=== PATIENT | female | born 1990 | race Caucasian/White ===

== ENCOUNTER 2020-03-21 16:08 | Emergency (ER) | payer MEDICAID, OTHER ==
[2020-03-21] MEDS ORDERED: NA CHLORIDE 0.9% 1,000 ML ONE (16:50)
[2020-03-21] MEDS ORDERED: ONDANSETRON 4 MG/2 ML VIAL ONE (16:50)
[2020-03-21] MEDS ORDERED: DICYCLOMINE HCL 20 MG/2 ML AMP IM ONE (16:50)
[2020-03-21 16:53] LABS: Absolute Lymphocytes (CBC) 1.1 K/uL (0.7-4.9); Basophils % 0.1 % (0-1.3); Hematocrit 37.2 % (36.0-45.0); Lymphocytes % 6.3 % (15.3-44.8); MPV 6.1 fL (7.6-11.3); RBC Red Blood Cell Count 3.69 M/uL (3.86-4.86)
[2020-03-21] MEDS ORDERED: HALOPERIDOL LACT 5 MG/ML INJ ONE (17:04)
[2020-03-21 17:16] LABS: Albumin 4.5 g/dL (3.4-5.0); Bilirubin Direct 0.2 mg/dL (0-0.2); Bilirubin Total 0.8 mg/dL (0.2-1.0); Potassium 3.9 mmol/L (3.5-5.1); Protein, Total 8.4 g/dL (6.4-8.2)
--- NOTE | 2020-03-21 17:27 | RAD REPORT ---
EXAM DESCRIPTION: CTAbdomen Pelvis W Contrast - 03/21/2020 5:19 pm CLINICAL HISTORY: Abdominal pain. ABD PAIN COMPARISON: No comparisons TECHNIQUE: Biphasic CT imaging of the abdomen and pelvis was performed with 100 ml non-ionic IV cont rast. All CT scans are performed using dose optimization technique as appropriate and may include automated exposure control or mA/KV adjustment according to patient size. FINDINGS: The lung bases are clear. The liver, spleen, pancreas, adrenal glands and kidneys are within normal limits. No bowel obstruction, free air, intra-abdominal free fluid or abscess. Several thickened small bowel loops are seen in the abdomen. Small amount of free fluid is noted in the pelvis. The appendix is nor mal. No evidence of significant lymphadenopathy. No suspicious bony findings. IMPRESSION: Numerous mildly thickened small bowel loops in the abdomen suggests a nonspecific enteri tis. Infectious or inflammatory etiologies are possible.
--- NOTE | 2020-03-21 17:51 | EDPHYS ---
Physician Documentation [facility] Name: Ashley Alcala Age: 29 yrs Sex: Female : 1990 Arrival Date: 03/21/2020 Time: 16:10 Bed 4 Private MD: ED Physician Chandrakant Smith HPI: 03/21 17:56 This 29 yrs old Female presents to ER via Ambulatory with complaints of kb Abdominal Pain, Nausea/Vomiting. 17:56 The patient presents to the emergency department with nausea, vomiting, abdominal pain, kb described as burning, crampy. Onset: The symptoms/episode began/occurred this morning. Possible causes: unknown. The symptoms are aggravated by nothing. The symptoms are alleviated by nothing. Associated signs and symptoms: Pertinent positives: abdominal pain, nausea, vomiting. Severity of symptoms: At their worst the symptoms were severe in the emergency department the symptoms are unchanged. The patient has not experienced similar symptoms in the past. The patient has not recently seen a physician. Pt reports she has had nausea, vomiting and abd burning/cramping since she woke up this morning. States she has had this multiple times in the past and normally needs fluids, bentyl, zofran and haldol to make it better. Historical: - Allergies: 16:17 No Known Allergies; ll1 - PMHx: 16:17 Hypothyroidism; ll1 - PSHx: 16:17 Tubal ligation; ll1 - Immunization history:: Flu vaccine is not up to date. - Social history:: Smoking status: Patient reports the use of cigarette tobacco products, smokes one-half pack cigarettes per day. ROS: 17:54 Constitutional: Negative for fever, chills, and weight loss, Cardiovascular: Negative kb for chest pain, palpitations, and edema, Respiratory: Negative for shortness of breath, cough, wheezing, and pleuritic chest pain, Back: Negative for injury and pain, MS/Extremity: Negative for injury and deformity, Skin: Negative for injury, rash, and discoloration, Neuro: Negative for headache, weakness, numbness, tingling, and seizure. 17:54 Abdomen/GI: Positive for abdominal pain, nausea and vomiting. Exam: 17:55 Constitutional: This is a well developed, well nourished patient who is awake, alert, kb and in no acute distress. Head/Face: Normocephalic, atraumatic. Chest/axilla: Normal chest wall appearance and motion. Nontender with no deformity. No lesions are appreciated. Cardiovascular: Regular rate and rhythm with a normal S1 and S2. No gallops, murmurs, or rubs. Normal PMI, no JVD. No pulse deficits. Respiratory: Lungs have equal breath sounds bilaterally, clear to auscultation and percussion. No rales, rhonchi or wheezes noted. No increased work of breathing, no retractions or nasal flaring. Skin: Warm, dry with normal turgor. Normal color with no rashes, no lesions, and no evidence of cellulitis. MS/ Extremity: Pulses equal, no cyanosis. Neurovascular intact. Full, normal range of motion. Neuro: Awake and alert, GCS 15, oriented to person, place, time, and situation. Cranial nerves II-XII grossly intact. Motor strength 5/5 in all extremities. Sensory grossly intact. Cerebellar exam normal. Normal gait. 17:55 Abdomen/GI: Inspection: abdomen appears normal, Bowel sounds: normal, in all quadrants, Palpation: soft, in all quadrants, mild abdominal tenderness, in all quadrants. Vital Signs: 16:17 Pulse 67; Resp 18; Temp 98.0; Pulse Ox 99% ; Weight 54.43 kg; Height 5 ft. 2 in. ll1 (157.48 cm); Pain 10/10; 16:25 BP 122 / 71; ll1 17:42 BP 118 / 68; Pulse 64; Resp 18; Temp 97.8; Pulse Ox 100% on R/A; ph 16:17 Body Mass Index 21.95 (54.43 kg, 157.48 cm) ll1 MDM: 16:23 Patient medically screened. marilin 17:54 Data reviewed: vital signs, nurses notes. Data interpreted: Pulse oximetry: on room air kb is 100 %. Interpretation: normal. Counseling: I had a detailed discussion with the patient and/or guardian regarding: the historical points, exam findings, and any diagnostic results supporting the discharge/admit diagnosis, lab results, radiology results, the need for outpatient follow up, a family practitioner, to return to the emergency department if symptoms worsen or persist or if there are any questions or concerns that arise at home. 17:55 ED course: Symptoms resolved after treatment. marilin 03/21 16:25 Order name: Basic Metabolic Panel; Complete Time: 17:16 kb 03/21 16:25 Order name: CBC with Diff kb 03/21 16:25 Order name: Hepatic Function; Complete Time: 17:16 kb 03/21 16:25 Order name: Lipase; Complete Time: 17:16 kb 03/21 17:00 Order name: CT Abd/Pelvis - IV Contrast Only; Complete Time: 17:28 kb 03/21 16:25 Order name: IV Saline Lock; Complete Time: 16:49 kb 03/21 16:25 Order name: Labs collected and sent; Complete Time: 16:49 kb Administered Medications: 16:55 Drug: NS 0.9% 1000 ml Route: IV; Rate: 1000 ml; Site: left antecubital; ph 18:01 Follow up: Response: No adverse reaction; IV Status: Completed infusion; IV Intake: ph 1000ml 16:56 Drug: Zofran (Ondansetron) 4 mg Route: IVP; Site: left antecubital; ph 17:30 Follow up: Response: No adverse reaction ph 16:56 Drug: Bentyl 20 mg Route: IM; Site: right gluteus; ph 17:30 Follow up: Response: No adverse reaction; Marked relief of symptoms ph 16:56 Drug: HALdol 1 mg Route: IVP; Site: left antecubital; ph 17:30 Follow up: Response: No adverse reaction; Marked relief of symptoms ph Disposition: 03/22 14:38 Co-signature as Attending Physician, Chandrakant Smith MD I agree with the assessment and hugo plan of care. Disposition: 03/21/20 17:51 Discharged to Home. Impression: Nausea and vomiting, Unspecified abdominal pain. - Condition is Stable. - Discharge Instructions: Nausea and Vomiting, Adult, Nuds-ox-Qcgx, Abdominal Pain, Adult, [id number]-Kdri. - Prescriptions for Bentyl 20 mg Oral Tablet - take 1 tablet by ORAL route every 6 hours As needed; 20 tablet. Zofran 4 mg Oral Tablet - take 1 tablet by ORAL route every 6 hours As needed; 20 tablet. - Medication Reconciliation Form, Thank You Letter, Antibiotic Education, Prescription Opioid Use form. - Follow up: Emergency Department; When: As needed; Reason: Worsening of condition. Follow up: Private Physician; When: 2 - 3 days; Reason: Recheck today's complaints, Continuance of care, Re-evaluation by your physician. Signatures: Dispatcher [employer] EDNayana Santana, TRAVEL ADMINISTRATOR-C TRAVEL ADMINISTRATOR-Chandrakant Stewart MD MD cha Hall, Patricia, RN RN Keyona Zayas RN RN Viviana Morrow RN RN ll1 Corrections: (The following items were deleted from the chart) 03/21 17:56 17:51 03/21/2020 17:51 Discharged to Home. Impression: Nausea and vomiting; Unspecified hb abdominal pain. Condition is Stable. Forms are Medication Reconciliation Form, Thank You Letter, Antibiotic Education, Prescription Opioid Use. Follow up: Emergency Department; When: As needed; Reason: Worsening of condition. Follow up: Private Physician; When: 2 - 3 days; Reason: Recheck today's complaints, Continuance of care, Re-evaluation by your physician. kb
--- NOTE | 2020-03-21 17:51 | ER ---
Nurse's Notes [facility] Name: Ashley Alcala Age: 29 yrs Sex: Female : 1990 Arrival Date: 03/21/2020 Time: 16:10 Bed 4 Private MD: Diagnosis: Nausea and vomiting;Unspecified abdominal pain Presentation: 03/21 16:17 Chief complaint: Patient states: Abd pain with N/V/D for 1 day. No fever. Coronavirus ll1 screen: Client denies travel out of the [place] in the last 14 days. At this time, the client does not indicate any symptoms associated with coronavirus-19. Ebola Screen: Patient denies travel to an Ebola-affected area in the 21 days before illness onset. Initial Sepsis Screen: Does the patient meet any 2 criteria? No. Patient's initial sepsis screen is negative. Does the patient have a suspected source of infection? Yes: Acute abdominal pain. Risk Assessment: Do you want to hurt yourself or someone else? Patient reports no desire to harm self or others. Onset of symptoms was March 21, 2020. 16:17 Method Of Arrival: Ambulatory ll1 16:17 Acuity: ESTEVAN 3 ll1 Historical: - Allergies: 16:17 No Known Allergies; ll1 - PMHx: 16:17 Hypothyroidism; ll1 - PSHx: 16:17 Tubal ligation; ll1 - Immunization history:: Flu vaccine is not up to date. - Social history:: Smoking status: Patient reports the use of cigarette tobacco products, smokes one-half pack cigarettes per day. Screenin:43 Abuse screen: Denies threats or abuse. Denies injuries from another. Nutritional ph screening: No deficits noted. Tuberculosis screening: No symptoms or risk factors identified. Fall Risk None identified. Assessment: 17:00 General: Appears in no apparent distress. uncomfortable, slender, Behavior is ph cooperative, appropriate for age, anxious, Denies fever. Pain: Complains of pain in abdomen. Neuro: Level of Consciousness is awake, alert, obeys commands, Oriented to person, place, time, situation. Cardiovascular: Capillary refill < 3 seconds in bilateral fingers Patient's skin is warm and dry. Respiratory: Airway is patent Respiratory effort is even, unlabored, Respiratory pattern is regular, symmetrical. GI: Abdomen is flat, Reports lower abdominal pain, upper abdominal pain, cramping, diarrhea, nausea, vomiting. Derm: Skin is intact, Skin is pink, warm \T\ dry. Musculoskeletal: Circulation, motion, and sensation intact. Range of motion: intact in all extremities. 17:39 Reassessment: Patient appears in no apparent distress at this time. Patient and/or ph family updated on plan of care and expected duration. Pain level reassessed. Patient is alert, oriented x 3, equal unlabored respirations, skin warm/dry/pink. Patient states feeling better. Patient states symptoms have improved. Vital Signs: 16:17 Pulse 67; Resp 18; Temp 98.0; Pulse Ox 99% ; Weight 54.43 kg; Height 5 ft. 2 in. ll1 (157.48 cm); Pain 10/10; 16:25 BP 122 / 71; ll1 17:42 BP 118 / 68; Pulse 64; Resp 18; Temp 97.8; Pulse Ox 100% on R/A; ph 16:17 Body Mass Index 21.95 (54.43 kg, 157.48 cm) ll1 ED Course: 16:10 Patient arrived in ED. ds1 16:11 Nayana Alves FNP-C is [facility]. kb 16:11 Chandrakant Smith MD is Attending Physician. kb 16:16 Arm band placed on. ll1 16:18 Triage completed. ll1 16:25 Jennyfer Lr, RN is Primary Nurse. ph 16:45 Initial lab(s) drawn, by ma, sent to lab. Inserted saline lock: 20 gauge in left dh3 antecubital area, using aseptic technique. Blood collected. 17:19 CT Abd/Pelvis - IV Contrast Only In Process Unspecified. EDMS 17:43 Patient has correct armband on for positive identification. Bed in low position. Call ph light in reach. Side rails up X 1. Pulse ox on. NIBP on. Door closed. Noise minimized. 17:43 No provider procedures requiring assistance completed. ph 17:56 IV discontinued, intact, bleeding controlled, No redness/swelling at site. hb Administered Medications: 16:55 Drug: NS 0.9% 1000 ml Route: IV; Rate: 1000 ml; Site: left antecubital; ph 18:01 Follow up: Response: No adverse reaction; IV Status: Completed infusion; IV Intake: ph 1000ml 16:56 Drug: Zofran (Ondansetron) 4 mg Route: IVP; Site: left antecubital; ph 17:30 Follow up: Response: No adverse reaction ph 16:56 Drug: Bentyl 20 mg Route: IM; Site: right gluteus; ph 17:30 Follow up: Response: No adverse reaction; Marked relief of symptoms ph 16:56 Drug: HALdol 1 mg Route: IVP; Site: left antecubital; ph 17:30 Follow up: Response: No adverse reaction; Marked relief of symptoms ph Intake: 18:01 IV: 1000ml; Total: 1000ml. ph Outcome: 17:51 Discharge ordered by . kb 17:55 Discharged to home ambulatory. hb 17:55 Condition: stable 17:55 Discharge instructions given to patient, Instructed on discharge instructions, follow up and referral plans. medication usage, Demonstrated understanding of instructions, follow-up care, medications, Prescriptions given X 2. 17:56 Patient left the ED. Signatures: Dispatcher [employer] EDNayana Santana, KELVIN-Montse WORTHINGTONP-Linnette Odom ds1 Jennyfer Lr, LEN RN Keyona Hodges, LEN RN Polina Madden 3 Viviana Kahn, RN RN ll1
[2020-03-21 18:20] VITALS: BP 118/68; TEMP 97.8; O2SAT 100
[2020-03-21 19:15] LABS: Platelet Estimate INCR; White Blood Cell Scan OK (OK)
[2020-03-21 19:16] LABS: Blood Morphology Comment NOT SEEN (NOT SEEN)
== END 2020-03-21 17:56 | disposition home or self-care (01) ==
LOC: ER 16:08
DX: R11.2 Nausea with vomiting, unspecified (principal); F17.210 Nicotine dependence, cigarettes, uncomplicated
CPT/HCPCS: 96361; 85025; 80048; 36415; 80076; 83690; 74177; 96375; 96372; 96374; 99284; Q9967; J1630; J0500; J7030; J2405

== ENCOUNTER 2020-10-31 07:08 | Emergency (ER) | payer OTHER ==
[2020-10-31 07:31] LABS: Urine Blood 1+ (Negative); Urine Glucose Negative (Negative); Urine Protein Negative (Negative); Urine Specific Gravity >=1.030 (1.005-1.030)
[2020-10-31] MEDS ORDERED: HYDROCODONE/APAP 5/325 MG TAB ONE (07:49)
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
--- NOTE | 2020-10-31 09:55 | RAD REPORT ---
EXAM DESCRIPTION: RAD - Shoulder Right 2 View - 10/31/2020 7:36 am CLINICAL HISTORY: PAIN COMPARISON: No comparisons FINDINGS: No acute fracture or dislocation seen.
[2020-10-31] MEDS ORDERED: TETANUS & DIPHTHERIA TOX,ADULT 0.5 ML VIAL ONE (10:05)
[2020-10-31 10:16] VITALS: O2SAT 100
[2020-10-31 10:17] VITALS: BP 116/83
== END 2020-10-31 10:07 | disposition home or self-care (01) ==
LOC: ER 07:08
DX: S43.401A Unspecified sprain of right shoulder joint, initial encounter (principal); V87.8XXA Person injured in other specified noncollision transport accidents involving motor vehicle (traffic), initial encounter; Y93.89 Activity, other specified; Y92.410 Unspecified street and highway as the place of occurrence of the external cause
CPT/HCPCS: 70450; 71260; 72125; 74177; 81003; 81025; 90471; 90714; 99284; G0390

== ENCOUNTER 2022-04-09 15:33 | Emergency (ER) | payer OTHER ==
--- OUTSIDE RECORDS SUMMARY | 2022-04-09 15:37 | XMS REPORT | Continuity of Care Document ---
:1990 Author Organization [facility] t Address [address] [facility] [address] [facility] [address] [place] [address] Care Team Providers Name Role Phone Mehran Kuhn Primary Care Physician Doctor Unassigned, [place] Attending Clinician Unavailable SRAVAN MISHRA Attending Clinician Unavailable Estrada Sotelo MD Attending Clinician rSavan Mishra MD Attending Clinician MAGEN ROUSE Attending Clinician Unavailable Magen Rouse MD Attending Clinician SHIRLEY LOVE Attending Clinician Unavailable Shirley Hart Attending Clinician Angi Sanford MD Attending Clinician JAVI ZULETA Attending Clinician Unavailable AIDEE PINEDA Attending Clinician Unavailable JOSSY KWAN Attending Clinician Unavailable Eber_Ivette Attending Clinician Unavailable ESTRADA SOTELO Admitting Clinician Unavailable Estrada Sotelo MD Admitting Clinician MAGEN ROUSE Admitting Clinician Unavailable JOSSY KWAN Admitting Clinician Unavailable David Admitting Clinician Unavailable Payers Payer Name Policy Type Policy Number Effective Date Expiration Date [facility] [id number] 2019 CHOICE MEDICAID 00:00:[address] [facility] [id number] 2019 00:00:00 Problems Condition Condition Condition Status Onset Resolution Last Treating Co mments Source Name Details Category Date Date Treatment Clinician Date Disease Active U nivers care and care and 1-08 ity of examin[place] of 00 Medical lactating lactating Bran ch mother mother , , Disease Active 2016-02 Univers delivered delivered 2-17 ity of 00:00: [address] Anemia, Anemia, Disease Active 2016-02 Univers 2-17 it y of 00:00: [address] - - Disease Active 2016-02 U nivers induced induced 2-17 it[place] of hypertensi hypertens[place] Medical third third Branch trimester trimester Tubal Tubal Disease Active 2016-02 Univers ligation ligation 2-17 ity of status status 00:00: [address] Full-term Full-term Disease Active 2016-02 Uni vers jovita ROM, jovita ROM, 2-16 ity of unsp [place]w 00 Medical rupture rupture Branch and onset and onset labor labor 38 weeks 38 weeks Disease Active 2016-02 Unive rs gestation gestation 2-16 ity of of of 00:00: [place] 00 [facility] Research Research Disease Active 2016-02 Overview: Un [place] study study 2-16 Formattin ity of patient patient 00:00: g of this [place] HCTZ HCTZ 00 note is Medical different Branch from the original. Patient is in the HCTZ study IRB # [id number] y questions please contact:Corina Guadalupe MD [phone] Arnold MD [phone] Owen MD [phone] facts Patient randomize d after delivery if they met inclusion criteria a nd accepted Medicati on comes from [facility] not pharmacy, [facility]S Phone Number Ext. [phone] or cell Patient can start meds as soon as they tolerate PO One tab per day of either placebo or HCTZ Medicati on stays with patient Medicati on will appear on MAR, Nurses need to rene as given (No barcode) Medicati on needs to counted prior to discharge by research rehabilitation team lead All follow ups need to be on POD or PP day # 14 or more Patient needs to be reminded to bring their left over medicatio n and bottle back to their visit [facility]S needs to be notified at time of discharge Please contact Dr. Guadalupe with any Questions Previous Previous Disease Active 2016-02 Unive rs 2-06 ity of delivery delivery 00:00: [place] desires desires 00 Medical TOLAC TOLAC Branch Supervisio Supervisio Disease Active 2016-02 U nivers n of n of 2-06 ity of high-risk high-risk 00:[place] ascencion with with Branch insufficie insufficie nt nt care care Allergies, Adverse Reactions, Alerts Allergy Allergy Status Severity Reaction(s) Onset Inactive Treating Comm ents Source Name Type Date Date Clinician NO KNOWN Drug Active Univers ALLERGIE Class ity of S [facility] Social History Social Habit Start Date Stop Date Quantity Comments Source History of tobacco Cigarette Smoker University of use [facility] Exposure to 2021-11-09 2021-11-19 Not sure [facility] SARS-CoV-2 (event) 00:00:00 11:34:00 [facility] Alcohol intake 2020-09-29 2020-09-29 0 /d University of 00:00:00 00:00:00 [facility] Cigarettes smoked 2016-06-07 2016-06-07 Univers ity of current (pack per 00:00:00 00:00:00 ) - Reported Branch Cigarette 2016-06-07 2016-06-07 University of pack-years 00:00:00 00:00:00 [facility] Tobacco use and 2016-06-07 2016-06-07 Smokeless Universit y of exposure 00:00:00 00:00:00 tobacco non-user [facility] Sex Assigned At [birth year] Universit y of 00:00:00 00:00:00 [facility] Smoking Status Start Date Stop Date Source Smokes tobacco daily 2016-06-07 00:00:00 Univers ity of [facility] Medications Ordered Filled Start Stop Current Ordering Indication Dosage Frequency Signature Comments Components Source Medication Medication Date Date Medication? Clinician (SIG) Name Name HYDROcodone 2021-02 Yes 1{tbl} 1 tablet, Univers -acetaminop 0-14 Oral, ity of hen (NORCO 18:36: Q6HPRN[place] 5) 5-325 mg 44 Starting Medi ascencion tablet 1 on Fri Branch tablet 11/19/21 at 1336, Until Discontinu ed, Routine, Pain (scale 4-6) acetaminoph 2021-02 Yes 650mg 650 mg, [place] en 0-14 Oral, ity of (TYLENOL) 18:36: Q6HPRN, [place] tablet 650 26 Starting Medic al mg on Fri Branch 11/19/21 at 1336, Until Discontinu ed, Routine, Pain (scale 1-3) ondansetron 2021-02- No 4mg 4 mg, Univ ers (ZOFRAN-ODT 0-14 10-14 Oral, ity of ) 13:45: 12:59 ONCE, 1 [place] disintegrat 00 :00 dose, On Medi ascencion ing tablet Mon Branch 4 mg 11/19/21 at 0845, Routine HYDROcodone 2021-02- No 1{tbl} 1 tablet, Univers -acetaminop 0-14 10-14 Oral, ity of hen (NORCO 13:00: 12:59 ONCE, 1 [place] 5) 5-325 mg 00 :00 dose, On [facility] ascencion tablet 1 [facility] tablet 11/19/21 at 0800, ANA M cyclobenzap 2021-02 Yes [id number] 5mg Take 1 Univers rine 5 mg 0-14 tablet by ity o f tablet 00:00: mouth in [place] 00 the Medical morning Branch and 1 tablet at noon and 1 tablet in the evening. cyclobenzap 2021-02 Yes [id number] 5mg Take 1 Univers rine 5 mg 0-14 tablet by ity o f tablet 00:00: mouth in [place] 00 the Medical morning Branch and 1 tablet at noon and 1 tablet in the evening. predniSONE 2021-02 Yes [id number] 40mg Take 2 Univers 20 mg 0-05 [id number] tablets by ity of tablet 00:00: mouth in [place] 00 the Medical morning. Branch predniSONE 2021-02 Yes [id number] 40mg Take 2 Univers 20 mg 0-05 [id number] tablets by ity of tablet 00:00: mouth in [place] 00 the Medical morning. Branch predniSONE 2021-02 Yes [id number] 40mg Take 2 Univers 20 mg 0-05 [id number] tablets by ity of tablet 00:00: mouth in [place] 00 the Medical morning. Branch predniSONE 2021-02 Yes [id number] 40mg Take 2 Univers 20 mg 0-05 [id number] tablets by ity of tablet 00:00: mouth in [place] 00 the Medical morning. Branch HYDROcodone 2021-02- No [id number] 1{tbl} Take 1 U nivers -acetaminop 0-05 10-13 tablet by it y of hen (NORCO) 00:00: 04:59 [place] 7.5-325 mg 00 :00 every 8 Medica l per tablet (eight) [place] hours as needed for Pain for up to 7 days. Indication s: acute pain budesonide- Yes [id number] 2{puff} Inhale 2 Univers formoteroL 8-24 Puffs 2 ity of 80-4.5 00:00: (two) [place] mcg/actuati 00 times Medical on inhaler daily. Branch bromphenira Yes [id number] 5mL Take 5 mL Univers mine-pseudo 8-24 by mouth 4 it y of ephedrine-D 00:00: (four) [place] M (BROMFED 00 times Medical DM) 2-30-10 daily as Bran ch mg/5 mL needed for syrup Congestion /Allergies or Cough. budesonide- Yes [id number] 2{puff} Inhale 2 Univers formoteroL 8-24 Puffs 2 ity of 80-4.5 00:00: (two) [place] mcg/actuati 00 times Medical on inhaler daily. Branch bromphenira Yes [id number] 5mL Take 5 mL Univers mine-pseudo 8-24 by mouth 4 it y of ephedrine-D 00:00: (four) [place] M (BROMFED 00 times Medical DM) 2-30-10 daily as Bran ch mg/5 mL needed for syrup Congestion /Allergies or Cough. budesonide- Yes [id number] 2{puff} Inhale 2 Univers formoteroL 8-24 Puffs 2 ity of 80-4.5 00:00: (two) [place] mcg/actuati 00 times Medical on inhaler daily. Branch bromphenira Yes [id number] 5mL Take 5 mL Univers mine-pseudo 8-24 by mouth 4 it y of ephedrine-D 00:00: (four) [place] M (BROMFED 00 times Medical DM) 2-30-10 daily as Bran ch mg/5 mL needed for syrup Congestion /Allergies or Cough. budesonide- Yes [id number] 2{puff} Inhale 2 Univers formoteroL 8-24 Puffs 2 ity of 80-4.5 00:00: (two) [place] mcg/actuati 00 times Medical on inhaler daily. Branch bromphenira Yes [id number] 5mL Take 5 mL Univers mine-pseudo 8-24 by mouth 4 it y of ephedrine-D 00:00: (four) [place] M (BROMFED 00 times Medical DM) 2-30-10 daily as Bran ch mg/5 mL needed for syrup Congestion /Allergies or Cough. budesonide- Yes [id number] 2{puff} Inhale 2 Univers formoteroL 8-24 Puffs 2 ity of 80-4.5 00:00: (two) [place] mcg/actuati 00 times Medical on inhaler daily. Branch bromphenira Yes [id number] 5mL Take 5 mL Univers mine-pseudo 8-24 by mouth 4 it y of ephedrine-D 00:00: (four) [place] M (BROMFED 00 times Medical DM) 2-30-10 daily as Bran ch mg/5 mL needed for syrup Congestion /Allergies or Cough. budesonide- Yes [id number] 2{puff} Inhale 2 Univers formoteroL 8-24 Puffs 2 ity of 80-4.5 00:00: (two) [place] mcg/actuati 00 times Medical on inhaler daily. Branch bromphenira Yes [id number] 5mL Take 5 mL Univers mine-pseudo 8-24 by mouth 4 it y of ephedrine-D 00:00: (four) [place] M (BROMFED 00 times Medical DM) 2-30-10 daily as Bran ch mg/5 mL needed for syrup Congestion /Allergies or Cough. budesonide- 0 Yes [id number] 2{puff} Inhale 2 Univers formoteroL 8-24 Puffs 2 ity of 80-4.5 00:00: (two) [place] mcg/actuati 00 times Medical on inhaler daily. Branch bromphenira Yes [id number] 5mL Take 5 mL Univers mine-pseudo 8-24 by mouth 4 it y of ephedrine-D 00:00: (four) [place] M (BROMFED 00 times Medical DM) 2-30-10 daily as Bran ch mg/5 mL needed for syrup Congestion /Allergies or Cough. budesonide- Yes [id number] 2{puff} Inhale 2 Univers formoteroL 8-24 Puffs 2 ity of 80-4.5 00:00: (two) [place] mcg/actuati 00 times Medical on inhaler daily. Branch bromphenira Yes [id number] 5mL Take 5 mL Univers mine-pseudo 8-24 by mouth 4 it y of ephedrine-D 00:00: (four) [place] M (BROMFED 00 times Medical DM) 2-30-10 daily as Bran ch mg/5 mL needed for syrup Congestion /Allergies or Cough. LIALDA 1.2 Yes Univers gram EC 7-28 ity of tablet 00:00: Medical Branch LIALDA 1.2 2020-0 Yes Univers gram EC 7-28 ity of tablet 00:00: Medical Branch LIALDA 1.2 2020-0 Yes Univers gram EC 7-28 ity of tablet 00:00: Medical Branch LIALDA 1.2 2020-0 Yes Univers gram EC 7-28 ity of tablet 00:00: Medical Branch LIALDA 1.2 2020-0 Yes Univers gram EC 7-28 ity of tablet 00:00: Medical Branch LIALDA 1.2 2020-0 Yes Univers gram EC 7-28 ity of tablet 00:00: Medical Branch LIALDA 1.2 2020-0 Yes Univers gram EC 7-28 ity of tablet 00:00: Medical Branch LIALDA 1.2 2020-0 Yes Univers gram EC 7-28 ity of tablet 00:00: [facility] Branch Hyoscyamine 0 Yes TAKE 1-2 [place] Sulfate 7-26 TABLETS BY ity of 0.125 mg 00:00: MOUTH [place] TbDL 00 EVERY 4 TO Medical 6 HOURS Branch NEEDED sucralfate 2021-0 Yes Univers 1 gram 7-26 ity of tablet 00:00: [place] 00 Medical Branch Hyoscyamine 2020-0 Yes TAKE 1-2 [place] Sulfate 7-26 TABLETS BY ity of 0.125 mg 00:00: MOUTH [place] TbDL 00 EVERY 4 TO Medical 6 HOURS Branch NEEDED sucralfate 2021-0 Yes Univers 1 gram 7-26 ity of tablet 00:00: [place] 00 Medical Branch Hyoscyamine 2020-0 Yes TAKE 1-2 [place] Sulfate 7-26 TABLETS BY ity of 0.125 mg 00:00: MOUTH [place] TbDL 00 EVERY 4 TO Medical 6 HOURS Branch NEEDED sucralfate 202-0 Yes Univers 1 gram 7-26 ity of tablet 00:00: [place] 00 Medical Branch Hyoscyamine 2020-0 Yes TAKE 1-2 [place] Sulfate 7-26 TABLETS BY ity of 0.125 mg 00:00: MOUTH [place] TbDL 00 EVERY 4 TO Medical 6 HOURS Branch NEEDED sucralfate 2020-0 Yes Univers 1 gram 7-26 ity of tablet 00:00: [place] 00 Medical Branch Hyoscyamine 2020-0 Yes TAKE 1-2 [place] Sulfate 7-26 TABLETS BY ity of 0.125 mg 00:00: MOUTH [place] TbDL 00 EVERY 4 TO Medical 6 HOURS Branch NEEDED sucralfate 2021-0 Yes Univers 1 gram 7-26 ity of tablet 00:00: [place] 00 Medical Branch Hyoscyamine 2020-0 Yes TAKE 1-2 [place] Sulfate 7-26 TABLETS BY ity of 0.125 mg 00:00: MOUTH [place] TbDL 00 EVERY 4 TO Medical 6 HOURS Branch NEEDED sucralfate 2021-0 Yes Univers 1 gram 7-26 ity of tablet 00:00: [place] 00 Medical Branch Hyoscyamine 2020-0 Yes TAKE 1-2 [place] Sulfate 7-26 TABLETS BY ity of 0.125 mg 00:00: MOUTH [place] TbDL 00 EVERY 4 TO Medical 6 HOURS Branch NEEDED sucralfate 2021-0 Yes Univers 1 gram 7-26 ity of tablet 00:00: [place] 00 Medical Branch Hyoscyamine 2020-0 Yes TAKE 1-2 [place] Sulfate 7-26 TABLETS BY ity of 0.125 mg 00:00: MOUTH [place] TbDL 00 EVERY 4 TO Medical 6 HOURS Branch NEEDED sucralfate 2020-0 Yes Univers 1 gram 7-26 ity of tablet 00:00: [place] Medical Branch atomoxetine 2020-0 Yes 40mg Take 40 mg Univers 40 mg 6-10 by mouth ity of capsule 00:00: daily. Medical Branch SERTraline 2020-0 Yes 100mg Take 100 [place] 100 mg 6-10 mg by ity of tablet 00:00: mouth [place] [id number] every Medical morning. Branch traZODone 2020-0 Yes TAKE 1 Univer s 50 mg 6-10 TABLET BY ity of tablet 00:00: MOUTH [place] NIGHTLY Medical Branch atomoxetine 2020-0 Yes 40mg Take 40 mg Univers 40 mg 6-10 by mouth ity of capsule 00:00: daily. Medical Branch SERTraline 2020-0 Yes 100mg Take 100 [place] 100 mg 6-10 mg by ity of tablet 00:00: [place] [address] every Medical morning. Branch traZODone 2020-0 Yes TAKE 1 Univer s 50 mg 6-10 TABLET BY ity of tablet 00:00: [facility] NIGHTLY Medical Branch atomoxetine 2020-0 Yes 40mg Take 40 mg Univers 40 mg 6-10 by mouth ity of capsule 00:00: daily. Medical Branch SERTraline 2020-0 Yes 100mg Take 100 [place] 100 mg 6-10 mg by ity of tablet 00:00: [facility] every Medical morning. Branch traZODone 2020-0 Yes TAKE 1 Univer s 50 mg 6-10 TABLET BY ity of tablet 00:00: MOUTH [place] NIGHTLY Medical Branch atomoxetine 2020-0 Yes 40mg Take 40 mg Univers 40 mg 6-10 by mouth ity of capsule 00:00: daily. Medical Branch SERTraline 2020-0 Yes 100mg Take 100 [place] 100 mg 6-10 mg by ity of tablet 00:00: [place] [address] every Medical morning. Branch traZODone 2020-0 Yes TAKE 1 Univer s 50 mg 6-10 TABLET BY ity of tablet 00:00: MOUTH [place] NIGHTLY Medical Branch atomoxetine 2020-0 Yes 40mg Take 40 mg Univers 40 mg 6-10 by mouth ity of capsule 00:00: daily. Medical Branch SERTraline 2020-0 Yes 100mg Take 100 [place] 100 mg 6-10 mg by ity of tablet 00:00: [facility] every Medical morning. Branch traZODone 2020-0 Yes TAKE 1 Univer s 50 mg 6-10 TABLET BY ity of tablet 00:00: MOUTH [place] NIGHTLY Medical Branch atomoxetine 2020-0 Yes 40mg Take 40 mg Univers 40 mg 6-10 by mouth ity of capsule 00:00: daily. [place] Medical Branch SERTraline 2020-0 Yes 100mg Take 100 Un [place] 100 mg 6-10 mg by ity of tablet 00:00: [facility] every Medical morning. Branch traZODone 2020-0 Yes TAKE 1 Univer s 50 mg 6-10 TABLET BY ity of tablet 00:00: [facility] NIGHTLY Medical Branch atomoxetine 2020-0 Yes 40mg Take 40 mg Univers 40 mg 6-10 by mouth ity of capsule 00:00: daily. [place] Medical Branch SERTraline 2020-0 Yes 100mg Take 100 [place] 100 mg 6-10 mg by ity of tablet 00:00: [facility] every Medical morning. Branch traZODone 2020-0 Yes TAKE 1 Univer s 50 mg 6-10 TABLET BY ity of tablet 00:00: [facility] NIGHTLY Medical Branch atomoxetine 2020-0 Yes 40mg Take 40 mg Univers 40 mg 6-10 by mouth ity of capsule 00:00: daily. [place] Medical Branch SERTraline 2020-0 Yes 100mg Take 100 [place] 100 mg 6-10 mg by ity of tablet 00:00: [place] [address] every Medical morning. Branch traZODone 2020-0 Yes TAKE 1 Univer s 50 mg 6-10 TABLET BY ity of tablet 00:00: [facility] NIGHTLY Medical Branch acetaminoph 2020-0 Yes [id number] 1{tbl} Take 1 [facility] [place] en-codeine 2-16 tablet by ity of (TYLENOL-CO 00:00: mouth [place] DEINE #3) 00 every 4 Medical 300-30 mg (four) Branch tablet hours as needed for Pain (scale 7-10). Indication s: acute pain metoclopram 2021-0 Yes [id number] 10mg Take 1 Univers rena HCl 10 2-16 tablet by ity of mg tablet 00:00: mouth [place] 00 every 6 Medical (six) Branch hours as needed for Nausea and Vomiting (N/V). metoclopram 2021-0 Yes [id number] 10mg Take 1 Univers rena HCl 10 2-16 tablet by ity of mg tablet 00:00: mouth [place] 00 every 6 Medical (six) Branch hours. acetaminoph 2021-0 Yes [id number] 1{tbl} Take 1 [place] en-codeine 2-16 tablet by ity of (TYLENOL-CO 00:00: mouth [place] DEINE #3) 00 every 4 Medical 300-30 mg (four) Branch tablet hours as needed for Pain (scale 7-10). Indication s: acute pain metoclopram 2021-0 Yes [id number] 10mg Take 1 Univers rena HCl 10 2-16 tablet by ity of mg tablet 00:00: mouth [place] 00 every 6 Medical (six) Branch hours as needed for Nausea and Vomiting (N/V). metoclopram 2021-0 Yes [id number] 10mg Take 1 Univers rena HCl 10 2-16 tablet by ity of mg tablet 00:00: mouth [place] 00 every 6 Medical (six) Branch hours. acetaminoph 1-0 Yes [id number] 1{tbl} Take 1 [place] en-codeine 2-16 tablet by ity of (TYLENOL-CO 00:00: mouth [place] DEINE #3) 00 every 4 Medical 300-30 mg (four) Branch tablet hours as needed for Pain (scale 7-10). Indication s: acute pain metoclopram 2021-0 Yes [id number] 10mg Take 1 Univers rena HCl 10 2-16 tablet by ity of mg tablet 00:00: mouth [place] 00 every 6 Medical (six) Branch hours as needed for Nausea and Vomiting (N/V). metoclopram 2021-0 Yes [id number] 10mg Take 1 Univers rena HCl 10 2-16 tablet by ity of mg tablet 00:00: mouth [place] 00 every 6 Medical (six) Branch hours. acetaminoph 2021-0 Yes [id number] 1{tbl} Take 1 [place] en-codeine 2-16 tablet by ity of (TYLENOL-CO 00:00: mouth [place] DEINE #3) 00 every 4 Medical 300-30 mg (four) Branch tablet hours as needed for Pain (scale 7-10). Indication s: acute pain metoclopram 2021-0 Yes [id number] 10mg Take 1 Univers rena HCl 10 2-16 tablet by ity of mg tablet 00:00: mouth [place] 00 every 6 Medical (six) Branch hours as needed for Nausea and Vomiting (N/V). metoclopram 2021-0 Yes [id number] 10mg Take 1 Univers rena HCl 10 2-16 tablet by ity of mg tablet 00:00: mouth [place] 00 every 6 Medical (six) Branch hours. acetaminoph 2021-0 Yes [id number] 1{tbl} Take 1 [place] en-codeine 2-16 tablet by ity of (TYLENOL-CO 00:00: mouth [place] DEINE #3) 00 every 4 Medical 300-30 mg (four) Branch tablet hours as needed for Pain (scale 7-10). Indication s: acute pain metoclopram 2021-0 Yes [id number] 10mg Take 1 Univers rena HCl 10 2-16 tablet by ity of mg tablet 00:00: mouth [place] 00 every 6 Medical (six) Branch hours as needed for Nausea and Vomiting (N/V). metoclopram 2021-0 Yes [id number] 10mg Take 1 Univers rena HCl 10 2-16 tablet by ity of mg tablet 00:00: mouth [place] 00 every 6 Medical (six) Branch hours. acetaminoph 2021-0 Yes [id number] 1{tbl} Take 1 [place] en-codeine 2-16 tablet by ity of (TYLENOL-CO 00:00: mouth [place] DEINE #3) 00 every 4 Medical 300-30 mg (four) Branch tablet hours as needed for Pain (scale 7-10). Indication s: acute pain metoclopram 2021-0 Yes [id number] 10mg Take 1 Univers rena HCl 10 2-16 tablet by ity of mg tablet 00:00: mouth [place] 00 every 6 Medical (six) Branch hours as needed for Nausea and Vomiting (N/V). metoclopram 2021-0 Yes [id number] 10mg Take 1 Univers rena HCl 10 2-16 tablet by ity of mg tablet 00:00: mouth [place] 00 every 6 Medical (six) Branch hours. acetaminoph 2021-0 Yes [id number] 1{tbl} Take 1 [place] en-codeine 2-16 tablet by ity of (TYLENOL-CO 00:00: mouth [place] DEINE #3) 00 every 4 Medical 300-30 mg (four) Branch tablet hours as needed for Pain (scale 7-10). Indication s: acute pain metoclopram 2021-0 Yes [id number] 10mg Take 1 Univers rena HCl 10 2-16 tablet by ity of mg tablet 00:00: mouth [place] 00 every 6 Medical (six) Branch hours as needed for Nausea and Vomiting (N/V). metoclopram 1-0 Yes [id number] 10mg Take 1 Univers rena HCl 10 2-16 tablet by ity of mg tablet 00:00: mouth [place] 00 every 6 Medical (six) Branch hours. acetaminoph 2020-0 Yes [id number] 1{tbl} Take 1 [place] en-codeine 2-16 tablet by ity of (TYLENOL-CO 00:00: mouth [place] DEINE #3) 00 every 4 Medical 300-30 mg (four) Branch tablet hours as needed for Pain (scale 7-10). Indication s: acute pain metoclopram 1-0 Yes [id number] 10mg Take 1 Univers rena HCl 10 2-16 tablet by ity of mg tablet 00:00: mouth [place] 00 every 6 Medical (six) Branch hours as needed for Nausea and Vomiting (N/V). metoclopram 1-0 Yes [id number] 10mg Take 1 Univers rena HCl 10 2-16 tablet by ity of mg tablet 00:00: mouth [place] 00 every 6 Medical (six) Branch hours. acetaminoph 2021-0 Yes [id number] 1{tbl} Take 1 [place] en-codeine 2-16 tablet by ity of (TYLENOL-CO 00:00: mouth [place] DEINE #3) 00 every 4 Medical 300-30 mg (four) Branch tablet hours as needed for Pain (scale 7-10). Indication s: acute pain metoclopram 2021-0 Yes [id number] 10mg Take 1 Univers rena HCl 10 2-16 tablet by ity of mg tablet 00:00: mouth [place] 00 every 6 Medical (six) Branch hours as needed for Nausea and Vomiting (N/V). metoclopram 2020-0 Yes [id number] 10mg Take 1 Univers rena HCl 10 2-16 tablet by ity of mg tablet 00:00: mouth [place] 00 every 6 Medical (six) Branch hours. dicyclomine 2020-0 Yes [id number] 20mg Take 1 Univers 20 mg 1-30 tablet by ity of tablet 00:00: mouth 4 [place] 00 (four) Medical times Branch daily. ondansetron 2020-0 Yes [id number] 4mg Take 1 Univers (ZOFRAN 1-30 tablet by ity of ODT) 4 mg 00:00: mouth [place] disintegrat 00 every 8 Medic al ing tablet (eight) Branch hours as needed for Nausea and Vomiting (N/V). dicyclomine 2020-0 Yes [id number] 20mg Take 1 Univers 20 mg 1-30 tablet by ity of tablet 00:00: mouth 4 [place] 00 (four) Medical times Branch daily. ondansetron 2020-0 Yes [id number] 4mg Take 1 Univers (ZOFRAN 1-30 tablet by ity of ODT) 4 mg 00:00: mouth [place] disintegrat 00 every 8 Medic al ing tablet (eight) Branch hours as needed for Nausea and Vomiting (N/V). dicyclomine 2020-0 Yes [id number] 20mg Take 1 Univers 20 mg 1-30 tablet by ity of tablet 00:00: mouth 4 [place] 00 (four) Medical times Branch daily. ondansetron 2020-0 Yes [id number] 4mg Take 1 Univers (ZOFRAN 1-30 tablet by ity of ODT) 4 mg 00:00: mouth [place] disintegrat 00 every 8 Medic al ing tablet (eight) Branch hours as needed for Nausea and Vomiting (N/V). dicyclomine 2020-0 Yes [id number] 20mg Take 1 Univers 20 mg 1-30 tablet by ity of tablet 00:00: mouth 4 [place] 00 (four) Medical times Branch daily. ondansetron 202-0 Yes [id number] 4mg Take 1 Univers (ZOFRAN 1-30 tablet by ity of ODT) 4 mg 00:00: mouth [place] disintegrat 00 every 8 Medic al ing tablet (eight) Branch hours as needed for Nausea and Vomiting (N/V). dicyclomine 2021-0 Yes [id number] 20mg Take 1 Univers 20 mg 1-30 tablet by ity of tablet 00:00: mouth 4 [place] 00 (four) Medical times Branch daily. ondansetron 1-0 Yes [id number] 4mg Take 1 Univers (ZOFRAN 1-30 tablet by ity of ODT) 4 mg 00:00: mouth [place] disintegrat 00 every 8 Medic al ing tablet (eight) Branch hours as needed for Nausea and Vomiting (N/V). dicyclomine 1-0 Yes [id number] 20mg Take 1 Univers 20 mg 1-30 tablet by ity of tablet 00:00: mouth 4 [place] 00 (four) Medical times Branch daily. ondansetron 2020-0 Yes [id number] 4mg Take 1 Univers (ZOFRAN 1-30 tablet by ity of ODT) 4 mg 00:00: mouth [place] disintegrat 00 every 8 Medic al ing tablet (eight) Branch hours as needed for Nausea and Vomiting (N/V). dicyclomine 2020-0 Yes [id number] 20mg Take 1 Univers 20 mg 1-30 tablet by ity of tablet 00:00: mouth 4 [place] 00 (four) Medical times Branch daily. ondansetron 2020-0 Yes [id number] 4mg Take 1 Univers (ZOFRAN 1-30 tablet by ity of ODT) 4 mg 00:00: mouth [place] disintegrat 00 every 8 Medic al ing tablet (eight) Branch hours as needed for Nausea and Vomiting (N/V). dicyclomine 1-0 Yes [id number] 20mg Take 1 Univers 20 mg 1-30 tablet by ity of tablet 00:00: mouth 4 [place] 00 (four) Medical times Branch daily. ondansetron 1-0 Yes [id number] 4mg Take 1 Univers (ZOFRAN 1-30 tablet by ity of ODT) 4 mg 00:00: mouth [place] disintegrat 00 every 8 Medic al ing tablet (eight) Branch hours as needed for Nausea and Vomiting (N/V). dicyclomine 1-0 Yes [id number] 20mg Take 1 Univers 20 mg 1-30 tablet by ity of tablet 00:00: mouth 4 [place] 00 (four) Medical times Branch daily. ondansetron 1-0 Yes [id number] 4mg Take 1 Univers (ZOFRAN 1-30 tablet by ity of ODT) 4 mg 00:00: mouth [place] disintegrat 00 every 8 Medic al ing tablet (eight) Branch hours as needed for Nausea and Vomiting (N/V). Immunizations Ordered Filled Immunization Date Status Comments [facility] e Immunization Name Name Td 2021-11-19 Completed University of 00:00:00 [facility] Td 2021-11-19 Completed University of 00:00:00 [facility] Td 2021-11-19 Completed University of 00:00: [facility] TDAP 2016-11-15 Completed University of 00:00:00 [facility] Influenza Virus 2016-11-15 Completed Universit y [facility] 00:[facility]:00 [facility] Influenza Virus 2016-11-15 Completed Universit y of Vaccine Quad IM 3+ 00:00:00 [facility] TDAP 2016-11-15 Completed University of 00:00:00 [facility] Influenza Virus 2016-11-15 Completed Universit y of Vaccine Quad IM 3+ 00:00:00 [facility] TDAP 2016-11-15 Completed University of 00:00:00 [facility] Influenza Virus 2016-11-15 Completed Universit y of Vaccine Quad IM 3+ 00:00:00 [facility] TDAP 2016-11-15 Completed University of 00:00:00 [facility] Influenza Virus 2016-11-15 Completed Universit y of Vaccine Quad IM 3+ 00:00:00 [facility] TDAP 2016-11-15 Completed University of 00:00:00 [facility] Influenza Virus 2016-11-15 Completed Universit y of Vaccine Quad IM 3+ 00:00:00 [facility] TDAP 2016-11-15 Completed University of 00:00:00 [facility] Influenza Virus 2016-11-15 Completed Universit y of Vaccine Quad IM 3+ 00:00:00 [facility] TDAP 2016-11-15 Completed University of 00:00:00 [facility] Influenza Virus 2016-11-15 Completed Universit y of Vaccine Quad IM 3+ 00:00:00 [facility] TDAP 2016-11-15 Completed University of 00:00:00 [facility] Influenza Virus 2016-11-15 Completed Universit y of Vaccine Quad IM 3+ 00:00:00 [place] [facility] Y[facility] Vital Signs Vital Name Observation Time Observation Value Comments Source Systolic blood 2021-11-19 23:00:00 115 mm[Hg] Univer sity of pressure [place] [facility] Diastolic blood 2021-11-19 23:00:00 75 mm[Hg] Unive rsity of pressure [place] [facility] Heart rate 2021-11-19 23:00:00 56 /min Universi ty of [place] [facility] Respiratory rate 2021-11-19 23:00:00 16 /min Univ ersity of [place] [facility] Oxygen saturation in 2021-11-19 23:00:00 100 /min University of Arterial blood by [place] [facility] Pulse oximetry Branch Body temperature 2021-11-19 16:35:00 37 Kori Univ ersity of [place] [facility] Body weight 2021-11-19 16:35:00 56.7 kg Universi ty [facility] [place] [facility] BMI 2021-11-19 16:35:00 22.86 kg/m2 Universi ty [facility] [place] [facility] Systolic blood 2021-11-19 14:41:14 130 mm[Hg] Univer sity of pressure [place] [facility] Diastolic blood 2021-11-19 14:41:14 87 mm[Hg] Unive rsity of pressure [place] [facility] Heart rate 2021-11-19 14:41:14 85 /min Universi ty [facility] [place] [facility] Body temperature 2021-11-19 14:41:14 36.67 Kori Univ ersity of [place] [facility] Respiratory rate 2021-11-19 14:41:14 18 /min Univ ersity of [place] [facility] Oxygen saturation in 2021-11-19 14:41:14 99 /min University of Arterial blood by [place] [facility] Pulse oximetry Branch Body height 2021-11-19 12:31:00 157.5 cm Universi ty of [place] [facility] Body weight 2021-11-19 12:31:00 56.7 kg Universi ty of [place] [facility] BMI 2021-11-19 12:31:00 22.86 kg/m2 Universi ty [facility] [place] [facility] Systolic blood 2021-11-10 17:03:00 126 mm[Hg] Univer sity of pressure [place] [facility] Diastolic blood 2021-11-10 17:03:00 86 mm[Hg] Unive rsity of pressure [place] [facility] Heart rate 2021-11-10 17:03:00 85 /min Universi ty [facility] [place] [facility] Body temperature 2021-11-10 17:03:00 37.06 Kori [facility] ersity of [place] [facility] Respiratory rate 2021-11-10 17:03:00 20 /min Univ ersity of [place] [facility] Body height 2021-11-10 17:03:00 157.5 cm Universi ty of [place] [facility] Body weight 2021-11-10 17:03:00 55.792 kg Universi ty of [place] [facility] BMI 2021-11-10 17:03:00 22.50 kg/m2 Universi ty [facility] [place] [facility] Oxygen saturation in 2021-11-10 17:03:00 99 /min University of Arterial blood by [facility] Pulse oximetry Branch Systolic blood 2020-09-29 22:26:00 139 mm[Hg] Univer sity of pressure [place] [facility] Diastolic blood 2020-09-29 22:26:00 89 mm[Hg] Unive [facility] Medical Branch Heart rate 2020-09-29 22:26:00 76 /min Universi ty [facility] [place] [facility] Body temperature 2020-09-29 22:26:00 36.89 Kori [facility] ersity of [place] [facility] Respiratory rate 2020-09-29 22:26:00 16 /min [facility] ersity of [place] [facility] Body height 2020-09-29 22:26:00 154.9 cm Universi ty [facility] [place] [facility] Body weight 2020-09-29 22:26:00 53.025 kg Universi ty [facility] [place] [facility] BMI 2020-09-29 22:26:00 22.09 kg/m2 Universi ty [facility] [place] [facility] Oxygen saturation in 2020-09-29 22:26:00 100 /min University of Arterial blood by [facility] Pulse oximetry Branch Procedures Procedure Date / Time Performing Clinician Source Performed AUTHORIZATION FOR 2021-12-02 05:01:00 Doctor Unassigned, No [facility] Name Medical Branch MR CERVICAL SPINE WO 2021-11-19 20:56:00 Michael Stock [facility] COVID-19 (ID NOW RAPID 2021-11-19 14:10:00 Magen Rouse [facility] TESTING) Medical Branch CT CERVICAL SPINE WO 2021-11-19 12:49:50 Magen Rouse [facility] [place] ity of [place] CONTRAST [facility] CT HEAD WO CONTRAST 2021-11-19 12:49:50 Magen Rouse [facility] CONSENT/REFUSAL FOR 2021-11-19 12:35:14 Doctor Unassigned, No [facility] Name [facility] XR HAND 3+ VW LEFT 2021-11-10 17:32:17 Magen Rouseit y of [facility] XR WRIST 3+ VW LEFT 2021-11-10 17:31:56 Magen Rouse [facility] NOTICE OF PRIVACY 2021-11-10 16:59:19 Doctor Unassigned, No [facility] PRACTICES [facility] CONSENT/REFUSAL FOR 2021-11-10 16:58:04 Doctor Unassigned, [facility] ASSIGNMENT OF BENEFITS 2020-09-29 22:10:07 Doctor Unassigned, No [facility] Encounters Start End Encounter Admission Attending Care Care Encounter Source Date/Time Date/Time Type Type Clinicians Facility Department ID 2020-12-05 Emergency [facility] [id number] Univers 23:41:25 ity of [facility] 2020-12-05 Emergency [facility] [id number] Univers 20:46:01 ity of [facility] 2020-12-05 Emergency [facility] [id number] Univers 20:45:07 ity of [facility] 2020-12-03 Emergency [facility] [id number] Univers 22:03:22 ity [facility] 2021-12-02 2021-12-02 Orders Doctor FLYNN [id number] Univers 00:00:00 00:00:00 Only Unassigned, SAMMIE [id number] [place] [facility] [id number] Alex as [phone] [address] 2021-11-19 2021-11-19 Emergency X SRAVAN MISHRA [facility] ERT [id number] Univers 11:43:00 18:54:00 ity [facility] 2021-11-19 2021-11-19 Emergency Estrada Sotelo TRAUMA [id number] Univers 11:43:00 18:54:00 Sravan Mishra [id number] ity of [id number] [facility] [id number] [facility] 014 Branch 2021-11-19 2021-11-19 [facility] [id number] Univers 07:30:00 10:47:00 MAGEN ity of [facility] 2021-11-19 2021-11-19 Emergency [facility] [id number] Univers 07:30:00 10:47:00 Magen JONES [id number] i ty of [place] [id number] [facility] [id number] [place] [address] [place] 2021-11-10 2021-11-10 [facility] [id number] Univers 12:05:00 13:29:00 MAGEN ity of [facility] 2021-11-10 2021-11-10 Emergency [facility] [id number] Univers 12:05:00 13:29:00 Magen JONES [id number] i [facility] [id number] [facility] [id number] [place] [address] [place] 2021-11-10 2021-11-10 Orders Doctor FLYNN [id number] Univers 00:00:00 00:00:00 Only Unassigned, SAMMIE [id number] [place] [facility] [id number] Alex [id number] [facility] 009 Branch 2020-09-29 2020-09-29 Outpatient R KATE [facility] [id number] Univers 17:40:00 17:40:00 SHIRLEY topete o f [facility] 2020-09-29 2020-09-29 [facility] [id number] Univers 17:11:16 17:31:16 [facility] [id number] i ty of [place] [id number] Alex as Alfredo?Blea [id number] [address] Office [facility] 2020-09-29 2020-09-29 Telephone [facility] [id number] Univers 00:00:00 00:00:00 [facility] [id number] it y of [place] [id number] Alex as Alfredo?Blea [phone] [address] Medical Office [facility] 2020-09-29 2020-09-29 Orders Doctor GEE [id number] Univers 00:00:00 00:00:00 Only Unassigned, SAMMIE [id number] [place] [facility] [id number] Alex as [phone] [address] 2020-09-29 2020-09-29 Letter [facility] [id number] Univers 00:00:00 00:00:00 (Out) [facility] [id number] it y of [place] [id number] Alex as Alfredo?Blea [id number] [address] Office [facility] 2020-01-16 2020-01-16 Outpatient Chanda ZULETA [facility] [id number] Univers 13:00:00 13:00:00 JAVI yoselyn [facility] 2019-08-15 2019-08-15 Outpatient Chanda PINEDA [facility] [id number] Univers 10:45:00 10:45:00 AIDEE kareem [facility] 2019-08-15 2019-08-15 Outpatient Chanda PINEDA [facility] [id number] Univers 10:45:00 10:45:00 AIDEE [facility] 2019-06-17 2019-06-17 Emergency X SINGER [facility] ERT [id number] Univers 10:46:52 13:28:00 JOSSY kareem [facility] 2019-04-30 2019-04-30 Outpatient Raju_P [facility] G [id number] [place] 03:42:00 03:42:00 0[facility] 2019-04-11 2019-04-11 Emergency X SINGER [facility] ERT [id number] Univers 09:40:39 16:24:00 JOSSY topete [facility] Results This patient has no known results.
[2022-04-09 16:16] LABS: Absolute Lymphocytes (CBC) 2.2 K/uL (0.7-4.9); Hematocrit 33.5 % (36.0-45.0); Lymphocytes % 22.7 % (15.3-44.8); MCV 110.1 fL (80-100); MPV 5.8 fL (7.6-11.3); RBC Red Blood Cell Count 3.04 M/uL (3.86-4.86)
[2022-04-09 16:19] LABS: Urine Blood Trace-intact (Negative); Urine Glucose Negative (Negative); Urine Protein 1+ (Negative); Urine Specific Gravity >=1.030 (1.005-1.030); Urine pH 5.5 (5.0-7.0)
[2022-04-09 16:35] LABS: ALT/SGPT 23 U/L (13-56); AST/SGOT 22 U/L (15-37); Albumin 3.6 g/dL (3.4-5.0); Alkaline Phosphatase 32 U/L (45-117); BUN Blood Urea Nitrogen 9 mg/dL (7-18); Bicarbonate 23 mmol/L (21-32); Bilirubin Total 0.2 mg/dL (0.2-1.0); Glomerular Filtration Rate 117 ml/min (=/>90); Glucose Level 111 mg/dL (74-106); Lipase 20 U/L (13-75); Potassium 3.2 mmol/L (3.5-5.1); Protein, Total 6.7 g/dL (6.4-8.2); Sodium Level 139 mmol/L (136-145)
[2022-04-09] MEDS ORDERED: PROMETHAZINE INJ 25 MG/ML AMP ONE (16:40)
[2022-04-09] MEDS ORDERED: NA CHLORIDE 0.9% 250 ML ONE (16:41)
[2022-04-09] MEDS ORDERED: NA CHLORIDE 0.9% 1,000 ML ONE (16:41)
--- NOTE | 2022-04-09 16:42 | RAD REPORT ---
EXAM DESCRIPTION: CT - Abdomen Pelvis W Contrast - 04/09/2022 4:23 pm CLINICAL HISTORY: ABD PAIN Nausea, vomiting, and diarrhea. Dizziness. History of Crohn's disease. COMPARISON: Chest Single View dated 04/07/2022; Chest Single View dated 02/21/2022; Chest Single View d ated 12/12/2021; Chest Single View dated 06/19/2021bdomen Pelvis W Contrast dated 03/21/2020 TECHNIQUE: Thin cut axial CT imaging of the abdomen and pelvis was performed following intravenous a dministration of 95 Isovue 300. Multiplanar reformats were generated and reviewed. All CT scans are performed using dose optimization technique as appropriate and may include automated exposure control or mA/KV adjustment according to patient size. FINDINGS: No suspicious findings in the lung bases. Bibasilar subsegmental atelectasis/scarring. The liver, spleen, and pancreas show no suspicious findings. Subtle linear filling defects along the course of the most distal splenic and superior mesenteric veins probably relate to mixing of contrast rather than a chronic/organizing thrombus. Focal fatty infiltration in the liver along the margin of the falciform ligament. Gallbladder and biliary tree are also without suspicious finding. Symmetric renal function is seen with no hydronephrosis or suspicious renal mass. No dilated bowel loops or bowel wall thickening. No free air or inflammatory stranding. Trace fluid i n the pelvis, likely physiologic. Dominant right adnexal 3 centimeter cyst, probably a dominant folli kvng. No hernia, mass or bulky lymphadenopathy. The urinary bladder is without significant finding. No suspicious bony findings. IMPRESSION: No acute abnormalities in the abdomen and pelvis. Incidental findings as above.
[2022-04-09 17:08] LABS: Transitional Epithelial <5 /HPF (None Seen); Urine Bacteria None Seen /HPF (<20); Urine Mucus Slight /HPF (None Seen); Urine RBC <5 /HPF (None Seen)
[2022-04-09 17:47] LABS: Blood Morphology Comment NOTED (NOT SEEN); Macrocytosis 2+; Platelet Estimate INCR; White Blood Cell Scan OK (OK)
--- NOTE | 2022-04-09 18:01 | ER ---
Nurse's Notes [facility] Name: Ashley Alcala Age: 31 yrs Sex: Female : 1990 Arrival Date: 04/09/2022 Time: 15:34 Bed 2 Private MD: Mehran Kuhn Diagnosis: Crohn's disease, unspecified, without complications;Vomiting, unspecified;Dehydration;Hypokalemia Presentation: 04/09 15:38 Chief complaint: Patient states: dizziness, abd pain, N/V/D that began this morning. HX ss of Crohn's. Pt states that this feels like a flare up. Coronavirus screen: Client denies travel out of the [place] in the last 14 days. Ebola Screen: Patient denies exposure to infectious person. Patient denies travel to an Ebola-affected area in the 21 days before illness onset. Initial Sepsis Screen: Does the patient meet any 2 criteria? No. Patient's initial sepsis screen is negative. Does the patient have a suspected source of infection? No. Patient's initial sepsis screen is negative. Risk Assessment: Do you want to hurt yourself or someone else? Patient reports no desire to harm self or others. Onset of symptoms was April 09, 2022. 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 - Social history:: Smoking status: Patient reports the use of cigarette tobacco products, smokes one-half pack cigarettes per day, Patient uses street drugs, marijuana. Screenin:35 [facility] ED Fall Risk Assessment (Adult) History of falling in the last 3 months, vg1 including since admission No falls in past 3 months (0 pts) Confusion or Disorientation No (0 pts) Intoxicated or Sedated No (0 pts) Impaired Gait No (0 pts) Mobility Assist Device Used No (0 pt) Altered Elimination No (0 pt) Score/Fall Risk Level 0 - 2 = Low Risk Oriented to surroundings, Maintained a safe environment, Educated pt \T\ family on fall prevention, incl call for assistance when getting out of bed, Assessed \T\ reinforced patient's understanding of fall precautions, Provided non-skid footwear. Abuse screen: Denies threats or abuse. Denies injuries from another. Nutritional screening: Has had N/V for 3 or more days. Tuberculosis screening: No symptoms or risk factors identified. Assessment: 16:35 General: Appears in no apparent distress. uncomfortable, Behavior is calm, cooperative. vg1 Pain: Complains of pain in abdomen Pain currently is 7 out of 10 on a pain scale. Pain began hx of Crohns; worse today. Neuro: Level of Consciousness is awake, alert, obeys commands, Oriented to person, place, time, situation. Cardiovascular: Patient's skin is warm and dry. Respiratory: Airway is patent Respiratory effort is even, unlabored. GI: Abdomen is flat, Bowel sounds present X 4 quads. Abdomen is tender to palpation in right lower quadrant and left lower quadrant. : No signs and/or symptoms were reported regarding the genitourinary system. EENT: No signs and/or symptoms were reported regarding the EENT system. Derm: Skin is pink, warm \T\ dry. Musculoskeletal: Circulation, motion, and sensation intact. 17:35 Reassessment: Patient appears in no apparent distress at this time. Patient and/or vg1 family updated on plan of care and expected duration. Pain level reassessed. Patient is alert, oriented x 3, equal unlabored respirations, skin warm/dry/pink. Vital Signs: 15:38 BP 110 / 76; Pulse 68; Resp 16; Temp 99.0(TE); Pulse Ox 100% on R/A; Weight 55.34 kg; ss Height 5 ft. 2 in. (157.48 cm); Pain 0/10; 16:45 BP 106 / 67; Pulse 66; Resp 16; Pulse Ox 97% on R/A; vg1 17:30 BP 99 / 67; Pulse 48; Resp 16; Pulse Ox 99% on R/A; vg1 18:42 BP 121 / 69; Pulse 56; Resp 17; Pulse Ox 98% on R/A; kr3 15:38 Body Mass Index 22.31 (55.34 kg, 157.48 cm) ED Course: 15:34 Patient arrived in ED. am2 15:34 Mehran Kuhn MD is Private Physician. am2 15:35 Kenia Woodson FNP-C [facility] snw 15:35 Chloe Yu MD is Attending Physician. snw 15:40 Triage completed. ss 15:40 Arm band placed on right wrist. ss 15:59 Deysi Calzada, RN is Primary Nurse. vg1 16:12 Acetone, Serum Sent. bc6 16:12 Blood Culture Adult (2) Sent. bc6 16:12 Lactate w/ 2H reflex if indic. Sent. bc6 16:12 CBC with Diff Sent. bc6 16:12 CMP Sent. bc6 16:12 Lipase Sent. bc6 16:12 Urine Microscopic Only Sent. bc6 16:13 Inserted saline lock: 20 gauge in right antecubital area, using aseptic technique. bc6 16:35 Patient has correct armband on for positive identification. Placed in gown. Bed in low vg1 position. Call light in reach. Side rails up X 1. 16:35 No provider procedures requiring assistance completed. vg1 17:58 Mehran Kuhn MD is Referral Physician. snw 18:41 IV discontinued, intact, bleeding controlled, No redness/swelling at site. Pressure kr3 dressing applied. Administered Medications: 16:42 Drug: NS 0.9% 1000 ml Route: IV; Rate: 1 bolus; Site: right antecubital; vg1 18:43 Follow up: Response: No adverse reaction; IV Status: Completed infusion; IV Intake: kr3 1000ml 16:43 Drug: Phenergan (promethazine) 25 mg Route: IVP; Site: right antecubital; vg1 18:43 Follow up: Response: No adverse reaction kr3 16:43 Drug: NS 0.9% 250 ml Route: IV; Rate: bolus; Site: right antecubital; vg1 18:42 Follow up: Response: No adverse reaction; IV Status: Completed infusion; IV Intake: kr3 250ml 18:30 Drug: Potassium Chloride 40 mEq Route: PO; kr3 18:42 Follow up: Response: No adverse reaction kr3 Medication: 16:35 VIS not applicable for this client. vg1 Intake: 18:42 IV: 250ml; Total: 250ml. kr3 18:43 IV: 1000ml; Total: 1250ml. kr3 Outcome: 18:00 Discharge ordered by . w 18:41 Patient left the ED. kr3 18:41 Discharged to home ambulatory. kr3 18:41 Condition: stable 18:41 Discharge instructions given to patient, Instructed on discharge instructions, follow up and referral plans. medication usage, Demonstrated understanding of instructions, follow-up care, medications, Prescriptions given X 2. Signatures: Kenia Woodson, ACCOUNT PLANNER-C ACCOUNT PLANNER-Csnw Petra Petty, RN RN ss Angi Gurrola Victoria RN RN vg1 Delaney Schmidt RN RN kr3 Nedra Vazquez 6
--- NOTE | 2022-04-09 18:01 | EDPHYS ---
Physician Documentation [facility] Name: Ashley Alcala Age: 31 yrs Sex: Female : 1990 Arrival Date: 04/09/2022 Time: 15:34 Bed 2 Private MD: Mehran Kuhn ED Physician Chloe Yu HPI: 04/09 16:58 This 31 yrs old Female presents to ER via Wheelchair with complaints of Abdominal Pain, snw Nausea/Vomiting. 16:58 The patient presents with abdominal pain right lower quadrant, in the left lower snw quadrant. Onset: The symptoms/episode began/occurred acutely. Associated signs and symptoms: Pertinent positives: nausea and vomiting, poor po. Modifying factors: The symptoms are alleviated by nothing. Severity of pain: At its worst the pain was moderate a 7 / 10 pt states this is her norm. The patient has experienced similar episodes in the past, multiple times. The patient has not recently seen a physician. pt used to see Dr. Dove. 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 - Social history:: Smoking status: Patient reports the use of cigarette tobacco products, smokes one-half pack cigarettes per day, Patient uses street drugs, marijuana. ROS: 16:57 Eyes: Negative for injury, pain, redness, and discharge, ENT: Negative for injury, snw pain, and discharge, Neck: Negative for injury, pain, and swelling, Cardiovascular: Negative for chest pain, palpitations, and edema, Respiratory: Negative for shortness of breath, cough, wheezing, and pleuritic chest pain. 16:57 Back: Negative for injury and pain, : Negative for injury, bleeding, discharge, and swelling, MS/Extremity: Negative for injury and deformity, Skin: Negative for injury, rash, and discoloration, Neuro: Negative for headache, weakness, numbness, tingling, and seizure. 16:57 Constitutional: Positive for fatigue, malaise, poor PO intake. 16:57 Abdomen/GI: Positive for abdominal pain, nausea and vomiting. Exam: 16:55 Neck: Trachea midline, no thyromegaly or masses palpated, and no cervical snw lymphadenopathy. Supple, full range of motion without nuchal rigidity, or vertebral point tenderness. No Meningismus. Chest/axilla: Normal chest wall appearance and motion. Nontender with no deformity. No lesions are appreciated. Cardiovascular: Regular rate and rhythm with a normal S1 and S2. No gallops, murmurs, or rubs. Normal PMI, no JVD. No pulse deficits. Respiratory: Lungs have equal breath sounds bilaterally, clear to auscultation and percussion. No rales, rhonchi or wheezes noted. No increased work of breathing, no retractions or nasal flaring. Back: No spinal tenderness. No costovertebral tenderness. Full range of motion. Skin: Warm, dry with normal turgor. Normal color with no rashes, no lesions, and no evidence of cellulitis. MS/ Extremity: Pulses equal, no cyanosis. Neurovascular intact. Full, normal range of motion. Neuro: Awake and alert, GCS 15, oriented to person, place, time, and situation. Cranial nerves II-XII grossly intact. Motor strength 5/5 in all extremities. Sensory grossly intact. Cerebellar exam normal. Normal gait. Psych: Awake, alert, with orientation to person, place and time. Behavior, mood, and affect are within normal limits. 16:55 Constitutional: This is a well developed, well nourished patient who is awake, alert, and in no acute distress. Head/Face: Normocephalic, atraumatic. Eyes: Pupils equal round and reactive to light, extra-ocular motions intact. Lids and lashes normal. Conjunctiva and sclera are non-icteric and not injected. Cornea within normal limits. Periorbital areas with no swelling, redness, or edema. 16:55 ENT: Mouth: Oral mucosa: dry. 16:55 Abdomen/GI: Inspection: abdomen appears normal, Bowel sounds: normal, Palpation: mild abdominal tenderness, in the right lower quadrant and left lower quadrant, emesis/gastric contents smell of organic solvent, actively vomiting from triage to stretcher in bed 2. . Vital Signs: 15:38 BP 110 / 76; Pulse 68; Resp 16; Temp 99.0(TE); Pulse Ox 100% on R/A; Weight 55.34 kg; ss Height 5 ft. 2 in. (157.48 cm); Pain 0/10; 16:45 BP 106 / 67; Pulse 66; Resp 16; Pulse Ox 97% on R/A; vg1 17:30 BP 99 / 67; Pulse 48; Resp 16; Pulse Ox 99% on R/A; vg1 18:42 BP 121 / 69; Pulse 56; Resp 17; Pulse Ox 98% on R/A; kr3 15:38 Body Mass Index 22.31 (55.34 kg, 157.48 cm) ss MDM: 15:47 Patient medically screened. snw 18:08 Differential diagnosis: bowel obstruction, diverticulitis, gastritis, gastroesophageal snw reflux disease, urinary tract infection. Data reviewed: vital signs, nurses notes. Care significantly affected by the following chronic conditions: Crohn's. Counseling: I had a detailed discussion with the patient and/or guardian regarding: the historical points, exam findings, and any diagnostic results supporting the discharge/admit diagnosis, lab results, radiology results, the need for outpatient follow up, to return to the emergency department if symptoms worsen or persist or if there are any questions or concerns that arise at home. Special discussion: Based on the patient's Hx, exam, and Dx evaluation, there is no indication for emergent surgery or inpatient Tx. It is understood by the patient/guardian that if the Sx's persist or worsen they need to return immediately for re-evaluation. Based on the history and exam findings, there is no indication for further emergent testing or inpatient evaluation. I discussed with the patient/guardian the need to see the glass installer technician for further evaluation of the symptoms. I discussed with the patient/guardian the need to see the primary care provider for further evaluation of the symptoms. 04/09 15:49 Order name: CBC with Diff snw 04/09 15:49 Order name: CMP snw 04/09 15:49 Order name: Lipase snw 04/09 15:49 Order name: Urine Microscopic Only snw 04/09 15:49 Order name: CT Abd/Pelvis - IV Contrast Only snw 04/09 15:49 Order name: IV Saline Lock; Complete Time: 16:12 snw 04/09 15:49 Order name: Labs collected and sent; Complete Time: 16:12 snw 04/09 15:49 Order name: Urine Dipstick-Ancillary (obtain specimen); Complete Time: 16:12 snw 04/09 15:49 Order name: Urine Test (obtain specimen); Complete Time: 16:12 snw 04/09 15:50 Order name: Lactate w/ 2H reflex if indic. snw 04/09 15:50 Order name: Blood Culture Adult (2) snw 04/09 15:50 Order name: Acetone, Serum snw 04/09 16:02 Order name: Glucose, Ancillary Testing; Complete Time: 16:08 EDMS 04/09 16:19 Order name: Urine Dipstick-Ancillary; Complete Time: 16:21 EDMS 04/09 16:21 Order name: Urine --Ancillary (enter results) 04/09 16:26 Order name: CBC with Automated Diff; Complete Time: 17:57 EDMS 04/09 16:35 Order name: Comprehensive Metabolic Panel; Complete Time: 16:44 EDMS 04/09 16:35 Order name: Lipase; Complete Time: 16:44 EDMS 04/09 16:42 Order name: CT; Complete Time: 16:44 EDMS 04/09 16:42 Order name: Acetone Level; Complete Time: 16:44 EDMS 04/09 16:42 Order name: Lactate w/ 2H reflex if indic.; Complete Time: 16:44 EDMS 04/09 17:08 Order name: Urine Microscopic Only; Complete Time: 17:08 EDMS 04/09 17:47 Order name: CBC Smear Scan; Complete Time: 17:57 EDMS Administered Medications: 16:42 Drug: NS 0.9% 1000 ml Route: IV; Rate: 1 bolus; Site: right antecubital; vg1 18:43 Follow up: Response: No adverse reaction; IV Status: Completed infusion; IV Intake: kr3 1000ml 16:43 Drug: Phenergan (promethazine) 25 mg Route: IVP; Site: right antecubital; vg1 18:43 Follow up: Response: No adverse reaction kr3 16:43 Drug: NS 0.9% 250 ml Route: IV; Rate: bolus; Site: right antecubital; vg1 18:42 Follow up: Response: No adverse reaction; IV Status: Completed infusion; IV Intake: kr3 250ml 18:30 Drug: Potassium Chloride 40 mEq Route: PO; kr3 18:42 Follow up: Response: No adverse reaction kr3 Disposition Summary: 04/09/22 18:00 Discharge Ordered Location: Home snw Condition: Stable snw Diagnosis - Crohn's disease, unspecified, without complications snw - Vomiting, unspecified snw - Dehydration snw - Hypokalemia snw Followup: snw - With: Mehran Kuhn MD - When: 2 - 3 days - Reason: Recheck today's complaints, Continuance of care, Re-evaluation by your physician Followup: snw - With: Emergency Department - When: As needed - Reason: Worsening of condition Discharge Instructions: - Discharge Summary Sheet snw - Crohn's Disease snw - Dehydration, Adult snw - Potassium Content of Foods snw - Hyponatremia snw - Nausea and Vomiting, Adult snw - Rehydration, Adult snw Forms: - Work release form snw - Medication Reconciliation Form snw - Thank You Letter snw - Antibiotic Education snw - Prescription Opioid Use snw Prescriptions: - promethazine 25 mg Rectal suppository - insert 1 suppository by RECTAL route every 6 hours; 12 suppository; Refills: 0, snw Product Selection Permitted - Prednisone 20 mg Oral Tablet - take 1 tablet by ORAL route every 12 hours for 5 days; 10 tablet; Refills: 0, snw Product Selection Permitted Signatures: Dispatcher [employer] EDVT Kenia Woodson, KELVIN-C UNIT MANAGER [employer]-Kaitlynnw Petra Petty RN RN ss Deysi Calzada RN RN vg1 Delaney Schmidt RN RN kr3 Corrections: (The following items were deleted from the chart) 16:57 16:55 Constitutional: This is a well developed, well nourished patient who is awake, snw alert, and in no acute distress. Head/Face: Normocephalic, atraumatic. Eyes: Pupils equal round and reactive to light, extra-ocular motions intact. Lids and lashes normal. Conjunctiva and sclera are non-icteric and not injected. Cornea within normal limits. Periorbital areas with no swelling, redness, or edema. snw
[2022-04-09] MEDS ORDERED: POTASSIUM CL SA 10 MEQ TAB PO ONE (18:32)
[2022-04-09 19:29] VITALS: TEMP 99
[2022-04-09 19:40] VITALS: BP 99/67; O2SAT 99
== END 2022-04-09 18:41 | disposition home or self-care (01) ==
LOC: ER 15:33
DX: K50.90 Crohn's disease, unspecified, without complications (principal); E86.0 Dehydration; E87.6 Hypokalemia; R11.10 Vomiting, unspecified; F17.210 Nicotine dependence, cigarettes, uncomplicated
CPT/HCPCS: 96365; 87040 ×2; 85025; 36415; 82010; 81025; 82947; 83605; 83690; 80053; 74177; 96375; 99284; 96366; Q9967; J2550; J7050; J7030; 81003; 81015

== ENCOUNTER 2022-07-14 12:20 | Emergency (ER) | payer OTHER ==
--- OUTSIDE RECORDS SUMMARY | 2022-07-14 12:27 | XMS REPORT | Continuity of Care Document ---
:1990 Author Organization [facility] t Address [address] [facility] [address] [place] [address] Care Team Providers Name Role Phone Mehran Kuhn Primary Care Physician Doctor Unassigned, [place] Attending Clinician Unavailable SRAVAN MISHRA Attending Clinician Unavailable Estrada Sotelo MD Attending Clinician Sravan Mishra MD Attending Clinician MAGEN ROUSE Attending [...] Type Policy Number Effective Date Expiration Date Formerly [facility] [id number] 2019 CHOICE MEDICAID 00:00:00 MEDICAID [facility] [id number] 2019 00:00:00 Problems Condition Condition Condition Status Onset Resolution Last Treating Co mments Source Name Details Category Date Date Treatment Clinician Date Disease Active U nivers care and care and 1-08 ity of examin[place] of 00 Medical lactating lactating Bran ch mother mother , , Disease Active 2016-02 Univers delivered delivered 2-17 ity of 00:00: [address] Anemia, Anemia, Disease Active 2016-02 Univers 2-17 it y of 00:00: [address] - - Disease Active 2016-02 U nivers induced induced 2-17 ity of hypertensi hypertensi [place] in Medical third third Branch trimester trimester Tubal Tubal Disease Active 2016-02 Univers ligation ligation 2-17 ity of status status 00:00: [address] Full-term Full-term Disease Active 2016-02 Uni vers jovita ROM, jovita ROM, 2-16 ity of unsp [place] 00 Medical rupture rupture Branch and onset and onset labor labor 38 weeks 38 weeks Disease Active 2016-02 Unive rs gestation gestation 2-16 ity of of of 00:00: [place] 00 [facility] Research Research Disease Active 2016-02 Overview: Un gu[place]ita study study 2-16 Formattin ity of patient patient 00:00: g of this [place] HCTZ HCTZ 00 note is Medical different Branch from the original. Patient is in the HCTZ study IRB # [id number] y questions please contact:Corina Guadalupe MD [phone] Aronld MD [phone] Owen MD [phone] facts Patient randomize d after delivery if they met inclusion criteria a nd accepted Medicati on comes from IDS not pharmacy, [facility]S Phone Number Ext. [phone] or cell Patient can start meds as soon as they tolerate PO One tab per day of either placebo or HCTZ Medicati on stays with patient Medicati on will appear on MAR, Nurses need to rene as given (No barcode) Medicati on needs to counted prior to discharge by research project manager/team coach All follow ups need to be on POD or PP day # 14 or more Patient needs to be reminded to bring their left over medicatio n and bottle back to their visit IDS needs to be notified at time of discharge Please contact Dr. Guadalupe with any Questions Previous Previous Disease Active 2016-02 Unive rs 2-06 ity of delivery delivery 00:00: [place] desires desires 00 Medical TOLAC TOLAC Branch [...] Active Univers ALLERGIE Class ity of S [facility] Social History Social Habit Start Date Stop Date Quantity Comments Source History of tobacco Cigarette Smoker University of use [facility] Exposure to 2021-11-09 2021-11-19 Not sure [facility] SARS-CoV-2 (event) 00:00:00 11:34:00 [facility] Alcohol intake 2020-09-29 2020-09-29 0 /d University of 00:00:00 00:00:00 [facility] Cigarettes smoked 2016-06-07 2016-06-07 Univers ity of current (pack per 00:00:00 00:00:00 ) - Reported Branch Cigarette 2016-06-07 2016-06-07 University of pack-years 00:00:00 00:00:00 [facility] Tobacco use and 2016-06-07 2016-06-07 Smokeless Universit y of exposure 00:00:00 00:00:00 tobacco [facility] At [birth year] Universit y of 00:00:00 00:00:00 [facility] Smoking Status Start Date Stop Date Source Smokes tobacco daily 2016-06-07 00:00:00 Univers ity of [facility] Medications Ordered Filled Start Stop Current Ordering [...] 5) 5-325 mg 00 :00 dose, On [facility] ascencion tablet 1 [facility] tablet 11/19/21 at 0800, ANA M cyclobenzap 2021-02 Yes [id number] 5mg Take 1 Univers rine 5 mg 0-14 tablet by ity o f tablet 00:00: mouth in [place] 00 the Medical morning Branch and 1 tablet at noon and 1 tablet in the evening. cyclobenzap 2021-02 Yes [id number] 5mg Take 1 Univers rine 5 mg 0-14 tablet by ity o f tablet 00:00: mouth in [place] 00 the Medical morning Branch and 1 tablet at noon and 1 tablet in the evening. predniSONE 2021-02 Yes [id number] 40mg Take 2 Univers 20 mg 0-05 [id number] tablets by ity of tablet 00:00: mouth in [place] 00 the Medical morning. Branch predniSONE 2021-02 Yes [id number] 40mg Take 2 Univers 20 mg 0-05 [id number] tablets by ity of tablet 00:00: mouth in [place] 00 the Medical morning. Branch predniSONE 2021-02 Yes [id number] 40mg Take 2 Univers 20 mg 0-05 [id number] tablets by ity of tablet 00:00: mouth in [place] 00 the Medical morning. Branch predniSONE 2021-02 Yes [id number] 40mg Take 2 Univers 20 mg 0-05 [id number] tablets by ity of tablet 00:00: mouth in [place] 00 the Medical morning. Branch HYDROcodone 2021-02- No [id number] 1{tbl} Take 1 U nivers -acetaminop 0-05 10-13 tablet by it y of hen (NORCO) 00:00[place] 04:59 [place] 7.5-325 mg 00 :00 every 8 Medica l per tablet (eight) [place] hours as needed for Pain for up to 7 days. Indication s: acute pain budesonide- Yes [id number] 2{puff} Inhale 2 Univers formoteroL 8-24 Puffs 2 ity of 80-4.5 00:00: (two) [place] mcg/actuati 00 times Medical on inhaler daily. Branch bromphenira Yes [id number] 5mL Take 5 mL Univers mine-pseudo 8-24 by mouth 4 it y of ephedrine-D 00:00: (four[place] M (BROMFED 00 times Medical DM) 2-30-10 daily as Bran ch mg/5 mL needed for syrup Congestion /Allergies or Cough. budesonide- Yes [id number] 2{puff} Inhale 2 Univers formoteroL 8-24 Puffs 2 ity of 80-4.5 00:00: (two) [place] mcg/actuati 00 times Medical on inhaler daily. Branch bromphenira Yes [id number] 5mL Take 5 mL Univers mine-pseudo 8-24 by mouth 4 it y of ephedrine-D 00:00: (four[place] M (BROMFED 00 times Medical DM) 2-30-10 daily as Bran ch mg/5 mL needed for syrup Congestion /Allergies or Cough. budesonide- Yes [id number] 2{puff} Inhale 2 Univers formoteroL 8-24 Puffs 2 ity of 80-4.5 00:00: (two) [place] mcg/actuati 00 times Medical on inhaler daily. Branch bromphenira Yes [id number] 5mL Take 5 mL Univers mine-pseudo 8-24 by mouth 4 it y of ephedrine-D 00:00: (four[place] M (BROMFED 00 times Medical DM) 2-30-10 daily as Bran ch mg/5 mL needed for syrup Congestion /Allergies or Cough. budesonide- Yes [id number] 2{puff} Inhale 2 Univers formoteroL 8-24 Puffs 2 ity of 80-4.5 00:00: (two) [place] mcg/actuati 00 times Medical on inhaler daily. Branch bromphenira Yes [id number] 5mL Take 5 mL Univers mine-pseudo 8-24 by mouth 4 it y of ephedrine-D 00:00: (four[place] M (BROMFED 00 times Medical DM) 2-30-10 daily as Bran ch mg/5 mL needed for syrup Congestion /Allergies or Cough. budesonide- Yes [id number] 2{puff} Inhale 2 Univers formoteroL 8-24 Puffs 2 ity of 80-4.5 00:00: (two) [place] mcg/actuati 00 times Medical on inhaler daily. Branch bromphenira Yes [id number] 5mL Take 5 mL Univers mine-pseudo 8-24 by mouth 4 it y of ephedrine-D 00:00: (four) [place] M (BROMFED 00 times Medical DM) 2-30-10 daily as Bran ch mg/5 mL needed for syrup Congestion /Allergies or Cough. budesonide- Yes [id number] 2{puff} Inhale 2 Univers formoteroL 8-24 Puffs 2 ity of 80-4.5 00:00: (two) [place] mcg/actuati 00 times Medical on inhaler daily. Branch bromphenira Yes [id number] 5mL Take 5 mL Univers mine-pseudo 8-24 by mouth 4 it y of ephedrine-D 00:00: (four) [place] M (BROMFED 00 times Medical DM) 2-30-10 daily as Bran ch mg/5 mL needed for syrup Congestion /Allergies or Cough. budesonide- 0 Yes [id number] 2{puff} Inhale 2 Univers formoteroL 8-24 Puffs 2 ity of 80-4.5 00:00: (two) [place] mcg/actuati 00 times Medical on inhaler daily. Branch bromphenira Yes [id number] 5mL Take 5 mL Univers mine-pseudo 8-24 by mouth 4 it y of ephedrine-D 00:00: (four) [place] M (BROMFED 00 times Medical DM) 2-30-10 daily as Bran ch mg/5 mL needed for syrup Congestion /Allergies or Cough. budesonide- Yes [id number] 2{puff} Inhale 2 Univers formoteroL 8-24 Puffs 2 ity of 80-4.5 00:00: (two) [place] mcg/actuati 00 times Medical on inhaler daily. Branch bromphenira Yes [id number] 5mL Take 5 mL Univers mine-pseudo 8-24 [...] gram EC 7-28 ity of tablet 00:00: [facility] Branch Hyoscyamine 0 Yes TAKE 1-2 Un [...] BY ity of 0.125 mg 00:00: MOUTH [place] TbDL 00 EVERY 4 TO Medical 6 HOURS Branch NEEDED sucralfate 2020-0 Yes Univers 1 gram 7-26 ity of tablet 00:00: [place] Medical Branch atomoxetine 2020-0 Yes 40mg Take 40 mg Univers 40 mg 6-10 by mouth ity of capsule 00:00: daily. Medical Branch SERTraline 2020-0 Yes 100mg Take 100 Un gu[place] 100 mg 6-10 mg by ity of tablet 00:00: mouth [place] [id number] every Medical morning. Branch traZODone 2020-0 Yes TAKE 1 Univer s 50 mg 6-10 TABLET BY ity of tablet 00:00: MOUTH [place] NIGHTLY Medical Branch atomoxetine 2020-0 Yes 40mg Take 40 mg Univers 40 mg 6-10 by mouth ity of capsule 00:00: daily. Medical Branch SERTraline 2020-0 Yes 100mg Take 100 Un [place] 100 mg 6-10 mg by ity of tablet 00:00: [place] [id number] every Medical morning. Branch traZODone 2020-0 Yes TAKE 1 Univer s 50 mg 6-10 TABLET BY ity of tablet 00:00: [facility] NIGHTLY Medical Branch atomoxetine 2020-0 Yes 40mg Take 40 mg Univers 40 mg 6-10 by mouth ity of capsule 00:00: daily. Medical Branch SERTraline 2020-0 Yes 100mg Take 100 Un guerita 100 mg 6-10 mg by ity of tablet 00:00: [facility] every Medical morning. Branch traZODone 2020-0 Yes TAKE 1 Univer s 50 mg 6-10 TABLET BY ity of tablet 00:00: MOUTH [place] NIGHTLY Medical Branch atomoxetine 2020-0 Yes 40mg Take 40 mg Univers 40 mg 6-10 by mouth ity of capsule 00:00: daily. Medical Branch SERTraline 2020-0 Yes 100mg Take 100 Un gu[place] 100 mg 6-10 mg by ity of tablet 00:00: [place] [id number] every Medical morning. Branch traZODone 2020-0 Yes TAKE 1 Univer s 50 mg 6-10 TABLET BY ity of tablet 00:00: MOUTH [place] NIGHTLY Medical Branch atomoxetine 2020-0 Yes 40mg Take 40 mg Univers 40 mg 6-10 by mouth ity of capsule 00:00: daily. Medical Branch SERTraline 2020-0 Yes 100mg Take 100 Un gu[place] 100 mg 6-10 mg by ity of tablet 00:00: [facility] every Medical morning. Branch traZODone 2020-0 Yes TAKE 1 Univer s 50 mg 6-10 TABLET BY ity of tablet 00:00: MOUTH [place] NIGHTLY Medical Branch atomoxetine 2020-0 Yes 40mg Take 40 mg Univers 40 mg 6-10 by mouth ity of capsule 00:00: daily. [place] Medical Branch SERTraline 2020-0 Yes 100mg Take 100 Un guerita 100 mg 6-10 mg by ity of tablet 00:00: [facility] every Medical morning. Branch traZODone 2020-0 Yes TAKE 1 Univer s 50 mg 6-10 TABLET BY ity of tablet 00:00: [facility] NIGHTLY Medical Branch atomoxetine 2020-0 Yes 40mg Take 40 mg Univers 40 mg 6-10 by mouth ity of capsule 00:00: daily. [place] Medical Branch SERTraline 2020-0 Yes 100mg Take 100 Un guerita 100 mg 6-10 mg by ity of tablet 00:00: [facility] every Medical morning. Branch traZODone 2020-0 Yes TAKE 1 Univer s 50 mg 6-10 TABLET BY ity of tablet 00:00: [facility] NIGHTLY Medical Branch atomoxetine 2020-0 Yes 40mg Take 40 mg Univers 40 mg 6-10 by mouth ity of capsule 00:00: daily. [place] Medical Branch SERTraline 2020-0 Yes 100mg Take 100 Un guerita 100 mg 6-10 mg by ity of tablet 00:00: [place] [address] every Medical morning. Branch traZODone 2020-0 Yes TAKE 1 Univer s 50 mg 6-10 TABLET BY ity of tablet 00:00: [facility] NIGHTLY Medical Branch acetaminoph 2020-0 Yes [id number] 1{tbl} Take 1 Un gu[place]ita en-codeine 2-16 tablet by ity of (TYLENOL-CO 00:00: mouth [place] DEINE #3) 00 every 4 Medical 300-30 mg (four) Branch tablet hours as needed for Pain (scale 7-10). Indication s: acute pain metoclopram 2021-0 Yes [id number] 10mg Take 1 Univers rena HCl 10 2-16 tablet by ity of mg tablet 00:00: mouth [place] 00 every 6 Medical (six) Branch hours as needed for Nausea and Vomiting (N/V). metoclopram 2021-0 Yes [id number] 10mg Take 1 Univers rena HCl 10 [...] Indication s: acute pain metoclopram 2021-0 Yes [id number] 10mg Take 1 Univers rena HCl 10 2-16 tablet by ity of mg tablet 00:00: mouth [place] 00 every 6 Medical (six) Branch hours as needed for Nausea and Vomiting (N/V). metoclopram 2021-0 Yes [id number] 10mg Take 1 Univers rena HCl 10 [...] Indication s: acute pain metoclopram 2021-0 Yes [id number] 10mg Take 1 Univers rena HCl 10 2-16 tablet by ity of mg tablet 00:00: mouth [place] 00 every 6 Medical (six) Branch hours as needed for Nausea and Vomiting (N/V). metoclopram 2021-0 Yes [id number] 10mg Take 1 Univers rena HCl 10 [...] Indication s: acute pain metoclopram 2021-0 Yes [id number] 10mg Take 1 Univers rena HCl 10 2-16 tablet by ity of mg tablet 00:00: mouth [place] 00 every 6 Medical (six) Branch hours as needed for Nausea and Vomiting (N/V). metoclopram 2021-0 Yes [id number] 10mg Take 1 Univers rena HCl 10 [...] Indication s: acute pain metoclopram 2021-0 Yes [id number] 10mg Take 1 Univers rena HCl 10 2-16 tablet by ity of mg tablet 00:00: mouth [place] 00 every 6 Medical (six) Branch hours as needed for Nausea and Vomiting (N/V). metoclopram 2021-0 Yes [id number] 10mg Take 1 Univers rena HCl 10 [...] Indication s: acute pain metoclopram 2021-0 Yes [id number] 10mg Take 1 Univers rena HCl 10 2-16 tablet by ity of mg tablet 00:00: mouth [place] 00 every 6 Medical (six) Branch hours as needed for Nausea and Vomiting (N/V). metoclopram 2021-0 Yes [id number] 10mg Take 1 Univers rena HCl 10 [...] Indication s: acute pain metoclopram 2021-0 Yes [id number] 10mg Take 1 Univers rena HCl 10 2-16 tablet by ity of mg tablet 00:00: mouth [place] 00 every 6 Medical (six) Branch hours as needed for Nausea and Vomiting (N/V). metoclopram 1-0 Yes [id number] 10mg Take 1 Univers rena HCl 10 [...] Indication s: acute pain metoclopram 1-0 Yes [id number] 10mg Take 1 Univers rena HCl 10 2-16 tablet by ity of mg tablet 00:00: mouth [place] 00 every 6 Medical (six) Branch hours as needed for Nausea and Vomiting (N/V). metoclopram 1-0 Yes [id number] 10mg Take 1 Univers rena HCl 10 [...] Indication s: acute pain metoclopram 2021-0 Yes [id number] 10mg Take 1 Univers rena HCl 10 2-16 tablet by ity of mg tablet 00:00: mouth [place] 00 every 6 Medical (six) Branch hours as needed for Nausea and Vomiting (N/V). metoclopram 2020-0 Yes [id number] 10mg Take 1 Univers rena HCl 10 2-16 tablet by ity of mg tablet 00:00: mouth [place] 00 every 6 Medical (six) Branch hours. dicyclomine 2020-0 Yes [id number] 20mg Take 1 Univers 20 mg 1-30 tablet by ity of tablet 00:00: mouth 4 [place] 00 (four) Medical times Branch daily. ondansetron 2020-0 Yes [id number] 4mg Take 1 Univers (ZOFRAN 1-30 tablet by ity of ODT) 4 mg 00:00: mouth [place] disintegrat 00 every 8 Medic al ing tablet (eight) Branch hours as needed for Nausea and Vomiting (N/V). dicyclomine 2020-0 Yes [id number] 20mg Take 1 Univers 20 mg 1-30 tablet by ity of tablet 00:00: mouth 4 [place] 00 (four) Medical times Branch daily. ondansetron 2020-0 Yes [id number] 4mg Take 1 Univers (ZOFRAN 1-30 tablet by ity of ODT) 4 mg 00:00: mouth [place] disintegrat 00 every 8 Medic al ing tablet (eight) Branch hours as needed for Nausea and Vomiting (N/V). dicyclomine 2020-0 Yes [id number] 20mg Take 1 Univers 20 mg 1-30 tablet by ity of tablet 00:00: mouth 4 [place] 00 (four) Medical times Branch daily. ondansetron 2020-0 Yes [id number] 4mg Take 1 Univers (ZOFRAN 1-30 tablet by ity of ODT) 4 mg 00:00: mouth [place] disintegrat 00 every 8 Medic al ing tablet (eight) Branch hours as needed for Nausea and Vomiting (N/V). dicyclomine 2020-0 Yes [id number] 20mg Take 1 Univers 20 mg 1-30 tablet by ity of tablet 00:00: mouth 4 [place] 00 (four) Medical times Branch daily. ondansetron 202-0 Yes [id number] 4mg Take 1 Univers (ZOFRAN 1-30 tablet by ity of ODT) 4 mg 00:00: mouth [place] disintegrat 00 every 8 Medic al ing tablet (eight) Branch hours as needed for Nausea and Vomiting (N/V). dicyclomine 2021-0 Yes [id number] 20mg Take 1 Univers 20 mg 1-30 tablet by ity of tablet 00:00: mouth 4 [place] 00 (four) Medical times Branch daily. ondansetron 1-0 Yes [id number] 4mg Take 1 Univers (ZOFRAN 1-30 tablet by ity of ODT) 4 mg 00:00: mouth [place] disintegrat 00 every 8 Medic al ing tablet (eight) Branch hours as needed for Nausea and Vomiting (N/V). dicyclomine 1-0 Yes [id number] 20mg Take 1 Univers 20 mg 1-30 tablet by ity of tablet 00:00: mouth 4 [place] 00 (four) Medical times Branch daily. ondansetron 2020-0 Yes [id number] 4mg Take 1 Univers (ZOFRAN 1-30 tablet by ity of ODT) 4 mg 00:00: mouth [place] disintegrat 00 every 8 Medic al ing tablet (eight) Branch hours as needed for Nausea and Vomiting (N/V). dicyclomine 2020-0 Yes [id number] 20mg Take 1 Univers 20 mg 1-30 tablet by ity of tablet 00:00: mouth 4 [place] 00 (four) Medical times Branch daily. ondansetron 2020-0 Yes [id number] 4mg Take 1 Univers (ZOFRAN 1-30 tablet by ity of ODT) 4 mg 00:00: mouth [place] disintegrat 00 every 8 Medic al ing tablet (eight) Branch hours as needed for Nausea and Vomiting (N/V). dicyclomine 1-0 Yes [id number] 20mg Take 1 Univers 20 mg 1-30 tablet by ity of tablet 00:00: mouth 4 [place] 00 (four) Medical times Branch daily. ondansetron 1-0 Yes [id number] 4mg Take 1 Univers (ZOFRAN 1-30 tablet by ity of ODT) 4 mg 00:00: mouth [place] disintegrat 00 every 8 Medic al ing tablet (eight) Branch hours as needed for Nausea and Vomiting (N/V). dicyclomine 1-0 Yes [id number] 20mg Take 1 Univers 20 mg 1-30 tablet by ity of tablet 00:00: mouth 4 [place] 00 (four) Medical times Branch daily. ondansetron 1-0 Yes [id number] 4mg Take 1 Univers (ZOFRAN 1-30 tablet by ity of ODT) 4 mg 00:00: mouth [place] disintegrat 00 every 8 Medic al ing tablet (eight) Branch hours as needed for Nausea and Vomiting (N/V). Immunizations Ordered Filled Immunization Date Status Comments [facility] e Immunization Name Name Td 2021-11-19 Completed University of 00:00:00 [facility] Td 2021-11-19 Completed University of 00:00:00 [facility] Td 2021-11-19 Completed University of 00:00: [facility] TDAP 2016-11-15 Completed University of 00:00:00 [facility] Influenza Virus 2016-11-15 Completed Universit y [facility] Influenza Virus 2016-11-15 Completed Universit y of Vaccine Quad IM 3+ 00:00:00 [facility] TDAP 2016-11-15 Completed University of 00:00:00 [facility] Influenza Virus 2016-11-15 Completed Universit y of Vaccine Quad IM 3+ 00:00:00 [facility] TDAP 2016-11-15 Completed University of 00:00:00 [facility] Influenza Virus 2016-11-15 Completed Universit y of Vaccine Quad IM 3+ 00:00:00 [facility] TDAP 2016-11-15 Completed University of 00:00:00 [facility] Influenza Virus 2016-11-15 Completed Universit y of Vaccine Quad IM 3+ 00:00:00 [facility] TDAP 2016-11-15 Completed University of 00:00:00 [facility] Influenza Virus 2016-11-15 Completed Universit y of Vaccine Quad IM 3+ 00:00:00 [facility] TDAP 2016-11-15 Completed University of 00:00:00 [facility] Influenza Virus 2016-11-15 Completed Universit y of Vaccine Quad IM 3+ 00:00:00 [facility] TDAP 2016-11-15 Completed University of 00:00:00 [facility] Influenza Virus 2016-11-15 Completed Universit y of Vaccine Quad IM 3+ 00:00:00 [facility] TDAP 2016-11-15 Completed University of 00:00:00 [facility] Influenza Virus 2016-11-15 Completed Universit y of Vaccine Quad IM 3+ 00:00:00 [place] Medical YRS Branch Vital Signs Vital Name Observation Time Observation Value Comments Source Systolic blood 2021-11-19 23:00:00 115 mm[Hg] Univer sity of pressure [place] [facility] Diastolic blood 2021-11-19 23:00:00 75 mm[Hg] Unive rsity of pressure [place] [facility] Heart rate 2021-11-19 23:00:00 56 /min Universi ty of [place] [facility] Respiratory rate 2021-11-19 23:00:00 16 /min Univ ersity of [place] [facility] Oxygen saturation in 2021-11-19 23:00:00 100 /min University of Arterial blood by [place] [employer] plate ascencion Pulse oximetry Branch Body temperature 2021-11-19 16:35:00 37 Kori Univ ersity of [place] [facility] Body weight 2021-11-19 16:35:00 56.7 kg Universi ty of [place] [facility] BMI 2021-11-19 16:35:00 22.86 kg/m2 Universi ty of [place] [facility] Systolic blood 2021-11-19 14:41:14 130 mm[Hg] Univer sity of pressure [place] [facility] Diastolic blood 2021-11-19 14:41:14 87 mm[Hg] Unive rsity of pressure [place] [facility] Heart rate 2021-11-19 14:41:14 85 /min Universi ty of [place] [facility] Body temperature 2021-11-19 14:41:14 36.67 Kori Univ ersity of [place] [facility] Respiratory rate 2021-11-19 14:41:14 18 /min Univ ersity of [place] [facility] Oxygen saturation in 2021-11-19 14:41:14 99 /min University of Arterial blood by [place] Make My plate ascencion Pulse oximetry Branch Body height 2021-11-19 12:31:00 157.5 cm Universi ty of [place] [facility] Body weight 2021-11-19 12:31:00 56.7 kg Universi ty of [place] [facility] BMI 2021-11-19 12:31:00 22.86 kg/m2 Universi ty of [place] [facility] Systolic blood 2021-11-10 17:03:00 126 mm[Hg] Univer sity of pressure [place] [facility] Diastolic blood 2021-11-10 17:03:00 86 mm[Hg] Unive rsity of pressure [place] [facility] Heart rate 2021-11-10 17:03:00 85 /min Universi ty of [place] [facility] Body temperature 2021-11-10 17:03:00 37.06 Kori [facility] ersity of [place] [facility] Respiratory rate 2021-11-10 17:03:00 20 /min Univ ersity of [place] [facility] Body height 2021-11-10 17:03:00 157.5 cm Universi ty of [place] [facility] Body weight 2021-11-10 17:03:00 55.792 kg Universi ty of [place] [facility] BMI 2021-11-10 17:03:00 22.50 kg/m2 Universi ty of [place] [facility] Oxygen saturation in 2021-11-10 17:03:00 99 /min University of Arterial blood by [facility] [place] [facility] Pulse oximetry Branch Systolic blood 2020-09-29 22:26:00 139 mm[Hg] Univer sity of pressure [place] [facility] Diastolic blood 2020-09-29 22:26:00 89 mm[Hg] Unive [facility] Medical Branch Heart rate 2020-09-29 22:26:00 76 /min Universi ty of [place] [facility] Body temperature 2020-09-29 22:26:00 36.89 Kori [facility] ersity of [place] [facility] Respiratory rate 2020-09-29 22:26:00 16 /min [facility] ersity of [place] [facility] Body height 2020-09-29 22:26:00 154.9 cm Universi ty of [place] [facility] Body weight 2020-09-29 22:26:00 53.025 kg Universi ty of [place] [facility] BMI 2020-09-29 22:26:00 22.09 kg/m2 Universi ty of [place] [facility] Oxygen saturation in 2020-09-29 22:26:00 100 /min University of Arterial blood by [facility] [place] [facility] Pulse oximetry Branch Procedures Procedure Date / Time Performing Clinician Source Performed AUTHORIZATION FOR 2021-12-02 05:01:00 [facility]igned, [facility] Name Medical Branch MR CERVICAL SPINE WO 2021-11-19 20:56:00 Michael Stock [facility] (ID NOW RAPID 2021-11-19 14:10:00 Magen Rouse [facility] TESTING) Medical Branch CT CERVICAL SPINE WO 2021-11-19 12:49:50 Magen Rouse [facility] ity of [place] CONTRAST [facility] CT HEAD WO CONTRAST 2021-11-19 12:49:50 Magen Rouse [facility] CONSENT/REFUSAL FOR 2021-11-19 12:35:14 [facility] Unassigned, [facility] Name [facility] XR HAND 3+ VW LEFT 2021-11-10 17:32:17 Magen Rouseit y of [facility] XR WRIST 3+ VW LEFT 2021-11-10 17:31:56 Magen Rouse [facility] NOTICE OF PRIVACY 2021-11-10 16:59:19 Doctor Unassigned, No [facility] PRACTICES [facility] CONSENT/REFUSAL FOR 2021-11-10 16:58:04 Doctor Unassigned, [facility] ASSIGNMENT OF BENEFITS 2020-09-29 22:10:07 Doctor Unassigned, No [facility] Encounters Start End Encounter Admission Attending Care Care Encounter Source Date/Time Date/Time Type Type Clinicians Facility Department ID 2020-12-05 Emergency [facility] [id number] Univers 23:41:25 ity of [facility] 2020-12-05 Emergency [facility] [id number] Univers 20:46:01 ity of [facility] 2020-12-05 Emergency [facility] [id number] Univers 20:45:07 ity of [facility] 2020-12-03 Emergency [facility] [id number] Univers 22:03:22 ity [facility] 2021-12-02 2021-12-02 Orders Doctor FLYNN [id number] Univers 00:00:00 00:00:00 Only Unassigned, SAMMIE [id number] ity of [place] [facility] [id number] Alex as [phone] [address] 2021-11-19 2021-11-19 Emergency X SRAVAN MISHRA [facility] ERT [id number] Univers 11:43:00 18:54:00 ity [facility] 2021-11-19 2021-11-19 Emergency Estrada Sotelo TRAUMA [id number] Univers 11:43:00 18:54:00 Sravan Mishra [id number] ity of [id number] [facility] [phone] [facility] [address] 2021-11-19 2021-11-19 [facility] [id number] Univers 07:30:00 10:47:00 MAGEN ity of [facility] 2021-11-19 2021-11-19 Emergency [facility] [id number] Univers 07:30:00 10:47:00 Magen JONES [id number] i ty of [address] [id number] [facility] [phone] [place] [id number] [place] 2021-11-10 2021-11-10 Emergency [facility] [id number] Univers 12:05:00 13:29:00 MAGEN ity of [facility] 2021-11-10 2021-11-10 Emergency [facility] [id number] Univers 12:05:00 13:29:00 Magen JONES [id number] i ty [facility] [id number] [facility] [id number] [place] [address] [place] 2021-11-10 2021-11-10 Orders Doctor FLYNN 1.2.840.114 [id number] Univers 00:00:00 00:00:00 Only Unassigned, SAMMIE [id number] ity of [place] [facility] [id number] Alex [phone] [facility] [address] 2020-09-29 2020-09-29 Outpatient R KATE [facility] [id number] Univers 17:40:00 17:40:00 SHIRLEY topete o f [facility] 2020-09-29 2020-09-29 [facility]gent [facility] [id number] Univers 17:11:16 17:31:16 [facility] [id number] i ty of [place] [id number] Alex as Alfredo?Blea [phone] [address] Office [facility] 2020-09-29 2020-09-29 Telephone [facility] [id number] Univers 00:00:00 00:00:00 [facility] [id number] it y of [place] [id number] Alex as Alfredo?Blea [phone] [address] Medical Office [facility] 2020-09-29 2020-09-29 Orders Doctor GEE 1.2.840.114 [id number] Univers 00:00:00 00:00:00 Only Unassigned, SAMMIE [id number] ity of [place] [facility] [id number] Alex as [phone] [address] 2020-09-29 2020-09-29 Letter [facility] [id number] Univers 00:00:00 00:00:00 (Out) [facility] [id number] it y of [place] [id number] Alex as Alfredo?Blea [phone] [address] Office [facility] 2020-01-16 2020-01-16 Outpatient Chanda ZULETA [facility] [id number] Univers 13:00:00 13:00:00 JAVI yoselyn [facility] 2019-08-15 2019-08-15 Outpatient Chanda PINEDA [facility] [id number] Univers 10:45:00 10:45:00 AIDEE kareem [facility] 2019-08-15 2019-08-15 Outpatient Chanda PINEDA [facility] [id number] Univers 10:45:00 10:45:00 AIDEE [facility] 2019-06-17 2019-06-17 Emergency X SINGER [facility] ERT [id number] Univers 10:46:52 13:28:00 JOSSY kareem [facility] 2019-04-30 2019-04-30 Outpatient Raju_P [facility] G [id number] [place] 03:42:00 03:42:00 [facility] 2019-04-11 2019-04-11 Emergency X SINGER [facility] ERT [id number] Univers 09:40:39 16:24:00 JOSSY topete [facility] Results This patient has no known results.
--- NOTE | 2022-07-14 12:40 | EDPHYS ---
Physician Documentation [facility] Name: Ashley Alcala Age: 31 yrs Sex: Female : 1990 Arrival Date: 07/14/2022 Time: 12:20 Bed IW4 Private MD: ED Physician Dimitris Valadez HPI: 07/14 12:38 This 31 yrs old Female presents to ER via Ambulatory with complaints of Wound bs3 Infection - /RIGHT ANKLE. 12:41 31-year-old female not on immunosuppressive's history of Crohn's presents with right bs3 ankle pain she notes that she went ice-skating a week ago and developed a blister there and feels like it is infected on review of systems patient endorses a mild Crohn's flare she has Zofran and pantoprazole at home. 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 - Social history:: Smoking status: Patient reports the use of cigarette tobacco products, smokes one-half pack cigarettes per day. ROS: 12:41 Constitutional: Negative for fever, chills bs3 12:41 All other systems are negative. Exam: 12:41 Constitutional: This is a well developed, well nourished patient who is awake, alert, bs3 and in no acute distress. Head/Face: Normocephalic, atraumatic. Eyes: Pupils equal round and reactive to light, extra-ocular motions intact. Lids and lashes normal. Neck: Trachea midline, no thyromegaly, no neck stiffness Chest/axilla: Normal chest wall appearance and motion. Nontender with no deformity. No lesions are appreciated. Cardiovascular: Regular rate and rhythm with a normal S1 and S2. symmetric pulses in upper extremities Respiratory: Lungs have equal breath sounds bilaterally, clear to auscultation, no respiratory distress Abdomen/GI: Soft, non-tender, no rebound or guarding MS/ Extremity: Right ankle on the medial aspect is a superficial wound no discharge expressed from the wound there is a small scab and pinpoint area that may have leaked some fluid Neuro: Awake and alert, GCS 15, oriented to person, place, time, and situation. Cranial nerves II-XII grossly intact. Motor strength 5/5 in all extremities. Sensory grossly intact. Psych: Awake, alert, with orientation to person, place and time. Behavior, mood, and affect are within normal limits. Vital Signs: 12:30 BP 143 / 110; Pulse 76; Resp 17; Temp 98.7; Pulse Ox 99% ; Weight 55.34 kg; Height 5 ll1 ft. 2 in. ; Pain 9/10; 12:30 Body Mass Index 22.31 (55.34 kg, 157.48 cm) ll1 12:30 Pain Scale: Adult ll1 MDM: 12:31 Patient medically screened. bs3 12:41 Data reviewed: vital signs, nurses notes. ED course: will prescribe antibiotics, bs3 advised recommended labs and IV fluids however patient refused. Administered Medications: No medications were administered Disposition Summary: 07/14/22 12:39 Discharge Ordered Location: Home bs3 Problem: new bs3 Symptoms: have improved bs3 Condition: Stable bs3 Diagnosis - Cellulitis of other sites bs3 Followup: bs3 - With: Kunal Dove MD - When: 2 - 3 days - Reason: Re-evaluation by your physician Discharge Instructions: - Discharge Summary Sheet bs3 - Cellulitis, Adult, Vvvn-no-Xflw bs3 Forms: - Medication Reconciliation Form bs3 - Thank You Letter bs3 - Antibiotic Education bs3 - Prescription Opioid Use bs3 Prescriptions: - Clindamycin HCl 300 mg Oral Capsule - take 1 capsule by ORAL route every 6 hours for 7 days; 42 capsule; Refills: 0, bs3 Product Selection Permitted Signatures: Viviana Kahn, RN RN ll1 Dimitris Valadez MD MD bs3
--- NOTE | 2022-07-14 12:40 | ER ---
Nurse's Notes [facility] Name: Ashley Alcala Age: 31 yrs Sex: Female : 1990 Arrival Date: 07/14/2022 Time: 12:20 Bed IW4 Private MD: Diagnosis: Cellulitis of other sites Presentation: 07/14 12:30 Chief complaint: Patient states: R ankle wound that is red, swollen, painful for about ll1 2 weeks. Not feeling well, abdominal pain, diarrhea for 3 days. Coronavirus screen: Vaccine status: Patient reports being unvaccinated. Client denies travel out of the [place] in the last 14 days. At this time, the client does not indicate any symptoms associated with coronavirus-19. Ebola Screen: Patient denies travel to an Ebola-affected area in the 21 days before illness onset. Initial Sepsis Screen: Does the patient meet any 2 criteria? No. Patient's initial sepsis screen is negative. Does the patient have a suspected source of infection? Yes: Skin breakdown/wound. Risk Assessment: Do you want to hurt yourself or someone else? Patient reports no desire to harm self or others. Onset of symptoms was June 30, 2022. 12:30 Method Of Arrival: Ambulatory ll1 12:30 Acuity: ESTEVAN 3 ll1 Triage Assessment: 12:31 General: Appears uncomfortable, Behavior is calm, cooperative, appropriate for age. ll1 Pain: Complains of pain in R ankle Quality of pain is described as aching. GI: Reports lower abdominal pain, upper abdominal pain, cramping, diarrhea, nausea. 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 - Social history:: Smoking status: Patient reports the use of cigarette tobacco products, smokes one-half pack cigarettes per day. Screenin:42 [facility] ED Fall Risk Assessment (Adult) Score/Fall Risk Level 0 - 2 = Low Risk ll1 Oriented to surroundings, Maintained a safe environment, Educated pt \T\ family on fall prevention, incl call for assistance when getting out of bed, Hourly rounding (assess needs \T\ fall precautionary measures) done. Abuse screen: Denies threats or abuse. Nutritional screening: No deficits noted. Tuberculosis screening: No symptoms or risk factors identified. Assessment: 12:41 Reassessment: No changes from previously documented assessment. Patient and/or family ll1 updated on plan of care and expected duration. Pain level reassessed. Patient is alert, oriented x 3, equal unlabored respirations, skin warm/dry/pink. Vital Signs: 12:30 BP 143 / 110; Pulse 76; Resp 17; Temp 98.7; Pulse Ox 99% ; Weight 55.34 kg; Height 5 ll1 ft. 2 in. ; Pain 9/10; 12:30 Body Mass Index 22.31 (55.34 kg, 157.48 cm) ll1 12:30 Pain Scale: Adult ll1 ED Course: 12:24 Patient arrived in ED. kj1 12:31 Dimitris Valadez MD is Attending Physician. bs3 12:31 Triage completed. ll1 12:32 Arm band placed on. ll1 12:38 Kunal Dove MD is Referral Physician. bs3 12:41 No provider procedures requiring assistance completed. Patient did not have IV access ll1 during this emergency room visit. 13:35 Patient has correct armband on for positive identification. Call light in reach. Side ll1 rails up X 1. Cardiac monitoring not applicable on this patient. Administered Medications: No medications were administered Medication: 13:35 VIS not applicable for this client. ll1 Outcome: 12:39 Discharge ordered by . bs3 12:42 Patient left the ED. ll1 12:42 Discharged to home ambulatory. ll1 12:42 Condition: stable 12:42 Discharge instructions given to patient, Instructed on discharge instructions, follow up and referral plans. medication usage, Demonstrated understanding of instructions, follow-up care, medications, Prescriptions given X 1. Signatures: Catrachita Alves kj1 Viviana Kahn RN RN ll1 Dimitris Valadez MD MD bs3
[2022-07-14 13:06] VITALS: BP 143/110; TEMP 98.7; O2SAT 99
== END 2022-07-14 12:42 | disposition home or self-care (01) ==
LOC: ER 12:20
DX: L03.115 Cellulitis of right lower limb (principal); F17.210 Nicotine dependence, cigarettes, uncomplicated
CPT/HCPCS: 99283

== ENCOUNTER 2022-08-19 15:39 | Emergency (ER) | payer OTHER ==
--- OUTSIDE RECORDS SUMMARY | 2022-08-19 15:44 | XMS REPORT | Continuity of Care Document ---
:1990 Author Organization [facility] t Address [address] [place] [address] Care Team Providers Name Role Phone Mehran Kuhn Primary Care Physician Doctor Unassigned, [place] Attending Clinician Unavailable SRAVAN MISHRA Attending Clinician [...] Type Policy Number Effective Date Expiration Date [facility] [id number] 2019 CHOICE MEDICAID 00:00:00 MEDICAID [facility] [id number] 2019 00:00:00 Problems Condition Condition Condition Status Onset Resolution Last Treating Co mments Source Name Details Category Date Date Treatment Clinician Date Disease Active U nivers care and care and 1-08 ity of examin[place]in[place] of 00 Medical lactating lactating Bran ch mother mother , , Disease Active 2016-02 Univers delivered delivered 2-17 ity of 00:00: [address] Anemia, Anemia, Disease Active 2016-02 Univers 2-17 it y of 00:00: [address] - - Disease Active 2016-02 U nivers induced induced 2-17 ity of hypertensi hypertensi [place] in Medical third third Branch trimester trimester Tubal Tubal Disease Active 2016-02 Univers ligation ligation 2-17 ity of status status 00:00: [address] Full-term Full-term Disease Active 2016-02 Uni vers jovita ROM, jovita ROM, 2-16 ity of unsp [place]sp [place]w 00 Medical rupture rupture Branch and onset and onset labor labor 38 weeks 38 weeks Disease Active 2016-02 Unive rs gestation gestation 2-16 ity of of of 00:00: [place] 00 [facility] Research Research Disease Active 2016-02 Overview: Un guerita study study 2-16 Formattin ity of patient patient 00:00: g of this [place] HCTZ HCTZ 00 note is Medical different Branch from the original. Patient is in the HCTZ study IRB # [id number] y questions please contact:Corina Guadalupe MD [phone] 223Vilauren Arnold MD [phone] Owen MD [phone] facts Patient randomize d after delivery if they met inclusion criteria a nd accepted Medicati on comes from [facility] not pharmacy, [facility] Phone Number Ext. 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 Guadalupe with any Questions Previous Previous Disease Active 2016-02 Unive rs 2-06 ity of delivery delivery 00:00: [place] desires desires 00 Medical TOLAC TOLAC Branch [...] Active Univers ALLERGIE Class ity of S [facility] Social History Social Habit Start Date Stop Date Quantity Comments Source History of tobacco Cigarette Smoker University of use [facility] Exposure to 2021-11-09 2021-11-19 Not sure [facility] SARS-CoV-2 (event) 00:00:00 11:34:00 [facility] Alcohol intake 2020-09-29 2020-09-29 0 /d University of 00:00:00 00:00:00 [facility] Cigarettes smoked 2016-06-07 2016-06-07 Univers ity of current (pack per 00:00:00 00:00:00 ) - Reported Branch Cigarette 2016-06-07 2016-06-07 University of pack-years 00:00:00 00:00:00 [facility] Tobacco use and 2016-06-07 2016-06-07 Smokeless Universit y of exposure 00:00:00 00:00:00 tobacco [facility]-user [facility] At [birth year] Universit y of 00:00:00 00:00:00 [facility] Smoking Status Start Date Stop Date Source Smokes tobacco daily 2016-06-07 00:00:00 Univers ity of [facility] Medications Ordered Filled Start Stop Current [...] 5) 5-325 mg 00 :00 dose, On [facility] ascencion tablet 1 [facility] tablet 11/19/21 at 0800, ANA M cyclobenzap 2021-02 Yes [id number] 5mg Take 1 Univers rine 5 mg 0-14 tablet by ity o f tablet 00:00: mouth in [place] 00 the Medical morning Branch and 1 tablet at noon and 1 tablet in the evening. cyclobenzap 2021-02 Yes [id number] 5mg Take 1 Univers rine 5 mg 0-14 tablet by ity o f tablet 00:00: mouth in [place] 00 the Medical morning Branch and 1 tablet at noon and 1 tablet in the evening. predniSONE 2021-02 Yes [id number] 40mg Take 2 Univers 20 mg 0-05 [id number] tablets by ity of tablet 00:00: mouth in [place] 00 the Medical morning. Branch predniSONE 2021-02 Yes [id number] 40mg Take 2 Univers 20 mg 0-05 [id number] tablets by ity of tablet 00:00: mouth in [place] 00 the Medical morning. Branch predniSONE 2021-02 Yes [id number] 40mg Take 2 Univers 20 mg 0-05 [id number] tablets by ity of tablet 00:00: mouth in [place] 00 the Medical morning. Branch predniSONE 2021-02 Yes [id number] 40mg Take 2 Univers 20 mg 0-05 [id number] tablets by ity of tablet 00:00: mouth in [place] 00 the Medical morning. Branch HYDROcodone 2021-02- No [id number] 1{tbl} Take 1 U nivers -acetaminop 0-05 10-13 tablet by it y of hen (NORCO) 00:00: 04:59 [place] 7.5-325 mg 00 :00 every 8 Medica l per tablet (eight) [place] hours as needed for Pain for up to 7 days. Indication s: acute pain budesonide- Yes [id number] 2{puff} Inhale 2 Univers formoteroL 8-24 Puffs 2 ity of 80-4.5 00:00: (two) [place] mcg/actuati 00 times Medical on inhaler daily. Branch bromphenira Yes [id number] 5mL Take 5 mL Univers mine-pseudo 8-24 by mouth 4 it y of ephedrine-D 00:00: (four) [place] M (BROMFED 00 times Medical DM) 2-30-10 daily as Bran ch mg/5 mL needed for syrup Congestion /Allergies or Cough. budesonide- Yes [id number] 2{puff} Inhale 2 Univers formoteroL 8-24 Puffs 2 ity of 80-4.5 00:00: (two) [place] mcg/actuati 00 times Medical on inhaler daily. Branch bromphenira Yes [id number] 5mL Take 5 mL Univers mine-pseudo 8-24 by mouth 4 it y of ephedrine-D 00:00: (four) [place] M (BROMFED 00 times Medical DM) 2-30-10 daily as Bran ch mg/5 mL needed for syrup Congestion /Allergies or Cough. budesonide- Yes [id number] 2{puff} Inhale 2 Univers formoteroL 8-24 Puffs 2 ity of 80-4.5 00:00: (two) [place] mcg/actuati 00 times Medical on inhaler daily. Branch bromphenira Yes [id number] 5mL Take 5 mL Univers mine-pseudo 8-24 by mouth 4 it y of ephedrine-D 00:00: (four) [place] M (BROMFED 00 times Medical DM) 2-30-10 daily as Bran ch mg/5 mL needed for syrup Congestion /Allergies or Cough. budesonide- Yes [id number] 2{puff} Inhale 2 Univers formoteroL 8-24 Puffs 2 ity of 80-4.5 00:00: (two) [place] mcg/actuati 00 times Medical on inhaler daily. Branch bromphenira Yes [id number] 5mL Take 5 mL Univers mine-pseudo 8-24 by mouth 4 it y of ephedrine-D 00:00: (four) [place] M (BROMFED 00 times Medical DM) 2-30-10 daily as Bran ch mg/5 mL needed for syrup Congestion /Allergies or Cough. budesonide- Yes [id number] 2{puff} Inhale 2 Univers formoteroL 8-24 Puffs 2 ity of 80-4.5 00:00: (two) [place] mcg/actuati 00 times Medical on inhaler daily. Branch bromphenira Yes [id number] 5mL Take 5 mL Univers mine-pseudo 8-24 by mouth 4 it y of ephedrine-D 00:00: (four) [place] M (BROMFED 00 times Medical DM) 2-30-10 daily as Bran ch mg/5 mL needed for syrup Congestion /Allergies or Cough. budesonide- Yes [id number] 2{puff} Inhale 2 Univers formoteroL 8-24 Puffs 2 ity of 80-4.5 00:00: (two) [place] mcg/actuati 00 times Medical on inhaler daily. Branch bromphenira Yes [id number] 5mL Take 5 mL Univers mine-pseudo 8-24 by mouth 4 it y of ephedrine-D 00:00: (four) [place] M (BROMFED 00 times Medical DM) 2-30-10 daily as Bran ch mg/5 mL needed for syrup Congestion /Allergies or Cough. budesonide- 0 Yes [id number] 2{puff} Inhale 2 Univers formoteroL 8-24 Puffs 2 ity of 80-4.5 00:00: (two) [place] mcg/actuati 00 times Medical on inhaler daily. Branch bromphenira Yes [id number] 5mL Take 5 mL Univers mine-pseudo 8-24 by mouth 4 it y of ephedrine-D 00:00: (four) [place] M (BROMFED 00 times Medical DM) 2-30-10 daily as Bran ch mg/5 mL needed for syrup Congestion /Allergies or Cough. budesonide- Yes [id number] 2{puff} Inhale 2 Univers formoteroL 8-24 Puffs 2 ity of 80-4.5 00:00: (two) [place] mcg/actuati 00 times Medical on inhaler daily. Branch bromphenira Yes [id number] 5mL Take 5 mL Univers mine-pseudo 8-24 [...] gram EC 7-28 ity of tablet 00:00: [facility] Branch Hyoscyamine 0 Yes TAKE 1-2 Un [...] BY ity of 0.125 mg 00:00: MOUTH [place] TbDL 00 EVERY 4 TO Medical 6 HOURS Branch NEEDED sucralfate 2020-0 Yes Univers 1 gram 7-26 ity of tablet 00:00: [place] Medical Branch atomoxetine 2020-0 Yes 40mg Take 40 mg Univers 40 mg 6-10 by mouth ity of capsule 00:00: daily. Medical Branch SERTraline 2020-0 Yes 100mg Take 100 Un [place] 100 mg 6-10 mg by ity of tablet 00:00: mouth [place] [id number] every Medical morning. Branch traZODone 2020-0 Yes TAKE 1 Univer s 50 mg 6-10 TABLET BY ity of tablet 00:00: MOUTH [place] NIGHTLY Medical Branch atomoxetine 2020-0 Yes 40mg Take 40 mg Univers 40 mg 6-10 by mouth ity of capsule 00:00: daily. Medical Branch SERTraline 2020-0 Yes 100mg Take 100 [place] 100 mg 6-10 mg by ity of tablet 00:00: [place] [address] every Medical morning. Branch traZODone 2020-0 Yes TAKE 1 Univer s 50 mg 6-10 TABLET BY ity of tablet 00:00: [facility] NIGHTLY Medical Branch atomoxetine 2020-0 Yes 40mg Take 40 mg Univers 40 mg 6-10 by mouth ity of capsule 00:00: daily. Medical Branch SERTraline 2020-0 Yes 100mg Take 100 Un guerita 100 mg 6-10 mg by ity of tablet 00:00: [facility] every Medical morning. Branch traZODone 2020-0 Yes TAKE 1 Univer s 50 mg 6-10 TABLET BY ity of tablet 00:00: MOUTH [place] NIGHTLY Medical Branch atomoxetine 2020-0 Yes 40mg Take 40 mg Univers 40 mg 6-10 by mouth ity of capsule 00:00: daily. Medical Branch SERTraline 2020-0 Yes 100mg Take 100 Un [place] 100 mg 6-10 mg by ity of tablet 00:00: [place] [address] every Medical morning. Branch traZODone 2020-0 Yes TAKE 1 Univer s 50 mg 6-10 TABLET BY ity of tablet 00:00: MOUTH [place] NIGHTLY Medical Branch atomoxetine 2020-0 Yes 40mg Take 40 mg Univers 40 mg 6-10 by mouth ity of capsule 00:00: daily. Medical Branch SERTraline 2020-0 Yes 100mg Take 100 Un [place] 100 mg 6-10 mg by ity of tablet 00:00: [facility] every Medical morning. Branch traZODone 2020-0 Yes TAKE 1 Univer s 50 mg 6-10 TABLET BY ity of tablet 00:00: MOUTH [place] NIGHTLY Medical Branch atomoxetine 2020-0 Yes 40mg Take 40 mg Univers 40 mg 6-10 by mouth ity of capsule 00:00: daily. [place] Medical Branch SERTraline 2020-0 Yes 100mg Take 100 Un [place] 100 mg 6-10 mg by ity of tablet 00:00: [facility] every Medical morning. Branch traZODone 2020-0 Yes TAKE 1 Univer s 50 mg 6-10 TABLET BY ity of tablet 00:00: [facility] NIGHTLY Medical Branch atomoxetine 2020-0 Yes 40mg Take 40 mg Univers 40 mg 6-10 by mouth ity of capsule 00:00: daily. [place] Medical Branch SERTraline 2020-0 Yes 100mg Take 100 Un gu[place]ita 100 mg 6-10 mg by ity of tablet 00:00: [facility] every Medical morning. Branch traZODone 2020-0 Yes TAKE 1 Univer s 50 mg 6-10 TABLET BY ity of tablet 00:00: [facility] NIGHTLY Medical Branch atomoxetine 2020-0 Yes 40mg Take 40 mg Univers 40 mg 6-10 by mouth ity of capsule 00:00: daily. [place] Medical Branch SERTraline 2020-0 Yes 100mg Take 100 Un guerita 100 mg 6-10 mg by ity of tablet 00:00: [place] [address] every Medical morning. Branch traZODone 2020-0 Yes TAKE 1 Univer s 50 mg 6-10 TABLET BY ity of tablet 00:00: [facility] NIGHTLY Medical Branch acetaminoph 2020-0 Yes [id number] 1{tbl} Take 1 Un [place]ita en-codeine 2-16 tablet by ity of (TYLENOL-CO 00:00: mouth [place] DEINE #3) 00 every 4 Medical 300-30 mg (four) Branch tablet hours as needed for Pain (scale 7-10). Indication s: acute pain metoclopram 2021-0 Yes [id number] 10mg Take 1 Univers rena HCl 10 2-16 tablet by ity of mg tablet 00:00: mouth [place] 00 every 6 Medical (six) Branch hours as needed for Nausea and Vomiting (N/V). metoclopram 2021-0 Yes [id number] 10mg Take 1 Univers rena HCl 10 [...] Indication s: acute pain metoclopram 2021-0 Yes [id number] 10mg Take 1 Univers rena HCl 10 2-16 tablet by ity of mg tablet 00:00: mouth [place] 00 every 6 Medical (six) Branch hours as needed for Nausea and Vomiting (N/V). metoclopram 2021-0 Yes [id number] 10mg Take 1 Univers rena HCl 10 [...] Indication s: acute pain metoclopram 2021-0 Yes [id number] 10mg Take 1 Univers rena HCl 10 2-16 tablet by ity of mg tablet 00:00: mouth [place] 00 every 6 Medical (six) Branch hours as needed for Nausea and Vomiting (N/V). metoclopram 2021-0 Yes [id number] 10mg Take 1 Univers rena HCl 10 [...] Indication s: acute pain metoclopram 2021-0 Yes [id number] 10mg Take 1 Univers rena HCl 10 2-16 tablet by ity of mg tablet 00:00: mouth [place] 00 every 6 Medical (six) Branch hours as needed for Nausea and Vomiting (N/V). metoclopram 2021-0 Yes [id number] 10mg Take 1 Univers rena HCl 10 [...] Indication s: acute pain metoclopram 2021-0 Yes [id number] 10mg Take 1 Univers rena HCl 10 2-16 tablet by ity of mg tablet 00:00: mouth [place] 00 every 6 Medical (six) Branch hours as needed for Nausea and Vomiting (N/V). metoclopram 2021-0 Yes [id number] 10mg Take 1 Univers rena HCl 10 [...] Indication s: acute pain metoclopram 2021-0 Yes [id number] 10mg Take 1 Univers rena HCl 10 2-16 tablet by ity of mg tablet 00:00: mouth [place] 00 every 6 Medical (six) Branch hours as needed for Nausea and Vomiting (N/V). metoclopram 2021-0 Yes [id number] 10mg Take 1 Univers rena HCl 10 [...] Indication s: acute pain metoclopram 2021-0 Yes [id number] 10mg Take 1 Univers rena HCl 10 2-16 tablet by ity of mg tablet 00:00: mouth [place] 00 every 6 Medical (six) Branch hours as needed for Nausea and Vomiting (N/V). metoclopram 1-0 Yes [id number] 10mg Take 1 Univers rena HCl 10 [...] Indication s: acute pain metoclopram 1-0 Yes [id number] 10mg Take 1 Univers rena HCl 10 2-16 tablet by ity of mg tablet 00:00: mouth [place] 00 every 6 Medical (six) Branch hours as needed for Nausea and Vomiting (N/V). metoclopram 1-0 Yes [id number] 10mg Take 1 Univers rena HCl 10 [...] Indication s: acute pain metoclopram 2021-0 Yes [id number] 10mg Take 1 Univers rena HCl 10 2-16 tablet by ity of mg tablet 00:00: mouth [place] 00 every 6 Medical (six) Branch hours as needed for Nausea and Vomiting (N/V). metoclopram 2020-0 Yes [id number] 10mg Take 1 Univers rena HCl 10 2-16 tablet by ity of mg tablet 00:00: mouth [place] 00 every 6 Medical (six) Branch hours. dicyclomine 2020-0 Yes [id number] 20mg Take 1 Univers 20 mg 1-30 tablet by ity of tablet 00:00: mouth 4 [place] 00 (four) Medical times Branch daily. ondansetron 2020-0 Yes [id number] 4mg Take 1 Univers (ZOFRAN 1-30 tablet by ity of ODT) 4 mg 00:00: mouth [place] disintegrat 00 every 8 Medic al ing tablet (eight) Branch hours as needed for Nausea and Vomiting (N/V). dicyclomine 2020-0 Yes [id number] 20mg Take 1 Univers 20 mg 1-30 tablet by ity of tablet 00:00: mouth 4 [place] 00 (four) Medical times Branch daily. ondansetron 2020-0 Yes [id number] 4mg Take 1 Univers (ZOFRAN 1-30 tablet by ity of ODT) 4 mg 00:00: mouth [place] disintegrat 00 every 8 Medic al ing tablet (eight) Branch hours as needed for Nausea and Vomiting (N/V). dicyclomine 2020-0 Yes [id number] 20mg Take 1 Univers 20 mg 1-30 tablet by ity of tablet 00:00: mouth 4 [place] 00 (four) Medical times Branch daily. ondansetron 2020-0 Yes [id number] 4mg Take 1 Univers (ZOFRAN 1-30 tablet by ity of ODT) 4 mg 00:00: mouth [place] disintegrat 00 every 8 Medic al ing tablet (eight) Branch hours as needed for Nausea and Vomiting (N/V). dicyclomine 2020-0 Yes [id number] 20mg Take 1 Univers 20 mg 1-30 tablet by ity of tablet 00:00: mouth 4 [place] 00 (four) Medical times Branch daily. ondansetron 202-0 Yes [id number] 4mg Take 1 Univers (ZOFRAN 1-30 tablet by ity of ODT) 4 mg 00:00: mouth [place] disintegrat 00 every 8 Medic al ing tablet (eight) Branch hours as needed for Nausea and Vomiting (N/V). dicyclomine 2021-0 Yes [id number] 20mg Take 1 Univers 20 mg 1-30 tablet by ity of tablet 00:00: mouth 4 [place] 00 (four) Medical times Branch daily. ondansetron 1-0 Yes [id number] 4mg Take 1 Univers (ZOFRAN 1-30 tablet by ity of ODT) 4 mg 00:00: mouth [place] disintegrat 00 every 8 Medic al ing tablet (eight) Branch hours as needed for Nausea and Vomiting (N/V). dicyclomine 1-0 Yes [id number] 20mg Take 1 Univers 20 mg 1-30 tablet by ity of tablet 00:00: mouth 4 [place] 00 (four) Medical times Branch daily. ondansetron 2020-0 Yes [id number] 4mg Take 1 Univers (ZOFRAN 1-30 tablet by ity of ODT) 4 mg 00:00: mouth [place] disintegrat 00 every 8 Medic al ing tablet (eight) Branch hours as needed for Nausea and Vomiting (N/V). dicyclomine 2020-0 Yes [id number] 20mg Take 1 Univers 20 mg 1-30 tablet by ity of tablet 00:00: mouth 4 [place] 00 (four) Medical times Branch daily. ondansetron 2020-0 Yes [id number] 4mg Take 1 Univers (ZOFRAN 1-30 tablet by ity of ODT) 4 mg 00:00: mouth [place] disintegrat 00 every 8 Medic al ing tablet (eight) Branch hours as needed for Nausea and Vomiting (N/V). dicyclomine 1-0 Yes [id number] 20mg Take 1 Univers 20 mg 1-30 tablet by ity of tablet 00:00: mouth 4 [place] 00 (four) Medical times Branch daily. ondansetron 1-0 Yes [id number] 4mg Take 1 Univers (ZOFRAN 1-30 tablet by ity of ODT) 4 mg 00:00: mouth [place] disintegrat 00 every 8 Medic al ing tablet (eight) Branch hours as needed for Nausea and Vomiting (N/V). dicyclomine 1-0 Yes [id number] 20mg Take 1 Univers 20 mg 1-30 tablet by ity of tablet 00:00: mouth 4 [place] 00 (four) Medical times Branch daily. ondansetron 1-0 Yes [id number] 4mg Take 1 Univers (ZOFRAN 1-30 tablet by ity of ODT) 4 mg 00:00: mouth [place] disintegrat 00 every 8 Medic al ing tablet (eight) Branch hours as needed for Nausea and Vomiting (N/V). Immunizations Ordered Filled Immunization Date Status Comments [facility] e Immunization Name Name Td 2021-11-19 Completed University of 00:00:00 [facility] Td 2021-11-19 Completed University of 00:00:00 [facility] Td 2021-11-19 Completed University of 00:00: [facility] TDAP 2016-11-15 Completed University of 00:00:00 [facility] Influenza Virus 2016-11-15 Completed Universit y of Vaccine [facility] IM [facility] University of 00:00:00 [facility] Influenza Virus 2016-11-15 Completed Universit y of Vaccine Quad IM 3+ 00:00:00 [facility] TDAP 2016-11-15 Completed University of 00:00:00 [facility] Influenza Virus 2016-11-15 Completed Universit y of Vaccine Quad IM 3+ 00:00:00 [facility] TDAP 2016-11-15 Completed University of 00:00:00 [facility] Influenza Virus 2016-11-15 Completed Universit y of Vaccine Quad IM 3+ 00:00:00 [facility] TDAP 2016-11-15 Completed University of 00:00:00 [facility] Influenza Virus 2016-11-15 Completed Universit y of Vaccine Quad IM 3+ 00:00:00 [facility] TDAP 2016-11-15 Completed University of 00:00:00 [facility] Influenza Virus 2016-11-15 Completed Universit y of Vaccine Quad IM 3+ 00:00:00 [facility] TDAP 2016-11-15 Completed University of 00:00:00 [facility] Influenza Virus 2016-11-15 Completed Universit y of Vaccine Quad IM 3+ 00:00:00 [facility] TDAP 2016-11-15 Completed University of 00:00:00 [facility] Influenza Virus 2016-11-15 Completed Universit y of Vaccine Quad IM 3+ 00:00:00 [facility] TDAP 2016-11-15 Completed University of 00:00:00 [facility] Influenza Virus 2016-11-15 Completed Universit y of Vaccine Quad IM 3+ 00:00:00 [place] Medical YRS Branch Vital Signs Vital Name Observation Time Observation Value Comments Source Systolic blood 2021-11-19 23:00:00 115 mm[Hg] Univer sity of pressure [place] [facility] Diastolic blood 2021-11-19 23:00:00 75 mm[Hg] Unive rsity of pressure [place] [facility] Heart rate 2021-11-19 23:00:00 56 /min Universi ty of [place] [facility] Respiratory rate 2021-11-19 23:00:00 16 /min Univ ersity of [place] [facility] Branch Oxygen saturation in 2021-11-19 23:00:00 100 /min University of Arterial blood by [place] [employer] Pulse oximetry Branch Body temperature 2021-11-19 16:35:00 37 Kori Univ ersity of [place] Medical Branch Body weight 2021-11-19 16:35:00 56.7 kg Universi ty of [place] [facility] BMI 2021-11-19 16:35:00 22.86 kg/m2 Universi ty of [place] [facility] Systolic blood 2021-11-19 14:41:14 130 mm[Hg] Univer sity of pressure [place] [facility] Diastolic blood 2021-11-19 14:41:14 87 mm[Hg] Unive rsity of pressure [place] [facility] Heart rate 2021-11-19 14:41:14 85 /min Universi ty of [place] [facility] Body temperature 2021-11-19 14:41:14 36.67 Kori Univ ersity of [place] [facility] Respiratory rate 2021-11-19 14:41:14 18 /min Univ ersity of [place] [facility] Oxygen saturation in 2021-11-19 14:41:14 99 /min University of Arterial blood by [place] [employer] Pulse oximetry Branch Body height 2021-11-19 12:31:00 157.5 cm Universi ty of [place] [facility] Branch Body weight 2021-11-19 12:31:00 56.7 kg Universi ty of [place] [facility] BMI 2021-11-19 12:31:00 22.86 kg/m2 Universi ty of [place] [facility] Systolic blood 2021-11-10 17:03:00 126 mm[Hg] Univer sity of pressure [place] [facility] Diastolic blood 2021-11-10 17:03:00 86 mm[Hg] Unive rsity of pressure [place] [facility] Heart rate 2021-11-10 17:03:00 85 /min Universi ty of [place] [facility] Body temperature 2021-11-10 17:03:00 37.06 Kori [facility] ersity of [place] [facility] Respiratory rate 2021-11-10 17:03:00 20 /min Univ ersity of [place] [facility] Body height 2021-11-10 17:03:00 157.5 cm Universi ty of [place] [facility] Body weight 2021-11-10 17:03:00 55.792 kg Universi ty of [place] [facility] BMI 2021-11-10 17:03:00 22.50 kg/m2 Universi ty of [place] [facility] Oxygen saturation in 2021-11-10 17:03:00 99 /min University of Arterial blood by [facility] Pulse oximetry Branch Systolic blood 2020-09-29 22:26:00 139 mm[Hg] Univer sity of pressure [place] [facility] Diastolic blood 2020-09-29 22:26:00 89 mm[Hg] [facility] Heart rate 2020-09-29 22:26:00 76 /min Universi ty of [place] [facility] Body temperature 2020-09-29 22:26:00 36.89 Kori [facility] ersity of [place] [facility] Respiratory rate 2020-09-29 22:26:00 16 /min [facility] ersity of [place] [facility] Body height 2020-09-29 22:26:00 154.9 cm Universi ty of [place] [facility] Body weight 2020-09-29 22:26:00 53.025 kg Universi ty of [place] [facility] BMI 2020-09-29 22:26:00 22.09 kg/m2 Universi ty of [place] [facility] Oxygen saturation in 2020-09-29 22:26:00 100 /min University of Arterial blood by [facility] Pulse oximetry Branch Procedures Procedure Date / Time Performing Clinician Source Performed AUTHORIZATION FOR 2021-12-02 05:01:00 [facility]igned, [facility] Name Medical Branch MR CERVICAL SPINE WO 2021-11-19 20:56:00 Michael Stock [facility] COVID-19 (ID NOW RAPID 2021-11-19 14:10:00 Magen Rouse [facility] TESTING) Medical Branch CT CERVICAL SPINE WO 2021-11-19 12:49:50 Magen Rouse [facility] [facility] of [place] CONTRAST [facility] CT HEAD WO CONTRAST 2021-11-19 12:49:50 Magen Rouse [facility] CONSENT/REFUSAL FOR 2021-11-19 12:35:14 Doctor Unassigned, No [facility] Name [facility] XR HAND 3+ VW LEFT 2021-11-10 17:32:17 Magen Rouseit y of [facility] XR WRIST 3+ VW LEFT 2021-11-10 17:31:56 Magen Rouse [facility] NOTICE OF PRIVACY 2021-11-10 16:59:19 Doctor Unassigned, No [facility] PRACTICES [facility] CONSENT/REFUSAL FOR 2021-11-10 16:58:04 Doctor Unassigned, No [facility] ASSIGNMENT OF BENEFITS 2020-09-29 22:10:07 Doctor Unassigned, No [facility] Encounters Start End Encounter Admission Attending Care Care Encounter Source Date/Time Date/Time Type Type Clinicians Facility Department ID 2020-12-05 Emergency [facility] [id number] Univers 23:41:25 ity of [facility] 2020-12-05 Emergency [facility] [id number] Univers 20:46:01 ity of [facility] 2020-12-05 Emergency [facility] [id number] Univers 20:45:07 ity of [facility] 2020-12-03 Emergency [facility] [id number] Univers 22:03:22 ity [facility] 2021-12-02 2021-12-02 Orders Doctor FLYNN [id number] Univers 00:00:00 00:00:00 Only Unassigned, SAMMIE [id number] ity of [place] [facility] [id number] Alex as [phone] [address] 2021-11-19 2021-11-19 Emergency X [facility] ERT [id number] Univers 11:43:00 18:54:00 ity [facility] 2021-11-19 2021-11-19 Emergency Estrada Sotelo TRAUMA [id number] Univers 11:43:00 18:54:00 Sravan Mishra [id number] ity of [id number] [facility] [phone] [facility] [address] 2021-11-19 2021-11-19 Emergency X [facility] ERT [id number] Univers 07:30:00 10:47:00 MAGEN ity of [facility] 2021-11-19 2021-11-19 Emergency [facility] [id number] Univers 07:30:00 10:47:00 Magen JONES [id number] i ty of [place] [id number] [facility] [phone] [place] [id number] [place] 2021-11-10 2021-11-10 Emergency X [facility] ERT [id number] Univers 12:05:00 13:29:00 MAGEN ity of [facility] 2021-11-10 2021-11-10 Emergency [facility] [id number] Univers 12:05:00 13:29:00 Magen JONES [id number] i ty [facility] [id number] [facility] [phone] [place] [id number] [place] 2021-11-10 2021-11-10 Orders Doctor FLYNN [id number] [id number] Univers 00:00:00 00:00:00 Only Unassigned, SAMMIE [id number] ity of [place] [facility] [id number] Alex [phone] [facility] [address] 2020-09-29 2020-09-29 Outpatient R KATE [facility] [id number] Univers 17:40:00 17:40:00 SHIRLEY topete o f [facility] 2020-09-29 2020-09-29 Urgent [facility] 1.2.840.114 [id number] Univers 17:11:16 17:31:16 [facility] [id number] i ty of [place] [id number] Alex as Alfredo?Blea [phone] [address] Office [facility] 2020-09-29 2020-09-29 Telephone [facility] [id number] Univers 00:00:00 00:00:00 [facility] [id number] it y of [place] [id number] Alex as Alfredo?Blea [phone] [address] Medical Office [facility] 2020-09-29 2020-09-29 Orders Doctor GEE 1.2.840.114 [id number] Univers 00:00:00 00:00:00 Only Unassigned, SAMMIE [id number] ity of [place] [facility] [id number] Alex as [phone] [address] 2020-09-29 2020-09-29 Letter [facility] 1.2.840.114 [id number] Univers 00:00:00 00:00:00 (Out) [facility] [id number] it y of [place] [id number] Alex as Alfredo?Blea [phone] [address] Office [facility] 2020-01-16 2020-01-16 Outpatient Chanda ZULETA [facility] [id number] Univers 13:00:00 13:00:00 JAVI yoselyn [facility] 2019-08-15 2019-08-15 Outpatient Chanda PINEDA [facility] [id number] Univers 10:45:00 10:45:00 AIDEE kareem [facility] 2019-08-15 2019-08-15 Outpatient Chanda PINEDA [facility] [id number] Univers 10:45:00 10:45:00 AIDEE [facility] 2019-06-17 2019-06-17 Emergency X [facility] ERT [id number] Univers 10:46:52 13:28:00 JOSSY kareem [facility] 2019-04-30 2019-04-30 Outpatient Raju_P [facility] G [id number] [place] 03:42:00 03:42:00 [facility] 2019-04-11 2019-04-11 Emergency X [facility] ERT [id number] Univers 09:40:39 16:24:00 JOSSY topete [facility] Results This patient has no known results.
--- NOTE | 2022-08-19 16:06 | ER ---
Nurse's Notes [facility] Name: Ashley Alcala Age: 32 yrs Sex: Female : 1990 Arrival Date: 08/19/2022 Time: 15:39 Bed IW4 Private MD: Diagnosis: Person with feared health complaint in whom no diagnosis is made Presentation: 08/19 15:45 Chief complaint: Patient states: possible ingrown pubic hair and is worried about aa5 having an STD. Coronavirus screen: At this time, the client does not indicate any symptoms associated with coronavirus-19. Ebola Screen: Patient denies travel to an Ebola-affected area in the 21 days before illness onset. Risk Assessment: Do you want to hurt yourself or someone else? Patient reports no desire to harm self or others. Onset of symptoms was August 19, 2022. 15:45 Acuity: ESTEVAN 5 aa5 15:45 Method Of Arrival: Ambulatory aa5 Vital Signs: 15:46 aa5 15:46 Pt left ER before VS aa5 ED Course: 15:42 Patient arrived in ED. mr 15:45 Nayana Alves FNP-C is PHCP. kb 15:45 Frank Matos MD is Attending Physician. kb 15:45 Arm band placed on. aa5 15:58 Triage completed. aa5 Administered Medications: No medications were administered Outcome: 15:46 Patient left the ED. aa5 16:05 Discharge ordered by . kb Signatures: Nayana Alves FNP-C FNP-Viridiana Montano ChiLatricia crum RN RN aa5 Corrections: (The following items were deleted from the chart) 16:20 16:20 Patient left the ED. aa5 aa5
--- NOTE | 2022-08-19 16:06 | EDPHYS ---
Physician Documentation [facility] Name: Ashley Alcala Age: 32 yrs Sex: Female : 1990 Arrival Date: 08/19/2022 Time: 15:39 Bed IW4 Private MD: ED Physician Frank Matos HPI: 08/19 16:19 This 32 yrs old Female presents to ER via Ambulatory with complaints of STD Exposure. kb 16:19 The patient's rash thought to be caused by developed after shaving. kb 16:30 The rash is located on the groin. The rash can be described as erythematous. Onset: The kb symptoms/episode began/occurred 1 week(s) ago. Associated signs and symptoms: Pertinent positives: itching. Severity of symptoms: At their worst the symptoms were very mild in the emergency department the symptoms are unchanged. The patient has not experienced similar symptoms in the past. The patient has not recently seen a physician. Pt states she developed a red rash after shaving and one spot that she popped. States that spot hasn't healed yet so she wanted to make sure it wasn't an STD. . ROS: 16:19 Constitutional: Negative for fever, chills, and weight loss. kb 16:19 Skin: Positive for rash, of the groin. 16:19 All other systems are negative. Exam: 16:19 Constitutional: This is a well developed, well nourished patient who is awake, alert, kb and in no acute distress. Head/Face: Normocephalic, atraumatic. ENT: Moist Mucous membranes Cardiovascular: Regular rate and rhythm with a normal S1 and S2. No gallops, murmurs, or rubs. No pulse deficits. Respiratory: Respirations even and unlabored. No increased work of breathing. Talking in full sentences MS/ Extremity: Pulses equal, no cyanosis. Neurovascular intact. Full, normal range of motion. Neuro: Awake and alert, GCS 15, oriented to person, place, time, and situation. Moves all extremities. Normal gait. 16:19 Skin: rash a mild rash is noted, rash can be described as erythematous, on the groin. Vital Signs: 15:46 aa5 15:46 Pt left ER before VS aa5 MDM: 15:53 Patient medically screened. kb 16:29 Differential diagnosis: impetigo, allergic reaction, parasite infection, herpes. Data kb reviewed: vital signs, nurses notes. Counseling: I had a detailed discussion with the patient and/or guardian regarding: the historical points, exam findings, and any diagnostic results supporting the discharge/admit diagnosis, the need for outpatient follow up, an OB/Gyne specialist, to return to the emergency department if symptoms worsen or persist or if there are any questions or concerns that arise at home. Administered Medications: No medications were administered Disposition: 19:29 Co-signature as Attending Physician, Frank Matos MD I reviewed the patient's care rt provided by the Advanced Practice Provider and agree with the diagnosis and treatment plan. Disposition Summary: 08/19/22 16:05 Discharge Ordered Location: Home kb Condition: Stable kb Diagnosis - Person with feared health complaint in whom no diagnosis is made kb Followup: kb - With: Emergency Department - When: As needed - Reason: Worsening of condition Followup: kb - With: Private Physician - When: 2 - 3 days - Reason: Recheck today's complaints, Continuance of care, Re-evaluation by your physician Discharge Instructions: - Discharge Summary Sheet kb - Preventing Sexually Transmitted Infections, Adult kb Forms: - Medication Reconciliation Form kb - Thank You Letter kb - Antibiotic Education kb - Prescription Opioid Use kb - Patient Portal Instructions kb Signatures: Nayana Alves FNP-C FNP-Frank Kim MD MD rt
== END 2022-08-19 16:20 | disposition home or self-care (01) ==
LOC: ER 15:39
DX: Z71.1 Person with feared health complaint in whom no diagnosis is made (principal)
CPT/HCPCS: 99281

== ENCOUNTER 2022-12-11 07:15 | Emergency (ER) | payer OTHER ==
--- OUTSIDE RECORDS SUMMARY | 2022-12-11 07:19 | XMS REPORT | Continuity of Care Document ---
:1990 Author Organization [facility] t Address [address] [place] [address] Care Team Providers Name Role Phone Mehran Kuhn Primary Care Physician Doctor Unassigned, [place] Attending Clinician Unavailable SRAVAN MISHRA Attending Clinician [...] Policy Number Effective Date Expiration Date Formerly [facility] [id number] 2019 CHOICE MEDICAID 00:00:00 MEDICAID [facility] [place] [facility] [id number] 2019 00:00:00 Problems Condition Condition Condition Status Onset Resolution Last Treating Co mments Source Name Details Category Date Date Treatment Clinician Date Disease Active U nivers care and care and 1-08 ity of [place]in[place] of 00 Medical lactating lactating Bran ch mother mother , , Disease Active 2016-02 Univers delivered delivered 2-17 ity of 00:00: [address] Anemia, Anemia, Disease Active 2016-02 Univers 2-17 it y of 00:00: [address] - - Disease Active 2016-02 U nivers induced induced 2-17 ity of hypertensi hypertensi [place] in Medical third third Branch trimester trimester Tubal Tubal Disease Active 2016-02 Univers ligation ligation 2-17 ity of status status 00:00: [address] Full-term Full-term Disease Active 2016-02 Uni vers jovita ROM, jovita ROM, 2-16 ity of unsp [place] 00 Medical rupture rupture Branch and onset and onset labor labor 38 weeks 38 weeks Disease Active 2016-02 Unive rs gestation gestation 2-16 ity of of of 00:00: [place] 00 [facility] Research Research Disease Active 2016-02 Overview: Un guerita study study 2-16 Formattin ity of patient patient 00:00: g of this [place] HCTZ HCTZ 00 note is Medical different Branch from the original. Patient is in the HCTZ study IRB # [id number] y questions please contact:Corina Guadalupe MD [phone] Arnold MD [phone] Owen MD [phone] facts Patient randomize d after delivery if they met inclusion criteria a nd accepted Medicati on comes from [facility]S not pharmacy, [facility] Phone Number Ext. [phone] or cell [phone] Patient can start meds as soon as they tolerate PO One tab per day of either placebo or HCTZ Medicati on stays with patient Medicati on will appear on MAR, Nurses need to rene as given (No barcode) Medicati on needs to counted prior to discharge by research software team leader All follow ups need to be on POD or PP day # 14 or more Patient needs to be reminded to bring their left over medicatio n and bottle back to their visit IDS needs to be notified at time of discharge Please contact Dr. Guadalupe with any Questions Previous Previous Disease Active 2016-02 Unive rs 2-06 ity of delivery delivery 00:00: [place] desires desires 00 Medical TOLAC TOLAC Branch [...] Active Univers ALLERGIE Class ity of S [facility] Social History Social Habit Start Date Stop Date Quantity Comments Source History of tobacco Cigarette Smoker University of use [facility] Exposure to 2021-11-09 2021-11-19 Not sure [facility] SARS-CoV-2 (event) 00:00:00 11:34:00 [facility] Alcohol intake 2020-09-29 2020-09-29 0 /d University of 00:00:00 00:00:00 [facility] Cigarettes smoked 2016-06-07 2016-06-07 Univers ity of current (pack per 00:00:00 00:00:00 ) - Reported Branch Cigarette 2016-06-07 2016-06-07 University of pack-years 00:00:00 00:00:00 [facility] Tobacco use and 2016-06-07 2016-06-07 Smokeless Universit y of exposure 00:00:00 00:00:00 tobacco non-user [facility]igned At [birth year] Universit y of 00:00:00 00:00:00 [facility] Smoking Status Start Date Stop Date Source Smokes tobacco daily 2016-06-07 00:00:00 Univers ity of [facility] Medications Ordered Filled Start Stop Current Ordering [...] 5) 5-325 mg 00 :00 dose, On [facility]encion tablet 1 [facility] tablet 11/19/21 at 0800, ANA M cyclobenzap 2021-02 Yes [id number] 5mg Take 1 Univers rine 5 mg 0-14 tablet by ity o f tablet 00:00: mouth in [place] 00 the Medical morning Branch and 1 tablet at noon and 1 tablet in the evening. cyclobenzap 2021-02 Yes [id number] 5mg Take 1 Univers rine 5 mg 0-14 tablet by ity o f tablet 00:00: mouth in [place] 00 the Medical morning Branch and 1 tablet at noon and 1 tablet in the evening. predniSONE 2021-02 Yes [id number] 40mg Take 2 Univers 20 mg 0-05 [id number] tablets by ity of tablet 00:00: mouth in [place] 00 the Medical morning. Branch predniSONE 2021-02 Yes [id number] 40mg Take 2 Univers 20 mg 0-05 [id number] tablets by ity of tablet 00:00: mouth in [place] 00 the Medical morning. Branch predniSONE 2021-02 Yes [id number] 40mg Take 2 Univers 20 mg 0-05 [id number] tablets by ity of tablet 00:00: mouth in [place] 00 the Medical morning. Branch predniSONE 2021-02 Yes [id number] 40mg Take 2 Univers 20 mg 0-05 [id number] tablets by ity of tablet 00:00: mouth in [place] 00 the Medical morning. Branch HYDROcodone 2021-02- No [id number] 1{tbl} Take 1 U nivers -acetaminop 0-05 10-13 tablet by it y of hen (NORCO) 00:00[place] 04:59 [place] 7.5-325 mg 00 :00 every 8 Medica l per tablet (eight) [place] hours as needed for Pain for up to 7 days. Indication s: acute pain budesonide- Yes [id number] 2{puff} Inhale 2 Univers formoteroL 8-24 Puffs 2 ity of 80-4.5 00:00: (two) [place] mcg/actuati 00 times Medical on inhaler daily. Branch bromphenira Yes [id number] 5mL Take 5 mL Univers mine-pseudo 8-24 by mouth 4 it y of ephedrine-D 00:00: (four) [place] M (BROMFED 00 times Medical DM) 2-30-10 daily as Bran ch mg/5 mL needed for syrup Congestion /Allergies or Cough. budesonide- Yes [id number] 2{puff} Inhale 2 Univers formoteroL 8-24 Puffs 2 ity of 80-4.5 00:00: (two) [place] mcg/actuati 00 times Medical on inhaler daily. Branch bromphenira Yes [id number] 5mL Take 5 mL Univers mine-pseudo 8-24 by mouth 4 it y of ephedrine-D 00:00: (four) [place] M (BROMFED 00 times Medical DM) 2-30-10 daily as Bran ch mg/5 mL needed for syrup Congestion /Allergies or Cough. budesonide- Yes [id number] 2{puff} Inhale 2 Univers formoteroL 8-24 Puffs 2 ity of 80-4.5 00:00: (two) [place] mcg/actuati 00 times Medical on inhaler daily. Branch bromphenira Yes [id number] 5mL Take 5 mL Univers mine-pseudo 8-24 by mouth 4 it y of ephedrine-D 00:00: (four) [place] M (BROMFED 00 times Medical DM) 2-30-10 daily as Bran ch mg/5 mL needed for syrup Congestion /Allergies or Cough. budesonide- Yes [id number] 2{puff} Inhale 2 Univers formoteroL 8-24 Puffs 2 ity of 80-4.5 00:00: (two) [place] mcg/actuati 00 times Medical on inhaler daily. Branch bromphenira Yes [id number] 5mL Take 5 mL Univers mine-pseudo 8-24 by mouth 4 it y of ephedrine-D 00:00: (four) [place] M (BROMFED 00 times Medical DM) 2-30-10 daily as Bran ch mg/5 mL needed for syrup Congestion /Allergies or Cough. budesonide- Yes [id number] 2{puff} Inhale 2 Univers formoteroL 8-24 Puffs 2 ity of 80-4.5 00:00: (two) [place] mcg/actuati 00 times Medical on inhaler daily. Branch bromphenira Yes [id number] 5mL Take 5 mL Univers mine-pseudo 8-24 by mouth 4 it y of ephedrine-D 00:00: (four) [place] M (BROMFED 00 times Medical DM) 2-30-10 daily as Bran ch mg/5 mL needed for syrup Congestion /Allergies or Cough. budesonide- Yes [id number] 2{puff} Inhale 2 Univers formoteroL 8-24 Puffs 2 ity of 80-4.5 00:00: (two) [place] mcg/actuati 00 times Medical on inhaler daily. Branch bromphenira Yes [id number] 5mL Take 5 mL Univers mine-pseudo 8-24 by mouth 4 it y of ephedrine-D 00:00: (four) [place] M (BROMFED 00 times Medical DM) 2-30-10 daily as Bran ch mg/5 mL needed for syrup Congestion /Allergies or Cough. budesonide- 0 Yes [id number] 2{puff} Inhale 2 Univers formoteroL 8-24 Puffs 2 ity of 80-4.5 00:00: (two) [place] mcg/actuati 00 times Medical on inhaler daily. Branch bromphenira Yes [id number] 5mL Take 5 mL Univers mine-pseudo 8-24 by mouth 4 it y of ephedrine-D 00:00: (four) [place] M (BROMFED 00 times Medical DM) 2-30-10 daily as Bran ch mg/5 mL needed for syrup Congestion /Allergies or Cough. budesonide- Yes [id number] 2{puff} Inhale 2 Univers formoteroL 8-24 Puffs 2 ity of 80-4.5 00:00: (two) [place] mcg/actuati 00 times Medical on inhaler daily. Branch bromphenira Yes [id number] 5mL Take 5 mL Univers mine-pseudo 8-24 [...] gram EC 7-28 ity of tablet 00:00: [facility] Branch Hyoscyamine 0 Yes TAKE [...] BY ity of 0.125 mg 00:00: MOUTH [place] TbDL 00 EVERY 4 TO Medical 6 HOURS Branch NEEDED sucralfate 2020-0 Yes Univers 1 gram 7-26 ity of tablet 00:00: [place] Medical Branch atomoxetine 2020-0 Yes 40mg Take 40 mg Univers 40 mg 6-10 by mouth ity of capsule 00:00: daily. Medical Branch SERTraline 2020-0 Yes 100mg Take 100 Un guerita 100 mg 6-10 mg by ity of tablet 00:00: mouth [place] [id number] every Medical morning. Branch traZODone 2020-0 Yes TAKE 1 Univer s 50 mg 6-10 TABLET BY ity of tablet 00:00: MOUTH [place] NIGHTLY Medical Branch atomoxetine 2020-0 Yes 40mg Take 40 mg Univers 40 mg 6-10 by mouth ity of capsule 00:00: daily. Medical Branch SERTraline 2020-0 Yes 100mg Take 100 Un gu[place]ita 100 mg 6-10 mg by ity of tablet 00:00: [place] [address] every Medical morning. Branch traZODone 2020-0 Yes TAKE 1 Univer s 50 mg 6-10 TABLET BY ity of tablet 00:00: [facility] NIGHTLY Medical Branch atomoxetine 2020-0 Yes 40mg Take 40 mg Univers 40 mg 6-10 by mouth ity of capsule 00:00: daily. Medical Branch SERTraline 2020-0 Yes 100mg Take 100 Un guerita 100 mg 6-10 mg by ity of tablet 00:00: [facility] every Medical morning. Branch traZODone 2020-0 Yes TAKE 1 Univer s 50 mg 6-10 TABLET BY ity of tablet 00:00: MOUTH [place] NIGHTLY Medical Branch atomoxetine 2020-0 Yes 40mg Take 40 mg Univers 40 mg 6-10 by mouth ity of capsule 00:00: daily. Medical Branch SERTraline 2020-0 Yes 100mg Take 100 Un gu[place]ita 100 mg 6-10 mg by ity of tablet 00:00: [place] [address] every Medical morning. Branch traZODone 2020-0 Yes TAKE 1 Univer s 50 mg 6-10 TABLET BY ity of tablet 00:00: MOUTH [place] NIGHTLY Medical Branch atomoxetine 2020-0 Yes 40mg Take 40 mg Univers 40 mg 6-10 by mouth ity of capsule 00:00: daily. Medical Branch SERTraline 2020-0 Yes 100mg Take 100 Un guerita 100 mg 6-10 mg by ity of tablet 00:00: [facility] every Medical morning. Branch traZODone 2020-0 Yes TAKE 1 Univer s 50 mg 6-10 TABLET BY ity of tablet 00:00: MOUTH [place] NIGHTLY Medical Branch atomoxetine 2020-0 Yes 40mg Take 40 mg Univers 40 mg 6-10 by mouth ity of capsule 00:00: daily. [place] Medical Branch SERTraline 2020-0 Yes 100mg Take 100 Un guerita 100 mg 6-10 mg by ity of tablet 00:00: [facility] every Medical morning. Branch traZODone 2020-0 Yes TAKE 1 Univer s 50 mg 6-10 TABLET BY ity of tablet 00:00: [facility] NIGHTLY Medical Branch atomoxetine 2020-0 Yes 40mg Take 40 mg Univers 40 mg 6-10 by mouth ity of capsule 00:00: daily. [place] Medical Branch SERTraline 2020-0 Yes 100mg Take 100 Un guerita 100 mg 6-10 mg by ity of tablet 00:00: [facility] every Medical morning. Branch traZODone 2020-0 Yes TAKE 1 Univer s 50 mg 6-10 TABLET BY ity of tablet 00:00: [facility] NIGHTLY Medical Branch atomoxetine 2020-0 Yes 40mg Take 40 mg Univers 40 mg 6-10 by mouth ity of capsule 00:00: daily. [place] Medical Branch SERTraline 2020-0 Yes 100mg Take 100 Un guerita 100 mg 6-10 mg by ity of tablet 00:00: [place] [address] every Medical morning. Branch traZODone 2020-0 Yes TAKE 1 Univer s 50 mg 6-10 TABLET BY ity of tablet 00:00: [facility] NIGHTLY Medical Branch acetaminoph 2020-0 Yes [id number] 1{tbl} Take 1 Un ugerita en-codeine 2-16 tablet by ity of (TYLENOL-CO 00:00: mouth [place] DEINE #3) 00 every 4 Medical 300-30 mg (four) Branch tablet hours as needed for Pain (scale 7-10). Indication s: acute pain metoclopram 2021-0 Yes [id number] 10mg Take 1 Univers rena HCl 10 2-16 tablet by ity of mg tablet 00:00: mouth [place] 00 every 6 Medical (six) Branch hours as needed for Nausea and Vomiting (N/V). metoclopram 2021-0 Yes [id number] 10mg Take 1 Univers rena HCl 10 [...] Indication s: acute pain metoclopram 2021-0 Yes [id number] 10mg Take 1 Univers rena HCl 10 2-16 tablet by ity of mg tablet 00:00: mouth [place] 00 every 6 Medical (six) Branch hours as needed for Nausea and Vomiting (N/V). metoclopram 2021-0 Yes [id number] 10mg Take 1 Univers rena HCl 10 [...] Indication s: acute pain metoclopram 2021-0 Yes [id number] 10mg Take 1 Univers rena HCl 10 2-16 tablet by ity of mg tablet 00:00: mouth [place] 00 every 6 Medical (six) Branch hours as needed for Nausea and Vomiting (N/V). metoclopram 2021-0 Yes [id number] 10mg Take 1 Univers rena HCl 10 [...] Indication s: acute pain metoclopram 2021-0 Yes [id number] 10mg Take 1 Univers rena HCl 10 2-16 tablet by ity of mg tablet 00:00: mouth [place] 00 every 6 Medical (six) Branch hours as needed for Nausea and Vomiting (N/V). metoclopram 2021-0 Yes [id number] 10mg Take 1 Univers rena HCl 10 [...] Indication s: acute pain metoclopram 2021-0 Yes [id number] 10mg Take 1 Univers rena HCl 10 2-16 tablet by ity of mg tablet 00:00: mouth [place] 00 every 6 Medical (six) Branch hours as needed for Nausea and Vomiting (N/V). metoclopram 2021-0 Yes [id number] 10mg Take 1 Univers rena HCl 10 [...] Indication s: acute pain metoclopram 2021-0 Yes [id number] 10mg Take 1 Univers rena HCl 10 2-16 tablet by ity of mg tablet 00:00: mouth [place] 00 every 6 Medical (six) Branch hours as needed for Nausea and Vomiting (N/V). metoclopram 2021-0 Yes [id number] 10mg Take 1 Univers rena HCl 10 [...] Indication s: acute pain metoclopram 2021-0 Yes [id number] 10mg Take 1 Univers rena HCl 10 2-16 tablet by ity of mg tablet 00:00: mouth [place] 00 every 6 Medical (six) Branch hours as needed for Nausea and Vomiting (N/V). metoclopram 1-0 Yes [id number] 10mg Take 1 Univers rena HCl 10 [...] Indication s: acute pain metoclopram 1-0 Yes [id number] 10mg Take 1 Univers rena HCl 10 2-16 tablet by ity of mg tablet 00:00: mouth [place] 00 every 6 Medical (six) Branch hours as needed for Nausea and Vomiting (N/V). metoclopram 1-0 Yes [id number] 10mg Take 1 Univers rena HCl 10 [...] Indication s: acute pain metoclopram 2021-0 Yes [id number] 10mg Take 1 Univers rena HCl 10 2-16 tablet by ity of mg tablet 00:00: mouth [place] 00 every 6 Medical (six) Branch hours as needed for Nausea and Vomiting (N/V). metoclopram 2020-0 Yes [id number] 10mg Take 1 Univers rena HCl 10 2-16 tablet by ity of mg tablet 00:00: mouth [place] 00 every 6 Medical (six) Branch hours. dicyclomine 2020-0 Yes [id number] 20mg Take 1 Univers 20 mg 1-30 tablet by ity of tablet 00:00: mouth 4 [place] 00 (four) Medical times Branch daily. ondansetron 2020-0 Yes [id number] 4mg Take 1 Univers (ZOFRAN 1-30 tablet by ity of ODT) 4 mg 00:00: mouth [place] disintegrat 00 every 8 Medic al ing tablet (eight) Branch hours as needed for Nausea and Vomiting (N/V). dicyclomine 2020-0 Yes [id number] 20mg Take 1 Univers 20 mg 1-30 tablet by ity of tablet 00:00: mouth 4 [place] 00 (four) Medical times Branch daily. ondansetron 2020-0 Yes [id number] 4mg Take 1 Univers (ZOFRAN 1-30 tablet by ity of ODT) 4 mg 00:00: mouth [place] disintegrat 00 every 8 Medic al ing tablet (eight) Branch hours as needed for Nausea and Vomiting (N/V). dicyclomine 2020-0 Yes [id number] 20mg Take 1 Univers 20 mg 1-30 tablet by ity of tablet 00:00: mouth 4 [place] 00 (four) Medical times Branch daily. ondansetron 2020-0 Yes [id number] 4mg Take 1 Univers (ZOFRAN 1-30 tablet by ity of ODT) 4 mg 00:00: mouth [place] disintegrat 00 every 8 Medic al ing tablet (eight) Branch hours as needed for Nausea and Vomiting (N/V). dicyclomine 2020-0 Yes [id number] 20mg Take 1 Univers 20 mg 1-30 tablet by ity of tablet 00:00: mouth 4 [place] 00 (four) Medical times Branch daily. ondansetron 202-0 Yes [id number] 4mg Take 1 Univers (ZOFRAN 1-30 tablet by ity of ODT) 4 mg 00:00: mouth [place] disintegrat 00 every 8 Medic al ing tablet (eight) Branch hours as needed for Nausea and Vomiting (N/V). dicyclomine 2021-0 Yes [id number] 20mg Take 1 Univers 20 mg 1-30 tablet by ity of tablet 00:00: mouth 4 [place] 00 (four) Medical times Branch daily. ondansetron 1-0 Yes [id number] 4mg Take 1 Univers (ZOFRAN 1-30 tablet by ity of ODT) 4 mg 00:00: mouth [place] disintegrat 00 every 8 Medic al ing tablet (eight) Branch hours as needed for Nausea and Vomiting (N/V). dicyclomine 1-0 Yes [id number] 20mg Take 1 Univers 20 mg 1-30 tablet by ity of tablet 00:00: mouth 4 [place] 00 (four) Medical times Branch daily. ondansetron 2020-0 Yes [id number] 4mg Take 1 Univers (ZOFRAN 1-30 tablet by ity of ODT) 4 mg 00:00: mouth [place] disintegrat 00 every 8 Medic al ing tablet (eight) Branch hours as needed for Nausea and Vomiting (N/V). dicyclomine 2020-0 Yes [id number] 20mg Take 1 Univers 20 mg 1-30 tablet by ity of tablet 00:00: mouth 4 [place] 00 (four) Medical times Branch daily. ondansetron 2020-0 Yes [id number] 4mg Take 1 Univers (ZOFRAN 1-30 tablet by ity of ODT) 4 mg 00:00: mouth [place] disintegrat 00 every 8 Medic al ing tablet (eight) Branch hours as needed for Nausea and Vomiting (N/V). dicyclomine 1-0 Yes [id number] 20mg Take 1 Univers 20 mg 1-30 tablet by ity of tablet 00:00: mouth 4 [place] 00 (four) Medical times Branch daily. ondansetron 1-0 Yes [id number] 4mg Take 1 Univers (ZOFRAN 1-30 tablet by ity of ODT) 4 mg 00:00: mouth [place] disintegrat 00 every 8 Medic al ing tablet (eight) Branch hours as needed for Nausea and Vomiting (N/V). dicyclomine 1-0 Yes [id number] 20mg Take 1 Univers 20 mg 1-30 tablet by ity of tablet 00:00: mouth 4 [place] 00 (four) Medical times Branch daily. ondansetron 1-0 Yes [id number] 4mg Take 1 Univers (ZOFRAN 1-30 tablet by ity of ODT) 4 mg 00:00: mouth [place] disintegrat 00 every 8 Medic al ing tablet (eight) Branch hours as needed for Nausea and Vomiting (N/V). Vital Signs Vital Name Observation Time Observation Value Comments Source Systolic blood 2021-11-19 23:00:00 115 mm[Hg] Univer sity of pressure [place] Medical [place] Diastolic blood 2021-11-19 23:00:00 75 mm[Hg] Unive rsity of pressure [facility] Heart rate 2021-11-19 23:00:00 56 /min Universi ty of [facility] Respiratory rate 2021-11-19 23:00:00 16 /min Univ ersity of [facility] Oxygen saturation in 2021-11-19 23:00:00 100 /min University of Arterial blood by [facility] Pulse oximetry Branch Body temperature 2021-11-19 16:35:00 37 Kori [facility] ersity of [facility] Body weight 2021-11-19 16:35:00 56.7 kg Universi ty of [facility] BMI 2021-11-19 16:35:00 22.86 kg/m2 Universi ty of [facility] Branch Systolic blood 2021-11-19 14:41:14 130 mm[Hg] Univer sity of [facility] Diastolic blood 2021-11-19 14:41:14 87 mm[Hg] Unive rsity of [facility] Heart rate 2021-11-19 14:41:14 85 /min Universi ty of [facility] Body temperature 2021-11-19 14:41:14 36.67 Kori Univ ersity of [facility] Branch Respiratory rate 2021-11-19 14:41:14 18 /min Univ ersity of [facility] Branch Oxygen saturation in 2021-11-19 14:41:14 99 /min University of Arterial blood by [facility] Pulse oximetry Branch Body height 2021-11-19 12:31:00 157.5 cm Universi ty of [facility] Body weight 2021-11-19 12:31:00 56.7 kg Universi ty of [facility] BMI 2021-11-19 12:31:00 22.86 kg/m2 Universi ty of [facility] Systolic blood 2021-11-10 17:03:00 126 mm[Hg] Univer sity of pressure [place] [facility] Diastolic blood 2021-11-10 17:03:00 86 mm[Hg] Unive rsity of pressure [place] [facility] Heart rate 2021-11-10 17:03:00 85 /min Universi ty of [place] [facility] Body temperature 2021-11-10 17:03:00 37.06 Kori Univ ersity of [place] [facility] Respiratory rate 2021-11-10 17:03:00 20 /min Univ ersity of [place] [facility] Body height 2021-11-10 17:03:00 157.5 cm Universi ty of [place] [facility] Body weight 2021-11-10 17:03:00 55.792 kg Universi ty of [place] [facility] BMI 2021-11-10 17:03:00 22.50 kg/m2 Universi ty of [place] [facility] Oxygen saturation in 2021-11-10 17:03:00 99 /min University of Arterial blood by [place] [employer] Pulse oximetry Branch Systolic blood 2020-09-29 22:26:00 139 mm[Hg] Univer sity of pressure [place] [facility] Diastolic blood 2020-09-29 22:26:00 89 mm[Hg] Unive rsity of pressure [place] [facility] Heart rate 2020-09-29 22:26:00 76 /min Universi ty of [place] [facility] Body temperature 2020-09-29 22:26:00 36.89 Kori Univ ersity of [place] [facility] Respiratory rate 2020-09-29 22:26:00 16 /min Univ ersity of [place] [facility] Body height 2020-09-29 22:26:00 154.9 cm Universi ty of [place] [facility] Body weight 2020-09-29 22:26:00 53.025 kg Universi ty of [place] [facility] BMI 2020-09-29 22:26:00 22.09 kg/m2 Universi ty of [place] [facility] Oxygen saturation in 2020-09-29 22:26:00 100 /min University of Arterial blood by [place] [employer] Pulse oximetry Branch Procedures Procedure Date / Time Performing Clinician Source Performed AUTHORIZATION FOR 2021-12-02 05:01:00 Doctor Unassigned, No Univ ersity [facility] RELEASE OF PHI Name Medical Branch MR CERVICAL SPINE WO 2021-11-19 20:56:00 Michael Stock [facility] ersity [facility] [place] [facility] Branch COVID-19 (ID NOW RAPID 2021-11-19 14:10:00 Magen [facility]ouse [facility] Medical Branch CT CERVICAL SPINE WO 2021-11-19 12:49:50 Magen [facility]ouse [facility] ity of [place] CONTRAST Medical Branch CT HEAD WO CONTRAST 2021-11-19 12:49:50 Magen Rousei ty of [facility] CONSENT/REFUSAL FOR 2021-11-19 12:35:14 Doctor Unassigned, No [facility] Name Medical Branch XR HAND 3+ VW LEFT 2021-11-10 17:32:17 Magen Rouseit y of [place] [facility] XR WRIST 3+ VW LEFT 2021-11-10 17:31:56 Magen Rouse ty [facility] NOTICE OF PRIVACY 2021-11-10 16:59:19 Doctor Unassigned, No [facility] Name Medical Branch CONSENT/REFUSAL FOR 2021-11-10 16:58:04 Doctor Unassigned, No [facility] Name [facility] Branch ASSIGNMENT OF BENEFITS 2020-09-29 22:10:07 Doctor Unassigned, No [facility] Branch Encounters Start End Encounter Admission Attending Care Care Encounter Source Date/Time Date/Time Type Type Clinicians Facility Department ID 2020-12-05 Emergency [facility] [id number] Univers 23:41:25 ity of [facility] 2020-12-05 Emergency [facility] [id number] Univers 20:46:01 ity of [facility] 2020-12-05 Emergency [facility] [id number] Univers 20:45:07 ity of [facility] 2020-12-03 Emergency [facility] [id number] Univers 22:03:22 ity of [facility] 2021-12-02 2021-12-02 Orders Doctor FLYNN [id number] Univers 00:00:00 00:00:00 Only Unassigned, SAMMIE [id number] ity of [facility] [id number] Alex as [id number] [place] [id number] Branch 2021-11-19 2021-11-19 Emergency X SRAVAN MISHRA [facility] ERT [id number] Univers 11:43:00 18:54:00 ity of [facility] 2021-11-19 2021-11-19 Emergency RichardsonrEstrada P TRAUMA [id number] Univers 11:43:00 18:54:00 SaeSravan [id number] ity of [place] [id number] [facility] 014 Branch 2021-11-19 2021-11-19 Emergency X NASIMRUST ERT [id number] Univers 07:30:00 10:47:00 MAGEN yoselyn of [facility] 2021-11-19 2021-11-19 Emergency NasimRUST [id number] Univers 07:30:00 10:47:00 Magen JONES [id number] i ty of [place] 4.2.7.2.686 [place] [facility] [id number] [facility] 084 [place] 2021-11-10 2021-11-10 Emergency X NASIMRUST ERT [id number] Univers 12:05:00 13:29:00 MAGEN yoselyn of [facility] 2021-11-10 2021-11-10 Emergency NasimRUST [id number] Univers 12:05:00 13:29:00 Magenguanaco JONES [id number] i ty of [id number] [phone] [facility] [address] [place] 2021-11-10 2021-11-10 Orders Doctor GEE [id number] Univers 00:00:00 00:00:00 Only Unassigned, SAMMIE [id number] [place]y of [place] [facility] [id number] Alex as [phone] [facility] [address] 2020-09-29 2020-09-29 Outpatient R KATE [facility] [id number] Univers 17:40:00 17:40:00 SHIRLEY williamson f [facility] 2020-09-29 2020-09-29 Urgent Kate [facility] [id number] Univers 17:11:16 17:31:16 Care [facility] [id number] i ty of [place] [id number] Alex as Alfredo?Blea [phone] [address] Medical Office [facility] 2020-09-29 2020-09-29 Telephone JuvenalRUST [id number] Univers 00:00:00 00:00:00 [facility] [id number] it y of [place] [id number] Alex as Alfredo?Blea [phone] [address] Medical Office [facility] 2020-09-29 2020-09-29 Orders Doctor GEE [id number] Univers 00:00:00 00:00:00 Only Unassigned, SAMMIE [id number] [place]y [place] [facility] [id number] Alex as [phone] [address] 2020-09-29 2020-09-29 Letter JuvenalRUST [id number] Univers 00:00:00 00:00:00 (Out) [facility] [id number] it y of [place] [id number] Alex as Alfredo?Blea [phone] [address] Medical Office [facility] 2020-01-16 2020-01-16 Outpatient Chanda ZULETA [facility] [id number] Univers 13:00:00 13:00:00 JAVI topete [facility] 2019-08-15 2019-08-15 [facility] [id number] Univers 10:45:00 10:45:00 AIDEE topete [facility] 2019-08-15 2019-08-15 Outpatient Chanda PINEDA [facility] [id number] Univers 10:45:00 10:45:00 AIDEE [facility] 2019-06-17 2019-06-17 Emergency X SINGER [facility] ERT [id number] Univers 10:46:52 13:28:00 JOSSY topete [facility] 2019-04-30 2019-04-30 Outpatient Raju_P MMG MMG [id number] [place] 03:42:00 03:42:00 0324 [facility] 2019-04-11 2019-04-11 Emergency X SINGER [facility] [id number] Univers 09:40:39 16:24:00 JOSSY topete [facility] Results This patient has no known results.
[2022-12-11 07:45] LABS: Hematocrit 36.2 % (36.0-45.0); Lymphocytes % 12.1 % (15.3-44.8); MCV 107.2 fL (80-100); MPV 5.5 fL (7.6-11.3); Platelets 372 thou/uL (152-406); RBC Red Blood Cell Count 3.38 M/uL (3.86-4.86)
[2022-12-11] MEDS ORDERED: METOCLOPRAMIDE 10 MG/2mL INJ ONE (07:53)
[2022-12-11] MEDS ORDERED: MORPHINE 4 MG/ML SYR ONE ×2 (07:54→08:32)
[2022-12-11] MEDS ORDERED: NA CHLORIDE 0.9% 50 ML ONE (07:54)
[2022-12-11] MEDS ORDERED: NA CHLORIDE 0.9% 1,000 ML ONE (07:54)
[2022-12-11] MEDS ORDERED: FAMOTIDINE 20 MG/2 ML VIAL IV ONE (07:54)
[2022-12-11 07:59] LABS: Albumin 3.6 g/dL (3.4-5.0); Bilirubin Total 0.3 mg/dL (0.2-1.0); Potassium 3.4 mEq/L (3.5-5.1); Protein, Total 6.9 g/dL (6.4-8.2)
[2022-12-11 08:23] LABS: Specific Gravity 1.015 (1.005-1.030)
[2022-12-11 08:25] LABS: Specific Gravity 1.015 (1.005-1.030); Urine Bacteria <20 /HPF (<20); Urine Bilirubin NEGATIVE (Negative); Urine Blood Negative (Negative); Urine Clarity Extremely Turbid (Clear); Urine Color Light-Yellow (Yellow); Urine Glucose NEGATIVE (Negative); Urine Mucus Slight /HPF (None Seen); Urine Protein NEGATIVE (Negative); Urine RBC <5 /HPF (None Seen); Urine Urobilinogen Normal (Normal); Urine pH 6.5 (5.0-7.0)
[2022-12-11 08:32] LABS: Blood Morphology Comment NOTED (NOT SEEN); Macrocytosis SLIGHT; Platelet Estimate ADEQ; White Blood Cell Scan OK (OK)
--- NOTE | 2022-12-11 09:03 | EDPHYS ---
Physician Documentation [facility] Name: Ashley Alcala Age: 32 yrs Sex: Female : 1990 Arrival Date: 12/11/2022 Time: 07:15 Bed 17 Private MD: ED Physician Dell Tse HPI: 12/11 07:43 This 32 yrs old Female presents to ER via EMS with complaints of Abdominal Pain, rn Nausea/Vomiting. 07:43 The patient presents to the emergency department with nausea, vomiting, abdominal pain. rn Onset: The symptoms/episode began/occurred yesterday. Possible causes: flare up of bowel problem, Crohn's disease. The symptoms are aggravated by nothing. The symptoms are alleviated by nothing. Associated signs and symptoms: Pertinent positives: abdominal pain, nausea, vomiting, Pertinent negatives: fever, GI bleeding. Severity of symptoms: At their worst the symptoms were moderate in the emergency department the symptoms are unchanged. The patient has experienced similar episodes in the past. The patient has not recently seen a physician. Patient reports nausea/vomiting/abdominal pain that began yesterday, identical to previous flares of Crohn's disease. Reports 2 weeks ago ran out of her medication including nausea and Reglan medication. Historical: - PMHx: 07:25 Crohn's Disease; Hypothyroidism; db - PSHx: 07:25 section; tubal ligation; db - Immunization history:: Adult Immunizations unknown. - Family history:: not pertinent. - Social history:: Smoking status: Patient reports the use of cigarette tobacco products, smokes one-half pack cigarettes per day. - Hospitalizations: : No recent hospitalization is reported. ROS: 07:43 Constitutional: Negative for fever, chills, and weight loss, Neck: Negative for injury, rn pain, and swelling, Cardiovascular: Negative for chest pain, palpitations, and edema, Respiratory: Negative for shortness of breath, cough, wheezing, and pleuritic chest pain, Abdomen/GI: Positive for abdominal pain/nausea/vomiting MS/Extremity: Negative for injury and deformity, Skin: Negative for injury, rash, and discoloration, Neuro: Negative for headache, numbness, tingling, and seizure Exam: 07:43 Constitutional: This is a well developed, well nourished patient who is awake, alert, rn vomiting into emesis bag, appears uncomfortable Head/Face: Normocephalic, atraumatic. Cardiovascular: Regular rate and rhythm. No pulse deficits. Respiratory: No increased work of breathing, no retractions or nasal flaring. Abdomen/GI: Soft, diffuse abdominal tenderness, no guarding or rigidity Skin: Warm, dry MS/ Extremity: Pulses equal, no cyanosis. Neuro: Awake and alert, GCS 15 Vital Signs: 07:13 BP 137 / 73; Pulse 72; Resp 18; Temp 98(O); Pulse Ox 100% on R/A; Weight 58.06 kg; db Height 5 ft. 2 in. ; 07:43 BP 136 / 81; Pulse 80; Resp 16; Pulse Ox 100% ; db 08:08 BP 132 / 87; Pulse 78; Resp 16; Pulse Ox 99% on R/A; db 08:50 BP 139 / 88; Pulse 85; Resp 16; Pulse Ox 100% ; db 07:13 Body Mass Index 23.41 (58.06 kg, 157.48 cm) db MDM: 07:20 Patient medically screened. rn 09:00 Differential diagnosis: Nonspecific abd pain, gastritis, cholecystitis, pancreatitis, rn appendicitis, diverticulitis, viral gastroenteritis, gastroenteritis, Crohn's flare. Data reviewed: vital signs, nurses notes, lab test result(s). Care significantly affected by the following chronic conditions: Crohn's disease. Counseling: I had a detailed discussion with the patient and/or guardian regarding the historical points, exam findings, and any diagnostic results supporting the discharge/admit diagnosis, lab results, radiology results, the need for outpatient follow up, to return to the emergency department if symptoms worsen or persist or if there are any questions or concerns that arise at home. Response to treatment: the patient's symptoms have mildly improved after treatment. ED course: Patient states needs to leave, does not want to wait for rest of results including CAT scan. Understands risks of leaving prior to results and understands could be other causes other than Crohn's disease including surgical causes or acute belly. Patient states the person taking care of her son needs to leave and nobody there to take care of her son. States will return if anything worsens. Does feel better.. 12/11 07:20 Order name: CBC with Diff; Complete Time: 08:33 rn 12/11 07:20 Order name: CMP; Complete Time: 08:16 rn 12/11 07:20 Order name: Lipase; Complete Time: 08:16 rn 12/11 07:20 Order name: Test, Urine; Complete Time: 08:26 rn 12/11 07:20 Order name: Urinalysis w/ reflexes; Complete Time: 08:26 rn 12/11 08:32 Order name: CBC Smear Scan; Complete Time: 08:33 EDMS 12/11 07:47 Order name: CT Abd/Pelvis - IV Contrast Only rn 12/11 07:20 Order name: IV Saline Lock; Complete Time: 07:29 rn 12/11 07:20 Order name: Labs collected and sent; Complete Time: 07:35 rn Administered Medications: 07:45 Drug: NS 0.9% IV 1000 ml IV at 1 bolus Per protocol; 1000 mL bolus Route: IV; Rate: 1 db bolus; Site: right forearm; 09:10 Follow up: Response: No adverse reaction; IV Status: Completed infusion; IV Intake: db 1000ml 07:45 Drug: morphine IVP or IV 4 mg IVP once over 4 mins Route: IVP; Infused Over: 4 mins; db Site: right forearm; 08:23 Follow up: Response: Pain is unchanged, physician notified db 07:45 Drug: metoCLOPramide IVP 10 mg IVP once; over 1 to 2 minutes Route: IVP; Site: right db forearm; 09:09 Follow up: Response: No adverse reaction db 07:48 Drug: Famotidine IVP 20 mg IVP once; dilute with 10 mL 0.9% NaCl; give over 2 minutes db Route: IVP; Site: right forearm; 09:10 Follow up: Response: No adverse reaction db 08:20 Drug: morphine IVP or IV 4 mg IVP once over 4 mins Route: IVP; Infused Over: 4 mins; db Site: right forearm; 09:09 Follow up: Response: No adverse reaction db 09:00 Drug: Promethazine IVP 12.5 mg IVP once Route: IVP; Site: right forearm; db 09:10 Follow up: Response: No adverse reaction db Disposition Summary: 12/11/22 09:02 Discharge Ordered Notes: Location: Home rn Problem: new rn Symptoms: have improved rn Condition: Stable rn Diagnosis - Crohn's disease, unspecified, without complications rn - Vomiting, unspecified rn - Dehydration rn Followup: rn - With: Private Physician - When: As needed - Reason: Recheck today's complaints, Re-evaluation by your physician Discharge Instructions: - Crohn's Disease rn - Dehydration, Adult rn - Discharge Summary Sheet ds4 Forms: - Medication Reconciliation Form rn - Thank You Letter 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 Opioid Use rn - Patient Portal Instructions rn - Leadership Thank You Letter rn - SBAR form ds4 - Work release form eb Prescriptions: - Reglan 10 mg Oral Tablet - take 1 tablet ORAL route every 6 hours take 30 minutes before meals and at rn bedtime; 20 tablet; Refills: 0, Product Selection Permitted - promethazine 25 mg Oral Tablet - take 1 tablet ORAL route every 6 hours As needed; 20 tablet; Refills: 0, rn Product Selection Permitted Signatures: Dispatcher [employer] Dell Ghotra MD MD rn Benton, Danielle, RN RN db Corrections: (The following items were deleted from the chart) 09:12 09:11 Social history: Smoking status: Patient denies any tobacco usage or history of. dbdb
--- NOTE | 2022-12-11 09:03 | ER ---
Nurse's Notes [facility] Name: Ashley Alcala Age: 32 yrs Sex: Female : 1990 Arrival Date: 12/11/2022 Time: 07:15 Bed 17 Private MD: Diagnosis: Crohn's disease, unspecified, without complications;Vomiting, unspecified;Dehydration Presentation: 12/11 07:13 Chief complaint: EMS states: PATIENT HAS N/V SINCE 0200. NAUSEA UPON ARRIVAL. GIVEN db PROMETHAZINE 12.5 MG IM, 4MG ZOFRAN, [id number] BY EMS. PT REPORTS HAS NOT BEEN TAKING MEDICATIONS BECAUSE RAN OUT. Coronavirus screen: Vaccine status: Patient reports being unvaccinated. Client denies travel out of the [place] in the last 14 days. At this time, the client does not indicate any symptoms associated with coronavirus-19. Ebola Screen: Patient negative for fever greater than or equal to 101.5 degrees Fahrenheit, and additional compatible Ebola Virus Disease symptoms Patient denies exposure to infectious person. Patient denies travel to an Ebola-affected area in the 21 days before illness onset. No symptoms or risks identified at this time. Initial Sepsis Screen: Does the patient meet any 2 criteria? No. Patient's initial sepsis screen is negative. Does the patient have a suspected source of infection? No. Patient's initial sepsis screen is negative. Risk Assessment: Do you want to hurt yourself or someone else? Patient reports no desire to harm self or others. Onset of symptoms was December 11, 2022. Care prior to arrival: Medication(s) given: Normal saline infusion, 300 Phenergan, IM zofran 4 mg, IV initiated. 20 GA, in the right forearm. 07:13 Method Of Arrival: EMS: [facility] db 07:13 Acuity: ESTEVAN 3 db Triage Assessment: 07:26 General: Appears in no apparent distress. uncomfortable, Behavior is cooperative, db anxious. Pain: Complains of pain in abdomen. Neuro: Level of Consciousness is awake, alert, obeys commands, Oriented to person, place, time, situation, Speech is normal. Respiratory: Airway is patent Respiratory effort is even, unlabored, Respiratory pattern is regular, symmetrical. GI: Abdomen is flat, non-distended, Pt is actively vomiting Bowel sounds present X 4 quads. Reports lower abdominal pain, nausea, vomiting. Historical: - PMHx: 07:25 Crohn's Disease; Hypothyroidism; db - PSHx: 07:25 section; tubal ligation; db - Immunization history:: Adult Immunizations unknown. - Family history:: not pertinent. - Social history:: Smoking status: Patient reports the use of cigarette tobacco products, smokes one-half pack cigarettes per day. - Hospitalizations: : No recent hospitalization is reported. Screenin:35 [facility] ED Fall Risk Assessment (Adult) History of falling in the last 3 months, db including since admission No falls in past 3 months (0 pts) Confusion or Disorientation No (0 pts) Intoxicated or Sedated No (0 pts) Impaired Gait No (0 pts) Mobility Assist Device Used No (0 pt) Altered Elimination No (0 pt) Score/Fall Risk Level 0 - 2 = Low Risk Oriented to surroundings, Maintained a safe environment. Abuse screen: Denies threats or abuse. Denies injuries from another. Nutritional screening: No deficits noted. Tuberculosis screening: No symptoms or risk factors identified. Assessment: 07:28 Reassessment: SEE TRIAGE FOR INITIAL ASSESSMENT. db 08:15 Reassessment: Patient appears in no apparent distress at this time. Patient and/or db family updated on plan of care and expected duration. Pain level reassessed. Patient is alert, oriented x 3, equal unlabored respirations, skin warm/dry/pink. General: Appears in no apparent distress. Behavior is cooperative. Neuro: Level of Consciousness is awake, alert, obeys commands, Oriented to person, place, time, situation. Respiratory: Airway is patent Respiratory effort is even, unlabored, Respiratory pattern is regular, symmetrical. 08:35 Reassessment: PT TO CT. db 08:50 Reassessment: PATIENT STATES NEEDS TO LEAVE DUE DOES NOT HAVE ANYONE TO WATCH HER db DAUGHTER. NOTIFIED DR. TSE. 09:11 Reassessment: Patient appears in no apparent distress at this time. Patient and/or db family updated on plan of care and expected duration. Pain level reassessed. Patient is alert, oriented x 3, equal unlabored respirations, skin warm/dry/pink. Patient states feeling better. Patient states symptoms have improved. Vital Signs: 07:13 BP 137 / 73; Pulse 72; Resp 18; Temp 98(O); Pulse Ox 100% on R/A; Weight 58.06 kg; db Height 5 ft. 2 in. ; 07:43 BP 136 / 81; Pulse 80; Resp 16; Pulse Ox 100% ; db 08:08 BP 132 / 87; Pulse 78; Resp 16; Pulse Ox 99% on R/A; db 08:50 BP 139 / 88; Pulse 85; Resp 16; Pulse Ox 100% ; db 07:13 Body Mass Index 23.41 (58.06 kg, 157.48 cm) db ED Course: 07:20 Patient arrived in ED. rn 07:20 Dell Tse MD is Attending Physician. rn 07:20 Janina Walsh, LEN is Primary Nurse. db 07:25 Triage completed. db 07:26 Arm band placed on Patient placed in an exam room. db 07:29 Maintain EMS IV. Dressing intact. Good blood return noted. Site clean \T\ dry. Gauge \T\ db site: 20 G RIGHT FA. 07:36 Inserted saline lock: 24 gauge in left wrist, using aseptic technique. Blood collected. ds4 08:18 Urinalysis w/ reflexes Sent. kc6 08:18 Test, Urine Sent. kc6 08:35 Patient has correct armband on for positive identification. Bed in low position. Call db light in reach. Side rails up X 1. Pulse ox on. NIBP on. Warm blanket given. 08:48 CT Abd/Pelvis - IV Contrast Only In Process Unspecified. EDMS 09:10 Provided Education on: DISCHARGE. PATIENT INSTRUCTED OF IMPORTANCE OF RETURNING IF db SYMPTOMS WORSEN OR PERSIST . 09:10 No provider procedures requiring assistance completed. IV discontinued, intact, db bleeding controlled, No redness/swelling at site. Administered Medications: 07:45 Drug: NS 0.9% IV 1000 ml IV at 1 bolus Per protocol; 1000 mL bolus Route: IV; Rate: 1 db bolus; Site: right forearm; 09:10 Follow up: Response: No adverse reaction; IV Status: Completed infusion; IV Intake: db 1000ml 07:45 Drug: morphine IVP or IV 4 mg IVP once over 4 mins Route: IVP; Infused Over: 4 mins; db Site: right forearm; 08:23 Follow up: Response: Pain is unchanged, physician notified db 07:45 Drug: metoCLOPramide IVP 10 mg IVP once; over 1 to 2 minutes Route: IVP; Site: right db forearm; 09:09 Follow up: Response: No adverse reaction db 07:48 Drug: Famotidine IVP 20 mg IVP once; dilute with 10 mL 0.9% NaCl; give over 2 minutes db Route: IVP; Site: right forearm; 09:10 Follow up: Response: No adverse reaction db 08:20 Drug: morphine IVP or IV 4 mg IVP once over 4 mins Route: IVP; Infused Over: 4 mins; db Site: right forearm; 09:09 Follow up: Response: No adverse reaction db 09:00 Drug: Promethazine IVP 12.5 mg IVP once Route: IVP; Site: right forearm; db 09:10 Follow up: Response: No adverse reaction db Medication: 09:12 VIS not applicable for this client. db Intake: 09:10 IV: 1000ml; Total: 1000ml. db Outcome: 09:02 Discharge ordered by . rn 09:10 Discharged to home ambulatory, with friend, db 09:10 Condition: stable 09:10 Discharge instructions given to patient, Instructed on discharge instructions, follow up and referral plans. Prescriptions given X 2, 09:13 Patient left the ED. db Signatures: Dispatcher [employer] EDMS Dell Tse MD MD rn Swanson, Donovan ds4 Heaven Rider RN RN kc6 Janina Walsh RN RN db Corrections: (The following items were deleted from the chart) 07:26 07:13 Chief complaint: EMS states: PATIENT HAS N/V SINCE 0200. NAUSEA UPON ARRIVAL. db GIVEN PROMETHAZINE 12.5 MG IM, 4MG ZOFRAN, [id number] BY EMS db 09:12 09:11 Social history: Smoking status: Patient denies any tobacco usage or history of. dbdb 09:13 09:11 Reassessment: PATIENT STATES NEEDS TO LEAVE DUE DOES NOT HAVE ANYONE TO WATCH HER db DAUGHTER. NOTIFIED DR. TSE db
[2022-12-11] MEDS ORDERED: PROMETHAZINE INJ 25 MG/ML AMP ONE (09:16)
[2022-12-11 09:37] VITALS: BP 139/88; O2SAT 100
--- NOTE | 2022-12-11 10:20 | RAD REPORT ---
EXAM DESCRIPTION: CT - Abdomen Pelvis W Contrast - 12/11/2022 8:46 am CLINICAL HISTORY: crohns;Abd pain COMPARISON: Abdomen Pelvis W Contrast dated 04/09/2022; Abdomen Pelvis W Contrast dated 03/21/2020 TECHNIQUE: Thin cut axial CT imaging of the abdomen and pelvis was performed following intravenous a dministration of 100 mL Isovue 300. Multiplanar reformats were generated and reviewed. All CT scans are performed using dose optimization technique as appropriate and may include automated exposure control or mA/KV adjustment according to patient size. FINDINGS: No suspicious findings in the lung bases. The liver, spleen, adrenal glands, and pancreas show no suspicious findings. Gallbladder and biliary tree are also without suspicious finding. Symmetric renal function is seen with no hydronephrosis or suspicious renal mass. No dilated bowel loops or bowel wall thickening. Fluid filling within nondistended lower abdominal sm all bowel nonspecific. Appendix is unremarkable. Trace free fluid in the pelvis, likely physiologic. Dominant cyst or follicle in the left ovary measuring 2.3 cm. No free air, fluid collections, or infl ammatory stranding. No hernia, mass or bulky lymphadenopathy. The urinary bladder is without signific ant finding. No suspicious bony findings. IMPRESSION: No acute intra-abdominal process. Nonspecific fluid filling within nondistended lower abdominal small bowel could relate to mild enteri tis or diarrheal state. ,
== END 2022-12-11 09:13 | disposition home or self-care (01) ==
LOC: ER 07:15
DX: K50.90 Crohn's disease, unspecified, without complications (principal); E86.0 Dehydration; F17.210 Nicotine dependence, cigarettes, uncomplicated
CPT/HCPCS: 96361; 85025; 81001; 36415; 81025; 83690; 80053; 74177; 96375; 96374; 99284; Q9967; J2550; J2765; J7030

== ENCOUNTER 2023-08-12 09:19 | Emergency (ER) | payer OTHER, SELFPAY ==
--- OUTSIDE RECORDS SUMMARY | 2023-08-12 09:27 | XMS REPORT | Continuity of Care Document ---
Author Name Unknown Address [address] [facility] [place] [address] [facility] thconnect Address [address] [facility] [place] [address] Care Team Providers Care Corrections Cadet Name Role Phone HUYENMEHRAN Primary Care Physician Unavailab DIPIKA Velázquez Attending Clinician Unavailable Dipika Busch Attending Clinician [phone] MITALI RAUSCH Attending Clinician Unavailable Marixa MATHEWS, Mitali Polanco Attending Clinician + [phone] ARASELI SHELTON Attending Clinician UnavailAraseli Reyes MD Attending Clinician + [phone] Doctor Unassigned, [place] Attending Clinician U SRAVAN Robledo Attending Clinician Unavailable Estrada Sotelo MD Attending Clinician [phone] Sravan Mishra MD Attending Clinician [phone] MAGEN ROUSE Attending Clinician Unavailable Nasim MATHEWS, Magen Attending Clinician [phone] SHIRLEY LOVE Attending Clinician UnavailShirley Zhang Attending Clinician [phone] Angi Sanford MD Attending Clinician [phone] JAVI ZULETA Attending Clinician Unavailable APOLONIA PINEDA Attending Clinician UnavailJOSSY Brown Attending Clinician Unavailable Rajmed_Ivette Attending Clinician Unavailable DIPIKA CRUZ Admitting Clinician Unavailable ARASELI SHELTON Admitting Clinician UnavailESTRADA Wiggins Admitting Clinician Unavailable Estrada Sotelo MD Admitting Clinician [phone] NASIM MAGEN Admitting Clinician Unavailable JOSSY KWAN Admitting Clinician Unavailable Raju_Ivette Admitting Clinician Unavailable Payers Payer Name Policy Type Policy Number Effective Date Expirati on Date Source [employer] MEDICAID [id number] 2019 00:00:00 [place] [id number] 2019 00:00:00 Problems Condition Name Condition Details Condition Category Status Onset Date Resolution Date Last Treatment Date Treating Clinician Comments Source care and examinatio n of lactating mother care and examinatio n of lactating mother Disease Active 02-13 00:00: 00 [facility] , delivered , delivered Disease Active 2016-02 00:00: 00 [facility] Anemia, Anemia, Disease Active 2016-02 00:00: 00 [facility] - induced hypertensi on in third trimester - induced hypertensi on in third trimester Disease Active 2016-02 00:00: 00 [facility] Tubal ligation status Tubal ligation status Disease Active 2016-02 00:00: 00 [facility] Full-term jovita ROM, unsp time betw rupture and onset labor Full-term jovita ROM, unsp time betw rupture and onset labor Disease Active 2016-02 00:00: 00 [facility] 38 weeks gestation of 38 weeks gestation of Disease Active 2016-02 00:00: 00 [facility] Research study patient HCTZ Research study patient HCTZ Disease Active 2016-02 00:00: 00 Overview: Formattin g of this note is different from the original. Patient is in the HCTZ study IRB # [id number] y questions please contact:Corina Guadalupe MD [phone] Arnold MD [phone] Luis Carlos Owen MD [phone] facts Patient randomize d after delivery if they met inclusion criteria a nd accepted Medicati on comes from [facility] not pharmacy, [facility] Phone Number Ext. 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 Guadalupe with any Questions [facility] Previous delivery desires TOLAC Previous delivery desires TOLAC Disease Active 2016-02 00:00: 00 [facility] Supervisio n of high-risk with insufficie nt care Supervisio n of high-risk with insufficie nt care Disease Active 2016-02 00:00: 00 [facility] Allergies, Adverse Reactions, Alerts Allergy Name Allergy Type Status Severity Reaction(s) Onset Date Inactive Date Treating Clinician Comments Source NO KNOWN ALLERGIE S Drug Class Active [facility] Social History Social Habit Start Date Stop Date Quantity Comments Source History of tobacco use Cigarette Smoker [facility] 2023-05-11 00:00:00 2023-05-11 00:00:00 0 /d [facility] History of Social function 2023-05-11 00:00:00 2023-05-11 00:00:00 [facility] Exposure to SARS-CoV-2 (event) 2021-11-09 00:00:00 2021-11-19 11:34:00 Not sure [facility] Cigarettes smoked current (pack per day) - Reported 2016-06-07 00:00:00 2016-06-07 00:00:00 [facility] Cigarette pack-years 2016-06-07 00:00:00 2016-06-07 00:00:00 [facility] Tobacco use and exposure 2016-06-07 00:00:00 2016-06-07 00:00:00 Smokeless tobacco non-user [facility] Sex Assigned At 1990 00:00:00 1990 00:00:00 [facility] Smoking Status Start Date Stop Date Source Smokes tobacco daily 2016-06-07 00:00:00 [facility] Medications Ordered Medication Name Filled Medication Name Start Date Stop Date Current Medication? Ordering Clinician Indication Dosage Frequency Signature (SIG) Comments Components Source tetracaine (PONTOCAINE ) 0.5 % ophthalmic drops 1 Drop 04-10 20:15: 00 04-10 18:50 :00 No 1[drp] 1 Drop, Both Eyes, ONCE, 1 dose, On Mon04/11/23 at 1415, Routine [facility] fluorescein ophthalmic strip 1 Strip 04-10 19:30: 00 04-10 18:50 :00 No 1{strip } 1 Strip, Both Eyes, ONCE, 1 dose, On Mon04/11/23 at 1330, Routine [facility] moxifloxaci n (VIGAMOX) 0.5 % ophthalmic drops 1 Drop 04-10 18:45: 00 Yes 1[drp] 1 Drop, Left Eye, TID, First dose on Mon04/11/23 at 1245, Until Discontinu ed, Routine [facility] moxifloxaci n 0.5 % ophthalmic drops 04-10 00:00: 00 Yes [id number] 1[drp] Place 1 Drop in left eye in the morning and 1 Drop at noon and 1 Drop in the evening. [facility] predniSONE 20 mg tablet 03-05 00:00: 00 03-13 05:59 :00 No [id number] 40mg Take 2 tablets by mouth in the morning for 7 days. [facility] predniSONE (DELTASONE) tablet 40 mg 03-04 19:00: 00 03-04 19:25 :00 No 40mg 40 mg, Oral, ONCE, 1 dose, [facility] 03/04/23 [facility] 1300[facility] (SUBLIMAZE (PF)) injection 50 mcg 03-04 18:15: 00 03-04 17:22 :00 No 50ug 50 mcg, Slow IV Push, ONCE, 1 dose, On 03/04/23 at 1215, [facility] iopamidol (ISOVUE 370-500 mL) injection 90 mL 03-04 17:30: 00 03-04 17:45 :00 No [id number] 90mL 90 mL, Intravenou s, ONCE, 1 dose, On 03/04/23 at 1145, Routine [facility] NaCl 0.9% (NS) bolus infusion 1,000 mL 03-04 17:30: 00 03-04 19:29 :00 No 1000mL at 999 mL/hr, 1,000 mL, IV Infusion, ONCE, 1 dose, On 03/04/23 at 1130, [facility] famotidine (PEPCID (PF)) injection 20 mg 03-04 17:00: 00 03-04 17:12 :00 No 20mg 20 mg, Slow IV Push, ONCE, 1 dose, On 03/04/23 at 1100, [facility] ondansetron (ZOFRAN (PF)) injection 8 mg 03-04 17:00: 00 03-04 17:12 :00 No 8mg 8 mg, Slow IV Push, ONCE, 1 dose, On 03/04/23 at 1100, [facility] traMADoL 50 mg tablet 03-04 00:00: 00 Yes [id number] 50mg Take 1 tablet by mouth every 6 (six) hours as needed (pain). Indication s: acute pain [facility] ondansetron 4 mg tablet 03-04 00:00: 00 Yes [id number] 1 or 2 tablets every 8 hours as needed for nausea [facility] HYDROcodone -acetaminop hen (NORCO 5) 5-325 mg tablet 1 tablet 2021-02 0 18:36: 44 Yes 1{tbl} 1 tablet, Oral, Q6HPRN, Starting on Mon11/19/21 at 1336, Until Discontinu ed, Routine, Pain (scale 4-6) [facility] acetaminoph en (TYLENOL) tablet 650 mg 2021-02 18:36: 26 Yes 650mg 650 mg, Oral, Q6HPRN, Starting on Mon11/19/21 at 1336, Until Discontinu ed, Routine, Pain (scale 1-3) [facility] ondansetron (ZOFRAN-ODT ) disintegrat ing tablet 4 mg 2021-02 13:45: 00 11-19 12:59 :00 No 4mg 4 mg, Oral, ONCE, 1 dose, On Mon11/19/21 at 0845, Routine [facility] HYDROcodone -acetaminop hen (NORCO 5) 5-325 mg tablet 1 tablet 2021-02 13:00: 00 11-19 12:59 :00 No 1{tbl} 1 tablet, Oral, ONCE, 1 dose, On Mon11/19/21 at 0800, ANA M [facility] cyclobenzap rine 5 mg tablet 2021-02 00:00: 00 Yes [id number] 5mg Take 1 tablet by mouth in the morning and 1 tablet at noon and 1 tablet in the evening. [facility] predniSONE 20 mg tablet 2021-02 00:00: 00 Yes [id number] 40mg Take 2 tablets by mouth in the morning. [facility] HYDROcodone -acetaminop hen (NORCO) 7.5-325 mg per tablet 2021-02 005 00:00: 00 11-18 04:59 :00 No [id number] 1{tbl} Take 1 tablet by mouth every 8 (eight) hours as needed for Pain for up to 7 days. Indication s: acute pain [facility] budesonide- formoteroL 80-4.5 mcg/actuati on inhaler 8-24 00:00: 00 Yes [id number] 2{puff} Inhale 2 Puffs 2 (two) times daily. [facility] bromphenira mine-pseudo ephedrine-D M (BROMFED DM) 2-30-10 mg/5 mL syrup 24 00:00: 00 Yes [id number] 5mL Take 5 mL by mouth 4 (four) times daily as needed for Congestion /Allergies or Cough. [facility] LIALDA 1.2 gram EC tablet 09-02 00:00: 00 Yes [facility] Hyoscyamine Sulfate 0.125 mg TbDL 08-31 00:00: 00 Yes TAKE 1-2 TABLETS BY MOUTH EVERY 4 TO 6 HOURS NEEDED [facility] sucralfate 1 gram tablet 08-31 00:00: 00 Yes [facility] SERTraline 100 mg tablet 07-16 00:00: 00 Yes 100mg Take 100 mg by mouth every morning. [facility] atomoxetine 40 mg capsule 07-16 00:00: 00 Yes 40mg Take 40 mg by mouth daily. [facility] traZODone 50 mg tablet 07-16 00:00: 00 Yes TAKE 1 TABLET BY MOUTH NIGHTLY [facility] metoclopram erna HCl 10 mg tablet 03-24 00:00: 00 Yes [id number] 10mg Take 1 tablet by mouth every 6 (six) hours as needed for Nausea and Vomiting (N/V). [facility] acetaminoph en-codeine (TYLENOL-CO DEINE #3) 300-30 mg tablet 03-24 00:00: 00 Yes [id number] 1{tbl} Take 1 tablet by mouth every 4 (four) hours as needed for Pain (scale 7-10). Indication s: acute pain [facility] dicyclomine 20 mg tablet 03-07 00:00: 00 Yes [id number] 20mg Take 1 tablet by mouth 4 (four) times daily. [facility] ondansetron (ZOFRAN ODT) 4 mg disintegrat ing tablet 03-07 00:00: 00 Yes [id number] 4mg Take 1 tablet by mouth every 8 (eight) hours as needed for Nausea and Vomiting (N/V). [facility] Immunizations Ordered Immunization Name Filled Immunization Name Date Status Comments Source Td 2021-11-19 00:00:00 Completed [facility] Td 2021-11-19 00:00:00 Completed [facility] Td 2021-11-19 00:00:00 Completed [facility] TDAP 2016-11-15 00:00:00 Completed [facility] Influenza Virus Vaccine Quad IM 3+ YRS 2016-11-15 00:00:00 Completed [facility] TDAP 2016-11-15 00:00:00 Completed [facility] Influenza Virus Vaccine Quad IM 3+ YRS 2016-11-15 00:00:00 Completed [facility] TDAP 2016-11-15 00:00:00 Completed [facility] Influenza Virus Vaccine Quad IM 3+ YRS 2016-11-15 00:00:00 Completed [facility] TDAP 2016-11-15 00:00:00 Completed [facility] Influenza Virus Vaccine Quad IM 3+ 2016-11-15 00:00:00 Completed [facility] TDAP 2016-11-15 00:00:00 Completed [facility] Influenza Virus Vaccine Quad IM 3+ YRS 2016-11-15 00:00:00 Completed [facility] TDAP 2016-11-15 00:00:00 Completed [facility] Influenza Virus Vaccine Quad IM 3+ YRS 2016-11-15 00:00:00 Completed [facility] TDAP 2016-11-15 00:00:00 Completed [facility] Influenza Virus Vaccine Quad IM 3+ 2016-11-15 00:00:00 Completed [facility] TDAP 2016-11-15 00:00:00 Completed [facility] Influenza Virus Vaccine Quad IM 3+ YRS 2016-11-15 00:00:00 Completed [facility] TDAP 2016-11-15 00:00:00 Completed [facility] Influenza Virus Vaccine Quad IM 3+ YRS 2016-11-15 00:00:00 Completed [facility] TDAP Unknown Completed [facility] Influenza Virus Vaccine Quad IM 3+ YRS Unknown Completed [facility] TD, NOS Unknown Completed [facility] TDAP Unknown Completed [facility] Influenza Virus Vaccine Quad IM 3+ YRS Unknown Completed [facility] TD, NOS Unknown Completed [facility] TDAP Unknown Completed [facility] Influenza Virus Vaccine Quad IM 3+ YRS Unknown Completed [facility] TD, NOS Unknown Completed [facility] Vital Signs Vital Name Observation Time Observation Value Comments S ource Systolic blood pressure 2023-05-11 20:34:00 132 mm[Hg] [facility] Diastolic blood pressure 2023-05-11 20:34:00 76 mm[Hg] [facility] Heart rate 2023-05-11 20:34:00 65 /min [facility] Body temperature 2023-05-11 20:34:00 37.11 Kori [facility] Respiratory rate 2023-05-11 20:34:00 18 /min [facility] Body height 2023-05-11 20:34:00 157.5 cm [facility] Body weight 2023-05-11 20:34:00 58.968 kg [facility] BMI 2023-05-11 20:34:00 23.78 kg/m2 [facility] Oxygen saturation in Arterial blood by Pulse oximetry 2023-05-11 20:34:00 95 /min [facility] Systolic blood pressure 2023-04-11 18:26:00 118 mm[Hg] [facility] Diastolic blood pressure 2023-04-11 18:26:00 82 mm[Hg] [facility] Heart rate 2023-04-11 18:26:00 82 /min [facility] Body temperature 2023-04-11 18:26:00 37.22 Kori [facility] Respiratory rate 2023-04-11 18:26:00 20 /min [facility] Body height 2023-04-11 18:26:00 157.5 cm [facility] Body weight 2023-04-11 18:26:00 58.968 kg [facility] BMI 2023-04-11 18:26:00 23.78 kg/m2 [facility] Oxygen saturation in Arterial blood by Pulse oximetry 2023-04-11 18:26:00 100 /min [facility] Systolic blood pressure 2023-03-04 18:30:00 101 mm[Hg] [facility] Diastolic blood pressure 2023-03-04 18:30:00 75 mm[Hg] [facility] Heart rate 2023-03-04 18:30:00 60 /min [facility] Respiratory rate 2023-03-04 18:30:00 16 /min [facility] Oxygen saturation in Arterial blood by Pulse oximetry 2023-03-04 18:30:00 98 /min [facility] Body temperature 2023-03-04 16:39:00 37.22 Kori [facility] Body height 2023-03-04 16:39:00 157.5 cm [facility] Body weight 2023-03-04 16:39:00 59.013 kg [facility] BMI 2023-03-04 16:39:00 23.80 kg/m2 [facility] Systolic blood pressure 2021-11-19 23:00:00 115 mm[Hg] [facility] Diastolic blood pressure 2021-11-19 23:00:00 75 mm[Hg] [facility] Heart rate 2021-11-19 23:00:00 56 /min [facility] Respiratory rate 2021-11-19 23:00:00 16 /min [facility] Oxygen saturation in Arterial blood by Pulse oximetry 2021-11-19 23:00:00 100 /min [facility] Body temperature 2021-11-19 16:35:00 37 Kori [facility] Body weight 2021-11-19 16:35:00 56.7 kg [facility] BMI 2021-11-19 16:35:00 22.86 kg/m2 [facility] Systolic blood pressure 2021-11-19 14:41:14 130 mm[Hg] [facility] Diastolic blood pressure 2021-11-19 14:41:14 87 mm[Hg] [facility] Heart rate 2021-11-19 14:41:14 85 /min [facility] Body temperature 2021-11-19 14:41:14 36.67 Kori [facility] Respiratory rate 2021-11-19 14:41:14 18 /min [facility] Oxygen saturation in Arterial blood by Pulse oximetry 2021-11-19 14:41:14 99 /min [facility] Body height 2021-11-19 12:31:00 157.5 cm [facility] Body weight 2021-11-19 12:31:00 56.7 kg [facility] BMI 2021-11-19 12:31:00 22.86 kg/m2 [facility] Systolic blood pressure 2021-11-10 17:03:00 126 mm[Hg] [facility] Diastolic blood pressure 2021-11-10 17:03:00 86 mm[Hg] [facility] Heart rate 2021-11-10 17:03:00 85 /min [facility] Body temperature 2021-11-10 17:03:00 37.06 Kori [facility] Respiratory rate 2021-11-10 17:03:00 20 /min [facility] Body height 2021-11-10 17:03:00 157.5 cm [facility] Body weight 2021-11-10 17:03:00 55.792 kg [facility] BMI 2021-11-10 17:03:00 22.50 kg/m2 [facility] Oxygen saturation in Arterial blood by Pulse oximetry 2021-11-10 17:03:00 99 /min [facility] Systolic blood pressure 2020-09-29 22:26:00 139 mm[Hg] [facility] Diastolic blood pressure 2020-09-29 22:26:00 89 mm[Hg] [facility] Heart rate 2020-09-29 22:26:00 76 /min [facility] Body temperature 2020-09-29 22:26:00 36.89 Kori [facility] Respiratory rate 2020-09-29 22:26:00 16 /min [facility] Body height 2020-09-29 22:26:00 154.9 cm [facility] Body weight 2020-09-29 22:26:00 53.025 kg [facility] BMI 2020-09-29 22:26:00 22.09 kg/m2 [facility] Oxygen saturation in Arterial blood by Pulse oximetry 2020-09-29 22:26:00 100 /min [facility] Procedures Procedure Date / Time Performed Performing Clinician Source XR HAND 3+ VW LEFT 2023-05-11 21:02:29 Dipika Cruz [facility] XR WRIST 3+ VW LEFT 2023-05-11 21:02:29 Dayo Cruz [facility] CONSENT/REFUSAL FOR DIAGNOSIS AND TREATMENT 2023-04-11 18:18:03 Doctor Unassigned, [place] [facility] LIPASE 2023-03-04 17:08:00 Araseli Shelton [facility] COMP. METABOLIC PANEL ([id number]) 2023-03-04 17:08:00 Araseli Shelton [facility] CBC WITH DIFF 2023-03-04 17:08:00 [facility] URINALYSIS 2023-03-04 17:08:00 Araseli Shelton [facility] POCT TEST 2023-03-04 17:08:00 Araseli Shelton [facility] CONSENT/REFUSAL FOR DIAGNOSIS AND TREATMENT 2023-03-04 16:36:23 Doctor Unassigned, [place] [facility] AUTHORIZATION FOR RELEASE OF PHI 2021-12-02 05:01:00 Doctor Unassigned, [place] [facility] MR CERVICAL SPINE WO CONTRAST 2021-11-19 20:56:00 Michael Stock [facility] COVID-19 (ID NOW RAPID TESTING) 2021-11-19 14:10:00 Magen Rouse [facility] CT CERVICAL SPINE WO CONTRAST 2021-11-19 12:49:50 Magen Rouse [facility] CT HEAD WO CONTRAST 2021-11-19 12:49:50 Lily Rouse [facility] CONSENT/REFUSAL FOR DIAGNOSIS AND TREATMENT 2021-11-19 12:35:14 Doctor Unassigned, [place] [facility] XR HAND 3+ VW LEFT 2021-11-10 17:32:17 Magen Rouse [facility] XR WRIST 3+ VW LEFT 2021-11-10 17:31:56 Lily Rouse [facility] NOTICE OF PRIVACY PRACTICES 2021-11-10 16:59:19 Doctor Unassigned, [place] [facility] CONSENT/REFUSAL FOR DIAGNOSIS AND TREATMENT 2021-11-10 16:58:04 Doctor Unassigned, [place] [facility] ASSIGNMENT OF BENEFITS 2020-09-29 22:10:07 Docto r Unassigned, [place] [facility] Encounters Start Date/Time End Date/Time Encounter Type Admission Type Attending [facility] Care Facility Care Department Encounter ID Source 2020-12-05 23:41:25 Emergency [facility] [id number] [facility] 2020-12-05 20:46:01 Emergency [facility] [id number] [facility] 2020-12-05 20:45:07 Emergency [facility] [id number] [facility] 2020-12-03 22:03:22 Emergency [facility] [id number] [facility] 2023-05-11 15:37:00 2023-05-11 17:24:00 Emergency X DIPIKA CRUZ [facility] ERT [id number] [facility] 2023-05-11 15:37:00 2023-05-11 17:24:00 Emergency Dipika Cruz [facility] 1..840.114 [id number] [facility] 2023-04-11 12:30:00 2023-04-11 13:22:00 Emergency MITALI OCASIO [facility] ERT [id number] [facility] 2023-04-11 12:30:00 2023-04-11 13:22:00 Emergency Mitali Rausch [facility] 1..840.114 [id number] [facility] 2023-03-04 10:44:00 2023-03-04 13:29:00 Emergency X ARASELI SHELTON [facility] ERT [id number] [facility] 2023-03-04 10:44:00 2023-03-04 13:29:00 Emergency Araseli Shelton [facility] [id number] [facility] 2021-12-02 00:00:00 2021-12-02 00:00:00 Orders Only Doctor Unassigned, [place] [facility] [id number] [id number] [facility] 2021-11-19 11:43:00 2021-11-19 18:54:00 Emergency X SRAVAN MISHRA [facility] ERT [id number] [facility] 2021-11-19 11:43:00 2021-11-19 18:54:00 Emergency Estrada Sotelo, [facility] [id number] [facility] 2021-11-19 07:30:00 2021-11-19 10:47:00 Emergency X MAGEN ROUSE [facility] ERT [id number] [facility] 2021-11-19 07:30:00 2021-11-19 10:47:00 Emergency Magen Rouse [facility] 1.2.114 350.1.13.10 4.2.7.2.686 [id number] [facility] 2021-11-10 12:05:00 2021-11-10 13:29:00 Emergency X MAGEN ROUSE [facility] ERT [id number] [facility] 2021-11-10 12:05:00 2021-11-10 13:29:00 Emergency Magen Rouse [facility] 1..114 350.1.13.10 4.2.7.2.686 [id number] [facility] 2021-11-10 00:00:00 2021-11-10 00:00:00 Orders Only Doctor Unassigned, [place] [facility] 1..114 350.1.13.10 4.2.7.2.686 [id number] [facility] 2020-09-29 17:40:00 2020-09-29 17:40:00 Outpatient R KATE [facility] [id number] [facility] 2020-09-29 17:11:16 2020-09-29 17:31:16 Urgent Care Kate [facility] 1.84.114 350.1.13.10 4.2.7.2.686 [id number] [facility] 2020-09-29 00:00:00 2020-09-29 00:00:00 Telephone [facility]al [facility] Medical Office Building 1.84.114 350.1.13.10 4.2.7.2.686 [id number] [facility] 2020-09-29 00:00:00 2020-09-29 00:00:00 Orders Only Doctor Unassigned, [place] [facility] 1..114 350.1.13.10 4.2.7.2.686 [id number] [facility] 2020-09-29 00:00:00 2020-09-29 00:00:00 Letter (Out) Juvenal [facility] 1.0.114 350.1.13.10 4.2.7.2.686 [id number] [facility] 2020-01-16 13:00:00 2020-01-16 13:00:00 Outpatient JAVI LOZOYA [facility] [id number] [facility] 2019-08-15 10:45:00 2019-08-15 10:45:00 Outpatient APOLONIA LEAHY [facility] [id number] [facility] 2019-08-15 10:45:00 2019-08-15 10:45:00 Outpatient Chanda PINEDAAPOLONIA [facility] [id number] [facility] 2019-06-17 10:46:52 2019-06-17 13:28:00 Emergency X JOSSY KWAN [facility] ERT [id number] [facility] 2019-04-30 03:42:00 2019-04-30 03:42:00 Outpatient Raju_P [facility] MMG [id number] [facility] 2019-04-11 09:40:39 2019-04-11 16:24:00 Emergency X JOSSY KWAN [facility] ERT [id number] [facility] Results Test Description Test Time Test Comments Results Resul t Comments Source XR HAND 3+ VW LEFT 4 21:05:34 HISTORY: Left hand pain over first MCP joint. S/P fall. FINDINGS: AP, lateral, oblique views of left hand are obtained and comparedwith 11/10/2021 study. No acute fracture or dislocation. No significantchanges of arthritis or aggressive bone lesions seen. No soft tissuecalcification s, bony erosions or juxta-articular osteoporosis detected. CONCLUSIONS: Normal study. [facility] XR WRIST 3+ VW LEFT 4 21:04:44 HISTORY: Radial side left wrist pain. FINDINGS: AP, lateral, oblique views of left wrist are obtained andcompared with 11/10/2021 study. No acute fracture or dislocation. Nosignificant changes of arthritis or aggressive bone lesions seen. No bonyerosions or soft tissue calcifications detected. CONCLUSIONS: [facility] 17[facility]33[facility]00* Test Item Value Reference Range Interpretation Comme nts LIPASE (test code = 5112298428) 92 U/L 0-220 Lab Interpretation (test cod e = 98157-3) Normal [facility] WITH BBMX3485-77-56 17:22:38* Test Item Value Reference Range Interpretation Comme nts WBC (test code = 6690-2) 9.48 See_Comment [Automated messa ge] The system which generated this result transmitted reference range: 4.30 - 11.10 10*3/?L. The reference range was not used to interpret this result as normal/abnormal. RBC (test code = 789-8) 4.12 See_Comment [Automated messa ge] The system which generated this result transmitted reference range: 3.93 - 5.25 10*6/?L. The reference range was not used to interpret this result as normal/abnormal. HGB (test code = 718-7) 14.5 g/dL 11.6-15.0 HCT (test code = 4544-3) 41.8 % 35.7-45.2 MCV (test code = 787-2) 101.5 fL 80.6-95.5 H MCH (test code = 785-6) 35.2 pg 25.9-32.8 H MCHC (test code = 786-4) 34.7 g/dL 31.6-35.1 RDW-SD (test code = 57730-7) 46.9 fL 39.0-49.9 RDW-CV (test code = 788-0) 12.5 % 12.0-15.5 PLT (test code = 777-3) 438 See_Comment H [Automated messa ge] The system which generated this result transmitted reference range: 166 - 358 10*3/?L. The reference range was not used to interpret this result as normal/abnormal. MPV (test code = 11637-2) 7.8 fL 9.5-12.9 L NRBC/100 WBC (test code = 7144605050) 0.0 See_Comment [Automated Funambol ssage] The system which generated this result transmitted reference range: 0.0 - 10.0 /100 WBCs. The reference range was not used to interpret this result as normal/abnormal. NRBC x10^3 (test code = 5494888569) See_Comment [Automated messa ge] The system which generated this result transmitted reference range: 10*3/?L. The reference range was not used to interpret this result as normal/abnormal. GRAN MAT (NEUT) % (test code = 770-8) 56.9 % IMM GRAN % (test code = 8028643187) 0.40 % LYMPH % (test code = 736-9) 32.5 % MONO % (test code = 5905-5) 8.1 % EOS % (test code = 713-8) 1.5 % BASO % (test code = 706-2) 0.6 % GRAN MAT x10^3(ANC) (test code = 2746149263) 5.39 10*3/uL 1.88-7.09 IMM GRAN x10^3 (test code = 1188223598) 0.04 10*3/uL 0.00-0.06 LYMPH x10^3 (test code = 731-0) 3.08 10*3/uL 1.32-3.29 MONO x10^3 (test code = 742-7) 0.77 10*3/uL 0.33-0.92 EOS x10^3 (test code = 711-2) 0.14 10*3/uL 0.03-0.39 BASO x10^3 (test code = 704-7) 0.06 10*3/uL 0.01-0.07 Lab Interpretation (test code = 95958-6) Abnormal [facility] AJJO9787-17-34 17:08:00* Test Item Value Reference Range Interpretation Comme nts POCT PREG (test code = 1605) Negative On board controls acceptable with C Line (test code = 3574) Yes POCT PREG LOT # (test code = 3575) [id number] POCT PREG TEST DATE ( test code = 3576) 05/14/2024 Lab Interpretation (test cod e = 66105-5) Normal [facility] Notes Date/Time Note Provider Source 2023-05-11 15:35:33 4481-34-76A40:35:33F ormatting of this note might be different from the original.Pt c/o left hand pain. States that she fell backwards onto her left hand after seeing a dennis spider at work. 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 72975-5Tzoxanouw department Triage rgpgUU5163-47-46Y52:36:32[facility] Triage noteTXT1.2.840.508286.1.13.104.2. 7.2.160737|[id number] for patient skgs35492-2Jcejqheur[address] [place] [address] NoteLNNARRATIVEFormatted C-CDA narrative [id number] N Dewoody RN[address] OvtfClywwcslgKnvipoonbTIJF8257168 027MZNKVTXNYMYEZGAYDXRFXN8758-20- 04T15:36:321.2.840.498107.1.72.3. 15|1.2.840.095855.1.13.104.2.7.2. [id number] Ghazala Lloyd RN [facility] 2023-04-11 13:15:00 6657-17-83U67:15:00F ormatting of this note might be different from the original.Pt given printed and verbal discharge instructions regarding abrasion of left cornea, encouraged hydration.Prescriptions provided.Discussed antibiotic therapy and to take until all completed unless adverse reaction occurs - if occurs, discontinue medication and follow up with pcp/seek medical attention.Pt verbalized understanding of instructions, pt awake alert oriented, resp reg unlabored, skin w/d, color appropriate for race, moves all ext well,pt encouraged to follow up with pcp.Advised to seek medical attention for new/prolonged/worsening of symptoms.No adverse reaction to meds given in ER noted upon discharge.Awake, alert oriented, resp reg unlabored, skin w/d, pt leaving amb with steady gait, in no apparent distress. 82802-9Inveovyvv department BmmiMY9253-52-14P02:21:56[facility] department NoteTXT1.2.840.488116.1.13.104.2. 7.2.910836|[id number] for patient dkno78989-3HlozOGVYGONPQPMJunxwzp ed C-CDA narrative [id number] C Tenisha RNUT[address]TXTX[address] 419MDQYBUWCFBROEANOAWWSBK2547-38- 05T13:21:561.2.840.208391.1.72.3. 15|1.2.840.245961.1.13.104.2.7.2. [id number] Liseth Steven RN [facility] 2023-04-11 12:25:40 2732-72-40M51:25:40F ormatting of this note might be different from the original.Patient state that yesterday at work she removed her eye protection and wiped her eyes and has been having pain and irritation since. States that she used the eye wash at work and flushed her eye. This morning eye feels irritated and was matted. No problems with vision. 79212-7Yokjnixxa department Triage lvzuDT6973-90-90X81:26:47[facility] department Triage noteTXT1.2.840.169335.1.13.104.2. 7.2.286403|[id number] for patient hbyq20329-1Hpedaqtsd department NoteLNNARRATIVEFormatted C-CDA narrative [id number] M Hayes RNUT[address]TXTX[address] 442OBBQUXOJOTEZFUYORPVJYH6622-58- 05T12:26:471.2.840.449980.1.72.3. 15|1.2.840.273193.1.13.104.2.7.2. [id number] Sheron Jaffe RN [facility] - Health 2023-04-11 12:15:00 2140-13-92Y97:15:00F ormatting of this note is different from the original.Images from the original note were not included.[facility] Emergency Department NotePatient Name: Hilaria Patricia of : 1990 32 year old femaleTreatment Room: [facility] POOL/ADERTA-PLMedical Record Number: [id number] Care Physician: Mehran Kumar Escorted by: Self [9]Mode of Arrival: Personal means [1]EMS Treatment Prior to ED Arrival:Travel and Exposure Screening:SymptomsDoes patient have any of these symptoms?: (not recorded)Exposure ScreeningHas patient had contact with someone with a communicable disease in the last month?: (not recorded)Diseases exposed to:: (not recorded)Is Patient ?: (not recorded)Exposure Date: (not recorded)Chief Complaint:Chief ComplaintPatient presents withEye ProblemHistory of Present Illness:Pt was at work and with protective lenses on she was working,She took them off to clean her sweat and something hit her left eyThey irrigated it, then irrigated it again with eye wash and waterShe has had dry eyes, scratching fb sensation and matted left eyShe denies vision changes fever or chills, she states there was no trauma but felt something in her eyePast Medical History/Immunizations:Past Medical History:Diagnosis DateAnemia, 01/22/2017Back painCrohn diseaseHeart murmurHypothyroidismPregnancy-ind uced hypertension in third trimester 01/22/2017Allergies:No Known AllergiesPast Social History:Tobacco UseEvery Day; 0.30 packs/day for 6.00 years; Types: CigarettesSmokeless Tobacco: Never used smokeless tobacco.Alcohol UseNo.Drug UseNo.Sexual ActivitySexually active; Partners: Male; Control/Protection: None.Past Surgical History:Past Surgical History:Procedure Laterality DateCESAREAN SECTION 08/09/2011EPIDURAL STEROID INJECTIONORAL SURGERY PROCEDUREWisdom teeth extractionTUBAL LIGATION 01/21/2017TUBAL LIGATION Bilateral 01/21/2017Surgeon: RafaRuby Morataya MD; Location: Labor and Delivery - AnnexReview of Systems:Review of SystemsConstitutional: Negative for chills and fatigue.HENT: Negative.Eyes: Positive for pain, discharge and redness.All other systems reviewed and are negative.Physical Exam:ED Triage Vitals [04/11/23 1226]Weight 59 kg (130 lb)Actual or estimated Estimated by patient/family reportHeight 1.575 m (5' 2")BP 118/82Pulse 82Resp 20Temp 37.2 ?C (99 ?F)Temp source OralSpO2 100 %Measured on Room airPhysical ExamVitals and nursing note reviewed.Constitutional:Appearanc e: She is normal weight.HENT:Head: Normocephalic.Right Ear: External ear normal.Left Ear: External ear normal.Nose: Nose normal.Mouth/Throat:Mouth: Mucous membranes are moist.Eyes:General: No scleral icterus.Extraocular Movements: Extraocular movements intact.Pupils: Pupils are equal, round, and reactive to light.Comments: Left eye fluor uptake very small on medial upper area, no fb notedCardiovascular:Rate and Rhythm: Normal rate and regular rhythm.Pulses: Normal pulses.Pulmonary:Effort: Pulmonary effort is normal.Abdominal:General: Abdomen is flat.Palpations: Abdomen is soft.Musculoskeletal:General: No swelling or deformity. Normal range of motion.Cervical back: Normal range of motion.Skin:General: Skin is warm.Capillary Refill: Capillary refill takes less than 2 seconds.Neurological:General: No focal deficit present.Mental Status: She is alert and oriented to person, place, and time.Radiology:No orders to displayLab Results:Lab Results - No data to displayEKG:If EKG completed, see Procedure Note.Orders and Treatments:No orders of the defined types were placed in this encounter.No orders of the defined types were placed in this encounter.First Provider Eval:ED EventsDate/Time Event User Nmbwghuv31/05/24 1230 Medical Screening Begins MITALI RAUSCH MD --04/11/23 1230 First Provider Evaluation MITALI RAUSCH MD --ED COURSEDiagnosis/Impression as of 04/11/23 1244Abrasion of left cornea, initial encounterProcedures:ProceduresMDM :Medical Decision MakingPt was at work and with protective lenses on she was working,She took them off to clean her sweat and something hit her left eyThey irrigated it, then irrigated it again with eye wash and Charis has had dry eyes, scratching fb sensation and matted left eyShe denies vision changes fever or chills, she states there was no trauma but felt something in her eyeDdx fb vs abrasion vs infectionNo fb notedWill give vigamox and refer to ophthomologyRiskPrescription drug management.Flowsheet Documentation:Scoring Tools:No data recordedDisposition/Condition:ED DispositionNoneDischarge Medications:Patient's MedicationsSTART taking these medicationsNo medications on fileCONTINUE taking these medications which have NOT CHANGEDACETAMINOPHEN-CODEINE (TYLENOL-CODEINE #3) 300-30 MG TABLET Take 1 tablet by mouth every 4 (four) hours as needed for Pain (scale 7-10). Indications: acute painATOMOXETINE 40 MG CAPSULE Take 40 mg by mouth daily.BROMPHENIRAMINE-PSEUDOEPHED RINE-DM (BROMFED DM) 2-30-10 MG/5 ML SYRUP Take 5 mL by mouth 4 (four) times daily as needed for Congestion/Allergies or Cough.BUDESONIDE-FORMOTEROL 80-4.5 MCG/ACTUATION INHALER Inhale 2 Puffs 2 (two) times daily.CYCLOBENZAPRINE 5 MG TABLET Take 1 tablet by mouth in the morning and 1 tablet at noon and 1 tablet in the evening.DICYCLOMINE 20 MG TABLET Take 1 tablet by mouth 4 (four) times daily.HYOSCYAMINE SULFATE 0.125 MG TBDL TAKE 1-2 TABLETS BY MOUTH EVERY 4 TO 6 HOURS NEEDEDLIALDA 1.2 GRAM EC TABLETMETOCLOPRAMIDE HCL 10 MG TABLET Take 1 tablet by mouth every 6 (six) hours as needed for Nausea and Vomiting (N/V).METOCLOPRAMIDE HCL 10 MG TABLET Take 1 tablet by mouth every 6 (six) hours.ONDANSETRON (ZOFRAN ODT) 4 MG DISINTEGRATING TABLET Take 1 tablet by mouth every 8 (eight) hours as needed for Nausea and Vomiting (N/V).ONDANSETRON 4 MG TABLET 1 or 2 tablets every 8 hours as needed for nauseaPREDNISONE 20 MG TABLET Take 2 tablets by mouth in the morning.SERTRALINE 100 MG TABLET Take 100 mg by mouth every morning.SUCRALFATE 1 GRAM TABLETTRAMADOL 50 MG TABLET Take 1 tablet by mouth every 6 (six) hours as needed (pain). Indications: acute painTRAZODONE 50 MG TABLET TAKE 1 TABLET BY MOUTH NIGHTLYSTART taking Modified Medications as PrescribedNo medications on fileSTOP taking these medicationsNo medications on fileFollow-up:Electronically signed by:Mitali Rausch MD04/11/23 1305 49325-9Gptbwhoeq Emergency department YroxVI3060-05-44V04:05:45Physicia n Emergency department NoteTXT1.2.840.814780.1.13.104.2. 7.2.082127|[id number] for patient splv46636-8Ozbuqzvbw department NoteLNNARRATIVEFormatted C-CDA narrative textUT00 [address]TXTX[address] 745RHCZRZOKFHMLWZFMLLTRKA8723-50- 05T13:05:451.2.840.612886.1.72.3. 15|1.2.840.035027.1.13.104.2.7.2. [id number] [facility] 2023-03-04 13:28:49 3588-35-01K46:28:49F ormatting of this note might be different from the original.Patient discharged with abdominal pain. Follow up with pcp. Feeling better at this time. 25086-3Elfvtntrb department UemnWA2031-65-14S12:29:09[facility] department NoteTXT1.2.840.435861.1.13.104.2. 7.2.116093|[id number] for patient lckb57018-7FabhGPJRMRFXEUFKuaaqyl ed C-CDA narrative [id number] D Wierzbicki RNUT[address]TXTX[address] 566PDMAEQQCZWUNKAUCVYQFTY7863-96- 27T13:29:091.2.840.411092.1.72.3. 15|1.2.840.538523.1.13.104.2.7.2. [id number] Enrike Antoni Anna RN [facility] 2023-03-04 10:37:45 8018-56-03K21:37:45F ormatting of this note might be different from the original.Patient states: "I have chrones diease and I"m going through a flare up since Monday. [facility]. I feel very dehydrated and I need fluids. I did take tramadol at 7 am. It just made me nauseous so I took a phenergan suppository"" 79676-6Tidpyhnas department Triage azfgXT7446-25-47F20:39:14Emergenc y department Triage noteTXT1.2.840.767446.1.13.104.2. 7.2.294309|[id number] for patient rpgh96983-3Bamfqtdzl department NoteLNNARRATIVEFormatted C-CDA narrative [id number] M Cruz RNUT[address] StreetTXTX[address] 418BRXDDSKINXRSKNLXQZXLYB8091-79- 27T10:39:141.2.840.431073.1.72.3. 15|1.2.840.744618.1.13.104.2.7.2. [id number] Apolonia Garcias RN [facility] 2023-03-04 10:36:00 5344-78-41G66:36:00F ormatting of this note is different from the original.[facility] Emergency Department NotePatient Name: Hilariabeth Tariqate of : 1990 32 year old femaleTreatment Room: Room/bed info not foundMedical Record Number: [id number] Care Physician: Mehran Kumar Escorted by: Self [9]Mode of Arrival: Personal means [1]EMS Treatment Prior to ED Arrival:[employer]IST treatment: Medication (comment)[employer] SPECIALIST treatment comments: 50 mg tramadol at 0700, supp phenerganTravel and Exposure Screening:SymptomsDoes patient have any of these symptoms?: (not recorded)Exposure ScreeningHas patient had contact with someone with a communicable disease in the last month?: (not recorded)Diseases exposed to:: (not recorded)Is Patient ?: (not recorded)Exposure Date: (not recorded)Chief Complaint:Chief ComplaintPatient presents withAbdominal PainVomitingHistory of Present Illness:5-6 days of nausea with vomiting, multiple episodes. Watery diarrhea, increased frequency over baseline. All non-bloody. No fever. (+) abdominal pain, LLQ > RLQ, constant with wax/wane intensity, no definitive aggravating factors, improves some with heat. Not on Humira due to funding. Out of symptomatic medications sucralfate, reglan, pantoprazole. Took a tramadol and phenergan suppository prior to arrival.History provided by: PatientPast Medical History/Immunizations:Past Medical History:Diagnosis DateAnemia, 01/22/2017Back painCrohn diseaseHeart murmurHypothyroidismPregnancy-ind uced hypertension in third trimester 01/22/2017Tetanus received in last 5 years: UnknownAllergies:No Known AllergiesPast Social History:Tobacco UseEvery Day; 0.30 packs/day for 6.00 years; Types: CigarettesSmokeless Tobacco: Never used smokeless tobacco.Alcohol UseNo.Drug UseNo.Sexual ActivitySexually active; Partners: Male; Control/Protection: None.Past Surgical History:Past Surgical History:Procedure Laterality DateCESAREAN SECTION 08/09/2011EPIDURAL STEROID INJECTIONORAL SURGERY PROCEDUREWisdom teeth extractionTUBAL LIGATION 01/21/2017TUBAL LIGATION Bilateral 01/21/2017Surgeon: Ruby Pop MD; Location: Labor and Delivery - [facility] AnnexReview of Systems:Review of SystemsConstitutional: Positive for fatigue. Negative for fever.HENT: Negative.Eyes: Negative.Respiratory: Negative.Cardiovascular: Negative.Gastrointestinal: Positive for abdominal pain, diarrhea, nausea and vomiting. Negative for blood in stool.Genitourinary: Negative.Musculoskeletal: Negative.Skin: Negative.Neurological: Negative.Psychiatric/Behavioral: Negative.Physical Exam:ED Triage Vitals [03/04/23 1039]Weight 59 kg (130 lb 1.6 oz)Actual or estimated Estimated by patient/family reportHeight 1.575 m (5' 2")BP (!) 133/98Pulse 88Resp 16Temp 37.2 ?C (99 ?F)Temp source OralSpO2 100 %Measured on Room airPhysical ExamVitals and nursing note reviewed.Constitutional:General: She is not in acute distress.Appearance: Normal appearance. She is not ill-appearing, toxic-appearing or diaphoretic.HENT:Head: Normocephalic.Right Ear: External ear normal.Left Ear: External ear normal.Nose: Nose normal.Mouth/Throat:Mouth: Mucous membranes are dry.Eyes:Extraocular Movements: Extraocular movements intact.Conjunctiva/sclera: Conjunctivae normal.Cardiovascular:Rate and Rhythm: Normal rate and regular rhythm.Pulmonary:Effort: Pulmonary effort is normal. No respiratory distress.Breath sounds: Normal breath sounds. No wheezing, rhonchi or rales.Abdominal:General: There is no distension.Palpations: Abdomen is soft.Tenderness: There is abdominal tenderness (LLQ > RLQ). There is no right CVA tenderness or left CVA tenderness.Musculoskeletal:Genera l: Normal range of motion.Cervical back: Normal range of motion.Skin:General: Skin is warm and dry.Neurological:General: No focal deficit present.Mental Status: She is alert.Psychiatric:Mood and Affect: Mood normal.Behavior: Behavior normal.Thought Content: Thought content normal.Judgment: Judgment normal.Radiology:CT ABDOMEN PELVIS W CONTRASTPreliminary ResultEXAM: CT ABDOMEN PELVIS W CONTRASTHISTORY: 32 years-old Female: LLQ abdominal pain, LLQ > RLQ abdominalpain;TECHNIQUE: Contiguous axial imaging from the level of the lung basesthrough the proximal thighs was performed with intravenous contrast.Coronal and sagittal reconstructions were obtained.COMPARISON: CT abdomen pelvis dated 03/24/2020FINDINGS:LOWER THORAX: The lung bases are clear. No pleural or pericardialeffusion.LIVER AND BILIARY: The liver is normal in size and contour. Focal fattysteatosis adjacent to falciform ligament is noted. Otherwise, no focalhepatic lesion is seen. The gallbladder appears unremarkable. Noradiopaquegallstones are seen. No intra or extrahepatic biliary ductal dilation isvisualized.PANCREAS: Normal morphology and enhancement. No ductal dilation or massesare visualized.SPLEEN: The spleen appears unremarkable.ADRENAL GLANDS: No adrenal masses are seen.KIDNEYS, URETERS, AND BLADDER: Normal renal size, morphology, andenhancement. No solid masses. No stones or hydronephrosis. The bladderis collapsed, which limits evaluation.REPRODUCTIVE ORGANS: Normal reproductive organs. Possible 1.5 cmsubserosal/intramural fibroid within the posterior wall of uterus.GI TRACT AND PERITONEUM: No dilation or bowel wall thickening is seen. Theappendix appears unremarkable. No intra-abdominal free air collection isvisualized. Small amount of intra-abdominal free fluid is seen withinposterior cul-de-sac, likely physiologic.VESSELS: Mild atherosclerotic calcifications affect the abdominal aorta.Noabdominal aortic aneurysm.LYMPH NODES: No lymphadenopathy.BONES AND SOFT TISSUES: No aggressive osseous lesion.IMPRESSIONNo acute findings of abdomen and pelvis.Possible 1.5 cm uterine fibroid. Further evaluation by transvaginalultrasound on nonemergent basis is recommended.Preliminary Report Dictated by Resident: Swati Santos Results:Lab ResultsCBC WITH DIFF - AbnormalResult Value Ref RangeWBC 9.48 4.30 - 11.10 10*3/?LRBC 4.12 3.93 - 5.25 10*6/?LHGB 14.5 11.6 - 15.0 g/dLHCT 41.8 35.7 - 45.2 %MCV 101.5 (*) 80.6 - 95.5 fLMCH 35.2 (*) 25.9 - 32.8 pgMCHC 34.7 31.6 - 35.1 g/dLRDW-SD 46.9 39.0 - 49.9 fLRDW-CV 12.5 12.0 - 15.5 %PLT 438 (*) 166 - 358 10*3/?LMPV 7.8 (*) 9.5 - 12.9 fLNRBC/100 WBC 0.0 0.0 - 10.0 /100 WBCsNRBC x10^3 <0.01 10*3/?LGRAN MAT (NEUT) % 56.9 %IMM GRAN % 0.40 %LYMPH % 32.5 %MONO % 8.1 %EOS % 1.5 %BASO % 0.6 %GRAN MAT x10^3(ANC) 5.39 1.88 - 7.09 10*3/uLIMM GRAN x10^3 0.04 0.00 - 0.06 10*3/uLLYMPH x10^3 3.08 1.32 - 3.29 10*3/uLMONO x10^3 0.77 0.33 - 0.92 10*3/uLEOS x10^3 0.14 0.03 - 0.39 10*3/uLBASO x10^3 0.06 0.01 - 0.07 10*3/uLCOMP. METABOLIC PANEL (29780) - AbnormalNA 139 135 - 145 mmol/LK 4.1 3.5 - 5.0 mmol/LCL 109 (*) 98 - 108 mmol/LCO2 TOTAL 22 (*) 23 - 31 mmol/LAGAP 8 2 - 16BUN 13 7 - 23 mg/dLGLUCOSE 104 70 - 110 mg/dLCREATININE 0.79 0.50 - 1.04 mg/dLTOTAL BILI 0.6 0.1 - 1.1 mg/dLCALCIUM 9.6 8.6 - 10.6 mg/Trevor PROTEIN 8.7 (*) 6.3 - 8.2 g/dLALBUMIN 5.1 (*) 3.5 - 5.0 g/dLALK PHOS 40 34 - 122 U/LALTv 17 5 - 35 U/LAST(SGOT) 23 13 - 40 U/LeGFR 102.1 mL/min/1.27r4RNUDIDZQRF - AbnormalAPPEARANCE Clear ClearCOLOR Yellow YellowPH 5.0 4.8 - 8.0SP GRAVITY 1.018 1.003 - 1.030GLU U QUAL Normal NormalBLOOD 2+ (*) NegativeKETONES Negative NegativePROTEIN Negative NegativeUROBILIN Normal NormalBILIRUBIN Negative NegativeNITRITE Negative NegativeLEUK TREVOR Negative NegativeRBC/HPF 3 0 - 3 HPFWBC/HPF <1 0 - 5 HPFBACTERIA Negative NegativeMUCOUS Slight (*) Negative LPFSQ EPITH 1 HPFLIPASE - NormalLIPASE 92 0 - 220 U/LPOCT TEST - NormalPOCT PREG NegativeOn board controls acceptable with C Line YesPOCT PREG LOT # [id number] PREG TEST DATE 05/14/2024EKG:If EKG completed, see Procedure Note.Orders and Treatments:Orders Placed This EncounterProceduresCT ABDOMEN PELVIS W CONTRASTCBC WITH DIFFCOMP. METABOLIC PANEL (60019)LIPASEURINALYSISPOCT TESTOrders Placed This EncounterMedicationsNaCl 0.9% (NS) bolus infusion 1,000 mLondansetron (ZOFRAN (PF)) injection 8 mgfamotidine (PEPCID (PF)) injection 20 mgDISCONTD: morpHINE (4 mg/mL) injection 4 mgFENTanyl PF (SUBLIMAZE (PF)) injection 50 mcgiopamidol (ISOVUE 370-500 mL) injection 90 mLpredniSONE (DELTASONE) tablet 40 mgpredniSONE 20 mg tablettraMADoL 50 mg tabletondansetron 4 mg tabletFirst Provider Eval:ED EventsDate/Time Event User Jrrafwhu59/27/24 1043 Medical Screening Begins ARASELI SHELTON MD --03/04/23 1043 First Provider Evaluation ARASELI SHELTON MD --ED COURSEED Course as of 03/04/23 1308Sat Mar 04 Reassess. Symptoms improved. [RK]ED Course User Index[RK] Araseli Shelton, MDDiagnosis/Impression as of 03/04/23 1308Nausea and vomiting, unspecified vomiting typeAbdominal pain, unspecified abdominal locationCrohn's disease without complication, unspecified gastrointestinal tract locationProcedures:ProceduresMDM: Medical Decision MakingPrimary impression: abdominal pain without critical exam findingsSecondary impression: nausea with vomiting, diarrhea, crohns diseaseDifferential Diagnoses, including but not limited to: electrolyte /glucose abnl, anemia, urinary tract infection, diverticulitis, appendicitis, obstruction, perforationProblems Addressed:Abdominal pain, unspecified abdominal location: acute illness or injuryNausea and vomiting, unspecified vomiting type: acute illness or injuryAmount and/or Complexity of Data ReviewedIndependent Historian:Details: selfLabs: ordered. Decision-making details documented in ED Course.Radiology: ordered. Decision-making details documented in ED Course.ECG/medicine tests:Details: N/aRiskPrescription drug management.Parenteral controlled substances.Risk Details: Unremarkable OBS in ED. Symptoms improved. Findings and plan discussed with patient. No findings that require acute hospitalization today.Flowsheet Documentation:Scoring Tools:No data recordedDisposition/Condition:ED DispositionED DispositionDisch - HomeConditionStableComment--Disch arge Medications:Patient's MedicationsSTART taking these medicationsONDANSETRON 4 MG TABLET 1 or 2 tablets every 8 hours as needed for nauseaPREDNISONE 20 MG TABLET Take 2 tablets by mouth in the morning for 7 days.TRAMADOL 50 MG TABLET Take 1 tablet by mouth every 6 (six) hours as needed (pain). Indications: acute painCONTINUE taking these medications which have NOT CHANGEDACETAMINOPHEN-CODEINE (TYLENOL-CODEINE #3) 300-30 MG TABLET Take 1 tablet by mouth every 4 (four) hours as needed for Pain (scale 7-10). Indications: acute painATOMOXETINE 40 MG CAPSULE Take 40 mg by mouth daily.BROMPHENIRAMINE-PSEUDOEPHED RINE-DM (BROMFED DM) 2-30-10 MG/5 ML SYRUP Take 5 mL by mouth 4 (four) times daily as needed for Congestion/Allergies or Cough.BUDESONIDE-FORMOTEROL 80-4.5 MCG/ACTUATION INHALER Inhale 2 Puffs 2 (two) times daily.CYCLOBENZAPRINE 5 MG TABLET Take 1 tablet by mouth in the morning and 1 tablet at noon and 1 tablet in the evening.DICYCLOMINE 20 MG TABLET Take 1 tablet by mouth 4 (four) times daily.HYOSCYAMINE SULFATE 0.125 MG TBDL TAKE 1-2 TABLETS BY MOUTH EVERY 4 TO 6 HOURS NEEDEDLIALDA 1.2 GRAM EC TABLETMETOCLOPRAMIDE HCL 10 MG TABLET Take 1 tablet by mouth every 6 (six) hours as needed for Nausea and Vomiting (N/V).METOCLOPRAMIDE HCL 10 MG TABLET Take 1 tablet by mouth every 6 (six) hours.ONDANSETRON (ZOFRAN ODT) 4 MG DISINTEGRATING TABLET Take 1 tablet by mouth every 8 (eight) hours as needed for Nausea and Vomiting (N/V).PREDNISONE 20 MG TABLET Take 2 tablets by mouth in the morning.SERTRALINE 100 MG TABLET Take 100 mg by mouth every morning.SUCRALFATE 1 GRAM TABLETTRAZODONE 50 MG TABLET TAKE 1 TABLET BY MOUTH NIGHTLYSTART taking Modified Medications as PrescribedNo medications on fileSTOP taking these medicationsNo medications on fileFollow-up:PCP, GIElectronically signed by:Araseli Shelton MD03/04/23 1308 [id number] Emergency department [id number]:08:30Physicia n Emergency department [id number] for patient [id number] department NoteLNNARRATIVEFormatted C-CDA narrative text[address] [id number] [facility]
[2023-08-12] MEDS ORDERED: NA CHLORIDE 0.9% 1,000 ML ONE (09:34)
[2023-08-12] MEDS ORDERED: ONDANSETRON 4 MG/2 ML VIAL ONE (09:34)
[2023-08-12] MEDS ORDERED: PROMETHAZINE INJ 25 MG/ML AMP ONE (09:44)
[2023-08-12] MEDS ORDERED: HYDROMORPHONE HCL 2 MG/ML inj ONE (09:44)
[2023-08-12 10:01] LABS: Absolute Eosinophils 0.2 K/uL (0-0.5); Absolute Lymphocytes (CBC) 3.4 K/uL (0.7-4.9); Absolute Monocytes 0.7 K/uL (0.1-1.3); Basophils % 0.4 % (0-1.3); Eosinophils % 1.3 % (0-4.4); Hematocrit 42.2 % (36.0-45.0); Hemoglobin 14.3 g/dL (12.0-15.0); Lymphocytes % 25.3 % (15.3-44.8); MCH 35.9 pg (27.0-35.0); MCHC 33.9 g/dL (32.0-36.0); MCV 106.1 fL (80-100); MPV 6.4 fL (7.6-11.3); Monocytes % 5.3 % (3.3-12.3); Neutrophils % 67.7 % (41.7-73.7); Platelets 493 thou/uL (152-406); RBC Red Blood Cell Count 3.98 M/uL (3.86-4.86); Red Cell Distribution Width 13.9 % (12.1-15.2)
[2023-08-12 10:07] LABS: Albumin 4.7 g/dL (3.4-5.0); Albumin/Globulin Ratio 1.1 (1.1-1.8); Anion Gap 7.8 mEq/L (5.0-15.0); Bilirubin Total 0.6 mg/dL (0.2-1.0); Globulin 4.1 g/dL (2.3-3.5); Potassium 3.8 mEq/L (3.5-5.1); Protein, Total 8.8 g/dL (6.4-8.2)
[2023-08-12 11:17] LABS: Anisocytosis SLIGHT; Blood Morphology Comment NOTED (NOT SEEN); Macrocytosis 1+; Platelet Estimate ADEQ; White Blood Cell Scan OK (OK)
--- NOTE | 2023-08-12 11:20 | RAD REPORT ---
EXAM DESCRIPTION: CTAbdomen Pelvis W Contrast - 08/12/2023 11:01 am CLINICAL HISTORY: Abdominal pain. crohns;Abd pain COMPARISON: <Comparisons> TECHNIQUE: Venous phase CT imaging of the abdomen and pelvis was performed with 100 ml non-ionic IV contrast. All CT scans are performed using dose optimization technique as appropriate and may include automated exposure control or mA/KV adjustment according to patient size. FINDINGS: The lung bases are clear. The liver, spleen, pancreas, adrenal glands and kidneys are within normal limits. No bowel obstruction, free air, intra-abdominal free fluid or abscess. Small volume of pelvic free fl uid. The appendix is normal. No evidence of significant lymphadenopathy. No suspicious bony findings. IMPRESSION: No acute intra-abdominal or pelvic finding. Trace pelvic free fluid.
[2023-08-12] MEDS ORDERED: METHYLPREDNISOLONE 125 MG INJ ONE (11:32)
--- NOTE | 2023-08-12 12:05 | EDPHYS ---
Physician Documentation [facility] Name: Ashley Alcala Age: 32 yrs Sex: Female : 1990 Arrival Date: 08/12/2023 Time: 09:19 Bed 16 Private MD: ED Physician Dell Tse HPI: 08/11 09:41 This 32 yrs old Female presents to ER via Unassigned with complaints of rn Nausea/Vomiting/Diarrhea. 09:41 The patient presents to the emergency department with nausea, vomiting, diarrhea, rn abdominal pain. Onset: The symptoms/episode began/occurred this morning. Possible causes: unknown. The symptoms are aggravated by nothing. The symptoms are alleviated by nothing. Severity of symptoms: At their worst the symptoms were moderate in the emergency department the symptoms are unchanged. The patient has experienced similar episodes in the past. Patient reports "having a Crohn's flare". Abdominal pain with nausea and vomiting and diarrhea that began this morning. No blood. No fever. Patient states identical to previous Crohn's episodes.. Historical: - Allergies: 09:46 No Known Allergies; hb - Home Meds: 09:46 gabapentin Oral [Active]; hb - PMHx: 09:46 Crohn's Disease; Hypothyroidism; hb - PSHx: 09:46 section; tubal ligation; hb - Immunization history:: Adult Immunizations up to date. - Infectious Disease History:: Denies. - Family history:: not pertinent. - Social history:: Smoking status: Patient denies any tobacco usage or history of. - Hospitalizations: : No recent hospitalization is reported. ROS: 09:41 Constitutional: Negative for fever, chills, and weight loss, Cardiovascular: Negative rn for chest pain, palpitations, and edema, Respiratory: Negative for shortness of breath, cough, wheezing, and pleuritic chest pain, Abdomen/GI: Positive for abdominal pain with nausea/vomiting/diarrhea MS/Extremity: Negative for injury and deformity, Skin: Negative for injury, rash, and discoloration, Neuro: Negative for headache, weakness, numbness, tingling, and seizure, Exam: 09:41 Constitutional: This is a well developed, well nourished patient who is awake, alert, rn diaphoretic and actively vomiting Head/Face: Normocephalic, atraumatic. ENT: Dry mucous membranes Cardiovascular: Tachycardic, regular Respiratory: Lungs have equal breath sounds bilaterally, clear to auscultation and percussion. No rales, rhonchi or wheezes noted. No increased work of breathing, no retractions or nasal flaring. Abdomen/GI: Nondistended, no peritoneal signs Neuro: Awake and alert, GCS 15 Vital Signs: 09:20 Resp 18; Weight 58.06 kg; Height 5 ft. 2 in. ; Pain 10/10; hb 09:58 BP 138 / 93; Pulse 55; Resp 20; Pulse Ox 97% on R/A; kj2 10:40 BP 103 / 81; Pulse 51; Resp 16; Pulse Ox 97% ; Pain 3/10; nj1 10:41 Pain 3/10; nj1 11:30 BP 106 / 60; Pulse 50; Resp 15; Pulse Ox 99% ; nj1 12:30 BP 104 / 61; Pulse 56; Resp 16; Pulse Ox 100% ; nj1 09:20 Body Mass Index 23.41 (58.06 kg, 157.48 cm) hb 09:20 Pain Scale: Adult hb 10:40 Pain Scale: Adult nj1 10:41 Pain Scale: Adult nj1 MDM: 09:22 Patient medically screened. rn 12:03 Differential diagnosis: Nonspecific abd pain, appendicitis, diverticulitis, viral rn gastroenteritis, gastroenteritis, Colitis, Crohn's flare. Data reviewed: vital signs, nurses notes, lab test result(s), radiologic studies, CT scan, and as a result, I will discharge patient. Care significantly affected by the following chronic conditions: Crohn's disease. Counseling: I had a detailed discussion with the patient and/or guardian regarding the historical points, exam findings, and any diagnostic results supporting the discharge/admit diagnosis, lab results, radiology results, the need for outpatient follow up, to return to the emergency department if symptoms worsen or persist or if there are any questions or concerns that arise at home. Response to treatment: the patient's symptoms have markedly improved after treatment, and as a result, I will discharge patient. Special discussion: Based on the patient's Hx, exam, and Dx evaluation, there is no indication for emergent surgery or inpatient Tx. It is understood by the patient/guardian that if the Sx's persist or worsen they need to return immediately for re-evaluation. I discussed with the patient/guardian in detail that at this point there is no indication for admission to the hospital. It is understood, however, that if the symptoms persist or worsen the patient needs to return immediately for re-evaluation. ED course: Patient states feels much better. No longer vomiting. Denies abdominal pain. States she is ready to go home. I have personally reviewed all of the results, including but not limited to blood tests and imaging deemed necessary to safely discharge this patient at this time. All results given to and printed out for patient. I personally went over all the results with the patient and answered all questions. Patient will follow-up with PCP and or specialist as discussed. Return precautions given and understood.. 08/11 09:38 Order name: CBC with Diff; Complete Time: 11:19 rn 08/11 09:38 Order name: CMP; Complete Time: 10:25 rn 08/11 09:38 Order name: Lipase; Complete Time: 10:25 rn 08/11 11:17 Order name: CBC Smear Scan; Complete Time: 11:19 EDMS 08/11 09:38 Order name: CT Abd/Pelvis - IV Contrast Only; Complete Time: 11:24 rn 08/11 09:38 Order name: IV Saline Lock; Complete Time: 09:41 rn 08/11 09:38 Order name: Labs collected and sent; Complete Time: 09:41 rn Administered Medications: 09:41 Drug: NS 0.9% IV 1000 ml IV at 1 bolus Per protocol; 1000 mL bolus Route: IV; Rate: 1 nj1 bolus; Site: left antecubital; 10:42 Follow up: Response: No adverse reaction; IV Status: Completed infusion; IV Intake: nj1 1000ml 09:55 Drug: HYDROmorphone IVP 1 mg IVP once Route: IVP; Site: left antecubital; kj2 10:41 Follow up: Pain 3/10 Adult; Response: No adverse reaction; Pain is decreased nj1 09:56 Drug: Promethazine IVP 12.5 mg IVP once Route: IVP; Site: left antecubital; kj2 10:19 Follow up: Response: Nausea unchanged nj1 10:26 Drug: Droperidol IVP 2.5 mg IVP once Route: IVP; Site: left antecubital; kj2 10:58 Follow up: Response: Nausea is decreased kj2 11:36 Drug: MethylPrednisoLONE IVP 125 mg IVP once Route: IVP; Site: left antecubital; kj2 12:30 Follow up: Response: No adverse reaction nj1 Disposition Summary: 08/12/23 12:04 Discharge Ordered Notes: Location: Home rn Problem: new rn Symptoms: have improved rn Condition: Stable rn Diagnosis - Crohn's disease, unspecified, without complications rn - Nausea with vomiting, unspecified rn Followup: rn - With: Private Physician - When: As needed - Reason: Recheck today's complaints, Re-evaluation by your physician Discharge Instructions: - Discharge Summary Sheet rn - Crohn's Disease rn - Nausea and Vomiting, Adult rn Forms: - Medication Reconciliation Form rn - Antibiotic [employer] - Prescription Opioid Use rn - Patient Portal Instructions rn - Leadership Thank You Letter rn Prescriptions: - Medrol (Erwin) 4 mg Oral Tablets, Dose Pack - take 1 tablet ORAL route as directed - follow package instructions; 1 packet; rn Refills: 0, Product Selection Permitted - promethazine 25 mg Oral Tablet - take 1 tablet ORAL route every 6 hours As needed; 20 tablet; Refills: 0, rn Product Selection Permitted Signatures: Dispatcher [employer] EDDell Martinez MD MD rn Baxter, Heather RN Heydi Mora RN RN nj1 Kayleigh Sofia RN RN kj2
--- NOTE | 2023-08-12 12:05 | ER ---
Nurse's Notes [facility] Name: Ashley Alcala Age: 32 yrs Sex: Female : 1990 Arrival Date: 08/12/2023 Time: 09:19 Bed 16 Private MD: Diagnosis: Crohn's disease, unspecified, without complications;Nausea with vomiting, unspecified Presentation: 08/11 09:20 Chief complaint: Diffuse abdominal pain and N/V/D since this morning. Coronavirus hb screen: At this time, the client does not indicate any symptoms associated with coronavirus-19. Ebola Screen: No symptoms or risks identified at this time. Initial Sepsis Screen: Does the patient meet any 2 criteria? No. Patient's initial sepsis screen is negative. Does the patient have a suspected source of infection? No. Patient's initial sepsis screen is negative. Risk Assessment: Do you want to hurt yourself or someone else? Patient reports no desire to harm self or others. Onset of symptoms was August 12, 2023. 09:20 Method Of Arrival: Ambulatory hb 09:20 Acuity: ESTEVAN 3 hb Triage Assessment: 09:46 General: Appears ill, Behavior is cooperative, restless. Pain: Pain currently is 10 out hb of 10 on a pain scale. Neuro: Level of Consciousness is awake, alert, obeys commands, Oriented to person, place, time, situation. Cardiovascular: Patient's skin is warm and dry. Respiratory: Respiratory effort is even, unlabored, Respiratory pattern is regular, symmetrical. GI: Pt is actively vomiting Reports lower abdominal pain, upper abdominal pain, diarrhea, nausea, vomiting. Historical: - Allergies: 09:46 No Known Allergies; hb - Home Meds: 09:46 gabapentin Oral [Active]; hb - PMHx: 09:46 Crohn's Disease; Hypothyroidism; hb - PSHx: 09:46 section; tubal ligation; hb - Immunization history:: Adult Immunizations up to date. - Infectious Disease History:: Denies. - Family history:: not pertinent. - Social history:: Smoking status: Patient denies any tobacco usage or history of. - Hospitalizations: : No recent hospitalization is reported. Screenin:48 [facility] ED Fall Risk Assessment (Adult) History of falling in the last 3 months, nj1 including since admission No falls in past 3 months (0 pts) Confusion or Disorientation No (0 pts) Intoxicated or Sedated No (0 pts) Impaired Gait No (0 pts) Mobility Assist Device Used No (0 pt) Altered Elimination No (0 pt) Score/Fall Risk Level 0 - 2 = Low Risk Oriented to surroundings, Maintained a safe environment, Hourly rounding (assess needs \T\ fall precautionary measures) done. Abuse screen: Denies threats or abuse. Denies injuries from another. Nutritional screening: No deficits noted. Tuberculosis screening: No symptoms or risk factors identified. Assessment: 09:40 General: Appears uncomfortable, Behavior is cooperative, appropriate for age. Pain: nj1 Complains of pain in abdomen Pain currently is 10 out of 10 on a pain scale. 09:40 Neuro: Level of Consciousness is awake, alert, obeys commands, Oriented to person, nj1 place, time, situation. Cardiovascular: Patient's skin is warm and dry. Respiratory: Airway is patent Respiratory effort is even, unlabored. GI: Pt is actively vomiting bile, Reports lower abdominal pain, upper abdominal pain, diarrhea, nausea, vomiting. 10:40 Reassessment: Patient appears in no apparent distress at this time. Patient is alert, nj1 oriented x 3, equal unlabored respirations, skin warm/dry/pink. Patient is alert/active/playful, equal unlabored respirations, skin warm/dry/pink. Patient states feeling better. Patient states symptoms have improved. 11:30 Reassessment: Patient appears in no apparent distress at this time. Patient and/or nj1 family updated on plan of care and expected duration. Pain level reassessed. Patient is alert, oriented x 3, equal unlabored respirations, skin warm/dry/pink. 12:30 Reassessment: Patient appears in no apparent distress at this time. Patient is alert, nj1 oriented x 3, equal unlabored respirations, skin warm/dry/pink. Patient denies pain at this time. Patient states feeling better. Patient states symptoms have improved. Vital Signs: 09:20 Resp 18; Weight 58.06 kg; Height 5 ft. 2 in. ; Pain 10/10; hb 09:58 BP 138 / 93; Pulse 55; Resp 20; Pulse Ox 97% on R/A; kj2 10:40 BP 103 / 81; Pulse 51; Resp 16; Pulse Ox 97% ; Pain 3/10; nj1 10:41 Pain 3/10; nj1 11:30 BP 106 / 60; Pulse 50; Resp 15; Pulse Ox 99% ; nj1 12:30 BP 104 / 61; Pulse 56; Resp 16; Pulse Ox 100% ; nj1 09:20 Body Mass Index 23.41 (58.06 kg, 157.48 cm) hb 09:20 Pain Scale: Adult hb 10:40 Pain Scale: Adult nj1 10:41 Pain Scale: Adult nj1 ED Course: 09:21 Patient arrived in ED. im 09:21 Dell Tse MD is Attending Physician. rn 09:31 Stewart Awad, RN is Primary Nurse. rs5 09:40 Inserted saline lock: 20 gauge in left antecubital area, using aseptic technique. Blood nj1 collected. 09:41 Heydi Veronn, LEN is Primary Nurse. nj1 09:45 Triage completed. hb 09:46 Arm band placed on. hb 09:49 Patient has correct armband on for positive identification. Bed in low position. Call nj1 light in reach. Side rails up X 1. Adult w/ patient. Provided Education on: call light, fall precautions. Client placed on continuous cardiac and pulse oximetry monitoring. NIBP monitoring applied. 11:03 CT Abd/Pelvis - IV Contrast Only In Process Unspecified. EDMS 12:30 No provider procedures requiring assistance completed. nj1 12:30 IV discontinued, intact, bleeding controlled, Pressure dressing applied. nj1 Administered Medications: 09:41 Drug: NS 0.9% IV 1000 ml IV at 1 bolus Per protocol; 1000 mL bolus Route: IV; Rate: 1 nj1 bolus; Site: left antecubital; 10:42 Follow up: Response: No adverse reaction; IV Status: Completed infusion; IV Intake: nj1 1000ml 09:55 Drug: HYDROmorphone IVP 1 mg IVP once Route: IVP; Site: left antecubital; kj2 10:41 Follow up: Pain 3/10 Adult; Response: No adverse reaction; Pain is decreased nj1 09:56 Drug: Promethazine IVP 12.5 mg IVP once Route: IVP; Site: left antecubital; kj2 10:19 Follow up: Response: Nausea unchanged nj1 10:26 Drug: Droperidol IVP 2.5 mg IVP once Route: IVP; Site: left antecubital; kj2 10:58 Follow up: Response: Nausea is decreased kj2 11:36 Drug: MethylPrednisoLONE IVP 125 mg IVP once Route: IVP; Site: left antecubital; kj2 12:30 Follow up: Response: No adverse reaction nj1 Medication: 12:30 VIS not applicable for this client. nj1 Intake: 10:42 IV: 1000ml; Total: 1000ml. nj1 Outcome: 12:04 Discharge ordered by . rn 12:30 Discharged to home ambulatory, with significant other, nj1 12:30 Condition: stable 12:30 Discharge instructions given to patient, Instructed on discharge instructions, follow up and referral plans. medication usage, Demonstrated understanding of instructions, follow-up care, medications, Prescriptions given X 2, 12:33 Patient left the ED. nj1 Signatures: Dispatcher [employer] EDMS Dell Tse MD MD rn Baxter, Heather RN RN Stewart Davies RN RN rs5 Heydi Vernon RN RN nj1 Odalys Villanueva Krystal RN RN kj2 Corrections: (The following items were deleted from the chart) 09:48 09:20 Pain 11/15, Adult; hb hb
[2023-08-12 12:55] VITALS: O2SAT 97
[2023-08-12 13:10] VITALS: BP 103/81
== END 2023-08-12 12:33 | disposition home or self-care (01) ==
LOC: ER 09:19
DX: K50.90 Crohn's disease, unspecified, without complications (principal)
CPT/HCPCS: 36415; 74177; 80053; 83690; 85025; 96361; 96374; 96375; 99284; J1170; J2405; J2550; J2919; J7030; Q9967

== ENCOUNTER 2023-08-13 01:30 | Emergency (ER) | payer SELFPAY ==
--- OUTSIDE RECORDS SUMMARY | 2023-08-13 01:35 | XMS REPORT | Continuity of Care Document ---
Author Name Unknown Address [address] [facility] [address] [place] [address] [facility] Address [address] [facility] [address] [place] [address] Care Team Providers Care Rolls Baker Name Role Phone MEHRAN MATSON Primary Care Physician Unavailab DIPIKA Velázquez Attending Clinician Unavailable Dipika Busch Attending Clinician [phone] MITALI RAUSCH Attending Clinician Unavailable Mitali Rausch MD Attending Clinician [phone] ARASELI SHELTON Attending Clinician UnavailAraseli Reyes MD Attending Clinician [phone] Doctor Unassigned, [place]rehan Attending Clinician U SRAVAN Robledo Attending Clinician Unavailable Estrada Sotelo MD Attending Clinician [phone] Sravan Mishra MD Attending Clinician [phone] MAGEN ROUSE Attending Clinician Unavailable Magen Rouse MD Attending Clinician [phone] SHIRLEY LOVE Attending Clinician UnavailShirley Zhang Attending Clinician [phone] Angi Sanford MD Attending Clinician [phone] JAVI ZULETA Attending Clinician Unavailable APOLONIA PINEDA Attending Clinician UnavailJOSSY Brown Attending Clinician Unavailable Raju_P Attending Clinician Unavailable DIPIKA CRUZ Admitting Clinician Unavailable ARASELI SHELTON Admitting Clinician UnavailESTRADA Wiggins Admitting Clinician Unavailable Estrada Sotelo MD Admitting Clinician [phone] MAGEN ROUSE Admitting Clinician Unavailable JOSSY KWAN Admitting Clinician Unavailable Raju_Ivette Admitting Clinician Unavailable Payers Payer Name Policy Type Policy Number Effective Date Expirati on Date Source [employer] MEDICAID [id number] 2019 00:00:00 [place]ICA[place] [id number] 2019 00:00:00 Problems Condition Name Condition Details Condition Category Status Onset Date Resolution Date Last Treatment Date Treating Clinician Comments Source care and examinatio n of lactating mother care and examinatio n of lactating mother Disease Active 02-13 00:00: 00 [facility] , delivered , delivered Disease Active 2016-02 00:00: 00 [facility] Anemia, Anemia, Disease Active 2016-02 00:00: 00 [facility] - induced hypertensi on in third trimester - induced hypertensi on in third trimester Disease Active 2016-02 00:00: 00 [facility] Tubal ligation status Tubal ligation status Disease Active 2016-02 00:00: 00 [facility] Full-term jovita ROM, unsp time betw rupture and onset labor Full-term jovita ROM, unsp time betw rupture and onset labor Disease Active 2016-02 00:00: 00 [facility] 38 weeks gestation of 38 weeks gestation of Disease Active 2016-02 00:00: 00 [facility] Research study patient HCTZ Research study patient HCTZ Disease Active 2016-02 00:00: 00 Overview: Formattin g of this note is different from the original. Patient is in the HCTZ study IRB # [id number] y questions please contact:Corina Guadalupe MD [phone] Arnold MD [phone] Owen MD [phone] facts Patient randomize d after delivery if they met inclusion criteria a nd accepted Medicati on comes from [facility] not pharmacy, [facility] Phone Number Ext. [phone] or cell [phone] Patient can start meds as soon as they tolerate PO One tab per day of either placebo or HCTZ Medicati on stays with patient Medicati on will appear on APR, Nurses need to rene as given (No barcode) Medicati on needs to counted prior to discharge by research team physician All follow ups need to be on POD or PP day # 14 or more Patient needs to be reminded to bring their left over medicatio n and bottle back to their visit [facility] needs to be notified at time of discharge Please contact Dr. Guadalupe with any Questions [facility] Previous delivery desires TOLAC Previous delivery desires TOLAC Disease Active 2016-02 00:00: 00 [facility] Supervisio n of high-risk with insufficie nt care Supervisio n of high-risk with insufficie nt care Disease Active 2016-02 00:00: 00 [facility] Allergies, Adverse Reactions, Alerts Allergy Name Allergy Type Status Severity Reaction(s) Onset Date Inactive Date Treating Clinician Comments Source NO KNOWN ALLERGIE S Drug Class Active [facility] Social History Social Habit Start Date Stop Date Quantity Comments Source History of tobacco use Cigarette Smoker [facility] intake 2023-05-11 00:00:00 2023-05-11 00:00:00 0 /d [facility] History of Social function 2023-05-11 00:00:00 2023-05-11 00:00:00 [facility] Exposure to SARS-CoV-2 (event) 2021-11-09 00:00:00 2021-11-19 11:34:00 Not sure [facility] Cigarettes smoked current (pack per day) - Reported 2016-06-07 00:00:00 2016-06-07 00:00:00 [facility] Cigarette pack-years 2016-06-07 00:00:00 2016-06-07 00:00:00 [facility] Tobacco use and exposure 2016-06-07 00:00:00 2016-06-07 00:00:00 Smokeless tobacco non-user [facility] Sex Assigned At 1990 00:00:00 1990 00:00:00 [facility] Smoking Status Start Date Stop Date Source Smokes tobacco daily 2016-06-07 00:00:00 [facility] Medications Ordered Medication Name Filled Medication Name Start Date Stop Date Current Medication? Ordering Clinician Indication Dosage Frequency Signature (SIG) Comments Components Source tetracaine (PONTOCAINE ) 0.5 % ophthalmic drops 1 Drop 04-10 20:15: 00 04-10 18:50 :00 No 1[drp] 1 Drop, Both Eyes, ONCE, 1 dose, On Mon04/11/23 at 1415, Routine [facility] fluorescein ophthalmic strip 1 Strip 04-10 19:30: 00 04-10 18:50 :00 No 1{strip } 1 Strip, Both Eyes, ONCE, 1 dose, On Mon04/11/23 at 1330, Routine [facility] moxifloxaci n (VIGAMOX) 0.5 % ophthalmic drops 1 Drop 04-10 18:45: 00 Yes 1[drp] 1 Drop, Left Eye, TID, First dose on Mon04/11/23 at 1245, Until Discontinu ed, Routine [facility] moxifloxaci n 0.5 % ophthalmic drops 04-10 00:00: 00 Yes [id number] 1[drp] Place 1 Drop in left eye in the morning and 1 Drop at noon and 1 Drop in the evening. [facility] predniSONE 20 mg tablet 03-05 00:00: 00 03-13 05:59 :00 No [id number] 40mg Take 2 tablets by mouth in the morning for 7 days. [facility] predniSONE (DELTASONE) tablet 40 mg 03-04 19:00: 00 03-04 19:25 :00 No 40mg 40 mg, Oral, ONCE, 1 dose, On 03/04/23 at 1300, ANA M [facility] FENTanyl PF (SUBLIMAZE (PF)) injection 50 mcg 03-04 18:15: 00 03-04 17:22 :00 No 50ug 50 mcg, Slow IV Push, ONCE, 1 dose, [facility] 03/04/23 [facility] 1215, [facility] (ISOVUE 370-500 mL) injection 90 mL 03-04 17:30: 00 03-04 17:45 :00 No [id number] 90mL 90 mL, Intravenou s, ONCE, 1 dose, On 03/04/23 at 1145, Routine [facility] NaCl 0.9% (NS) bolus infusion 1,000 mL 03-04 17:30: 00 03-04 19:29 :00 No 1000mL at 999 mL/hr, 1,000 mL, IV Infusion, ONCE, 1 dose, On 03/04/23 at 1130, [facility] famotidine (PEPCID (PF)) injection 20 mg 03-04 17:00: 00 03-04 17:12 :00 No 20mg 20 mg, Slow IV Push, ONCE, 1 dose, On 03/04/23 at 1100, [facility] ondansetron (ZOFRAN (PF)) injection 8 mg 03-04 17:00: 00 03-04 17:12 :00 No 8mg 8 mg, Slow IV Push, ONCE, 1 dose, On 03/04/23 at 1100, [facility] traMADoL 50 mg tablet 03-04 00:00: 00 Yes [id number] 50mg Take 1 tablet by mouth every 6 (six) hours as needed (pain). Indication s: acute pain [facility] ondansetron 4 mg tablet 03-04 00:00: 00 Yes [id number] 1 or 2 tablets every 8 hours as needed for nausea [facility] HYDROcodone -acetaminop hen (NORCO 5) 5-325 mg tablet 1 tablet 2021-02 0 18:36: 44 Yes 1{tbl} 1 tablet, Oral, Q6HPRN, Starting on Mon11/19/21 at 1336, Until Discontinu ed, Routine, Pain (scale 4-6) [facility] acetaminoph en (TYLENOL) tablet 650 mg 2021-02 18:36: 26 Yes 650mg 650 mg, Oral, Q6HPRN, Starting on Mon11/19/21 at 1336, Until Discontinu ed, Routine, Pain (scale 1-3) [facility] ondansetron (ZOFRAN-ODT ) disintegrat ing tablet 4 mg 2021-02 13:45: 00 11-19 12:59 :00 No 4mg 4 mg, Oral, ONCE, 1 dose, On Mon11/19/21 at 0845, Routine [facility] HYDROcodone -acetaminop hen (NORCO 5) 5-325 mg tablet 1 tablet 2021-02 13:00: 00 11-19 12:59 :00 No 1{tbl} 1 tablet, Oral, ONCE, 1 dose, On Mon11/19/21 at 0800, ANA M [facility] cyclobenzap rine 5 mg tablet 2021-02 00:00: 00 Yes [id number] 5mg Take 1 tablet by mouth in the morning and 1 tablet at noon and 1 tablet in the evening. [facility] predniSONE 20 mg tablet 2021-02 00:00: 00 Yes [id number] 40mg Take 2 tablets by mouth in the morning. [facility] HYDROcodone -acetaminop hen (NORCO) 7.5-325 mg per tablet 2021-02 005 00:00: 00 11-18 04:59 :00 No [id number] 1{tbl} Take 1 tablet by mouth every 8 (eight) hours as needed for Pain for up to 7 days. Indication s: acute pain [facility] budesonide- formoteroL 80-4.5 mcg/actuati on inhaler 8-24 00:00: 00 Yes [id number] 2{puff} Inhale 2 Puffs 2 (two) times daily. [facility] bromphenira mine-pseudo ephedrine-D M (BROMFED DM) 2-30-10 mg/5 mL syrup 09-29 00:00: 00 Yes [id number] 5mL Take 5 mL by mouth 4 (four) times daily as needed for Congestion /Allergies or Cough. [facility] LIALDA 1.2 gram EC tablet 09-02 00:00: 00 Yes [facility] Hyoscyamine Sulfate 0.125 mg TbDL 08-31 00:00: 00 Yes TAKE 1-2 TABLETS BY MOUTH EVERY 4 TO 6 HOURS NEEDED [facility] sucralfate 1 gram tablet 08-31 00:00: 00 Yes [facility] SERTraline 100 mg tablet 07-16 00:00: 00 Yes 100mg Take 100 mg by mouth every morning. [facility] atomoxetine 40 mg capsule 07-16 00:00: 00 Yes 40mg Take 40 mg by mouth daily. [facility] traZODone 50 mg tablet 07-16 00:00: 00 Yes TAKE 1 TABLET BY MOUTH NIGHTLY [facility] metoclopram rena HCl 10 mg tablet 03-24 00:00: 00 Yes [id number] 10mg Take 1 tablet by mouth every 6 (six) hours as needed for Nausea and Vomiting (N/V). [facility] acetaminoph en-codeine (TYLENOL-CO DEINE #3) 300-30 mg tablet 03-24 00:00: 00 Yes [id number] 1{tbl} Take 1 tablet by mouth every 4 (four) hours as needed for Pain (scale 7-10). Indication s: acute pain [facility] dicyclomine 20 mg tablet 03-07 00:00: 00 Yes [id number] 20mg Take 1 tablet by mouth 4 (four) times daily. [facility] ondansetron (ZOFRAN ODT) 4 mg disintegrat ing tablet 03-07 00:00: 00 Yes [id number] 4mg Take 1 tablet by mouth every 8 (eight) hours as needed for Nausea and Vomiting (N/V). [facility] Immunizations Ordered Immunization Name Filled Immunization Name Date Status Comments Source Td 2021-11-19 00:00:00 Completed [facility] Td 2021-11-19 00:00:00 Completed [facility] Td 2021-11-19 00:00:00 Completed [facility] TDAP 2016-11-15 00:00:00 Completed [facility] Influenza Virus Vaccine Quad IM 3+ 2016-11-15 00:00:00 Completed [facility] TDAP 2016-11-15 00:00:00 Completed [facility] Influenza Virus Vaccine Quad IM 3+ 2016-11-15 00:00:00 Completed [facility] TDAP 2016-11-15 00:00:00 Completed [facility] Influenza Virus Vaccine Quad IM 3+ 2016-11-15 00:00:00 Completed [facility] TDAP 2016-11-15 00:00:00 Completed [facility] Influenza Virus Vaccine Quad IM 3+ 2016-11-15 00:00:00 Completed [facility] TDAP 2016-11-15 00:00:00 Completed [facility] Influenza Virus Vaccine Quad IM 3+ 2016-11-15 00:00:00 Completed [facility] TDAP 2016-11-15 00:00:00 Completed [facility] Influenza Virus Vaccine Quad IM 3+ 2016-11-15 00:00:00 Completed [facility] TDAP 2016-11-15 00:00:00 Completed [facility] Influenza Virus Vaccine Quad IM 3+ 2016-11-15 00:00:00 Completed [facility] TDAP 2016-11-15 00:00:00 Completed [facility] Influenza Virus Vaccine Quad IM 3+ 2016-11-15 00:00:00 Completed [facility] TDAP 2016-11-15 00:00:00 Completed [facility] Influenza Virus Vaccine Quad IM 3+ 2016-11-15 00:00:00 Completed [facility] TDAP Unknown Completed [facility] Influenza Virus Vaccine Quad IM 3+ YRS Unknown Completed [facility] TD, NOS Unknown Completed [facility] TDAP Unknown Completed [facility] Influenza Virus Vaccine Quad IM 3+ YRS Unknown Completed [facility] TD, NOS Unknown Completed [facility] TDAP Unknown Completed [facility] Influenza Virus Vaccine Quad IM 3+ YRS Unknown Completed [facility] TD, NOS Unknown Completed [facility] Vital Signs Vital Name Observation Time Observation Value Comments S ource Systolic blood pressure 2023-05-11 20:34:00 132 mm[Hg] [facility] Diastolic blood pressure 2023-05-11 20:34:00 76 mm[Hg] [facility] Heart rate 2023-05-11 20:34:00 65 /min [facility] Body temperature 2023-05-11 20:34:00 37.11 Kori [facility] Respiratory rate 2023-05-11 20:34:00 18 /min [facility] Body height 2023-05-11 20:34:00 157.5 cm [facility] Body weight 2023-05-11 20:34:00 58.968 kg [facility] BMI 2023-05-11 20:34:00 23.78 kg/m2 [facility] Oxygen saturation in Arterial blood by Pulse oximetry 2023-05-11 20:34:00 95 /min [facility] Systolic blood pressure 2023-04-11 18:26:00 118 mm[Hg] [facility] Diastolic blood pressure 2023-04-11 18:26:00 82 mm[Hg] [facility] Heart rate 2023-04-11 18:26:00 82 /min [facility] Body temperature 2023-04-11 18:26:00 37.22 Kori [facility] Respiratory rate 2023-04-11 18:26:00 20 /min [facility] Body height 2023-04-11 18:26:00 157.5 cm [facility] Body weight 2023-04-11 18:26:00 58.968 kg [facility] BMI 2023-04-11 18:26:00 23.78 kg/m2 [facility] Oxygen saturation in Arterial blood by Pulse oximetry 2023-04-11 18:26:00 100 /min [facility] Systolic blood pressure 2023-03-04 18:30:00 101 mm[Hg] [facility] Diastolic blood pressure 2023-03-04 18:30:00 75 mm[Hg] [facility] Heart rate 2023-03-04 18:30:00 60 /min [facility] Respiratory rate 2023-03-04 18:30:00 16 /min [facility] Oxygen saturation in Arterial blood by Pulse oximetry 2023-03-04 18:30:00 98 /min [facility] Body temperature 2023-03-04 16:39:00 37.22 Kori [facility] Body height 2023-03-04 16:39:00 157.5 cm [facility] Body weight 2023-03-04 16:39:00 59.013 kg [facility] BMI 2023-03-04 16:39:00 23.80 kg/m2 [facility] Systolic blood pressure 2021-11-19 23:00:00 115 mm[Hg] [facility] Diastolic blood pressure 2021-11-19 23:00:00 75 mm[Hg] [facility] Heart rate 2021-11-19 23:00:00 56 /min [facility] Respiratory rate 2021-11-19 23:00:00 16 /min [facility] Oxygen saturation in Arterial blood by Pulse oximetry 2021-11-19 23:00:00 100 /min [facility] Body temperature 2021-11-19 16:35:00 37 Kori [facility] Body weight 2021-11-19 16:35:00 56.7 kg [facility] BMI 2021-11-19 16:35:00 22.86 kg/m2 [facility] Systolic blood pressure 2021-11-19 14:41:14 130 mm[Hg] [facility] Diastolic blood pressure 2021-11-19 14:41:14 87 mm[Hg] [facility] Heart rate 2021-11-19 14:41:14 85 /min [facility] Body temperature 2021-11-19 14:41:14 36.67 Kori [facility] Respiratory rate 2021-11-19 14:41:14 18 /min [facility] Oxygen saturation in Arterial blood by Pulse oximetry 2021-11-19 14:41:14 99 /min [facility] Body height 2021-11-19 12:31:00 157.5 cm [facility] Body weight 2021-11-19 12:31:00 56.7 kg [facility] BMI 2021-11-19 12:31:00 22.86 kg/m2 [facility] Systolic blood pressure 2021-11-10 17:03:00 126 mm[Hg] [facility] Diastolic blood pressure 2021-11-10 17:03:00 86 mm[Hg] [facility] Heart rate 2021-11-10 17:03:00 85 /min [facility] Body temperature 2021-11-10 17:03:00 37.06 Kori [facility] Respiratory rate 2021-11-10 17:03:00 20 /min [facility] Body height 2021-11-10 17:03:00 157.5 cm [facility] Body weight 2021-11-10 17:03:00 55.792 kg [facility] BMI 2021-11-10 17:03:00 22.50 kg/m2 [facility] Oxygen saturation in Arterial blood by Pulse oximetry 2021-11-10 17:03:00 99 /min [facility] Systolic blood pressure 2020-09-29 22:26:00 139 mm[Hg] [facility] Diastolic blood pressure 2020-09-29 22:26:00 89 mm[Hg] [facility] Heart rate 2020-09-29 22:26:00 76 /min [facility] Body temperature 2020-09-29 22:26:00 36.89 Kori [facility] Respiratory rate 2020-09-29 22:26:00 16 /min [facility] Body height 2020-09-29 22:26:00 154.9 cm [facility] Body weight 2020-09-29 22:26:00 53.025 kg [facility] BMI 2020-09-29 22:26:00 22.09 kg/m2 [facility] Oxygen saturation in Arterial blood by Pulse oximetry 2020-09-29 22:26:00 100 /min [place] [facility] Procedures Procedure Date / Time Performed Performing Clinician Source XR HAND 3+ VW LEFT 2023-05-11 21:02:29 Dipika Cruz [facility] XR WRIST 3+ VW LEFT 2023-05-11 21:02:29 Dayo Cruz [facility] CONSENT/REFUSAL FOR DIAGNOSIS AND TREATMENT 2023-04-11 18:18:03 Doctor Unassigned, Destrehan [facility] LIPASE 2023-03-04 17:08:00 Araseli Shelton [facility] COMP. METABOLIC PANEL ([id number]) 2023-03-04 17:08:00 Araseli Shelton [facility] CBC WITH DIFF 2023-03-04 17:08:00 [facility] 2023-03-04 17:08:00 Araseli Shelton [facility] POCT TEST 2023-03-04 17:08:00 Araseli Shelton [facility] CONSENT/REFUSAL FOR DIAGNOSIS AND TREATMENT 2023-03-04 16:36:23 Doctor Unassigned, Destrehan [facility] AUTHORIZATION FOR RELEASE OF PHI 2021-12-02 05:01:00 Doctor Unassigned, Destrehan [facility] MR CERVICAL SPINE WO CONTRAST 2021-11-19 20:56:00 Michael Stock [facility] COVID-19 (ID NOW RAPID TESTING) 2021-11-19 14:10:00 Magen Rouse [facility] CT CERVICAL SPINE WO CONTRAST 2021-11-19 12:49:50 Magen Rouse [facility] CT HEAD WO CONTRAST 2021-11-19 12:49:50 Lily Rouse [facility] CONSENT/REFUSAL FOR DIAGNOSIS AND TREATMENT 2021-11-19 12:35:14 Doctor Unassigned, [place]rehan [facility] XR HAND 3+ VW LEFT 2021-11-10 17:32:17 Magen Rouse [facility] XR WRIST 3+ VW LEFT 2021-11-10 17:31:56 Lily Rouse [facility] NOTICE OF PRIVACY PRACTICES 2021-11-10 16:59:19 Doctor Unassigned, [place]rehan [facility] CONSENT/REFUSAL FOR DIAGNOSIS AND TREATMENT 2021-11-10 16:58:04 Doctor Unassigned, [place]rehan [facility] ASSIGNMENT OF BENEFITS 2020-09-29 22:10:07 Docto r Unassigned, Destrehan [facility] Encounters Start Date/Time End Date/Time Encounter Type Admission Type Attending [facility] Care Department Encounter ID Source 2020-12-05 23:41:25 Emergency [facility] [id number] [facility] 2020-12-05 20:46:01 Emergency [facility] [id number] [facility] 2020-12-05 20:45:07 Emergency [facility] [id number] [facility] 2020-12-03 22:03:22 Emergency [facility] [id number] [facility] 2023-05-11 15:37:00 2023-05-11 17:24:00 Emergency DIPIKA CARTY [facility] ERT [id number] [facility] 2023-05-11 15:37:00 2023-05-11 17:24:00 Emergency Dipika Cruz [facility] [id number] [id number] [id number] [facility] 2023-04-11 12:30:00 2023-04-11 13:22:00 Emergency MITALI OCASIO [facility] ERT [id number] [facility] 2023-04-11 12:30:00 2023-04-11 13:22:00 Emergency Mitali Rausch [facility] 1..840.114 350.1.13.10 4.2.7.2.686 [id number] [facility] 2023-03-04 10:44:00 2023-03-04 13:29:00 Emergency X ARASELI SHELTON [facility] ERT [id number] [facility] 2023-03-04 10:44:00 2023-03-04 13:29:00 Emergency Araseli Shelton [facility] [id number] 350.1.13.10 [id number] [id number] [facility] 2021-12-02 00:00:00 2021-12-02 00:00:00 Orders Only Doctor Unassigned, Destrehan [facility] [id number] 350.1.13.10 4.2.7.2.686 [id number] [facility] 2021-11-19 11:43:00 2021-11-19 18:54:00 Emergency X SRAVAN MISHRA [facility] ERT [id number] [facility] 2021-11-19 11:43:00 2021-11-19 18:54:00 Emergency Estrada Sotelo, [facility] [id number] 350.1.13.10 4.2.7.2.686 [id number] [facility] 2021-11-19 07:30:00 2021-11-19 10:47:00 Emergency X MAGEN ROUSE [facility] ERT [id number] [facility] 2021-11-19 07:30:00 2021-11-19 10:47:00 Emergency Magen Rouse [facility] 1.284.114 350.1.13.10 4.2.7.2.686 [id number] [facility] 2021-11-10 12:05:00 2021-11-10 13:29:00 Emergency X MAGEN ROUSE [facility] ERT [id number] [facility] 2021-11-10 12:05:00 2021-11-10 13:29:00 Emergency Magen Rouse [facility] 1..114 350.1.13.10 4.2.7.2.686 [id number] [facility] 2021-11-10 00:00:00 2021-11-10 00:00:00 Orders Only Doctor Unassigned, [place]rehan [facility] 1.2.114 350.1.13.10 [id number] [id number] [facility] 2020-09-29 17:40:00 2020-09-29 17:40:00 Outpatient R KATE, [facility] [id number] [facility] 2020-09-29 17:11:16 2020-09-29 17:31:16 Urgent Care Kate, [facility] 1.84.114 350.1.13.10 4.2.7.2.686 [id number] [facility] 2020-09-29 00:00:00 2020-09-29 00:00:00 [facility] Medical Office Building 1.84.114 350.1.13.10 4.2.7.2.686 [id number] [facility] 2020-09-29 00:00:00 2020-09-29 00:00:00 Orders Only Doctor Unassigned, [place] [facility] 1..114 350.1.13.10 4.2.7.2.686 [id number] [facility] 2020-09-29 00:00:00 2020-09-29 00:00:00 Letter (Out) [facility] Medical Office Building 1.84.114 350.1.13.10 4.2.7.2.686 [id number] [facility] 2020-01-16 13:00:00 2020-01-16 13:00:00 Outpatient JAVI LOZOYA [facility] [id number] [facility] 2019-08-15 10:45:00 2019-08-15 10:45:00 Outpatient Chanda [facility] [id number] [facility] 2019-08-15 10:45:00 2019-08-15 10:45:00 Outpatient Chanda [facility] [id number] [facility] 2019-06-17 10:46:52 2019-06-17 13:28:00 Emergency X JOSSY KWAN [facility] ERT [id number] [facility] 2019-04-30 03:42:00 2019-04-30 03:42:00 Outpatient Raju_P [facility] MMG [id number] [facility] 2019-04-11 09:40:39 2019-04-11 16:24:00 Emergency X JOSSY KWAN [facility] ERT [id number] [facility] Results Test Description Test Time Test Comments [...] or juxta-articular osteoporosis detected. CONCLUSIONS: Normal study. [facility] XR WRIST 3+ VW LEFT 4 21:04:44 HISTORY: Radial side left wrist pain. FINDINGS: AP, lateral, oblique views of left wrist are obtained andcompared with 11/10/2021 study. No acute fracture or dislocation. Nosignificant changes of arthritis or aggressive bone lesions seen. No bonyerosions or soft tissue calcifications detected. CONCLUSIONS: Normal study. [facility]00* Test Item Value Reference Range Interpretation Comme nts LIPASE (test code = 2005086009) 92 U/L 0-220 Lab Interpretation (test cod e = 95941-4) Normal [facility] WITH BLUB6093-93-33 17:22:38* Test Item Value Reference Range Interpretation [...] 34.7 g/dL 31.6-35.1 RDW-SD (test code = 32650-0) 46.9 fL 39.0-49.9 RDW-CV (test code = 788-0) 12.5 % 12.0-15.5 PLT (test code = 777-3) 438 See_Comment H [Automated messa ge] The system which generated this result transmitted reference range: 166 - 358 10*3/?L. The reference range was not used to interpret this result as normal/abnormal. MPV (test code = 59262-5) 7.8 fL 9.5-12.9 L NRBC/100 WBC (test code = 8840392062) 0.0 See_Comment [Automated [place] ssage] The system which generated this result transmitted reference range: 0.0 - 10.0 /100 WBCs. The reference range was not used to interpret this result as normal/abnormal. NRBC x10^3 (test code = 0289749702) See_Comment [Automated messa ge] The system which generated this result transmitted reference range: 10*3/?L. The reference range was not used to interpret this result as normal/abnormal. GRAN MAT (NEUT) % (test code = 770-8) 56.9 % IMM GRAN % (test code = 4517483612) 0.40 % LYMPH % (test code = 736-9) 32.5 % MONO % (test code = 5905-5) 8.1 % EOS % (test code = 713-8) 1.5 % BASO % (test code = 706-2) 0.6 % GRAN MAT x10^3(ANC) (test code = 3577476078) 5.39 10*3/uL 1.88-7.09 IMM GRAN x10^3 (test code = 1181423269) 0.04 10*3/uL 0.00-0.06 LYMPH x10^3 (test code = 731-0) 3.08 10*3/uL 1.32-3.29 MONO x10^3 (test code = 742-7) 0.77 10*3/uL 0.33-0.92 EOS x10^3 (test code = 711-2) 0.14 10*3/uL 0.03-0.39 BASO x10^3 (test code = 704-7) 0.06 10*3/uL 0.01-0.07 Lab Interpretation (test code = 69368-5) Abnormal [facility] SICB7473-99-82 17:08:00* Test Item Value Reference Range Interpretation Comme nts POCT PREG (test code = 1605) Negative On board controls acceptable with C Line (test code = 3574) Yes POCT PREG LOT # (test code = 3574) [id number] POCT PREG TEST DATE ( test code = 3576) 05/14/2024 Lab Interpretation (test cod e = 20807-8) Normal [facility] Notes Date/Time Note Provider Source 2023-05-11 15:35:33 8564-05-53K83:35:33F ormatting of this note might be different from the original.Pt c/o left hand pain. States that she fell backwards onto her left hand after seeing a dennis spider at work. 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 17986-4Idhwiijju department Triage tpyiED1143-66-74H35:36:32[facility] Triage noteTXT1.2.840.484015.1.13.104.2. 7.2.131539|[id number] for patient cpin79998-9Dongxiqdz department NoteLNNARRATIVEFormatted C-CDA narrative [id number] N Dewoody RN[address] Vz[id number] 474HXRDKYJHGDJAIJOWCFDBHO2967-86- 04T15:36:321.2.840.398161.1.72.3. 15|1.2.840.800332.1.13.104.2.7.2. [id number] Ghazala Lloyd RN [facility] 2023-04-11 13:15:00 0327-34-80Q57:15:00F ormatting of this note might be different [...] with steady gait, in no apparent distress. 43854-8Frwqrofcw department QzevIN6953-07-53U31:21:56Emergenc y department NoteTXT1.2.840.466091.1.13.104.2. 7.2.670663|[id number] for patient jfcp16227-3OzszWXRGDONQLGZGxobqwe ed C-CDA narrative notu282552287Ngzdjyyw C Tenisha RN[address]TXTX[address] 843NCGFMIBNDRXHOGWYMCVLWQ2015-82- 05T13:21:561.2.840.942323.1.72.3. 15|1.2.840.570200.1.13.104.2.7.2. [id number] Liseth Steven RN [facility] 2023-04-11 12:25:40 1294-05-87W83:25:40F ormatting of this note might be different from the original.Patient state that yesterday at work she removed her eye protection and wiped her eyes and has been having pain and irritation since. States that she used the eye wash at work and flushed her eye. This morning eye feels irritated and was matted. No problems with vision. 28355-6Ieialhtrq department Triage yuheJI8428-14-44G89:26:47[facility] Triage noteTXT1.2.840.397485.1.13.104.2. 7.2.843784|[id number] for patient bznv19557-8Hbrmxohdz department NoteLNNARRATIVEFormatted C-CDA narrative qwzh881697529Yubk M Hayes RN[address]TXTX[address] 470PZXADLRLYGUADKKDDSSFZX9303-57- 05T12:26:471.2.840.371495.1.72.3. 15|1.2.840.341596.1.13.104.2.7.2. [id number] Sheron Jaffe RN [facility] - Health 2023-04-11 12:15:00 7266-50-24H18:15:00F ormatting of this note is different from the original.Images from the original note were not included.[facility] Emergency Department NotePatient Name: Hilaria Patricia of : 1990 32 year old femaleTreatment Room: [facility] [place] Record Number: [id number] Care Physician: Mehran Kumar Escorted by: Self [...] Pop MD; Location: Labor and Delivery - AnnexReview [...] this encounter.First Provider Eval:ED EventsDate/Time Event User Hgidvzib69/05/24 1230 Medical Screening Begins MITALI RAUSCH MD [...] on fileFollow-up:Electronically signed by:Mitali Rausch MD04/11/23 1305 23251-2Zffrzeuad Emergency department RgebFJ1795-59-15Q07:05:45Physicia n Emergency department NoteTXT1.2.840.295144.1.13.104.2. 7.2.652195|[id number] for patient vgos58789-7Kkdweqbee department NoteLNNARRATIVEFormatted C-CDA narrative textUT[address]TXTX[address] 970IMNTBEBCOTFDFCHOMEWQHH5774-05- 05T13:05:451.2.840.280053.1.72.3. 15|1.2.840.506709.1.13.104.2.7.2. [id number] [facility] 2023-03-04 13:28:49 5291-17-51N28:28:49F ormatting of this note might be different from the original.Patient discharged with abdominal pain. Follow up with pcp. Feeling better at this time. 14575-0Oiukgaasi department MvhlUN8288-49-84L38:29:09[facility] department NoteTXT1.2.840.295507.1.13.104.2. 7.2.169294|[id number] for patient zukn16120-6HtraTPGVQHNNRBDJocjpud ed C-CDA narrative [id number] D Wierzbicki RNUT[address] ZmrzKmigtfuahVqcxhjbjvNFUP5891719 896IWPOVPVNJKTTVJXIKGLPGT9986-07- 27T13:29:091.2.840.207804.1.72.3. 15|1.2.840.953981.1.13.104.2.7.2. 727879_[id number] Enrike Anna RN [facility] 2023-03-04 10:37:45 9996-71-93X74:37:45F ormatting of this note might be different from the original.Patient states: "I have chrones diease and I"m going through a flare up since Monday. [facility]. I feel very dehydrated and I need fluids. I did take tramadol at 7 am. It just made me nauseous so I took a phenergan suppository"" 51973-0Cfowdeykp department Triage jffgLS0749-56-48M90:39:14Emergen y department Triage noteTXT1.2.840.502660.1.13.104.2. 7.2.816525|[id number] for patient uyjk88371-2Fmwmugasm department NoteLNNARRATIVEFormatted C-CDA narrative [id number] M Cruz RNUT[address]AoxjAjtgtepzuVgtqjdamtHULA7490374 608TBPMLUHREFLAMYFLURCVCI2151-53- 27T10:39:141.2.840.634124.1.72.3. 15|1.2.840.777188.1.13.104.2.7.2. [id number] Apolonia Garcias RN [facility] 2023-03-04 10:36:00 2462-55-02N54:36:00F ormatting of this note is different from the original.[facility] Emergency Department NotePatient Name: Hilaria DelunaArt of : 1990 32 year old femaleTreatment Room: Room/bed info not foundMedical Record Number: [id number] Care Physician: Mehran Kumar Escorted by: Self [9]Mode of Arrival: Personal means [1]EMS Treatment Prior to ED Arrival:COLLABORATING SUPERVISING PHYSICIAN treatment: Medication (comment)COLLABORATING SUPERVISING PHYSICIAN treatment comments: 50 mg tramadol at 0700, [...] Ruby Pop MD; Location: [facility] AnnexReview of Systems:Review of SystemsConstitutional: Positive for [...] reconstructions were obtained.COMPARISON: CT abdomen pelvis dated 2/16/2021FINDINGS:LOWER THORAX: The lung bases are clear. No [...] 0.06 0.01 - 0.07 10*3/uLCOMP. METABOLIC PANEL (93782) - AbnormalNA 139 135 - 145 mmol/LK [...] U/LAST(SGOT) 23 13 - 40 U/LeGFR 102.1 mL/min/1.60r1IULPCMYKOQ - AbnormalAPPEARANCE Clear ClearCOLOR Yellow YellowPH 5.0 [...] PELVIS W CONTRASTCBC WITH DIFFCOMP. METABOLIC PANEL (70922)LIPASEURINALYSISPOCT TESTOrders Placed This EncounterMedicationsNaCl 0.9% (NS) bolus infusion 1,000 mLondansetron (ZOFRAN (PF)) injection 8 mgfamotidine (PEPCID (PF)) injection 20 mgDISCONTD: morpHINE (4 mg/mL) injection 4 mgFENTanyl PF (SUBLIMAZE (PF)) injection 50 mcgiopamidol (ISOVUE 370-500 mL) injection 90 mLpredniSONE (DELTASONE) tablet 40 mgpredniSONE 20 mg tablettraMADoL 50 mg tabletondansetron 4 mg tabletFirst Provider Eval:ED EventsDate/Time Event User Rkdlrxkq53/27/24 1043 Medical Screening Begins ARASELI SHELTON MD [...] fileFollow-up:PCP, GIElectronically signed by:Araseli Shelton MD03/04/23 1308 55743-2Ejwamxmzj Emergency department FsipYZ2361-48-01O31:08:30Physicia n Emergency department NoteTXT1.2.840.487957.1.13.104.2. 7.2.347125|[id number] for patient quwo34903-0Csoszldgy department NoteLNNARRATIVEFormatted C-CDA narrative textUT[address] SnitKgpnuzjryGrxvllinjBXNS4990480 225YDAPPRVRQCYIMEMSQOCLXU5683-82- 27T13:08:301.2.840.441481.1.72.3. 15|1.2.840.399206.1.13.104.2.7.2. [id number] [facility]
[2023-08-13] MEDS ORDERED: ONDANSETRON 4 MG/2 ML VIAL ONE ×2 (02:03→02:57)
[2023-08-13] MEDS ORDERED: NA CHLORIDE 0.9% 1,000 ML ONE (02:04)
[2023-08-13] MEDS ORDERED: FAMOTIDINE 20 MG/2 ML VIAL IV ONE (02:04)
[2023-08-13] MEDS ORDERED: LORazepam 2 MG/ML VIAL ONE (02:24)
[2023-08-13] MEDS ORDERED: FENTANYL CITR 100 MCG/2 ML ONE (02:25)
[2023-08-13] MEDS ORDERED: KETOROLAC 30 MG/ML INJ ONE (02:25)
[2023-08-13 02:33] LABS: Absolute Lymphocytes (CBC) 2.5 K/uL (0.7-4.9); Absolute Monocytes 0.7 K/uL (0.1-1.3); Absolute Neutrophil 7.5 K/uL (1.8-8.0); Basophils % 0.4 % (0-1.3); Hematocrit 38.6 % (36.0-45.0); Hemoglobin 13.1 g/dL (12.0-15.0); Lymphocytes % 23.7 % (15.3-44.8); MCH 35.7 pg (27.0-35.0); MCHC 33.9 g/dL (32.0-36.0); MCV 105.2 fL (80-100); MPV 6.4 fL (7.6-11.3); Monocytes % 6.6 % (3.3-12.3); Neutrophils % 69.3 % (41.7-73.7); Platelets 461 thou/uL (152-406); RBC Red Blood Cell Count 3.67 M/uL (3.86-4.86); Red Cell Distribution Width 14.2 % (12.1-15.2)
[2023-08-13 02:54] LABS: ALT/SGPT 23 U/L (13-56); AST/SGOT 17 U/L (15-37); Albumin 4.5 g/dL (3.4-5.0); Albumin/Globulin Ratio 1.2 (1.1-1.8); Alkaline Phosphatase 47 U/L (45-117); Anion Gap 9.7 mEq/L (5.0-15.0); BUN Blood Urea Nitrogen 10 mg/dL (7-18); Bicarbonate 23 mEq/L (21-32); Bilirubin Total 0.5 mg/dL (0.2-1.0); Globulin 3.8 g/dL (2.3-3.5); Glomerular Filtration Rate 80 ml/min (=/>90); Glucose Level 123 mg/dL (74-106); Potassium 3.7 mEq/L (3.5-5.1); Protein, Total 8.3 g/dL (6.4-8.2); Sodium Level 139 mEq/L (136-145)
[2023-08-13] MEDS ORDERED: PROMETHAZINE INJ 25 MG/ML AMP ONE (02:57)
[2023-08-13 03:14] LABS: Bilirubin Direct < 0.2 mg/dL (0-0.2); Bilirubin Indirect, Calculated 0.3 mg/dL (0.2-0.8); Troponin High Sensitivity < 3.0 pg/mL (<58.9)
[2023-08-13] MEDS ORDERED: METOCLOPRAMIDE 10 MG/2mL INJ ONE (03:50)
--- NOTE | 2023-08-13 04:15 | EDPHYS ---
Physician Documentation [facility] Name: Ashley Alcala Age: 32 yrs Sex: Female : 1990 Arrival Date: 08/13/2023 Time: 01:30 Bed 4 Private MD: ROCKY Physician Chandrakant Smith HPI: 08/12 02:00 This 32 yrs old Female presents to ER via Wheelchair with complaints of Abdominal Pain, cp Nausea/Vomiting. 02:00 The patient presents with abdominal pain. Associated signs and symptoms: Pertinent cp positives: nausea and vomiting, diarrhea, Pertinent negatives: blood in stools, constipation, fever, vomiting blood. Historical: - Allergies: 02:16 Codeine; ha1 - PMHx: 02:16 Crohn's Disease; Hypothyroidism; ha1 - PSHx: 02:16 section; tubal ligation; ha1 - Immunization history:: Adult Immunizations up to date. - Infectious Disease History:: Denies. - Social history:: Smoking status: Patient reports the use of cigarette tobacco products, denies chronic smoking, but will smoke occasionally. ROS: 02:05 Constitutional: Positive for poor PO intake, Negative for body aches, chills, fever, cp 02:05 Eyes: Negative for injury, pain, redness, and discharge, cp 02:05 ENT: Negative for drainage from ear(s), ear pain, sore throat, difficulty swallowing, difficulty handling secretions, 02:05 Cardiovascular: Negative for chest pain, palpitations, 02:05 Respiratory: Negative for cough, shortness of breath, wheezing, 02:05 Abdomen/GI: Positive for abdominal pain, nausea and vomiting, anorexia, 02:05 Neuro: Negative for altered mental status, dizziness, headache, 02:05 All other systems are negative, Exam: 02:10 Constitutional: The patient appears in no acute distress, alert, awake, cp non-diaphoretic, non-toxic, well developed, well nourished, uncomfortable, 02:10 Head/Face: Normocephalic, atraumatic. cp 02:10 Eyes: Periorbital structures: appear normal, Pupils: equal, round, and reactive to light and accomodation, Conjunctiva: normal, no exudate, no injection, Sclera: no appreciated abnormality, Lids and lashes: appear normal, bilaterally, 02:10 ENT: External ear(s): are unremarkable, Nose: is normal, Mouth: Lips: moist, Oral mucosa: pink and intact, moist, Posterior pharynx: Airway: no evidence of obstruction, patent, 02:10 Neck: ROM/movement: is normal, is supple, without pain, no range of motions limitations, 02:10 Chest/axilla: Inspection: normal, 02:10 Cardiovascular: Rate: bradycardic, Rhythm: regular, Edema: is not appreciated, JVD: is not appreciated, 02:10 Respiratory: the patient does not display signs of respiratory distress, Respirations: normal, no use of accessory muscles, no retractions, labored breathing, is not present, Breath sounds: are clear throughout, no decreased breath sounds, no stridor, no wheezing, 02:10 Abdomen/GI: Inspection: abdomen appears normal, Palpation: soft, in all quadrants, severe abdominal tenderness, in all quadrants, voluntary guarding, is elicited in all quadrants, 02:10 Back: pain, is absent, ROM is normal, 02:10 Neuro: Orientation: to person, place \T\ time. Mentation: is normal, Motor: moves all fours, strength is normal, 02:40 ECG was reviewed by the Attending Physician. cp Vital Signs: 01:49 BP 127 / 83; Pulse 52; Resp 17 S; Temp 97.2; Pulse Ox 100% on R/A; Weight 62.14 kg; ha1 Height 5 ft. 2 in. ; 03:18 BP 146 / 80; Pulse 46; Pulse Ox 100% on R/A; tm6 04:37 BP 116 / 69; Pulse 52; Resp 19; Temp 97.3(TE); Pulse Ox 100% on R/A; Pain 2/10; tm6 01:49 Body Mass Index 25.06 (62.14 kg, 157.48 cm) ha1 04:37 Pain Scale: Adult tm6 MDM: 01:49 Patient medically screened. [facility] 04:13 Data reviewed: vital signs, nurses notes, lab test result(s), EKG, and as a result, I cp will discharge patient. 04:13 Differential diagnosis: non-specific abd pain, pancreatitis, Pyelonephritis. cp Consideration of Admission/Observation Escalation of care including admission/observation considered. I considered the following discharge prescriptions or medication management in the emergency department Medications were administered in the Emergency Department. See MAR. Care significantly affected by the following chronic conditions: Crohns' disease. Counseling: I had a detailed discussion with the patient and/or guardian regarding the historical points, exam findings, and any diagnostic results supporting the discharge/admit diagnosis, lab results, the need for outpatient follow up, a bowl attendant, to return to the emergency department if symptoms worsen or persist or if there are any questions or concerns that arise at home. 08/12 01:57 Order name: Basic Metabolic Panel; Complete Time: 03:41 cp 08/12 03:41 Interpretation: Normal except: CL 110; GLUC 123; GFR 80; CA 9.3. cp 08/12 01:57 Order name: CBC with Diff; Complete Time: 03:41 cp 08/12 03:41 Interpretation: Normal except: RBC 3.67; HGB 13.1; MCV 105.2; MCH 35.7; PLT 461; MPV cp 6.4. 08/12 01:57 Order name: LFT's; Complete Time: 03:41 cp 08/12 01:57 Order name: Magnesium; Complete Time: 03:41 cp 08/12 01:57 Order name: Troponin HS; Complete Time: 03:41 cp 08/12 03:41 Interpretation: Reviewed. 08/12 01:57 Order name: XRAY Chest (1 view) 08/12 01:57 Order name: EKG; Complete Time: 01:58 cp 08/12 01:57 Order name: Cardiac monitoring; Complete Time: 02:12 cp 08/12 01:57 Order name: EKG - Nurse/Tech; Complete Time: 02:37 cp 08/12 01:57 Order name: IV Saline Lock; Complete Time: 02:12 cp 08/12 01:57 Order name: Labs collected and sent; Complete Time: 02:12 cp 08/12 01:57 Order name: O2 Per Protocol; Complete Time: 02:12 cp 08/12 01:57 Order name: O2 Sat Monitoring; Complete Time: 02:12 cp EC:40 Rate is 53 beats/min. Rhythm is regular. MN interval is normal. QRS interval is normal. cp QT interval is normal. T waves are Inverted in lead aVR. Interpreted by me. Reviewed by me. Administered Medications: 02:10 Drug: Famotidine IVP 20 mg IVP once; dilute with 10 mL 0.9% NaCl; give over 2 minutes ha1 Route: IVP; Site: right antecubital; 02:12 Drug: Ondansetron IVP 4 mg IVP once; over 2 minutes Route: IVP; Site: right antecubital;ha1 02:13 Drug: NS 0.9% IV 1000 ml IV at 999 ml/hr Per protocol Route: IV; Rate: 999 ml/hr; Site: ha1 right antecubital; 02:20 Drug: fentaNYL (PF) IVP 25 mcg IVP once Route: IVP; Site: right antecubital; ha1 02:22 Drug: Ketorolac IVP 15 mg IVP once Route: IVP; Site: right antecubital; ha1 02:27 Drug: Ativan IVP 1 mg IVP once Route: IVP; Site: right antecubital; ha1 03:00 Drug: Ondansetron IVP 4 mg IVP once; over 2 minutes Route: IVP; Site: right antecubital;ha1 03:02 Drug: Promethazine IVP 25 mg IVP once Route: IVP; Site: right antecubital; ha1 03:56 Drug: metoCLOPramide IVP 10 mg IVP once; over 1 to 2 minutes Route: IVP; Site: right tm6 antecubital; Disposition Summary: 08/13/23 04:14 Discharge Ordered Notes: Location: Home cp Problem: an ongoing problem cp Symptoms: have improved cp Condition: Stable cp Diagnosis - Nausea with vomiting, unspecified cp Followup: cp - With: Private Physician - When: 1 - 2 days - Reason: Recheck today's complaints Discharge Instructions: - Discharge Summary Sheet cp - Nausea and Vomiting, Adult cp Forms: - Medication Reconciliation Form cp - Antibiotic Education cp - Prescription Opioid Use cp - Patient Portal Instructions cp - Leadership Thank You Letter cp Prescriptions: - promethazine 50 mg Rectal suppository - insert 1 suppository RECTAL route every 6 hours; 20 suppository; Refills: 0, cp Product Selection Permitted Addendum: 08/16/2023 18:29 Co-signature as Attending Physician, Chandrakant Smith MD I agree with the assessment and c burdick plan of care. Signatures: Dispatcher [employer] EDChandrakant Combs MD MD cha Page, Corey, PA PA cp Dave, Rhea, RN RN ha1 Neelam Del Angel RN RN tm6 Corrections: (The following items were deleted from the chart) 08/12 01:58 01:58 BASIC METABOLIC PANEL+C.LAB.BRZ ordered. EDMS EDMS 01:58 01:58 CBC+H.LAB.BRZ ordered. EDMS EDMS 01:58 01:58 HEPATIC FUNCTION+C.LAB.BRZ ordered. EDMS EDMS 01:58 01:58 MAGNESIUM+C.LAB.BRZ ordered. EDMS EDMS 01:58 01:58 Troponin High Sensitivity+C.LAB.BRZ ordered. EDMS EDMS
--- NOTE | 2023-08-13 04:15 | ER ---
Nurse's Notes [facility] Name: Ashley Alcala Age: 32 yrs Sex: Female : 1990 Arrival Date: 08/13/2023 Time: 01:30 Bed 4 Private MD: Diagnosis: Nausea with vomiting, unspecified Presentation: 08/12 01:49 Chief complaint: Patient states: my Crohns' disease is causing me to vomit a lot. n/v ha1 abdominal pain. 01:49 Coronavirus screen: Vaccine status: Patient reports being unvaccinated. Ebola Screen: ha1 No symptoms or risks identified at this time. Initial Sepsis Screen: Does the patient meet any 2 criteria? No. Patient's initial sepsis screen is negative. Does the patient have a suspected source of infection? No. Patient's initial sepsis screen is negative. Risk Assessment: Do you want to hurt yourself or someone else? Patient reports no desire to harm self or others. Onset of symptoms was August 13, 2023. 01:49 Method Of Arrival: Wheelchair ha1 01:49 Acuity: ESTEVAN 3 ha1 Triage Assessment: 01:49 General: Appears uncomfortable, Behavior is calm, cooperative. Pain: Complains of pain ha1 in abdomen Pain does not radiate. Pain currently is 8 out of 10 on a pain scale. Quality of pain is described as crampy. Neuro: Level of Consciousness is awake, alert, obeys commands, Oriented to person, place, time, situation. Cardiovascular: Capillary refill < 3 seconds Patient's skin is warm and dry. Respiratory: Airway is patent Respiratory effort is even, unlabored, Respiratory pattern is regular, symmetrical. GI: Abdomen is flat, non-distended, Pt is actively vomiting Bowel sounds present X 4 quads. Reports nausea, vomiting. : No signs and/or symptoms were reported regarding the genitourinary system. Derm: Skin is pink, warm \T\ dry. Historical: - Allergies: 02:16 Codeine; ha1 - PMHx: 02:16 Crohn's Disease; Hypothyroidism; ha1 - PSHx: 02:16 section; tubal ligation; ha1 - Immunization history:: Adult Immunizations up to date. - Infectious Disease History:: Denies. - Social history:: Smoking status: Patient reports the use of cigarette tobacco products, denies chronic smoking, but will smoke occasionally. Screenin:19 [facility] ED Fall Risk Assessment (Adult) History of falling in the last 3 months, ha1 including since admission No falls in past 3 months (0 pts) Confusion or Disorientation No (0 pts) Intoxicated or Sedated No (0 pts) Impaired Gait No (0 pts) Mobility Assist Device Used No (0 pt) Altered Elimination No (0 pt) Score/Fall Risk Level 0 - 2 = Low Risk Oriented to surroundings, Maintained a safe environment, Educated pt \T\ family on fall prevention, incl call for assistance when getting out of bed, Hourly rounding (assess needs \T\ fall precautionary measures) done. Abuse screen: Denies threats or abuse. Denies injuries from another. Nutritional screening: No deficits noted. Tuberculosis screening: No symptoms or risk factors identified. Assessment: 01:49 Reassessment: see triage assessment. ha1 02:10 Reassessment: Patient and/or family updated on plan of care and expected duration. Pain ha1 level reassessed. notified care provider Patient states symptoms have not improved. 03:10 Reassessment: Patient and/or family updated on plan of care and expected duration. Pain ha1 level reassessed. Patient states feeling better. Patient states symptoms have improved. 04:38 Reassessment: patient states she still has nausea but wants to go home. GI:. tm6 Vital Signs: 01:49 BP 127 / 83; Pulse 52; Resp 17 S; Temp 97.2; Pulse Ox 100% on R/A; Weight 62.14 kg; ha1 Height 5 ft. 2 in. ; 03:18 BP 146 / 80; Pulse 46; Pulse Ox 100% on R/A; tm6 04:37 BP 116 / 69; Pulse 52; Resp 19; Temp 97.3(TE); Pulse Ox 100% on R/A; Pain 2/10; tm6 01:49 Body Mass Index 25.06 (62.14 kg, 157.48 cm) ha1 04:37 Pain Scale: Adult tm6 ED Course: 01:37 Patient arrived in ED. gm2 01:41 Chandrakant Tolliver PA is PHCP. cp 01:41 Chandrakant Smith MD is Attending Physician. cp 01:49 Patient has correct armband on for positive identification. Placed in gown. Bed in low ha1 position. Call light in reach. Side rails up X 1. 01:49 Provided Education on: prescription meds. Client placed on continuous cardiac and pulse tm6 oximetry monitoring. NIBP monitoring applied. beam dyer operator on. Pulse ox on. NIBP on. Door closed. Noise minimized. Lights dimmed. Warm blanket given. Pillow given. 01:49 Arm band placed on right wrist. tm6 01:49 Inserted saline lock: 20 gauge in right antecubital area, using aseptic technique. tm6 02:16 Triage completed. ha1 02:52 XRAY Chest (1 view) In Process Unspecified. EDMS 04:37 No provider procedures requiring assistance completed. tm6 04:42 IV discontinued, intact, bleeding controlled, No redness/swelling at site. Pressure tm6 dressing applied. Administered Medications: 02:10 Drug: Famotidine IVP 20 mg IVP once; dilute with 10 mL 0.9% NaCl; give over 2 minutes ha1 Route: IVP; Site: right antecubital; 02:12 Drug: Ondansetron IVP 4 mg IVP once; over 2 minutes Route: IVP; Site: right antecubital;ha1 02:13 Drug: NS 0.9% IV 1000 ml IV at 999 ml/hr Per protocol Route: IV; Rate: 999 ml/hr; Site: ha1 right antecubital; 02:20 Drug: fentaNYL (PF) IVP 25 mcg IVP once Route: IVP; Site: right antecubital; ha1 02:22 Drug: Ketorolac IVP 15 mg IVP once Route: IVP; Site: right antecubital; ha1 02:27 Drug: Ativan IVP 1 mg IVP once Route: IVP; Site: right antecubital; ha1 03:00 Drug: Ondansetron IVP 4 mg IVP once; over 2 minutes Route: IVP; Site: right antecubital;ha1 03:02 Drug: Promethazine IVP 25 mg IVP once Route: IVP; Site: right antecubital; ha1 03:56 Drug: metoCLOPramide IVP 10 mg IVP once; over 1 to 2 minutes Route: IVP; Site: right tm6 antecubital; Medication: 03:36 VIS not applicable for this client. ha1 Outcome: 04:14 Discharge ordered by . richard 04:41 Discharged to home ambulatory, with family, tm6 04:41 Condition: stable 04:41 Discharge instructions given to patient, family, Instructed on discharge instructions, follow up and referral plans. medication usage, Demonstrated understanding of instructions, follow-up care, medications, Prescriptions given X 1, 04:42 Patient left the ED. tm6 Signatures: Dispatcher [employer] EDMS Chandrakant Tolliver PA PA cp Ayala, Heidy, RN RN ha1 Mandi Rogers 2 Neelam Del Angel RN RN tm6
[2023-08-13 05:10] VITALS: BP 116/69; TEMP 97.3; O2SAT 100
--- NOTE | 2023-08-15 09:03 | EKG ---
Test Date: 2023-08-13 Test Time: 02:33:27 Fixed Capital Clerk: KIARRA MEASUREMENT RESULTS: Intervals: Rate: 53 WV: 138 QRSD: 96 QT: 478 QTc: 448 [place]: P: 69 WV: 138 QRS: 82 T: 53 INTERPRETIVE STATEMENTS: Sinus bradycardia with marked sinus arrhythmia Nonspecific T wave abnormality Abnormal ECG Compared to ECG 10/25/2006 07:49:29 Sinus rhythm no longer present Possible ischemia no longer present T-wave abnormality still present Electronically Signed On 08-15-23 09:02:50 CDT by Joseluis Cummins
--- NOTE | 2023-08-15 10:55 | RAD REPORT ---
EXAM DESCRIPTION: RAD - Chest Single View - 08/13/2023 2:50 am CLINICAL HISTORY: Vomiting COMPARISON: 09/03/2021 FINDINGS: Single frontal radiograph view of the chest. Cardiomediastinal silhouette: Normal size and contour. Lungs: No consolidation, pneumothorax, or pleural effusion. Bones: No acute osseous abnormality. Leads overlie the chest. Upper abdomen: No abnormality identified. IMPRESSION: 1. No acute pulmonary process identified. Electronically signed by: Tyler Vernon DO 08/13/2023 03:25 AM CDT [id number] Due to temporary technical issues with the PACS/Fluency reporting system, reports are being signed by the in house radiologist without review as a courtesy to ensure prompt reporting. The interpreting r adiologist is fully responsible for the content of the report.
== END 2023-08-13 04:42 | disposition home or self-care (01) ==
LOC: ER 01:30
DX: R11.2 Nausea with vomiting, unspecified (principal); K50.90 Crohn's disease, unspecified, without complications; E03.9 Hypothyroidism, unspecified; F17.210 Nicotine dependence, cigarettes, uncomplicated
CPT/HCPCS: 36415; 71045; 80048; 80076; 83735; 84484; 85025; 93005; 96374; 96375; 99285; J2405; J2550; J2765; J3010; J7030

== ENCOUNTER 2023-08-13 10:19 | Emergency (ER) | payer SELFPAY ==
--- OUTSIDE RECORDS SUMMARY | 2023-08-13 10:23 | XMS REPORT | Continuity of Care Document ---
Author Name Unknown Address [address] [facility]. [address] [place] [address] [facility] Address [address] [facility] [address] [place] [address] Care Team Providers Care Loom Repairer Name Role Phone MEHRAN MATSON Primary Care Physician Unavailab DIPIKA Velázquez Attending Clinician Unavailable Dipika Busch Attending Clinician [phone] MITALI RAUSCH Attending Clinician Unavailable Mitali Rausch MD Attending Clinician + [phone] ARASELI SHELTON Attending Clinician UnavailAraseli Reyes MD Attending Clinician [phone]- [phone] Doctor Unassigned, [place] Attending Clinician U SRAVAN Robledo Attending Clinician Unavailable Estrada Sotelo MD Attending Clinician [phone] Sravan Mishra MD Attending Clinician [phone] MAGEN ROUSE Attending Clinician Unavailable Magen Rouse MD Attending Clinician [phone] SHIRLEY LOVE Attending Clinician UnavailShirley Zhang Attending Clinician [phone] Angi Sanford MD Attending Clinician [phone] JAVI ZULETA Attending Clinician Unavailable APOLONIA PINEDA Attending Clinician UnavailJOSSY Brown Attending Clinician Unavailable Raju_P Attending Clinician Unavailable DIPIKA CRUZ Admitting Clinician Unavailable ARASELI SHELTON Admitting Clinician UnavailESTRADA Wiggins Admitting Clinician Unavailable Estrada Sotelo MD Admitting Clinician [phone] MAGEN ROUSE Admitting Clinician Unavailable JOSSY KWAN Admitting Clinician Unavailable Raju_Ivette Admitting Clinician Unavailable Payers Payer Name Policy Type Policy Number Effective Date Expirati on Date Source [employer] MEDICAID [id number] 2019 00:00:00 [place]ICA[place] [id number] 2019 00:00:00 Problems Condition Name Condition Details Condition Category Status Onset Date Resolution Date Last Treatment Date Treating Clinician Comments Source care and examinatio n of lactating mother care and examinatio n of lactating mother Disease Active 02-13 00:00: 00 [facility] , delivered , delivered Disease Active 2016-02 00:00: 00 [facility] Anemia, Anemia, Disease Active 2016-02 00:00: 00 [facility] - induced hypertensi on in third trimester - induced hypertensi on in third trimester Disease Active 2016-02 00:00: 00 [facility] Tubal ligation status Tubal ligation status Disease Active 2016-02 00:00: 00 [facility] Full-term jovita ROM, unsp time betw rupture and onset labor Full-term jovita ROM, unsp time betw rupture and onset labor Disease Active 2016-02 00:00: 00 [facility] 38 weeks gestation of 38 weeks gestation of Disease Active 2016-02 00:00: 00 [facility] Research study patient HCTZ Research study patient HCTZ Disease Active 2016-02 00:00: 00 Overview: Formattin g of this note is different from the original. Patient is in the HCTZ study IRB # [id number] y questions please contact:Corina Guadalupe MD [phone] Arnold MD [phone] Owen MD [phone] facts Patient randomize d after delivery if they met inclusion criteria a nd accepted Medicati on comes from [facility] not pharmacy, [facility] Phone Number Ext. [phone] or cell [phone] Patient can start meds as soon as they tolerate PO One tab per day of either placebo or HCTZ Medicati on stays with patient Medicati on will appear on APR, Nurses need to rene as given (No barcode) Medicati on needs to counted prior to discharge by research sales floor team member All follow ups need to be on POD or PP day # 14 or more Patient needs to be reminded to bring their left over medicatio n and bottle back to their visit [facility] needs to be notified at time of discharge Please contact Dr. Guadalupe with any Questions [facility] Previous delivery desires TOLAC Previous delivery desires TOLAC Disease Active 2016-02 00:00: 00 [facility] Supervisio n of high-risk with insufficie nt care Supervisio n of high-risk with insufficie nt care Disease Active 2016-02 00:00: 00 [facility] Allergies, Adverse Reactions, Alerts Allergy Name Allergy Type Status Severity Reaction(s) Onset Date Inactive Date Treating Clinician Comments Source NO KNOWN ALLERGIE S Drug Class Active [facility] Social History Social Habit Start Date Stop Date Quantity Comments Source History of tobacco use Cigarette Smoker [facility] intake 2023-05-11 00:00:00 2023-05-11 00:00:00 0 /d [facility] History of Social function 2023-05-11 00:00:00 2023-05-11 00:00:00 [facility] Exposure to SARS-CoV-2 (event) 2021-11-09 00:00:00 2021-11-19 11:34:00 Not sure [facility] Cigarettes smoked current (pack per day) - Reported 2016-06-07 00:00:00 2016-06-07 00:00:00 [facility] Cigarette pack-years 2016-06-07 00:00:00 2016-06-07 00:00:00 [facility] Tobacco use and exposure 2016-06-07 00:00:00 2016-06-07 00:00:00 Smokeless tobacco non-user [facility] Sex Assigned At 1990 00:00:00 1990 00:00:00 [facility] Smoking Status Start Date Stop Date Source Smokes tobacco daily 2016-06-07 00:00:00 [facility] Medications Ordered Medication Name Filled Medication Name Start Date Stop Date Current Medication? Ordering Clinician Indication Dosage Frequency Signature (SIG) Comments Components Source tetracaine (PONTOCAINE ) 0.5 % ophthalmic drops 1 Drop 04-10 20:15: 00 04-10 18:50 :00 No 1[drp] 1 Drop, Both Eyes, ONCE, 1 dose, On Mon04/11/23 at 1415, Routine [facility] fluorescein ophthalmic strip 1 Strip 04-10 19:30: 00 04-10 18:50 :00 No 1{strip } 1 Strip, Both Eyes, ONCE, 1 dose, On Mon04/11/23 at 1330, Routine [facility] moxifloxaci n (VIGAMOX) 0.5 % ophthalmic drops 1 Drop 04-10 18:45: 00 Yes 1[drp] 1 Drop, Left Eye, TID, First dose on Mon04/11/23 at 1245, Until Discontinu ed, Routine [facility] moxifloxaci n 0.5 % ophthalmic drops 04-10 00:00: 00 Yes [id number] 1[drp] Place 1 Drop in left eye in the morning and 1 Drop at noon and 1 Drop in the evening. [facility] predniSONE 20 mg tablet 03-05 00:00: 00 03-13 05:59 :00 No [id number] 40mg Take 2 tablets by mouth in the morning for 7 days. [facility] predniSONE (DELTASONE) tablet 40 mg 03-04 19:00: 00 03-04 19:25 :00 No 40mg 40 mg, Oral, ONCE, 1 dose, On 03/04/23 at 1300, ANA M [facility] FENTanyl PF (SUBLIMAZE (PF)) injection 50 mcg 03-04 18:15: 00 03-04 17:22 :00 No 50ug 50 mcg, Slow IV Push, ONCE, 1 dose, [facility] 1215[facility]OVUE 370-500 mL) injection 90 mL 03-04 17:30: 00 03-04 17:45 :00 No [id number] 90mL 90 mL, Intravenou s, ONCE, 1 dose, On 03/04/23 at 1145, Routine [facility] NaCl 0.9% (NS) bolus infusion 1,000 mL 03-04 17:30: 00 03-04 19:29 :00 No 1000mL at 999 mL/hr, 1,000 mL, IV Infusion, ONCE, 1 dose, On 03/04/23 at 1130, [facility] famotidine (PEPCID (PF)) injection 20 mg 03-04 17:00: 00 03-04 17:12 :00 No 20mg 20 mg, Slow IV Push, ONCE, 1 dose, On 03/04/23 at 1100, [facility] ondansetron (ZOFRAN (PF)) injection 8 mg 03-04 17:00: 00 03-04 17:12 :00 No 8mg 8 mg, Slow IV Push, ONCE, 1 dose, On 03/04/23 at 1100, [facility] traMADoL 50 mg tablet 03-04 00:00: 00 Yes [id number] 50mg Take 1 tablet by mouth every 6 (six) hours as needed (pain). Indication s: acute pain [facility] ondansetron 4 mg tablet 03-04 00:00: 00 Yes [id number] 1 or 2 tablets every 8 hours as needed for nausea [facility] HYDROcodone -acetaminop hen (NORCO 5) 5-325 mg tablet 1 tablet 2021-02 0 18:36: 44 Yes 1{tbl} 1 tablet, Oral, Q6HPRN, Starting on Mon11/19/21 at 1336, Until Discontinu ed, Routine, Pain (scale 4-6) [facility] acetaminoph en (TYLENOL) tablet 650 mg 2021-02 18:36: 26 Yes 650mg 650 mg, Oral, Q6HPRN, Starting on Mon11/19/21 at 1336, Until Discontinu ed, Routine, Pain (scale 1-3) [facility] ondansetron (ZOFRAN-ODT ) disintegrat ing tablet 4 mg 2021-02 13:45: 00 11-19 12:59 :00 No 4mg 4 mg, Oral, ONCE, 1 dose, On Mon11/19/21 at 0845, Routine [facility] HYDROcodone -acetaminop hen (NORCO 5) 5-325 mg tablet 1 tablet 2021-02 13:00: 00 11-19 12:59 :00 No 1{tbl} 1 tablet, Oral, ONCE, 1 dose, On Mon11/19/21 at 0800, ANA M [facility] cyclobenzap rine 5 mg tablet 2021-02 00:00: 00 Yes [id number] 5mg Take 1 tablet by mouth in the morning and 1 tablet at noon and 1 tablet in the evening. [facility] predniSONE 20 mg tablet 2021-02 00:00: 00 Yes [id number] 40mg Take 2 tablets by mouth in the morning. [facility] HYDROcodone -acetaminop hen (NORCO) 7.5-325 mg per tablet 2021-02 005 00:00: 00 11-18 04:59 :00 No [id number] 1{tbl} Take 1 tablet by mouth every 8 (eight) hours as needed for Pain for up to 7 days. Indication s: acute pain [facility] budesonide- formoteroL 80-4.5 mcg/actuati on inhaler 8-24 00:00: 00 Yes [id number] 2{puff} Inhale 2 Puffs 2 (two) times daily. [facility] bromphenira mine-pseudo ephedrine-D M (BROMFED DM) 2-30-10 mg/5 mL syrup 09-29 00:00: 00 Yes [id number] 5mL Take 5 mL by mouth 4 (four) times daily as needed for Congestion /Allergies or Cough. [facility] LIALDA 1.2 gram EC tablet 09-02 00:00: 00 Yes [facility] Hyoscyamine Sulfate 0.125 mg TbDL 08-31 00:00: 00 Yes TAKE 1-2 TABLETS BY MOUTH EVERY 4 TO 6 HOURS NEEDED [facility] sucralfate 1 gram tablet 08-31 00:00: 00 Yes [facility] SERTraline 100 mg tablet 07-16 00:00: 00 Yes 100mg Take 100 mg by mouth every morning. [facility] atomoxetine 40 mg capsule 07-16 00:00: 00 Yes 40mg Take 40 mg by mouth daily. [facility] traZODone 50 mg tablet 07-16 00:00: 00 Yes TAKE 1 TABLET BY MOUTH NIGHTLY [facility] metoclopram rena HCl 10 mg tablet 03-24 00:00: 00 Yes [id number] 10mg Take 1 tablet by mouth every 6 (six) hours as needed for Nausea and Vomiting (N/V). [facility] acetaminoph en-codeine (TYLENOL-CO DEINE #3) 300-30 mg tablet 03-24 00:00: 00 Yes [id number] 1{tbl} Take 1 tablet by mouth every 4 (four) hours as needed for Pain (scale 7-10). Indication s: acute pain [facility] dicyclomine 20 mg tablet 03-07 00:00: 00 Yes [id number] 20mg Take 1 tablet by mouth 4 (four) times daily. [facility] ondansetron (ZOFRAN ODT) 4 mg disintegrat ing tablet 03-07 00:00: 00 Yes [id number] 4mg Take 1 tablet by mouth every 8 (eight) hours as needed for Nausea and Vomiting (N/V). [facility] Immunizations Ordered Immunization Name Filled Immunization Name Date Status Comments Source Td 2021-11-19 00:00:00 Completed [facility] Td 2021-11-19 00:00:00 Completed [facility] Td 2021-11-19 00:00:00 Completed [facility] TDAP 2016-11-15 00:00:00 Completed [facility] Influenza Virus Vaccine Quad IM 3+ 2016-11-15 00:00:00 Completed [facility] TDAP 2016-11-15 00:00:00 Completed [facility] Influenza Virus Vaccine Quad IM 3+ 2016-11-15 00:00:00 Completed [facility] TDAP 2016-11-15 00:00:00 Completed [facility] Influenza Virus Vaccine Quad IM 3+ 2016-11-15 00:00:00 Completed [facility] TDAP 2016-11-15 00:00:00 Completed [facility] Influenza Virus Vaccine Quad IM 3+ 2016-11-15 00:00:00 Completed [facility] TDAP 2016-11-15 00:00:00 Completed [facility] Influenza Virus Vaccine Quad IM 3+ 2016-11-15 00:00:00 Completed [facility] TDAP 2016-11-15 00:00:00 Completed [facility] Influenza Virus Vaccine Quad IM 3+ 2016-11-15 00:00:00 Completed [facility] TDAP 2016-11-15 00:00:00 Completed [facility] Influenza Virus Vaccine Quad IM 3+ 2016-11-15 00:00:00 Completed [facility] TDAP 2016-11-15 00:00:00 Completed [facility] Influenza Virus Vaccine Quad IM 3+ 2016-11-15 00:00:00 Completed [facility] TDAP 2016-11-15 00:00:00 Completed [facility] Influenza Virus Vaccine Quad IM 3+ 2016-11-15 00:00:00 Completed [facility] TDAP Unknown Completed [facility] Influenza Virus Vaccine Quad IM 3+ YRS Unknown Completed [facility] TD, NOS Unknown Completed [facility] TDAP Unknown Completed [facility] Influenza Virus Vaccine Quad IM 3+ YRS Unknown Completed [facility] TD, NOS Unknown Completed [facility] TDAP Unknown Completed [facility] Influenza Virus Vaccine Quad IM 3+ YRS Unknown Completed [facility] TD, NOS Unknown Completed [facility] Vital Signs Vital Name Observation Time Observation Value Comments S ource Systolic blood pressure 2023-05-11 20:34:00 132 mm[Hg] [facility] Diastolic blood pressure 2023-05-11 20:34:00 76 mm[Hg] [facility] Heart rate 2023-05-11 20:34:00 65 /min [facility] Body temperature 2023-05-11 20:34:00 37.11 Kori [facility] Respiratory rate 2023-05-11 20:34:00 18 /min [facility] Body height 2023-05-11 20:34:00 157.5 cm [facility] Body weight 2023-05-11 20:34:00 58.968 kg [facility] BMI 2023-05-11 20:34:00 23.78 kg/m2 [facility] Oxygen saturation in Arterial blood by Pulse oximetry 2023-05-11 20:34:00 95 /min [facility] Systolic blood pressure 2023-04-11 18:26:00 118 mm[Hg] [facility] Diastolic blood pressure 2023-04-11 18:26:00 82 mm[Hg] [facility] Heart rate 2023-04-11 18:26:00 82 /min [facility] Body temperature 2023-04-11 18:26:00 37.22 Kori [facility] Respiratory rate 2023-04-11 18:26:00 20 /min [facility] Body height 2023-04-11 18:26:00 157.5 cm [facility] Body weight 2023-04-11 18:26:00 58.968 kg [facility] BMI 2023-04-11 18:26:00 23.78 kg/m2 [facility] Oxygen saturation in Arterial blood by Pulse oximetry 2023-04-11 18:26:00 100 /min [facility] Systolic blood pressure 2023-03-04 18:30:00 101 mm[Hg] [facility] Diastolic blood pressure 2023-03-04 18:30:00 75 mm[Hg] [facility] Heart rate 2023-03-04 18:30:00 60 /min [facility] Respiratory rate 2023-03-04 18:30:00 16 /min [facility] Oxygen saturation in Arterial blood by Pulse oximetry 2023-03-04 18:30:00 98 /min [facility] Body temperature 2023-03-04 16:39:00 37.22 Kori [facility] Body height 2023-03-04 16:39:00 157.5 cm [facility] Body weight 2023-03-04 16:39:00 59.013 kg [facility] BMI 2023-03-04 16:39:00 23.80 kg/m2 [facility] Systolic blood pressure 2021-11-19 23:00:00 115 mm[Hg] [facility] Diastolic blood pressure 2021-11-19 23:00:00 75 mm[Hg] [facility] Heart rate 2021-11-19 23:00:00 56 /min [facility] Respiratory rate 2021-11-19 23:00:00 16 /min [facility] Oxygen saturation in Arterial blood by Pulse oximetry 2021-11-19 23:00:00 100 /min [facility] Body temperature 2021-11-19 16:35:00 37 Kori [facility] Body weight 2021-11-19 16:35:00 56.7 kg [facility] BMI 2021-11-19 16:35:00 22.86 kg/m2 [facility] Systolic blood pressure 2021-11-19 14:41:14 130 mm[Hg] [facility] Diastolic blood pressure 2021-11-19 14:41:14 87 mm[Hg] [facility] Heart rate 2021-11-19 14:41:14 85 /min [facility] Body temperature 2021-11-19 14:41:14 36.67 Kori [facility] Respiratory rate 2021-11-19 14:41:14 18 /min [facility] Oxygen saturation in Arterial blood by Pulse oximetry 2021-11-19 14:41:14 99 /min [facility] Body height 2021-11-19 12:31:00 157.5 cm [facility] Body weight 2021-11-19 12:31:00 56.7 kg [facility] BMI 2021-11-19 12:31:00 22.86 kg/m2 [facility] Systolic blood pressure 2021-11-10 17:03:00 126 mm[Hg] [facility] Diastolic blood pressure 2021-11-10 17:03:00 86 mm[Hg] [facility] Heart rate 2021-11-10 17:03:00 85 /min [facility] Body temperature 2021-11-10 17:03:00 37.06 Kori [facility] Respiratory rate 2021-11-10 17:03:00 20 /min [facility] Body height 2021-11-10 17:03:00 157.5 cm [facility] Body weight 2021-11-10 17:03:00 55.792 kg [facility] BMI 2021-11-10 17:03:00 22.50 kg/m2 [facility] Oxygen saturation in Arterial blood by Pulse oximetry 2021-11-10 17:03:00 99 /min [facility] Systolic blood pressure 2020-09-29 22:26:00 139 mm[Hg] [facility] Diastolic blood pressure 2020-09-29 22:26:00 89 mm[Hg] [facility] Heart rate 2020-09-29 22:26:00 76 /min [facility] Body temperature 2020-09-29 22:26:00 36.89 Kori [facility] Respiratory rate 2020-09-29 22:26:00 16 /min [facility] Body height 2020-09-29 22:26:00 154.9 cm [facility] Body weight 2020-09-29 22:26:00 53.025 kg [facility] BMI 2020-09-29 22:26:00 22.09 kg/m2 [facility] Oxygen saturation in Arterial blood by Pulse oximetry 2020-09-29 22:26:00 100 /min [place] [facility] Procedures Procedure Date / Time Performed Performing Clinician Source XR HAND 3+ VW LEFT 2023-05-11 21:02:29 Dipika Cruz [facility] XR WRIST 3+ VW LEFT 2023-05-11 21:02:29 Dayo Cruz [facility] CONSENT/REFUSAL FOR DIAGNOSIS AND TREATMENT 2023-04-11 18:18:03 Doctor Unassigned, [place] [facility] LIPASE 2023-03-04 17:08:00 Araseli Shelton [facility] COMP. METABOLIC PANEL ([id number]) 2023-03-04 17:08:00 Araseli Shelton [facility] CBC WITH DIFF 2023-03-04 17:08:00 [facility] 2023-03-04 17:08:00 Araseli Shelton [facility] POCT TEST 2023-03-04 17:08:00 Araseli Shelton [facility] CONSENT/REFUSAL FOR DIAGNOSIS AND TREATMENT 2023-03-04 16:36:23 Doctor Unassigned, [place] [facility] AUTHORIZATION FOR RELEASE OF PHI 2021-12-02 05:01:00 Doctor Unassigned, [place] [facility] MR CERVICAL SPINE WO CONTRAST 2021-11-19 20:56:00 Michael Stock [facility] COVID-19 (ID NOW RAPID TESTING) 2021-11-19 14:10:00 Magen Rouse [facility] CT CERVICAL SPINE WO CONTRAST 2021-11-19 12:49:50 Magen Rouse [facility] CT HEAD WO CONTRAST 2021-11-19 12:49:50 Lily Rouse [facility] CONSENT/REFUSAL FOR DIAGNOSIS AND TREATMENT 2021-11-19 12:35:14 Doctor Unassigned, [place] [facility] XR HAND 3+ VW LEFT 2021-11-10 17:32:17 Magen Rouse [facility] XR WRIST 3+ VW LEFT 2021-11-10 17:31:56 Lily Rouse [facility] NOTICE OF PRIVACY PRACTICES 2021-11-10 16:59:19 Doctor Unassigned, [place] [facility] CONSENT/REFUSAL FOR DIAGNOSIS AND TREATMENT 2021-11-10 16:58:04 Doctor Unassigned, [place] [facility] ASSIGNMENT OF BENEFITS 2020-09-29 22:10:07 Docto r Unassigned, [place] [facility] Encounters Start Date/Time End Date/Time Encounter Type Admission Type Attending Critical Access Hospital Care Facility Care Department Encounter ID Source 2020-12-05 23:41:25 Emergency [facility] [id number] [facility] 2020-12-05 20:46:01 Emergency [facility] [id number] [facility] 2020-12-05 20:45:07 Emergency [facility] [id number] [facility] 2020-12-03 22:03:22 Emergency [facility] [id number] [facility] 2023-05-11 15:37:00 2023-05-11 17:24:00 Emergency DIPIKA CARTY [facility] [id number] [facility] 2023-05-11 15:37:00 2023-05-11 17:24:00 Emergency Dipika Cruz [facility] [id number] [id number] [id number] [facility] 2023-04-11 12:30:00 2023-04-11 13:22:00 Emergency MITALI OCASIO [facility] [id number] [facility] 2023-04-11 12:30:00 2023-04-11 13:22:00 Emergency Mitali Rausch [facility] 1..840.114 350.1.13.10 4.2.7.2.686 [id number] [facility] 2023-03-04 10:44:00 2023-03-04 13:29:00 Emergency X ARASELI SHELTON [facility] [id number] [facility] 2023-03-04 10:44:00 2023-03-04 13:29:00 Emergency Araseli Shelton [facility] [id number] 350.1.13.10 4.2.7.2.686 [id number] [facility] 2021-12-02 00:00:00 2021-12-02 00:00:00 Orders Only Doctor Unassigned, [place] [facility] [id number] 350.1.13.10 4.2.7.2.686 [id number] [facility] 2021-11-19 11:43:00 2021-11-19 18:54:00 Emergency X SRAVAN MISHRA [facility] [id number] [facility] 2021-11-19 11:43:00 2021-11-19 18:54:00 Emergency Estrada Sotelo, [facility] [id number] 350.1.13.10 4.2.7.2.686 [id number] [facility] 2021-11-19 07:30:00 2021-11-19 10:47:00 Emergency X MAGEN ROUSE [facility] [id number] [facility] 2021-11-19 07:30:00 2021-11-19 10:47:00 Emergency Magen Rouse [facility] [id number] 350.1.13.10 4.2.7.2.686 [id number] [facility] 2021-11-10 12:05:00 2021-11-10 13:29:00 Emergency X MAGEN ROUSE [facility] [id number] [facility] 2021-11-10 12:05:00 2021-11-10 13:29:00 Emergency Magen Rouse [facility] 1..114 350.1.13.10 4.2.7.2.686 [id number] [facility] 2021-11-10 00:00:00 2021-11-10 00:00:00 Orders Only Doctor Unassigned, [place] [facility] 1.2.114 350.1.13.10 4.2.7.2.686 [id number] [facility] 2020-09-29 17:40:00 2020-09-29 17:40:00 Outpatient R KATE, [facility] [id number] [facility] 2020-09-29 17:11:16 2020-09-29 17:31:16 Urgent Care Kate, [facility] 1.84.114 350.1.13.10 4.2.7.2.686 [id number] [facility] 2020-09-29 00:00:00 2020-09-29 00:00:00 [facility] 1.84.114 350.1.13.10 4.2.7.2.686 [id number] [facility] 2020-09-29 00:00:00 2020-09-29 00:00:00 Orders Only Doctor Unassigned, [place] [facility] 1..114 350.1.13.10 4.2.7.2.686 [id number] [facility] 2020-09-29 00:00:00 2020-09-29 00:00:00 Letter (Out) [facility] Medical Office Building [id number] [facility] 2020-01-16 13:00:00 2020-01-16 13:00:00 Outpatient JAVI LOZOYA [facility] [id number] [facility] 2019-08-15 10:45:00 2019-08-15 10:45:00 Outpatient Chanda PINEDAAPOLONIA [facility] [id number] [facility] 2019-08-15 10:45:00 2019-08-15 10:45:00 Outpatient Chanda PINEDAAPOLONIA [facility] [id number] [facility] 2019-06-17 10:46:52 2019-06-17 13:28:00 Emergency X JOSSY KWAN [facility] ERT [id number] [facility] 2019-04-30 03:42:00 2019-04-30 03:42:00 Outpatient Raju_P [facility] MMG [id number] [facility] 2019-04-11 09:40:39 2019-04-11 16:24:00 Emergency X JOSSY KWAN [facility] ERT [id number] [facility] Results Test Description Test Time [...] or juxta-articular osteoporosis detected. CONCLUSIONS: Normal study. [facility] XR WRIST 3+ VW LEFT 4 21:04:44 HISTORY: Radial side left wrist pain. FINDINGS: AP, lateral, oblique views of left wrist are obtained andcompared with 11/10/2021 study. No acute fracture or dislocation. Nosignificant changes of arthritis or aggressive bone lesions seen. No bonyerosions or soft tissue calcifications detected. CONCLUSIONS: Normal [facility]. [facility]33[facility]00* Test Item Value Reference Range Interpretation Comme nts LIPASE (test code = 3636048560) 92 U/L 0-220 Lab Interpretation (test cod e = 89778-2) Normal [facility] WITH OFUW7067-50-57 17:22:38* Test Item Value Reference Range Interpretation [...] 34.7 g/dL 31.6-35.1 RDW-SD (test code = 62248-0) 46.9 fL 39.0-49.9 RDW-CV (test code = 788-0) 12.5 % 12.0-15.5 PLT (test code = 777-3) 438 See_Comment H [Automated messa ge] The system which generated this result transmitted reference range: 166 - 358 10*3/?L. The reference range was not used to interpret this result as normal/abnormal. MPV (test code = 10158-1) 7.8 fL 9.5-12.9 L NRBC/100 WBC (test code = 2952174263) 0.0 See_Comment [Automated fromAtoB ssage] The system which generated this result transmitted reference range: 0.0 - 10.0 /100 WBCs. The reference range was not used to interpret this result as normal/abnormal. NRBC x10^3 (test code = 3008285686) See_Comment [Automated messa ge] The system which generated this result transmitted reference range: 10*3/?L. The reference range was not used to interpret this result as normal/abnormal. GRAN MAT (NEUT) % (test code = 770-8) 56.9 % IMM GRAN % (test code = 3988206913) 0.40 % LYMPH % (test code = 736-9) 32.5 % MONO % (test code = 5905-5) 8.1 % EOS % (test code = 713-8) 1.5 % BASO % (test code = 706-2) 0.6 % GRAN MAT x10^3(ANC) (test code = 3530138347) 5.39 10*3/uL 1.88-7.09 IMM GRAN x10^3 (test code = 8987671295) 0.04 10*3/uL 0.00-0.06 LYMPH x10^3 (test code = 731-0) 3.08 10*3/uL 1.32-3.29 MONO x10^3 (test code = 742-7) 0.77 10*3/uL 0.33-0.92 EOS x10^3 (test code = 711-2) 0.14 10*3/uL 0.03-0.39 BASO x10^3 (test code = 704-7) 0.06 10*3/uL 0.01-0.07 Lab Interpretation (test code = 83124-7) [id number] 17:08:00* Test Item Value Reference Range Interpretation Comme nts POCT PREG (test code = 1605) Negative On board controls acceptable with C Line (test code = 3574) Yes POCT PREG LOT # (test code = 3579) [id number] POCT PREG TEST DATE ( test code = 3576) 05/14/2024 Lab Interpretation (test cod e = 28855-4) Normal [facility] Notes Date/Time Note Provider Source 2023-05-11 15:35:33 7792-65-02G06:35:33F ormatting of this note might be different from the original.Pt c/o left hand pain. States that she fell backwards onto her left hand after seeing a dennis spider at work. 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 12447-0Brswwywjj department Triage vmvxNJ7157-93-86U86:36:32[facility] Triage noteTXT1.2.840.857727.1.13.104.2. 7.2.054170|[id number] for patient jsiy40233-0Ujlnudzab department NoteLNNARRATIVEFormatted C-CDA narrative [id number] N Dewoody RN[address] EcgzXxweaegbfUuuqvdcyrVJJN8750167 939PKIDYMWMETGTOKYOJCMSCJ3026-07- 04T15:36:321.2.840.132641.1.72.3. 15|1.2.840.854627.1.13.104.2.7.2. [id number] Ghazala Lloyd RN [facility] 2023-04-11 13:15:00 1084-55-32B44:15:00F ormatting of this note might be different [...] with steady gait, in no apparent distress. 91916-9Ocnwfutwg department BsgqWF4305-39-26W02:21:56Emergenc y department NoteTXT1.2.840.743011.1.13.104.2. 7.2.251191|[id number] for patient vhdc96997-0TehjLZWCTLFZNAGTjvbnle ed C-CDA narrative [id number] C Tenisha RN[address]TXTX[address] 820OFZENCKBJXPQHOMJODDYHA0382-47- 05T13:21:561.2.840.474691.1.72.3. 15|1.2.840.562209.1.13.104.2.7.2. [id number] Liseth Steven RN [facility] 2023-04-11 12:25:40 8070-07-88T27:25:40F ormatting of this note might be different from the original.Patient state that yesterday at work she removed her eye protection and wiped her eyes and has been having pain and irritation since. States that she used the eye wash at work and flushed her eye. This morning eye feels irritated and was matted. No problems with vision. 09999-2Pepnnntkh department Triage iwtwNL8695-87-48M19:26:47[facility] department Triage noteTXT1.2.840.066550.1.13.104.2. 7.2.065881|[id number] for patient obdg62226-5Sbhphyrvq department NoteLNNARRATIVEFormatted C-CDA narrative [id number] M Hayes RN[address]TXTX[address] 451VDCSBGFTAJBJBNVJMRLSRG5999-79- 05T12:26:471.2.840.639452.1.72.3. 15|1.2.840.019681.1.13.104.2.7.2. [id number] Sheron Jaffe RN [facility] - Health 2023-04-11 12:15:00 3339-69-10Q04:15:00F ormatting of this note is different from the original.Images from the original note were not included.[facility] Emergency Department NotePatient Name: Hilaria Patricia of : 1990 32 year old femaleTreatment Room: [facility] ED [facility] AT[facility] Record Number: [id number] Care Physician: Mehran Kumar Escorted by: Self [...] this encounter.First Provider Eval:ED EventsDate/Time Event User Tlggpxay62/05/24 1230 Medical Screening Begins MITALI RAUSCH MD [...] on fileFollow-up:Electronically signed by:Mitali Rausch MD04/11/23 1305 51918-4Uryuudqgg Emergency department KtleDH6350-74-49W31:05:45Physicia n Emergency department NoteTXT1.2.840.489532.1.13.104.2. 7.2.798163|[id number] for patient avnw37966-7Gacxjhqft department NoteLNNARRATIVEFormatted C-CDA narrative textUT[address]TXTX[address] 570DEVSTIZCSRYTFPATKLIJMU4442-09- 05T13:05:451.2.840.237884.1.72.3. 15|1.2.840.166472.1.13.104.2.7.2. [id number] [facility] 2023-03-04 13:28:49 2308-85-00C24:28:49F ormatting of this note might be different from the original.Patient discharged with abdominal pain. Follow up with pcp. Feeling better at this time. 74358-6Qkgmrinen department VbqsCS4114-01-79L46:29:09[facility] department NoteTXT1.2.840.135556.1.13.104.2. 7.2.259335|[id number] for patient ckar80806-5WdjiPEMOURAWGPHKxrzazk ed C-CDA narrative [id number] D Wierzbicki RN[address] YnvnVnfmboieyRbbqnrxstWYFQ5345147 435XBVBMFDINAYIDWDWKNCCJG1276-48- 27T13:29:091.2.840.949364.1.72.3. 15|1.2.840.846405.1.13.104.2.7.2. [id number] Enrike Anna RN [facility] 2023-03-04 10:37:45 7188-29-33E00:37:45F ormatting of this note might be different from the original.Patient states: "I have chrones diease and I"m going through a flare up since Monday. [facility]. I feel very dehydrated and I need fluids. I did take tramadol at 7 am. It just made me nauseous so I took a phenergan suppository"" 09625-8Xrukbpsmm department Triage xamjPO4625-17-31K04:39:14Emergen y department Triage noteTXT1.2.840.300677.1.13.104.2. 7.2.969822|[id number] for patient twgh46465-2Iswevkbls department NoteLNNARRATIVEFormatted C-CDA narrative [id number] M Cruz RNUT[address] StreetOkmoDuaordfyjQtsuayvdtERNZ1923122 490HHQLHKLUQRKWSVRNNJCDWH1603-35- 27T10:39:141.2.840.159133.1.72.3. 15|1.2.840.914850.1.13.104.2.7.2. [id number] Apolonia Garcias RN 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 METABOLIC PANEL (87072) - AbnormalNA 139 135 - 145 mmol/LK [...] U/LAST(SGOT) 23 13 - 40 U/LeGFR 102.1 mL/min/1.18p8LMXKQDMQHQ - AbnormalAPPEARANCE Clear ClearCOLOR Yellow YellowPH 5.0 [...] PELVIS W CONTRASTCBC WITH DIFFCOMP. METABOLIC PANEL (36201)LIPASEURINALYSISPOCT TESTOrders Placed This EncounterMedicationsNaCl 0.9% (NS) bolus infusion 1,000 mLondansetron (ZOFRAN (PF)) injection 8 mgfamotidine (PEPCID (PF)) injection 20 mgDISCONTD: morpHINE (4 mg/mL) injection 4 mgFENTanyl PF (SUBLIMAZE (PF)) injection 50 mcgiopamidol (ISOVUE 370-500 mL) injection 90 mLpredniSONE (DELTASONE) tablet 40 mgpredniSONE 20 mg tablettraMADoL 50 mg tabletondansetron 4 mg tabletFirst Provider Eval:ED EventsDate/Time Event User Gfugznyj26/27/24 1043 Medical Screening Begins ARASELI SHELTON MD [...] fileFollow-up:PCP, GIElectronically signed by:Araseli Shelton MD03/04/23 1308 69289-4Ykbvgedqu Emergency department DczyOM4198-16-16D74:08:30Physicia n Emergency department NoteTXT1.2.840.767334.1.13.104.2. 7.2.984080|[id number] for patient duoa98143-5Avwgrdbtw department NoteLNNARRATIVEFormatted C-CDA narrative text[address] EsiyHnuciutolIqqbubrjoRJCH3108400 621BBDMIMZKFUWSDUHANGPYKV1891-28- 27T13:08:301.2.840.449695.1.72.3. 15|1.2.840.624197.1.13.104.2.7.2. [id number] [facility]
[2023-08-13] MEDS ORDERED: METHYLPREDNISOLONE 125 MG INJ ONE (10:34)
[2023-08-13] MEDS ORDERED: KETOROLAC 30 MG/ML INJ ONE (10:35)
[2023-08-13] MEDS ORDERED: PROMETHAZINE INJ 25 MG/ML AMP ONE (10:35)
[2023-08-13 11:05] LABS: Absolute Lymphocytes (CBC) 1.3 K/uL (0.7-4.9); Absolute Monocytes 0.4 K/uL (0.1-1.3); Basophils % 0.3 % (0-1.3); Eosinophils % 0.1 % (0-4.4); Hematocrit 31.7 % (36.0-45.0); Lymphocytes % 15.2 % (15.3-44.8); MCH 36.3 pg (27.0-35.0); MCHC 34.6 g/dL (32.0-36.0); MCV 104.8 fL (80-100); Monocytes % 4.7 % (3.3-12.3); Neutrophils % 79.7 % (41.7-73.7); Nucleated Red Blood Cells % 0.1 % (0-0); Platelets 371 thou/uL (152-406); RBC Red Blood Cell Count 3.02 M/uL (3.86-4.86)
[2023-08-13 11:22] LABS: Albumin/Globulin Ratio 1.2 (1.1-1.8); Anion Gap 12.2 mEq/L (5.0-15.0); Bilirubin Total 0.4 mg/dL (0.2-1.0); Globulin 3.3 g/dL (2.3-3.5); Potassium 3.2 mEq/L (3.5-5.1); Protein, Total 7.3 g/dL (6.4-8.2)
[2023-08-13] MEDS ORDERED: POTASSIUM CL SA 10 MEQ TAB PO ONE (11:55)
--- NOTE | 2023-08-13 12:00 | ER ---
Nurse's Notes [facility] Name: Ashley Alcala Age: 32 yrs Sex: Female : 1990 Arrival Date: 08/13/2023 Time: 10:19 Bed 8 Private MD: Diagnosis: Nausea with vomiting, unspecified;Crohn's disease, unspecified, without complications Presentation: 08/12 10:30 Chief complaint: EMS states: N/V AND ABDOMINAL PAIN X 2 DAYS. 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 Coronavirus screen: At this time, the client does not indicate any symptoms associated with coronavirus-19. Ebola Screen: No symptoms or risks identified at this time. 10:30 Method Of Arrival: EMS: [facility] 10:30 Initial Sepsis Screen: Does the patient meet any 2 criteria? No. Patient's initial hb sepsis screen is negative. Does the patient have a suspected source of infection? No. Patient's initial sepsis screen is negative. Risk Assessment: Do you want to hurt yourself or someone else? Patient reports no desire to harm self or others. Onset of symptoms was August 12, 2023. 10:30 Acuity: ESTEVAN 3 hb Triage Assessment: 10:34 General: Appears in no apparent distress. ill, Behavior is cooperative, restless. Pain: hb Pain currently is 10 out of 10 on a pain scale. Neuro: Level of Consciousness is awake, alert, obeys commands, Oriented to person, place, time, situation. Cardiovascular: Patient's skin is warm and dry. Respiratory: Respiratory effort is even, unlabored, Respiratory pattern is regular, symmetrical. GI: Reports lower abdominal pain, upper abdominal pain, nausea, vomiting. 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 - Infectious Disease History:: Denies. - Social history:: Smoking status: . Screenin:45 [facility] ED Fall Risk Assessment (Adult) History of falling in the last 3 months, nj1 including since admission No falls in past 3 months (0 pts) Confusion or Disorientation No (0 pts) Intoxicated or Sedated No (0 pts) Impaired Gait No (0 pts) Mobility Assist Device Used No (0 pt) Altered Elimination No (0 pt) Score/Fall Risk Level 0 - 2 = Low Risk Oriented to surroundings, Maintained a safe environment, Hourly rounding (assess needs \T\ fall precautionary measures) done. 10:45 Abuse screen: Denies threats or abuse. Denies injuries from another. Nutritional nj1 screening: No deficits noted. Tuberculosis screening: No symptoms or risk factors identified. Assessment: 10:45 General: Appears uncomfortable, Behavior is calm, cooperative, appropriate for age. nj1 Pain: Complains of pain in abdomen. 10:45 Pain: Pain currently is 10 out of 10 on a pain scale. Neuro: Level of Consciousness is nj1 awake, alert, obeys commands, Oriented to person, place, time, situation. Cardiovascular: Patient's skin is warm and dry. Respiratory: Airway is patent Respiratory effort is even, unlabored. GI: Pt is actively vomiting Reports lower abdominal pain, upper abdominal pain, diarrhea, nausea, vomiting. 12:10 Reassessment: Patient appears in no apparent distress at this time. Patient is alert, kj2 oriented x 3, equal unlabored respirations, skin warm/dry/pink. Patient states symptoms have improved. 12:31 Reassessment: Patient is alert, oriented x 3, equal unlabored respirations, skin kj2 warm/dry/pink. Patient states symptoms have improved. Vital Signs: 10:30 BP 141 / 101; Pulse 89; Resp 16; Temp 98.3; Pulse Ox 100% on R/A; Weight 62.14 kg; hb Height 5 ft. 2 in. ; Pain 10/10; 12:11 BP 141 / 92; Pulse 60; Resp 18; kj2 10:30 Body Mass Index 25.06 (62.14 kg, 157.48 cm) hb 10:30 Pain Scale: Adult hb ED Course: 10:21 Patient arrived in ED. kc6 10:23 Heydi Vernon RN is Primary Nurse. nj1 10:24 Nayana Alves FNP-C is [facility]. kb 10:24 Eric Jung MD is Attending Physician. kb 10:34 Triage completed. hb 10:34 Arm band placed on. hb 10:45 Patient has correct armband on for positive identification. Bed in low position. Call nj1 light in reach. 10:45 Provided Education on: call light, fall precautions. nj1 10:58 Maintain EMS IV. Good blood return noted. ls5 10:59 Initial lab(s) drawn, by nd, sent to lab. ls5 12:31 IV discontinued, intact, bleeding controlled, Pressure dressing applied. kj2 12:34 No provider procedures requiring assistance completed. kj2 Administered Medications: 10:35 Drug: NS 0.9% IV 1000 ml IV at 1 bolus Per protocol; 1000 mL bolus {Note: Initiated by [facility].} Route: IV; Rate: 1 bolus; Site: right hand; 12:43 Follow up: IV Status: Completed infusion; IV Intake: 1000ml kj2 12:44 Follow up: IV Status: Completed infusion; IV Intake: 1000ml kj2 10:38 Drug: Droperidol IVP 2.5 mg IVP once Route: IVP; Site: right hand; nj1 12:43 Follow up: Response: No adverse reaction kj2 10:40 Drug: Ketorolac IVP 15 mg IVP once Route: IVP; Site: right hand; nj1 12:42 Follow up: Response: No adverse reaction kj2 10:41 Drug: MethylPrednisoLONE IVP 125 mg IVP once Route: IVP; Site: right hand; nj1 12:42 Follow up: Response: No adverse reaction kj2 10:42 Drug: Promethazine IVP 12.5 mg IVP once Route: IVP; Site: right hand; nj1 12:43 Follow up: Response: No adverse reaction kj2 12:05 Drug: Potassium Chloride PO 40 mEq PO once Route: PO; kj2 12:42 Follow up: Response: No adverse reaction kj2 12:29 Drug: fentaNYL (PF) IVP 25 mcg IVP once Route: IVP; Site: right hand; kj2 12:41 Follow up: Response: No adverse reaction; Pain is decreased kj2 Medication: 12:32 VIS not applicable for this client. kj2 Intake: 12:43 IV: 1000ml; Total: 1000ml. kj2 12:44 IV: 1000ml; Total: 2000ml. kj2 Outcome: 12:00 Discharge ordered by MD. kb 12:33 Discharged to home ambulatory, kj2 12:33 Condition: stable kj2 12:33 Discharge instructions given to patient, Instructed on follow up and referral plans. Demonstrated understanding of instructions, follow-up care, 12:41 Patient left the ED. kj2 Signatures: Nayana Alves, FOOD SAFETY SCIENTIST-C FOOD SAFETY SCIENTIST-Ckb Keyona Hodges, RN RN Heaven Rider RN RN kc6 [employer] [address] Heydi Vernon RN RN nj1 Kayleigh Sofia, LEN RN kj2 Corrections: (The following items were deleted from the chart) 10:34 10:30 BP 141 / 101; Pulse 89bpm; Resp 16bpm; Pulse Ox 100% RA; Temp 98.3F; Pain 1010, hb Adult; hb 11:19 10:45 General: Appears uncomfortable, Behavior is calm, cooperative, appropriate for nj1 age, nj1
--- NOTE | 2023-08-13 12:00 | EDPHYS ---
Physician Documentation [facility] Name: Ashley Alcala Age: 32 yrs Sex: Female : 1990 Arrival Date: 08/13/2023 Time: 10:19 Bed 8 Private MD: ED Physician Eric Jung HPI: 08/12 12:02 This 32 yrs old Female presents to ER via EMS with complaints of Nausea/Vomiting. kb 12:03 Pt is a 32 year old female who presents for nausea, vomiting and abd pain that started kb yesterday morning. States she has crohn's disease and ate something spicy which made it flare up. This is pt's 3rd visit since onset of symptoms yesterday. Requests the medications she got yesterday morning because they worked well. Denies fever. . 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 - Infectious Disease History:: Denies. - Social history:: Smoking status: . ROS: 12:00 Constitutional: As per HPI kb Exam: 12:00 Constitutional: This is a well developed, well nourished patient who is awake, alert, kb and in no acute distress. Head/Face: Normocephalic, atraumatic. ENT: Moist Mucous membranes Cardiovascular: Regular rate Respiratory: Respirations even and unlabored. No increased work of breathing. Talking in full sentences Skin: Warm, dry with normal turgor. Normal color. MS/ Extremity: Pulses equal, no cyanosis. Neurovascular intact. Full, normal range of motion. Neuro: Awake and alert, GCS 15, oriented to person, place, time, and situation. Moves all extremities. Normal gait. 12:00 Abdomen/GI: Inspection: abdomen appears normal, Bowel sounds: normal, Palpation: soft, in all quadrants, mild abdominal tenderness, in all quadrants, moderate abdominal tenderness, Vital Signs: 10:30 BP 141 / 101; Pulse 89; Resp 16; Temp 98.3; Pulse Ox 100% on R/A; Weight 62.14 kg; hb Height 5 ft. 2 in. ; Pain 10/10; 12:11 BP 141 / 92; Pulse 60; Resp 18; kj2 10:30 Body Mass Index 25.06 (62.14 kg, 157.48 cm) hb 10:30 Pain Scale: Adult hb MDM: 10:24 Patient medically screened. kb 12:00 Counseling: I had a detailed discussion with the patient and/or guardian regarding the kb historical points, exam findings, and any diagnostic results supporting the discharge/admit diagnosis, lab results, the need for outpatient follow up, a family practitioner, a leasing representative, to return to the emergency department if symptoms worsen or persist or if there are any questions or concerns that arise at home. ED course: Pt states she is feeling better and ready to go home. . 12:01 Differential diagnosis: dehydration, abnormal electrolytes, crohns exacerbation. Data kb reviewed: vital signs, nurses notes. Historians other than the Patient: EMS: [facility]. 12:04 Consideration of Admission/Observation Escalation of care including kb admission/observation considered. admission considered due to third visit since yesterday for same symptoms. Pt is feeling better after treatment and wants to go home. . External Records Reviewed: ED chart and results reviewed from previous 2 visits. . 08/12 10:25 Order name: CBC with Diff; Complete Time: 11:07 kb 08/12 10:25 Order name: CMP; Complete Time: 11:44 kb 08/12 10:25 Order name: Lipase; Complete Time: 11:44 kb 08/12 10:25 Order name: IV Saline Lock; Complete Time: 10:44 kb 08/12 10:25 Order name: Labs collected and sent; Complete Time: 10:55 kb 08/12 11:45 Order name: PO challenge; Complete Time: 12:05 kb Administered Medications: 10:35 Drug: NS 0.9% IV 1000 ml IV at 1 bolus Per protocol; 1000 mL bolus {Note: Initiated by nj1 EMS.} Route: IV; Rate: 1 bolus; Site: right hand; 12:43 Follow up: IV Status: Completed infusion; IV Intake: 1000ml kj2 12:44 Follow up: IV Status: Completed infusion; IV Intake: 1000ml kj2 10:38 Drug: Droperidol IVP 2.5 mg IVP once Route: IVP; Site: right hand; nj1 12:43 Follow up: Response: No adverse reaction kj2 10:40 Drug: Ketorolac IVP 15 mg IVP once Route: IVP; Site: right hand; nj1 12:42 Follow up: Response: No adverse reaction kj2 10:41 Drug: MethylPrednisoLONE IVP 125 mg IVP once Route: IVP; Site: right hand; nj1 12:42 Follow up: Response: No adverse reaction kj2 10:42 Drug: Promethazine IVP 12.5 mg IVP once Route: IVP; Site: right hand; nj1 12:43 Follow up: Response: No adverse reaction kj2 12:05 Drug: Potassium Chloride PO 40 mEq PO once Route: PO; kj2 12:42 Follow up: Response: No adverse reaction kj2 12:29 Drug: fentaNYL (PF) IVP 25 mcg IVP once Route: IVP; Site: right hand; kj2 12:41 Follow up: Response: No adverse reaction; Pain is decreased kj2 Disposition Summary: 08/13/23 12:00 Discharge Ordered Notes: Location: Home kb Condition: Stable kb Diagnosis - Nausea with vomiting, unspecified kb - Crohn's disease, unspecified, without complications kb Followup: kb - With: Emergency Department - When: As needed - Reason: Worsening of condition Followup: kb - With: Private Physician - When: 2 - 3 days - Reason: Recheck today's complaints, Continuance of care, Re-evaluation by your physician Discharge Instructions: - Discharge Summary Sheet kb - Nausea and Vomiting, Adult, Grak-cc-Bcxf kb Forms: - Medication Reconciliation Form kb - Antibiotic Education kb - Prescription Opioid Use kb - Patient Portal Instructions kb - Leadership Thank You Letter kb Signatures: Dispatcher [employer] EDMS Nayana Alves, DIRECTOR FUNERAL-C DIRECTOR FUNERAL-Ckb Keyona Hodges RN RN Heydi Gomez RN RN nj1 Kayleigh Sofia RN RN kj2 Corrections: (The following items were deleted from the chart) 10:25 10:25 CBC+H.LAB.BRZ ordered. EDMS EDMS 10:25 10:25 COMPREHENSIVE METABOLIC PANEL+C.LAB.BRZ ordered. EDMS EDMS 10:25 10:25 LIPASE+C.LAB.BRZ ordered. EDMS EDMS
[2023-08-13] MEDS ORDERED: FENTANYL CITR 100 MCG/2 ML ONE (12:22)
[2023-08-13 13:03] VITALS: BP 141/92; TEMP 98.3; O2SAT 100
== END 2023-08-13 12:41 | disposition home or self-care (01) ==
LOC: ER 10:19
DX: R11.2 Nausea with vomiting, unspecified (principal); K50.90 Crohn's disease, unspecified, without complications; E03.9 Hypothyroidism, unspecified; Z88.5 Allergy status to narcotic agent
CPT/HCPCS: 36415; 80053; 83690; 85025; 96361; 96374; 96375; 99284; J2550; J2919; J3010

== ENCOUNTER 2023-10-24 19:26 | Emergency (ER) | payer OTHER, SELFPAY ==
--- OUTSIDE RECORDS SUMMARY | 2023-10-24 19:30 | XMS REPORT | Continuity of Care Document ---
Author Name Unknown Address [address] 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 Role Phone MEHRAN MATSON Primary Care Physician Unavailab BRISEYDA Sheikh Attending Clinician Unavailable BRISEYDA NUNEZ Attending Clinician Unavailable Araseli Shelton MD Attending Clinician [phone] DIPIKA CRUZ Attending Clinician Unavailable Dipika Busch Attending Clinician [phone] MITALI RAUSCH Attending Clinician Unavailable Miatli Rausch MD Attending Clinician [phone] ARASELI SHELTON Attending Clinician Unavailabl e Doctor Unassigned, [place] Attending Clinician U SRAVAN Robledo Attending Clinician Unavailable Estrada Sotelo MD Attending Clinician [phone] Sravan Mishra MD Attending Clinician [phone] MAGEN ROUSE Attending Clinician Unavailable Magen Rouse MD Attending Clinician [phone] SHIRLEY LOVE Attending Clinician UnavailShirley Zhang Attending Clinician [phone] Angi Sanford MD Attending Clinician [phone] JAVI ZULETA Attending Clinician Unavailable APOLONIA PINEDA Attending Clinician UnavailJOSSY Brown Attending Clinician Unavailable Rajmed_Ivette Attending Clinician Unavailable DIPIKA CRUZ Admitting Clinician Unavailable ARASELI SHELTON Admitting Clinician UnavailESTRADA Wiggins Admitting Clinician Unavailable Estrada Sotelo MD Admitting Clinician [phone] MAGEN ROUSE Admitting Clinician Unavailable JOSSY KWAN Admitting Clinician Unavailable Rajmed_Ivette Admitting Clinician Unavailable Payers Payer Name Policy Type Policy Number Effective Date Expirati on Date Source [employer] MEDICAID [id number] 2019 00:00:00 [place] [id number] 2019 00:00:00 Problems Condition Name Condition Details Condition Category Status Onset Date Resolution Date Last Treatment Date Treating Clinician Comments Source care and examinatio n of lactating mother care and examinatio n of lactating mother Disease Active 02-13 00:00: 00 [facility] , delivered , delivered Disease Active 2016-02 00:00: 00 [facility] Anemia, Anemia, Disease Active 2016-02 00:00: 00 [facility] - induced hypertensi on in third trimester - induced hypertensi on in third trimester Disease Active 2016-02 00:00: 00 [facility] Tubal ligation status Tubal ligation status Disease Active 2016-02 00:00: 00 [facility] Full-term jovita ROM, unsp time betw rupture and onset labor Full-term jovita ROM, unsp time betw rupture and onset labor Disease Active 2016-02 00:00: 00 [facility] 38 weeks gestation of 38 weeks gestation of Disease Active 2016-02 00:00: 00 [facility] Research study patient HCTZ Research study patient HCTZ Disease Active 2016-02 00:00: 00 Overview: Formattin g of this note is different from the original. Patient is in the HCTZ study IRB # [id number] y questions please contact:Corina Guadalupe MD [phone] Arnold MD [phone] Luis Carlos Owen MD [phone] facts Patient randomize d after delivery if they met inclusion criteria a nd accepted Medicati on comes from [facility] not pharmacy, [facility] Phone Number Ext. [phone] or cell Patient can start meds as soon as they tolerate PO One tab per day of either placebo or HCTZ Medicati on stays with patient Medicati on will appear on APR, Nurses need to rene as given (No barcode) Medicati on needs to counted prior to discharge by research team supervisor All follow ups need to be on POD or PP day # 14 or more Patient needs to be reminded to bring their left over medicatio n and bottle back to their visit [facility] needs to be notified at time of discharge Please contact Dr. Guadalupe with any Questions [facility] Previous delivery desires TOLAC Previous delivery desires TOLAC Disease Active 2016-02 00:00: 00 [facility] Supervisio n of high-risk with insufficie nt care Supervisio n of high-risk with insufficie nt care Disease Active 2016-02 00:00: 00 [facility] 8 weeks gestation of 8 weeks gestation of Disease Resolve d 06-21 00:00: 00 2017-01-22 00:00:00 2017-01-22 07:47:58 [facility] Allergies, Adverse Reactions, Alerts Allergy Name Allergy Type Status Severity Reaction(s) Onset Date Inactive Date Treating Clinician Comments Source NO KNOWN ALLERGIE S Drug Class Active [facility] Social History Social Habit Start Date Stop Date Quantity Comments Source History of tobacco use Cigarette Smoker [facility] of Social function 2023-08-15 00:00:00 2023-08-15 00:00:00 [facility] Alcoholic beverage intake 2023-08-15 00:00:00 2023-08-15 00:00:00 0 /d [facility] Alcohol intake 2023-05-11 00:00:00 2023-05-11 00:00:00 0 /d [facility] Exposure to SARS-CoV-2 (event) 2021-11-09 00:00:00 2021-11-19 11:34:00 Not sure [facility] Cigarettes smoked current (pack per day) - Reported 2016-06-07 00:00:00 2016-06-07 00:00:00 [facility] Cigarette pack-years 2016-06-07 00:00:00 2016-06-07 00:00:00 [facility] Tobacco use and exposure 2016-06-07 00:00:00 2016-06-07 00:00:00 Smokeless tobacco non-user [facility] Sex assigned at 1990 00:00:00 1990 00:00:00 [facility] Smoking Status Start Date Stop Date Source Smokes tobacco daily 2016-06-07 00:00:00 [facility] Medications Ordered Medication Name Filled Medication Name Start Date Stop Date Current Medication? Ordering Clinician Indication Dosage Frequency Signature (SIG) Comments Components Source famotidine (PEPCID (PF)) injection 20 mg 08-15 09:15: 00 08-15 08:11 :00 No 20mg 20 mg, Slow IV Push, ONCE NOW, 1 dose, On Mon08/16/23 at 0415, ANA M [facility] acetaminoph en (OFIRMEV) IV piggyback 1,000 mg 08-15 09:00: 00 08-15 08:25 :00 No 1000mg 1,000 mg, IV Piggyback, at 400 mL/hr Administer over 15 Minutes, ONCE, 1 dose, On Mon08/16/23 at 0400, Routine, Is the patient strict NPO and unable to tolerate oral medication s? Yes [facility] hyoscyamine sulfate (LEVSIN/SL) sublingual tablet 0.25 mg 08-15 06:45: 00 08-15 05:56 :00 No .25mg 0.25 mg, Sublingual , ONCE NOW, 1 dose, On Mon08/16/23 at 0145, Routine [facility] ketorolac (TORADOL) injection 30 mg 08-15 06:30: 00 08-15 05:58 :00 No 30mg 30 mg, Slow IV Push, ONCE NOW, 1 dose, On Mon08/16/23 at 0130, [facility] NaCl 0.9% (NS) bolus infusion 1,000 mL 08-15 05:00: 00 08-15 07:59 :00 No 1000mL at 999 mL/hr, 1,000 mL, IV Infusion, ONCE, 1 dose, On Mon08/16/23 at 0000, [facility] famotidine (PEPCID (PF)) injection 20 mg 08-15 04:15: 00 08-15 05:14 :00 No 20mg 20 mg, Slow IV Push, ONCE, 1 dose, On Mon08/15/23 at 2315, [facility] ondansetron (ZOFRAN (PF)) injection 8 mg 08-15 04:15: 00 08-15 05:15 :00 No 8mg 8 mg, Slow IV Push, ONCE, 1 dose, On Mon08/15/23 at 2315, Routine [facility] tetracaine (PONTOCAINE ) 0.5 % ophthalmic drops 1 Drop 04-10 20:15: 00 04-10 18:50 :00 No 1[drp] 1 Drop, Both Eyes, ONCE, 1 dose, On Mon04/11/23 at 1415, Routine [facility] fluorescein ophthalmic strip 1 Strip 04-10 19:30: 00 04-10 18:50 :00 No 1{strip } 1 Strip, Both Eyes, ONCE, 1 dose, On Mon04/11/23 at 1330, Routine [facility] moxifloxaci n (VIGAMOX) 0.5 % ophthalmic drops 1 Drop 04-10 18:45: 00 Yes 1[drp] 1 Drop, Left Eye, TID, First dose on Mon04/11/23 at 1245, Until Discontinu ed, Routine [facility] moxifloxaci n 0.5 % ophthalmic drops 04-10 00:00: 00 Yes [id number] 1[drp] Place 1 Drop in left eye in the morning and 1 Drop at noon and 1 Drop in the evening. [facility] predniSONE 20 mg tablet 03-05 00:00: 00 03-13 05:59 :00 No [id number] 40mg Take 2 tablets by mouth in the morning for 7 days. [facility] predniSONE (DELTASONE) tablet 40 mg 03-04 19:00: 00 03-04 19:25 :00 No 40mg 40 mg, Oral, ONCE, 1 dose, On 03/04/23 at 1300, [facility] FENTanyl PF (SUBLIMAZE (PF)) injection 50 mcg 03-04 18:15: 00 03-04 17:22 :00 No 50ug 50 mcg, Slow IV Push, ONCE, 1 dose, On 03/04/23 at 1215, [facility] iopamidol (ISOVUE 370-500 mL) injection 90 mL 03-04 17:30: 00 03-04 17:45 :00 No [id number] 90mL 90 mL, Intravenou s, ONCE, 1 dose, On 03/04/23 at 1145, Routine [facility] NaCl 0.9% (NS) bolus infusion 1,000 mL 03-04 17:30: 00 03-04 19:29 :00 No 1000mL at 999 mL/hr, 1,000 mL, IV Infusion, ONCE, 1 dose, On 03/04/23 at 1130, [facility] famotidine (PEPCID (PF)) injection 20 mg 03-04 17:00: 00 03-04 17:12 :00 No 20mg 20 mg, Slow IV Push, ONCE, 1 dose, On 03/04/23 at 1100, [facility] ondansetron (ZOFRAN (PF)) injection 8 mg 03-04 17:00: 00 03-04 17:12 :00 No 8mg 8 mg, Slow IV Push, ONCE, 1 dose, On 03/04/23 at 1100, ANA M [facility] traMADoL 50 mg tablet 03-04 00:00: 00 Yes [id number] 50mg Take 1 tablet by mouth every 6 (six) hours as needed (pain). Indication s: acute pain [facility] ondansetron 4 mg tablet 03-04 00:00: 00 Yes [id number] 1 or 2 tablets every 8 hours as needed for nausea [facility] HYDROcodone -acetaminop hen (NORCO 5) 5-325 mg tablet 1 tablet 2021-02 18:36: 44 Yes 1{tbl} 1 tablet, Oral, Q6HPRN, Starting on Mon11/19/21 at 1336, Until Discontinu ed, Routine, Pain (scale 4-6) [facility] acetaminoph en (TYLENOL) tablet 650 mg 2021-02 18:36: 26 Yes 650mg 650 mg, Oral, Q6HPRN, Starting on Mon11/19/21 at 1336, Until Discontinu ed, Routine, Pain (scale 1-3) [facility] ondansetron (ZOFRAN-ODT ) disintegrat ing tablet 4 mg 2021-02 13:45: 00 11-19 12:59 :00 No 4mg 4 mg, Oral, ONCE, 1 dose, On Mon11/19/21 at 0845, Routine [facility] HYDROcodone -acetaminop hen (NORCO 5) 5-325 mg tablet 1 tablet 2021-02 13:00: 00 11-19 12:59 :00 No 1{tbl} 1 tablet, Oral, ONCE, 1 dose, On Mon11/19/21 at 0800, ANA M [facility] cyclobenzap rine 5 mg tablet 2021-02 00:00: 00 Yes [id number] 5mg Take 1 tablet by mouth in the morning and 1 tablet at noon and 1 tablet in the evening. [facility] predniSONE 20 mg tablet 2021-02 0 00:00: 00 Yes [id number] 40mg Take 2 tablets by mouth in the morning. [facility] HYDROcodone -acetaminop hen (NORCO) 7.5-325 mg per tablet 2021-02 0-05 00:00: 00 11-18 04:59 :00 No [id number] 1{tbl} Take 1 tablet by mouth every 8 (eight) hours as needed for Pain for up to 7 days. Indication s: acute pain [facility] budesonide- formoteroL 80-4.5 mcg/actuati on inhaler 09-29 00:00: 00 Yes [id number] 2{puff} Inhale 2 Puffs 2 (two) times daily. [facility] bromphenira mine-pseudo ephedrine-D M (BROMFED DM) 2-30-10 mg/5 mL syrup 09-29 00:00: 00 Yes [id number] 5mL Take 5 mL by mouth 4 (four) times daily as needed for Congestion /Allergies or Cough. [facility] LIALDA 1.2 gram EC tablet 09-02 00:00: 00 Yes [facility] Hyoscyamine Sulfate 0.125 mg TbDL 08-31 00:00: 00 Yes TAKE 1-2 TABLETS BY MOUTH EVERY 4 TO 6 HOURS NEEDED [facility] sucralfate 1 gram tablet 08-31 00:00: 00 Yes [facility] SERTraline 100 mg tablet 07-16 00:00: 00 Yes 100mg Take 100 mg by mouth every morning. [facility] atomoxetine 40 mg capsule 07-16 00:00: 00 Yes 40mg Take 40 mg by mouth daily. [facility] traZODone 50 mg tablet 07-16 00:00: 00 Yes TAKE 1 TABLET BY MOUTH NIGHTLY [facility] metoclopram rena HCl 10 mg tablet 2-16 00:00: 00 Yes [id number] 10mg Take 1 tablet by mouth every 6 (six) hours as needed for Nausea and Vomiting (N/V). [facility] acetaminoph en-codeine (TYLENOL-CO DEINE #3) 300-30 mg tablet 2-16 00:00: 00 Yes [id number] 1{tbl} Take 1 tablet by mouth every 4 (four) hours as needed for Pain (scale 7-10). Indication s: acute pain [facility] dicyclomine 20 mg tablet 03-07 00:00: 00 Yes [id number] 20mg Take 1 tablet by mouth 4 (four) times daily. [facility] ondansetron (ZOFRAN ODT) 4 mg disintegrat ing tablet 03-07 00:00: 00 Yes [id number] 4mg Take 1 tablet by mouth every 8 (eight) hours as needed for Nausea and Vomiting (N/V). [facility] Immunizations Ordered Immunization Name Filled Immunization Name Date Status Comments Source Td 2021-11-19 00:00:00 Completed [facility] Td 2021-11-19 00:00:00 Completed [facility] Td 2021-11-19 00:00:00 Completed [facility] TDAP 2016-11-15 00:00:00 Completed [facility] Influenza Virus Vaccine Quad IM 3+ 2016-11-15 00:00:00 Completed [facility] TDAP 2016-11-15 00:00:00 Completed [facility] Influenza Virus Vaccine Quad IM 32016-11-15 00:00:00 Completed [facility] TDAP 2016-11-15 00:00:00 Completed [facility] Influenza Virus Vaccine Quad IM 3+ 2016-11-15 00:00:00 Completed [facility] TDAP 2016-11-15 00:00:00 Completed [facility] Influenza Virus Vaccine Quad IM 3+ 2016-11-15 00:00:00 Completed [facility] TDAP 2016-11-15 00:00:00 Completed [facility] Influenza Virus Vaccine Quad IM 3+ 2016-11-15 00:00:00 Completed [facility] TDAP 2016-11-15 00:00:00 Completed [facility] Influenza Virus Vaccine Quad IM 3+ 2016-11-15 00:00:00 Completed [facility] TDAP 2016-11-15 00:00:00 Completed [facility] Influenza Virus Vaccine Quad IM 3+ YRS 2016-11-15 00:00:00 Completed [facility] TDAP 2016-11-15 00:00:00 Completed [facility] Influenza Virus Vaccine Quad IM 3+ YRS 2016-11-15 00:00:00 Completed [facility] TDAP 2016-11-15 00:00:00 Completed [facility] Influenza Virus Vaccine Quad IM 3+ YRS 2016-11-15 00:00:00 Completed [facility] TDAP Unknown Completed [facility] Influenza Virus Vaccine Quad IM 3+ YRS Unknown Completed [facility] TD, NOS Unknown Completed [facility] TDAP Unknown Completed [facility] Influenza Virus Vaccine Quad IM 3+ YRS Unknown Completed [facility] TD, NOS Unknown Completed [facility] TDAP Unknown Completed [facility] Influenza Virus Vaccine Quad IM 3+ YRS Unknown Completed [facility] TD, NOS Unknown Completed [facility] TDAP Unknown Completed [facility] Influenza Virus Vaccine Quad IM 3+ YRS Unknown Completed [facility] TD, NOS Unknown Completed [facility] Vital Signs Vital Name Observation Time Observation Value Comments S ource Systolic blood pressure 2023-08-16 08:16:43 139 mm[Hg] [facility] Diastolic blood pressure 2023-08-16 08:16:43 85 mm[Hg] [facility] Heart rate 2023-08-16 08:16:43 43 /min [facility] Respiratory rate 2023-08-16 08:16:43 16 /min [facility] Oxygen saturation in Arterial blood by Pulse oximetry 2023-08-16 08:16:43 98 /min [facility] Body temperature 2023-08-16 04:01:00 37.39 Kori [facility] Body height 2023-08-16 04:01:00 157.5 cm [facility] Body weight 2023-08-16 04:01:00 58.968 kg [facility] BMI 2023-08-16 04:01:00 23.78 kg/m2 [facility] Systolic blood pressure 2023-05-11 20:34:00 132 mm[Hg] [facility] Diastolic blood pressure 2023-05-11 20:34:00 76 mm[Hg] [facility] Heart rate 2023-05-11 20:34:00 65 /min [facility] Body temperature 2023-05-11 20:34:00 37.11 Kori [facility] Respiratory rate 2023-05-11 20:34:00 18 /min [facility] Body height 2023-05-11 20:34:00 157.5 cm [facility] Body weight 2023-05-11 20:34:00 58.968 kg [facility] BMI 2023-05-11 20:34:00 23.78 kg/m2 [facility] Oxygen saturation in Arterial blood by Pulse oximetry 2023-05-11 20:34:00 95 /min [facility] Systolic blood pressure 2023-04-11 18:26:00 118 mm[Hg] [facility] Diastolic blood pressure 2023-04-11 18:26:00 82 mm[Hg] [facility] Heart rate 2023-04-11 18:26:00 82 /min [facility] Body temperature 2023-04-11 18:26:00 37.22 Kori [facility] Respiratory rate 2023-04-11 18:26:00 20 /min [facility] Body height 2023-04-11 18:26:00 157.5 cm [facility] Body weight 2023-04-11 18:26:00 58.968 kg [facility] BMI 2023-04-11 18:26:00 23.78 kg/m2 [facility] Oxygen saturation in Arterial blood by Pulse oximetry 2023-04-11 18:26:00 100 /min [facility] Systolic blood pressure 2023-03-04 18:30:00 101 mm[Hg] [facility] Diastolic blood pressure 2023-03-04 18:30:00 75 mm[Hg] [facility] Heart rate 2023-03-04 18:30:00 60 /min [facility] Respiratory rate 2023-03-04 18:30:00 16 /min [facility] Oxygen saturation in Arterial blood by Pulse oximetry 2023-03-04 18:30:00 98 /min [facility] Body temperature 2023-03-04 16:39:00 37.22 Kori [facility] Body height 2023-03-04 16:39:00 157.5 cm [facility] Body weight 2023-03-04 16:39:00 59.013 kg [facility] BMI 2023-03-04 16:39:00 23.80 kg/m2 [facility] Systolic blood pressure 2021-11-19 23:00:00 115 mm[Hg] [facility] Diastolic blood pressure 2021-11-19 23:00:00 75 mm[Hg] [facility] Heart rate 2021-11-19 23:00:00 56 /min [facility] Respiratory rate 2021-11-19 23:00:00 16 /min [facility] Oxygen saturation in Arterial blood by Pulse oximetry 2021-11-19 23:00:00 100 /min [facility] Body temperature 2021-11-19 16:35:00 37 Kori [facility] Body weight 2021-11-19 16:35:00 56.7 kg [facility] BMI 2021-11-19 16:35:00 22.86 kg/m2 [facility] Systolic blood pressure 2021-11-19 14:41:14 130 mm[Hg] [facility] Diastolic blood pressure 2021-11-19 14:41:14 87 mm[Hg] [facility] Heart rate 2021-11-19 14:41:14 85 /min [facility] Body temperature 2021-11-19 14:41:14 36.67 Kori [facility] Respiratory rate 2021-11-19 14:41:14 18 /min [facility] Oxygen saturation in Arterial blood by Pulse oximetry 2021-11-19 14:41:14 99 /min [facility] Body height 2021-11-19 12:31:00 157.5 cm [facility] Body weight 2021-11-19 12:31:00 56.7 kg [facility] BMI 2021-11-19 12:31:00 22.86 kg/m2 [facility] Systolic blood pressure 2021-11-10 17:03:00 126 mm[Hg] [facility] Diastolic blood pressure 2021-11-10 17:03:00 86 mm[Hg] [facility] Heart rate 2021-11-10 17:03:00 85 /min [facility] Body temperature 2021-11-10 17:03:00 37.06 Kori [facility] Respiratory rate 2021-11-10 17:03:00 20 /min [facility] Body height 2021-11-10 17:03:00 157.5 cm [facility] Body weight 2021-11-10 17:03:00 55.792 kg [facility] BMI 2021-11-10 17:03:00 22.50 kg/m2 [facility] Oxygen saturation in Arterial blood by Pulse oximetry 2021-11-10 17:03:00 99 /min [facility] Systolic blood pressure 2020-09-29 22:26:00 139 mm[Hg] [facility] Diastolic blood pressure 2020-09-29 22:26:00 89 mm[Hg] [facility] Heart rate 2020-09-29 22:26:00 76 /min [facility] Body temperature 2020-09-29 22:26:00 36.89 Kori [facility] Respiratory rate 2020-09-29 22:26:00 16 /min [facility] Body height 2020-09-29 22:26:00 154.9 cm [facility] Body weight 2020-09-29 22:26:00 53.025 kg [facility] BMI 2020-09-29 22:26:00 22.09 kg/m2 [facility] Oxygen saturation in Arterial blood by Pulse oximetry 2020-09-29 22:26:00 100 /min [facility] Procedures Procedure Date / Time Performed Performing Clinician Source POCT TEST 2023-08-16 05:13:00 Araseli Shelton [facility] URINALYSIS 2023-08-16 04:54:00 Araseli Shelton [facility] LIPASE 2023-08-16 04:46:00 Araseli Shelton [facility] COMP. METABOLIC PANEL ([id number]) 2023-08-16 04:46:00 Araseli Shelton [facility] CBC WITH DIFF 2023-08-16 04:46:00 [facility] 2023-05-11 21:02:29 Dipika Cruz [facility] XR WRIST 3+ VW LEFT 2023-05-11 21:02:29 Dayo Cruz [facility] CONSENT/REFUSAL FOR DIAGNOSIS AND TREATMENT 2023-04-11 18:18:03 Doctor Unassigned, [place] [facility] LIPASE 2023-03-04 17:08:00 Araseli Shelton [facility] COMP. METABOLIC PANEL ([id number]) 2023-03-04 17:08:00 Araseli Shelton [facility] CBC WITH DIFF 2023-03-04 17:08:00 Araseli Shelton [facility] URINALYSIS 2023-03-04 17:08:00 Araseli Shelton [facility] POCT TEST 2023-03-04 17:08:00 Araseli Shelton [facility] CONSENT/REFUSAL FOR DIAGNOSIS AND TREATMENT 2023-03-04 16:36:23 Doctor Unassigned, [place] [facility] AUTHORIZATION FOR RELEASE OF PHI 2021-12-02 05:01:00 Doctor Unassigned, [place] [facility] MR CERVICAL SPINE WO CONTRAST 2021-11-19 20:56:00 Michael Stock [facility] COVID-19 (ID NOW RAPID TESTING) 2021-11-19 14:10:00 Magen Rouse [facility] CT CERVICAL SPINE WO CONTRAST 2021-11-19 12:49:50 Magen Rouse [facility] CT HEAD WO CONTRAST 2021-11-19 12:49:50 Lily Rouse [facility] CONSENT/REFUSAL FOR DIAGNOSIS AND TREATMENT 2021-11-19 12:35:14 Doctor Unassigned, [place] [facility] XR HAND 3+ VW LEFT 2021-11-10 17:32:17 Magen Rouse [facility] XR WRIST 3+ VW LEFT 2021-11-10 17:31:56 Lily Rouse [facility] NOTICE OF PRIVACY PRACTICES 2021-11-10 16:59:19 Doctor Unassigned, [place] [facility] CONSENT/REFUSAL FOR DIAGNOSIS AND TREATMENT 2021-11-10 16:58:04 Doctor Unassigned, [place] [facility] ASSIGNMENT OF BENEFITS 2020-09-29 22:10:07 Docto r Unassigned, [place] [facility] Encounters Start Date/Time End Date/Time Encounter Type Admission Type Attending [facility] Care Department Encounter ID Source 2020-12-05 23:41:25 Emergency [facility] [id number] [facility] 2020-12-05 20:46:01 Emergency [facility] [id number] [facility] 2020-12-05 20:45:07 Emergency [facility] [id number] [facility] 2020-12-03 22:03:22 [place] [facility] [id number] [facility] 2023-08-15 22:53:00 2023-08-16 04:30:00 Emergency BRISEYDA HEDRICK ANDRES [facility] ERT [id number] [facility] 2023-08-15 22:53:00 2023-08-16 04:30:00 Emergency Araseli Shelton Andres [facility] 1.2.840.114 350.1.13.10 4.2.7.2.686 [id number] [facility] 2023-05-11 15:37:00 2023-05-11 17:24:00 Emergency DIPIKA CARTY [facility] ERT [id number] [facility] 2023-05-11 15:37:00 2023-05-11 17:24:00 Emergency Dipika Cruz [facility] 1.2.840.114 350.1.13.10 4.2.7.2.686 [id number] [facility] 2023-04-11 12:30:00 2023-04-11 13:22:00 Emergency Cindi RAUSCH MITALI [facility] ERT [id number] [facility] 2023-04-11 12:30:00 2023-04-11 13:22:00 Emergency Mitali Rausch [facility] 1.2.840.114 350.1.13.10 4.2.7.2.686 [id number] [facility] 2023-03-04 10:44:00 2023-03-04 13:29:00 Emergency X ARASELI SHELTON [facility] ERT [id number] [facility] 2023-03-04 10:44:00 2023-03-04 13:29:00 Emergency Guera Miami [facility] 1.2.840.114 350.1.13.10 4.2.7.2.686 [id number] [facility] 2021-12-02 00:00:00 2021-12-02 00:00:00 Orders Only Doctor Unassigned, [place] [facility] 1.2.840.114 350.1.13.10 4.2.7.2.686 [id number] [facility] 2021-11-19 11:43:00 2021-11-19 18:54:00 Emergency X SRAVAN MISHRA [facility] ERT [id number] [facility] 2021-11-19 11:43:00 2021-11-19 18:54:00 Emergency Estrada [facility] 1.2.840.114 350.1.13.10 4.2.7.2.686 [id number] [facility] 2021-11-19 07:30:00 2021-11-19 10:47:00 Emergency X MAGEN ROUSE [facility] ERT [id number] [facility] 2021-11-19 07:30:00 2021-11-19 10:47:00 Emergency Magen Rouse [facility] 1.2840.114 350.1.13.10 4.2.7.2.686 [id number] [facility] 2021-11-10 12:05:00 2021-11-10 13:29:00 Emergency X MAGEN ROUSE [facility] ERT [id number] [facility] 2021-11-10 12:05:00 2021-11-10 13:29:00 Emergency Magen Rouse [facility] 1.2840.114 350.1.13.10 4.2.7.2.686 [id number] [facility] 2021-11-10 00:00:00 2021-11-10 00:00:00 Orders Only Doctor Unassigned, [place] [facility] 1.2840.114 350.1.13.10 4.2.7.2.686 [id number] [facility] 2020-09-29 17:40:00 2020-09-29 17:40:00 Outpatient R CHLOÉ LOVETANY [facility] [id number] [facility] 2020-09-29 17:11:16 2020-09-29 17:31:16 [facility] 1.2840.114 350.1.13.10 4.2.7.2.686 [id number] [facility] 2020-09-29 00:00:00 2020-09-29 00:00:00 [facility]phone [facility] 1.2.840.114 350.1.13.10 4.2.7.2.686 [id number] [facility] 2020-09-29 00:00:00 2020-09-29 00:00:00 Orders Only Doctor Unassigned, [place] [facility] 1.2.840.114 350.1.13.10 4.2.7.2.686 [id number] [facility] 2020-09-29 00:00:00 2020-09-29 00:00:00 Letter (Out) Juvenal [facility] Alfredo?[facility] 1.2.840.114 350.1.13.10 4.2.7.2.686 [id number] [facility] 2020-01-16 13:00:00 2020-01-16 13:00:00 Outpatient JAVI LOZOYA [facility] [id number] [facility] 2019-08-15 10:45:00 2019-08-15 10:45:00 Outpatient APOLONIA LEAHY [facility] [id number] [facility] 2019-08-15 10:45:00 2019-08-15 10:45:00 Outpatient APOLONIA LEAHY [facility] [id number] [facility] 2019-06-17 10:46:52 2019-06-17 13:28:00 Emergency X JOSSY KWAN [facility] ERT [id number] [facility] 2019-04-30 03:42:00 2019-04-30 03:42:00 Outpatient Raju_P [facility] [id number] [facility] 2019-04-11 09:40:39 2019-04-11 16:24:00 Emergency X JOSSY KWAN [facility] ERT [id number] [facility] Results Test Description Test Time Test Comments Results Result Co mments Source [facility] [id number] 21:05:34HISTORY: Left hand pain over first MCP joint. S/P fall. FINDINGS: AP, lateral, oblique views of left hand are obtained and comparedwith 11/10/2021 study. No acute fracture or dislocation. No significantchanges of arthritis or aggressive bone lesions seen. No soft tissuecalcifications, bony erosions or juxta-articular osteoporosis detected. CONCLUSIONS: Normal [facility] W[facility]+ VW [id number] 21:04:44HISTORY: Radial side left wrist pain. FINDINGS: AP, lateral, oblique views of left wrist are obtained andcompared with 11/10/2021 study. No acute fracture or dislocation. Nosignificant changes of arthritis or aggressive bone lesions seen. No bonyerosions or soft tissue calcifications detected. CONCLUSIONS: Normal study. [facility]OLIC PAN[facility] ([id number])2023-03-04 17:33:25* Test Item Value Reference Range Interpretation Comme nts NA (test code = 9941002317) 139 mmol/L 135-145 K (test code = 3186208410) 4.1 mmol/L 3.5-5.0 CL (test code = 3686048623) 109 mmol/L 98-108 H CO2 TOTAL (test code = 0378067974) 22 mmol/L 23-31 L AGAP (test code = 8954553350) 8 2-16 BUN (test code = 7275475573) 13 mg/dL 7-23 GLUCOSE (test code = 7145364011) 104 mg/dL 70-110 CREATININE (test code = 5252915826) 0.79 mg/dL 0.50-1.04 TOTAL BILI (test code = 3055257638) 0.6 mg/dL 0.1-1.1 CALCIUM (test code = 7320875258) 9.6 mg/dL 8.6-10.6 T PROTEIN (test code = 3189872296) 8.7 g/dL 6.3-8.2 H ALBUMIN (test code = 9872644467) 5.1 g/dL 3.5-5.0 H ALK PHOS (test code = 6026935147) 40 U/L 34-122 ALTv (test code = 1742-6) 17 U/L 5-35 AST(SGOT) (test code = 6354445716) 23 U/L 13-40 eGFR (test code = 72083-7) 102.1 mL/min/1.73m2 CKD-EPI eGFR (2020). Assuming creatinine has been stable day-to-day for at least three months, the eGFR indicates Category G1 (>= 90 mL/min/1.73 m2) Lab Interpretation (test code = 52789-6) Abnormal [facility] 17:33:00* Test Item Value Reference Range Interpretation Comme nts LIPASE (test code = 6007153662) 92 U/L 0-220 Lab Interpretation (test cod e = 83379-1) Normal [facility] WITH [id number] 17:22:38* Test Item Value Reference Range Interpretation [...] 34.7 g/dL 31.6-35.1 RDW-SD (test code = 90659-9) 46.9 fL 39.0-49.9 RDW-CV (test code = 788-0) 12.5 % 12.0-15.5 PLT (test code = 777-3) 438 See_Comment H [Automated messa ge] The system which generated this result transmitted reference range: 166 - 358 10*3/?L. The reference range was not used to interpret this result as normal/abnormal. MPV (test code = 40223-6) 7.8 fL 9.5-12.9 L NRBC/100 WBC (test code = 4693317941) 0.0 See_Comment [Automated me ssage] The system which generated this result transmitted reference range: 0.0 - 10.0 /100 WBCs. The reference range was not used to interpret this result as normal/abnormal. NRBC x10^3 (test code = 1768062229) See_Comment [Automated messa ge] The system which generated this result transmitted reference range: 10*3/?L. The reference range was not used to interpret this result as normal/abnormal. GRAN MAT (NEUT) % (test code = 770-8) 56.9 % IMM GRAN % (test code = 0243914677) 0.40 % LYMPH % (test code = 736-9) 32.5 % MONO % (test code = 5905-5) 8.1 % EOS % (test code = 713-8) 1.5 % BASO % (test code = 706-2) 0.6 % GRAN MAT x10^3(ANC) (test code = 5043435956) 5.39 10*3/uL 1.88-7.09 IMM GRAN x10^3 (test code = 5349667989) 0.04 10*3/uL 0.00-0.06 LYMPH x10^3 (test code = 731-0) 3.08 10*3/uL 1.32-3.29 MONO x10^3 (test code = 742-7) 0.77 10*3/uL 0.33-0.92 EOS x10^3 (test code = 711-2) 0.14 10*3/uL 0.03-0.39 BASO x10^3 (test code = 704-7) 0.06 10*3/uL 0.01-0.07 Lab Interpretation (test code = 67844-3) Abnormal [facility] [id number] 17:08:00* Test Item Value Reference Range Interpretation Comme nts POCT PREG (test code = 1605) Negative On board controls acceptable with C Line (test code = 3574) Yes POCT PREG LOT # (test code = 3575) [id number] POCT PREG TEST DATE ( test code = 3576) 05/14/2024 Lab Interpretation (test cod e = 35224-3) Normal [facility] Notes Date/Time Note Provider Source 2023-08-16 04:28:47 Pt upset she is not receiving pain meds to help her abd pain. Pt eloped from ER with iv in place. Pt was followed by staff to vehicle and IV was removed. aware. [facility] 2023-08-16 04:26:15 Patient walking towards ER exit doors. RN took out PIV in parking lot. [facility] 2023-08-16 03:25:54 Pt no longer noted actively vomiting, but still c/o sharp LLQ pain. [facility] 2023-08-15 23:23:03 Pt actively vomiting at this time. [facility] 2023-08-15 22:57:23 Patient arrived via [facility] c/o abd pain that started four days ago. Patient has hx of chron's dx. Patient c/o N/V but no diarrhea. EMS gave 12.5 Phenergan IM. Patient recently discharged from [facility] with prescriptions for steroids and Zofran. Last medication taken was around 1600. T Adriano Olmstead RN [facility] 2023-05-11 15:35:33 Pt c/o left hand pain. States that she fell backwards onto her left hand after seeing a dennis spider at work. Pt took Tylenol 1000mg ~3 hours [employer]. Ghazala Lloyd RN [facility] 2023-04-11 13:15:00 Pt given printed and verbal discharge instructions regarding abrasion of left cornea, encouraged hydration. Prescriptions provided. Discussed antibiotic therapy and to take until all completed unless adverse reaction occurs - if occurs, discontinue medication and follow up with pcp/seek medical attention. Pt verbalized understanding of instructions, pt awake alert oriented, resp reg unlabored, skin w/d, color appropriate for race, moves all ext well,pt encouraged to follow up with pcp. Advised to seek medical attention for new/prolonged/worsening of symptoms. No adverse reaction to meds given in ER noted upon discharge. Awake, alert oriented, resp reg unlabored, skin w/d, pt leaving amb with steady gait, in no apparent distress. [employer] Liseth Steven RN [facility] 2023-04-11 12:25:40 Patient state that yesterday at work she removed her eye protection and wiped her eyes and has been having pain and irritation since. States that she used the eye wash at work and flushed her eye. This morning eye feels irritated and was matted. No problems with vision. [employer] Sheron Jaffe RN [facility] 2023-04-11 12:15:00 Images from the original note were not included. [facility] Emergency Department Note Patient Name: Hilaria Alcala Date of : 1990 32 year old female Treatment Room: [facility] ED [facility] Primary Care Physician: Mehran Matson Patient Escorted by: Self [9] Mode of Arrival: Personal means [1] EMS Treatment Prior to ED Arrival: Travel and Exposure Screening: Symptoms Does patient have any of these symptoms?: (not recorded) Exposure Screening Has patient had contact with someone with a communicable disease in the last month?: (not recorded) Diseases exposed to:: (not recorded) Is Patient ?: (not recorded) Exposure Date: (not recorded) Chief Complaint: Chief Complaint Patient presents with Eye Problem History of Present Illness: Pt was at work and with protective lenses on she was working, She took them off to clean her sweat and something hit her left ey They irrigated it, then irrigated it again with eye wash and water She has had dry eyes, scratching fb sensation and matted left ey She denies vision changes fever or chills, she states there was no trauma but felt something in her eye Past Medical History/Immunizations: Past Medical History: Diagnosis Date Anemia, 01/22/2017 Back pain Crohn disease Heart murmur Hypothyroidism -induced hypertension in third trimester 01/22/2017 Allergies: No Known Allergies Past Social History: Tobacco Use Every Day; 0.30 packs/day for 6.00 years; Types: Cigarettes Smokeless Tobacco: Never used smokeless tobacco. Alcohol Use No. Drug Use No. Sexual Activity Sexually active; Partners: Male; Control/Protection: None. Past Surgical History: Past Surgical History: Procedure Laterality Date SECTION 08/09/2011 EPIDURAL STEROID INJECTION ORAL SURGERY PROCEDURE [place] teeth extraction TUBAL LIGATION 01/21/2017 TUBAL LIGATION Bilateral 01/21/2017 Surgeon: Ruby Pop MD; Location: Labor and Delivery [facility] [place] Review of Systems: Review of Systems Constitutional: Negative for chills and fatigue. HENT: Negative. Eyes: Positive for pain, discharge and redness. All other systems reviewed and are negative. Physical Exam: ED Triage Vitals [04/11/23 1226] Weight 59 kg (130 lb) Actual or estimated Estimated by patient/family report Height 1.575 m (5' 2") BP 118/82 Pulse 82 Resp 20 Temp 37.2 ?C (99 ?F) Temp source Oral SpO2 100 % Measured on Room air Physical Exam Vitals and nursing note reviewed. Constitutional: Appearance: She is normal weight. HENT: Head: Normocephalic. Right Ear: External ear normal. Left Ear: External ear normal. Nose: Nose normal. Mouth/Throat: Mouth: Mucous membranes are moist. Eyes: General: No scleral icterus. Extraocular Movements: Extraocular movements intact. Pupils: Pupils are equal, round, and reactive to light. Comments: Left eye fluor uptake very small on medial upper area, no fb noted Cardiovascular: Rate and Rhythm: Normal rate and regular rhythm. Pulses: Normal pulses. Pulmonary: Effort: Pulmonary effort is normal. Abdominal: General: Abdomen is flat. Palpations: Abdomen is soft. Musculoskeletal: General: No swelling or deformity. Normal range of motion. Cervical back: Normal range of motion. Skin: General: Skin is warm. Capillary Refill: Capillary refill takes less than 2 seconds. Neurological: General: No focal deficit present. Mental Status: She is alert and oriented to person, place, and time. Radiology: No orders to display Lab Results: Lab Results - No data to display EKG: If EKG completed, see Procedure Note. Orders and Treatments: No orders of the defined types were placed in this encounter. No orders of the defined types were placed in this encounter. First Provider Eval: ED Events Date/Time Event User Comments 04/11/23 1230 Medical Screening Begins MITALI RAUSCH MD -- 04/11/23 1230 First Provider Evaluation MITALI RAUSCH MD -- ED COURSE Diagnosis/Impression as of 04/11/23 1244 Abrasion of left cornea, initial encounter Procedures: Procedures MDM: Medical Decision Making Pt was at work and with protective lenses on she was working, She took them off to clean her sweat and something hit her left ey They irrigated it, then irrigated it again with eye wash and water She has had dry eyes, scratching fb sensation and matted left ey She denies vision changes fever or chills, she states there was no trauma but felt something in her eye Ddx fb vs abrasion vs infection No fb noted Will give vigamox and refer to ophthomology Risk Prescription drug management. Flowsheet Documentation: Scoring Tools: No data recorded Disposition/Condition: ED Disposition None Discharge Medications: Patient's Medications START taking these medications No medications on file CONTINUE taking these medications which have NOT CHANGED ACETAMINOPHEN-CODEINE (TYLENOL-CODEINE #3) 300-30 MG TABLET Take 1 tablet by mouth every 4 (four) hours as needed for Pain (scale 7-10). Indications: acute pain ATOMOXETINE 40 MG CAPSULE Take 40 mg by mouth daily. BROMPHENIRAMINE-PSEUDOEPHEDRI NE-DM (BROMFED DM) 2-30-10 MG/5 ML SYRUP Take 5 mL by mouth 4 (four) times daily as needed for Congestion/Allergies or Cough. BUDESONIDE-FORMOTEROL 80-4.5 MCG/ACTUATION INHALER Inhale 2 Puffs 2 (two) times daily. CYCLOBENZAPRINE 5 MG TABLET Take 1 tablet by mouth in the morning and 1 tablet at noon and 1 tablet in the evening. DICYCLOMINE 20 MG TABLET Take 1 tablet by mouth 4 (four) times daily. HYOSCYAMINE SULFATE 0.125 MG TBDL TAKE 1-2 TABLETS BY MOUTH EVERY 4 TO 6 HOURS NEEDED LIALDA 1.2 GRAM EC TABLET METOCLOPRAMIDE HCL 10 MG TABLET Take 1 tablet by mouth every 6 (six) hours as needed for Nausea and Vomiting (N/V). METOCLOPRAMIDE HCL 10 MG TABLET Take 1 tablet by mouth every 6 (six) hours. ONDANSETRON (ZOFRAN ODT) 4 MG DISINTEGRATING TABLET Take 1 tablet by mouth every 8 (eight) hours as needed for Nausea and Vomiting (N/V). ONDANSETRON 4 MG TABLET 1 or 2 tablets every 8 hours as needed for nausea PREDNISONE 20 MG TABLET Take 2 tablets by mouth in the morning. SERTRALINE 100 MG TABLET Take 100 mg by mouth every morning. SUCRALFATE 1 GRAM TABLET TRAMADOL 50 MG TABLET Take 1 tablet by mouth every 6 (six) hours as needed (pain). Indications: acute pain TRAZODONE 50 MG TABLET TAKE 1 TABLET BY MOUTH NIGHTLY START taking Modified Medications as Prescribed No medications on file STOP taking these medications No medications on file Follow-up: Electronically signed by: Mitali Rausch MD 04/11/23 1305 [facility] 2023-03-04 13:28:49 Patient discharged with abdominal pain. Follow up with pcp. Feeling better at this time. [facility] Enrike Anna RN [facility] 2023-03-04 10:37:45 Patient states: "I have chrones diease and I"m going through a flare up since Monday. [facility] and they pump me up with morphine. I feel very dehydrated and I need fluids. I did take tramadol at 7 am. It just made me nauseous so I took a phenergan suppository" " [facility] [employer] Apolonia Garcias RN [facility] 2023-03-04 10:36:00 [facility] Emergency Department Note Patient Name: Hilaria Alcala Date of : 1990 32 year old female Treatment Room: Room/bed info not found Primary Care Physician: Mehran Matson Patient Escorted by: Self [9] Mode of Arrival: Personal means [1] EMS Treatment Prior to ED Arrival: [facility] [employer] treatment: Medication (comment) [employer] treatment comments: 50 mg tramadol at 0700, supp phenergan Travel and Exposure Screening: Symptoms Does patient have any of these symptoms?: (not recorded) Exposure Screening Has patient had contact with someone with a communicable disease in the last month?: (not recorded) Diseases exposed to:: (not recorded) Is Patient ?: (not recorded) Exposure Date: (not recorded) Chief Complaint: Chief Complaint Patient presents with Abdominal Pain Vomiting History of Present Illness: 5-6 days of nausea with vomiting, multiple episodes. Watery diarrhea, increased frequency over baseline. All non-bloody. No fever. (+) abdominal pain, LLQ > RLQ, constant with wax/wane intensity, no definitive aggravating factors, improves some with heat. Not on Humira due to funding. Out of symptomatic medications sucralfate, reglan, pantoprazole. Took a tramadol and phenergan suppository prior to arrival. History provided by: Patient Past Medical History/Immunizations: Past Medical History: Diagnosis Date Anemia, 01/22/2017 Back pain Crohn disease Heart murmur Hypothyroidism -induced hypertension in third trimester 01/22/2017 Tetanus received in last 5 years: Unknown Allergies: No Known Allergies Past Social History: Tobacco Use Every Day; 0.30 packs/day for 6.00 years; Types: Cigarettes Smokeless Tobacco: Never used smokeless tobacco. Alcohol Use No. Drug Use No. Sexual Activity Sexually active; Partners: Male; Control/Protection: None. Past Surgical History: Past Surgical History: Procedure Laterality Date SECTION 08/09/2011 EPIDURAL STEROID INJECTION ORAL SURGERY PROCEDURE [place] teeth extraction TUBAL LIGATION 01/21/2017 TUBAL LIGATION Bilateral 01/21/2017 Surgeon: Ruby Pop MD; Location: Labor and Delivery [facility] [place] Review of Systems: Review of Systems Constitutional: Positive for fatigue. Negative for fever. HENT: Negative. Eyes: Negative. Respiratory: Negative. Cardiovascular: Negative. Gastrointestinal: Positive for abdominal pain, diarrhea, nausea and vomiting. Negative for blood in stool. Genitourinary: Negative. Musculoskeletal: Negative. Skin: Negative. Neurological: Negative. Psychiatric/Behavioral: Negative. Physical Exam: ED Triage Vitals [03/04/23 1039] Weight 59 kg (130 lb 1.6 oz) Actual or estimated Estimated by patient/family report Height 1.575 m (5' 2") BP (!) 133/98 Pulse 88 Resp 16 Temp 37.2 ?C (99 ?F) Temp source Oral SpO2 100 % Measured on Room air Physical Exam Vitals and nursing note reviewed. Constitutional: General: She is not in acute distress. Appearance: Normal appearance. She is not ill-appearing, toxic-appearing or diaphoretic. HENT: Head: Normocephalic. Right Ear: External ear normal. Left Ear: External ear normal. Nose: Nose normal. Mouth/Throat: Mouth: Mucous membranes are dry. Eyes: Extraocular Movements: Extraocular movements intact. Conjunctiva/sclera: Conjunctivae normal. Cardiovascular: Rate and Rhythm: Normal rate and regular rhythm. Pulmonary: Effort: Pulmonary effort is normal. No respiratory distress. Breath sounds: Normal breath sounds. No wheezing, rhonchi or rales. Abdominal: General: There is no distension. Palpations: Abdomen is soft. Tenderness: There is abdominal tenderness (LLQ > RLQ). There is no right CVA tenderness or left CVA tenderness. Musculoskeletal: General: Normal range of motion. Cervical back: Normal range of motion. Skin: General: Skin is warm and dry. Neurological: General: No focal deficit present. Mental Status: She is alert. Psychiatric: Mood and Affect: Mood normal. Behavior: Behavior normal. Thought Content: Thought content normal. Judgment: Judgment normal. Radiology: CT ABDOMEN PELVIS W CONTRAST Preliminary Result EXAM: CT ABDOMEN PELVIS W CONTRAST HISTORY: 32 years-old Female: LLQ abdominal pain, LLQ > RLQ abdominal pain; TECHNIQUE: Contiguous axial imaging from the level of the lung bases through the proximal thighs was performed with intravenous contrast. Coronal and sagittal reconstructions were obtained. COMPARISON: CT abdomen pelvis dated 03/24/2020 FINDINGS: LOWER THORAX: The lung bases are clear. No pleural or pericardial effusion. LIVER AND BILIARY: The liver is normal in size and contour. Focal fatty steatosis adjacent to falciform ligament is noted. Otherwise, no focal hepatic lesion is seen. The gallbladder appears unremarkable. No radiopaque gallstones are seen. No intra or extrahepatic biliary ductal dilation is visualized. PANCREAS: Normal morphology and enhancement. No ductal dilation or masses are visualized. SPLEEN: The spleen appears unremarkable. ADRENAL GLANDS: No adrenal masses are seen. KIDNEYS, URETERS, AND BLADDER: Normal renal size, morphology, and enhancement. No solid masses. No stones or hydronephrosis. The bladder is collapsed, which limits evaluation. REPRODUCTIVE ORGANS: Normal reproductive organs. Possible 1.5 cm subserosal/intramural fibroid within the posterior wall of uterus. GI TRACT AND PERITONEUM: No dilation or bowel wall thickening is seen. The appendix appears unremarkable. No intra-abdominal free air collection is visualized. Small amount of intra-abdominal free fluid is seen within posterior cul-de-sac, likely physiologic. VESSELS: Mild atherosclerotic calcifications affect the abdominal aorta. No abdominal aortic aneurysm. LYMPH NODES: No lymphadenopathy. BONES AND SOFT TISSUES: No aggressive osseous lesion. IMPRESSION No acute findings of abdomen and pelvis. Possible 1.5 cm uterine fibroid. Further evaluation by transvaginal ultrasound on nonemergent basis is recommended. Preliminary Report Dictated by Resident: Swati Thompson Lab Results: Lab Results CBC WITH DIFF - Abnormal Result Value Ref Range WBC 9.48 4.30 - 11.10 10*3/?L RBC 4.12 3.93 - 5.25 10*6/?L HGB 14.5 11.6 - 15.0 g/dL HCT 41.8 35.7 - 45.2 % MCV 101.5 (*) 80.6 - 95.5 fL MCH 35.2 (*) 25.9 - 32.8 pg MCHC 34.7 31.6 - 35.1 g/dL RDW-SD 46.9 39.0 - 49.9 fL RDW-CV 12.5 12.0 - 15.5 % PLT 438 (*) 166 - 358 10*3/?L MPV 7.8 (*) 9.5 - 12.9 fL NRBC/100 WBC 0.0 0.0 - 10.0 /100 WBCs NRBC x10 3 <0.01 10*3/?L GRAN MAT (NEUT) % 56.9 % IMM GRAN % 0.40 % LYMPH % 32.5 % MONO % 8.1 % EOS % 1.5 % BASO % 0.6 % GRAN MAT x10 3 (ANC) 5.39 1.88 - 7.09 10*3/uL IMM GRAN x10 3 0.04 0.00 - 0.06 10*3/uL LYMPH x10 3 3.08 1.32 - 3.29 10*3/uL MONO x10 3 0.77 0.33 - 0.92 10*3/uL EOS x10 3 0.14 0.03 - 0.39 10*3/uL BASO x10 3 0.06 0.01 - 0.07 10*3/uL COMP. METABOLIC PANEL (36782) - Abnormal NA 139 135 - 145 mmol/L K 4.1 3.5 - 5.0 mmol/L CL 109 (*) 98 - 108 mmol/L CO2 TOTAL 22 (*) 23 - 31 mmol/L AGAP 8 2 - 16 BUN 13 7 - 23 mg/dL GLUCOSE 104 70 - 110 mg/dL CREATININE 0.79 0.50 - 1.04 mg/dL TOTAL BILI 0.6 0.1 - 1.1 mg/dL CALCIUM 9.6 8.6 - 10.6 mg/dL T PROTEIN 8.7 (*) 6.3 - 8.2 g/dL ALBUMIN 5.1 (*) 3.5 - 5.0 g/dL ALK PHOS 40 34 - 122 U/L ALTv 17 5 - 35 U/L AST(SGOT) 23 13 - 40 U/L eGFR 102.1 mL/min/1.73m2 URINALYSIS - Abnormal APPEARANCE Clear Clear COLOR Yellow Yellow PH 5.0 4.8 - 8.0 SP GRAVITY 1.018 1.003 - 1.030 GLU U QUAL Normal Normal BLOOD 2+ (*) Negative KETONES Negative Negative PROTEIN Negative Negative UROBILIN Normal Normal BILIRUBIN Negative Negative NITRITE Negative Negative LEUK TREVOR Negative Negative RBC/HPF 3 0 - 3 HPF WBC/HPF <1 0 - 5 HPF BACTERIA Negative Negative MUCOUS Slight (*) Negative LPF SQ EPITH 1 HPF LIPASE - Normal LIPASE 92 0 - 220 U/L POCT TEST - Normal POCT PREG Negative On board controls acceptable with C Line Yes POCT PREG LOT # [id number] POCT PREG TEST DATE 05/14/2024 EKG: If EKG completed, see Procedure Note. Orders and Treatments: Orders Placed This Encounter Procedures CT ABDOMEN PELVIS W CONTRAST CBC WITH DIFF COMP. METABOLIC PANEL (92547) LIPASE URINALYSIS POCT TEST Orders Placed This Encounter Medications NaCl 0.9% (NS) bolus infusion 1,000 mL ondansetron (ZOFRAN (PF)) injection 8 mg famotidine (PEPCID (PF)) injection 20 mg DISCONTD: morpHINE (4 mg/mL) injection 4 mg FENTanyl PF (SUBLIMAZE (PF)) injection 50 mcg iopamidol (ISOVUE 370-500 mL) injection 90 mL predniSONE (DELTASONE) tablet 40 mg predniSONE 20 mg tablet traMADoL 50 mg tablet ondansetron 4 mg tablet First Provider Eval: ED Events Date/Time Event User Comments 03/04/23 1043 Medical Screening Begins ARASELI SHELTON MD -- 03/04/23 1043 First Provider Evaluation ARASELI SHELTON MD -- ED COURSE ED Course as of 03/04/23 1308 Sat Mar 04, 2023 1307 Reassess. Symptoms improved. [RK] ED Course User Index [RK] Araseli Shelton MD Diagnosis/Impression as of 03/04/23 1308 Nausea and vomiting, unspecified vomiting type Abdominal pain, unspecified abdominal location Crohn's disease without complication, unspecified gastrointestinal tract location Procedures: Procedures MDM: Medical Decision Making Primary impression: abdominal pain without critical exam findings Secondary impression: nausea with vomiting, diarrhea, crohns disease Differential Diagnoses, including but not limited to: electrolyte /glucose abnl, anemia, urinary tract infection, diverticulitis, appendicitis, obstruction, perforation Problems Addressed: Abdominal pain, unspecified abdominal location: acute illness or injury Nausea and vomiting, unspecified vomiting type: acute illness or injury Amount and/or Complexity of Data Reviewed Independent Historian: Details: self Labs: ordered. Decision-making details documented in ED Course. Radiology: ordered. Decision-making details documented in ED Course. ECG/medicine tests: Details: N/a Risk Prescription drug management. Parenteral controlled substances. Risk Details: Unremarkable OBS in ED. Symptoms improved. Findings and plan discussed with patient. No findings that require acute hospitalization today. Flowsheet Documentation: Scoring Tools: No data recorded Disposition/Condition: ED Disposition ED Disposition Disch - Home Condition Stable Comment -- Discharge Medications: Patient's Medications START taking these medications ONDANSETRON 4 MG TABLET 1 or 2 tablets every 8 hours as needed for nausea PREDNISONE 20 MG TABLET Take 2 tablets by mouth in the morning for 7 days. TRAMADOL 50 MG TABLET Take 1 tablet by mouth every 6 (six) hours as needed (pain). Indications: acute pain CONTINUE taking these medications which have NOT CHANGED ACETAMINOPHEN-CODEINE (TYLENOL-CODEINE #3) 300-30 MG TABLET Take 1 tablet by mouth every 4 (four) hours as needed for Pain (scale 7-10). Indications: acute pain ATOMOXETINE 40 MG CAPSULE Take 40 mg by mouth daily. BROMPHENIRAMINE-PSEUDOEPHEDRI NE-DM (BROMFED DM) 2-30-10 MG/5 ML SYRUP Take 5 mL by mouth 4 (four) times daily as needed for Congestion/Allergies or Cough. BUDESONIDE-FORMOTEROL 80-4.5 MCG/ACTUATION INHALER Inhale 2 Puffs 2 (two) times daily. CYCLOBENZAPRINE 5 MG TABLET Take 1 tablet by mouth in the morning and 1 tablet at noon and 1 tablet in the evening. DICYCLOMINE 20 MG TABLET Take 1 tablet by mouth 4 (four) times daily. HYOSCYAMINE SULFATE 0.125 MG TBDL TAKE 1-2 TABLETS BY MOUTH EVERY 4 TO 6 HOURS NEEDED LIALDA 1.2 GRAM EC TABLET METOCLOPRAMIDE HCL 10 MG TABLET Take 1 tablet by mouth every 6 (six) hours as needed for Nausea and Vomiting (N/V). METOCLOPRAMIDE HCL 10 MG TABLET Take 1 tablet by mouth every 6 (six) hours. ONDANSETRON (ZOFRAN ODT) 4 MG DISINTEGRATING TABLET Take 1 tablet by mouth every 8 (eight) hours as needed for Nausea and Vomiting (N/V). PREDNISONE 20 MG TABLET Take 2 tablets by mouth in the morning. SERTRALINE 100 MG TABLET Take 100 mg by mouth every morning. SUCRALFATE 1 GRAM TABLET TRAZODONE 50 MG TABLET TAKE 1 TABLET BY MOUTH NIGHTLY START taking Modified Medications as Prescribed No medications on file STOP taking these medications No medications on file Follow-up: PCP, GI Electronically signed by: Araseli Shelton MD 03/04/23 1308 [facility]
[2023-10-24] MEDS ORDERED: METHYLPREDNISOLONE 125 MG INJ ONE (19:55)
[2023-10-24] MEDS ORDERED: NA CHLORIDE 0.9% 1,000 ML ONE (19:56)
[2023-10-24] MEDS ORDERED: KETOROLAC 30 MG/ML INJ ONE (19:56)
[2023-10-24] MEDS ORDERED: droPERidol 5 MG/2 ML VIAL ONE (19:56)
[2023-10-24 20:34] LABS: Absolute Lymphocytes (CBC) 1.8 K/uL (0.7-4.9); Absolute Monocytes 0.6 K/uL (0.1-1.3); Absolute Neutrophil 7.1 K/uL (1.8-8.0); Basophils % 0.2 % (0-1.3); Hematocrit 33.3 % (36.0-45.0); Hemoglobin 11.5 g/dL (12.0-15.0); Lymphocytes % 18.7 % (15.3-44.8); MCHC 34.7 g/dL (32.0-36.0); MCV 106.8 fL (80-100); MPV 5.9 fL (7.6-11.3); Monocytes % 6.8 % (3.3-12.3); Neutrophils % 74.3 % (41.7-73.7); Platelets 434 thou/uL (152-406); RBC Red Blood Cell Count 3.12 M/uL (3.86-4.86); Red Cell Distribution Width 13.5 % (12.1-15.2)
[2023-10-24 21:00] LABS: Albumin/Globulin Ratio 1.1 (1.1-1.8); Anion Gap 11.5 mEq/L (5.0-15.0); Bilirubin Total 0.5 mg/dL (0.2-1.0); Globulin 3.5 g/dL (2.3-3.5); Potassium 3.5 mEq/L (3.5-5.1); Protein, Total 7.5 g/dL (6.4-8.2)
--- NOTE | 2023-10-24 21:03 | EDPHYS ---
Physician Documentation [facility] Name: Ashley Alcala Age: 33 yrs Sex: Female : 1990 Arrival Date: 10/24/2023 Time: 19:26 Bed 7 Private MD: ED Physician Frank Mtaos HPI: 10/23 19:56 This 33 yrs old Female presents to ER via EMS with complaints of Abdominal dr5 Pain. 19:56 The patient presents with abdominal pain that is diffuse. Onset: The symptoms/episode dr5 began/occurred 3 day(s) ago. Associated signs and symptoms: Pertinent positives: nausea and vomiting. The patient has experienced similar episodes in the past, chronically. Patient is a 33 year old female coming in with diffuse abdominal pain after eating spicy foods three days ago. Pt states this feels exactly like her previous Crohns episodes.. 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 - Infectious Disease History:: Denies. - Social history:: Smoking status: Patient denies any tobacco usage or history of. ROS: 19:58 Constitutional: as per hpi Cardiovascular: Negative for chest pain, palpitations, and dr5 edema, Respiratory: Negative for shortness of breath, cough, wheezing, and pleuritic chest pain, Abdomen/GI: Generalized diffuse abdominal pain. Exam: 19:59 Constitutional: This is a well developed, well nourished patient who is awake, alert, dr5 and in no acute distress. Head/Face: Normocephalic, atraumatic. Cardiovascular: Regular rate and rhythm with a normal S1 and S2. Normal PMI, no JVD. No pulse deficits. Respiratory: Lungs have equal breath sounds bilaterally, clear to auscultation. No rales, rhonchi or wheezes noted. No increased work of breathing, no retractions or nasal flaring. Abdomen/GI: Mild diffuse tenderness to palpation, lower abdomen worse than upper. Neuro: Awake and alert, GCS 15, oriented to person, place, time, and situation. Cranial nerves II-XII grossly intact. Vital Signs: 19:28 BP 136 / 87; Pulse 54; Resp 18; Temp 98.9; Pulse Ox 99% ; Weight 58.97 kg; Height 5 ft. dd2 2 in. ; Pain 8/10; 19:39 BP 136 / 87; Pulse 52; Resp 15; Pulse Ox 100% ; dd2 21:05 BP 126 / 69; Pulse 53; Resp 16; Pulse Ox 99% on R/A; cm10 19:28 Body Mass Index 23.78 (58.97 kg, 157.48 cm) dd2 19:28 Pain Scale: Adult dd2 Mei Coma Score: 19:39 Eye Response: spontaneous(4). Motor Response: obeys commands(6). Verbal Response: dd2 oriented(5). Total: 15. MDM: 19:36 Patient medically screened. dr5 20:00 Differential diagnosis: diverticulitis, Irritable bowel syndrome, pancreatitis, Crohns. dr5 Data reviewed: vital signs, nurses notes. Data reviewed: lab test result(s). Consideration of Admission/Observation Escalation of care including admission/observation considered. Consider admission for PO intolerance. 21:03 Counseling: I had a detailed discussion with the patient and/or guardian regarding the dr5 historical points, exam findings, and any diagnostic results supporting the discharge/admit diagnosis, lab results, to return to the emergency department if symptoms worsen or persist or if there are any questions or concerns that arise at home. Medication response: Toradol relieved patient's pain. The symptoms have resolved, Dropiderol / SoluMedrol / NS. Response to treatment: the patient's symptoms have resolved after treatment. ED course: Reassessed patient. Patient is feeling much better and her symptoms have resolved. Will send patient home with Protonix and Reglan and have patient follow up with PCP for further management.. 10/23 19:48 Order name: CBC with Diff; Complete Time: 20:46 dr5 10/23 19:48 Order name: CMP; Complete Time: 21:02 dr5 10/23 20:52 Interpretation: Abnormal. dr5 10/23 19:48 Order name: Lipase; Complete Time: 21:02 dr5 10/23 19:48 Order name: IV Saline Lock; Complete Time: 19:49 dr5 10/23 19:48 Order name: Labs collected and sent; Complete Time: 19:49 dr5 10/23 20:13 Order name: Misc. Order: RECOLLECT LAVENDER AND GREEN ; Complete Time: 20:23 rv1 Administered Medications: 20:04 Drug: Droperidol IVP 2.5 mg IVP once Route: IVP; Site: right antecubital; dd2 20:19 Follow up: Response: No adverse reaction dd2 20:04 Drug: Ketorolac IVP 15 mg IVP once Route: IVP; Site: right antecubital; dd2 20:19 Follow up: Response: No adverse reaction dd2 20:04 Drug: MethylPrednisoLONE IVP 125 mg IVP once Route: IVP; Site: right antecubital; dd2 20:19 Follow up: Response: No adverse reaction dd2 20:04 Drug: NS 0.9% IV 1000 ml IV at 1000 ml once Route: IV; Rate: 1000 ml; Site: right dd2 antecubital; 20:19 Follow up: Response: No adverse reaction dd2 21:06 Follow up: Response: No adverse reaction; IV Status: Completed infusion; IV Intake: dd2 1000ml Disposition Summary: 10/24/23 21:03 Discharge Ordered Notes: Location: Home dr5 Condition: Stable dr5 Diagnosis - Crohn's disease, unspecified, without complications dr5 Followup: dr5 - With: Emergency Department - When: As needed - Reason: Worsening of condition Followup: dr5 - With: Private Physician - When: 2 - 3 days - Reason: Recheck today's complaints, Continuance of care Discharge Instructions: - Discharge Summary Sheet dr5 Forms: - Medication Reconciliation Form dr5 - Antibiotic Education dr5 - Patient Portal Instructions dr5 - Leadership Thank You Letter dr5 Prescriptions: - Protonix 40 mg Oral tablet, delayed release (enteric coated) - take 1 tablet ORAL route once daily for 1 month; 30 tablet; Refills: 0, Product dr5 Selection Permitted - Reglan 10 mg Oral tablet - take 1 tablet ORAL route every 6 hours As needed take 30 minutes before meals dr5 and at bedtime; 30 tablet; Refills: 0, Product Selection Permitted Signatures: Dispatcher [employer] Keturah Mendoza rv1 ANYI RICHARDSON RN RN dd2 Jarek Noriega, KELVIN-Montse BRICKLAYER TENDER-[facility]5
--- NOTE | 2023-10-24 21:03 | ER ---
Nurse's Notes [facility] Name: Ashley Alcala Age: 33 yrs Sex: Female : 1990 Arrival Date: 10/24/2023 Time: 19:26 Bed 7 Private MD: Diagnosis: Crohn's disease, unspecified, without complications Presentation: 10/23 19:28 Chief complaint: EMS states: PT REPORTS N/V FOR THREE DAYS. HAS HX OF CROHNS. SHE dd2 STATED THAT SHE ATE SOME SPICES THAT SHE SHOULDN'T HAVE AND THEN IT STARTED. Coronavirus screen: At this time, the client does not indicate any symptoms associated with coronavirus-19. Ebola Screen: Patient negative for fever greater than or equal to 101.5 degrees Fahrenheit, and additional compatible Ebola Virus Disease symptoms Patient denies exposure to infectious person. Patient denies travel to an Ebola-affected area in the 21 days before illness onset. No symptoms or risks identified at this time. Initial Sepsis Screen: Does the patient meet any 2 criteria? No. Patient's initial sepsis screen is negative. Does the patient have a suspected source of infection? No. Patient's initial sepsis screen is negative. Risk Assessment: Do you want to hurt yourself or someone else? Patient reports no desire to harm self or others. Onset of symptoms was October 21, 2023. Care prior to arrival: Medication(s) given: Normal saline infusion, 1000 mL, zofran 4 mg. 19:28 Method Of Arrival: EMS: [facility] dd2 19:28 Acuity: ESTEVAN 3 dd2 19:31 Care prior to arrival: IV initiated. in the right wrist. dd2 Triage Assessment: 19:31 General: Appears distressed, uncomfortable, Behavior is calm, cooperative, appropriate dd2 for age. Pain: Complains of pain in abdomen Pain currently is 8 out of 10 on a pain scale. Quality of pain is described as burning, aching, crampy. EENT: No deficits noted. No signs and/or symptoms were reported regarding the EENT system. Neuro: Level of Consciousness is awake, alert, obeys commands, Oriented to person, place, time, situation, Appropriate for age. Cardiovascular: Denies chest pain, Heart tones S1 S2 present Capillary refill < 3 seconds Patient's skin is warm and dry. Respiratory: Airway is patent Respiratory effort is even, unlabored, Respiratory pattern is regular, symmetrical, Breath sounds are clear bilaterally. GI: Abdomen is flat, non-distended, Bowel sounds hyperactive in right upper quadrant, left upper quadrant, right lower quadrant and left lower quadrant Abd is soft Abdomen is tender to palpation in right upper quadrant, left upper quadrant, right lower quadrant and left lower quadrant Reports lower abdominal pain, upper abdominal pain, nausea, Pain is 8 out of 10 on a pain scale. vomiting. : No signs and/or symptoms were reported regarding the genitourinary system. Derm: No signs and/or symptoms reported regarding the dermatologic system. Musculoskeletal: No signs and/or symptoms reported regarding the musculoskeletal system. 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 - Infectious Disease History:: Denies. - Social history:: Smoking status: Patient denies any tobacco usage or history of. Screenin:39 [facility] ED Fall Risk Assessment (Adult) History of falling in the last 3 months, dd2 including since admission No falls in past 3 months (0 pts) Confusion or Disorientation No (0 pts) Intoxicated or Sedated No (0 pts) Impaired Gait No (0 pts) Mobility Assist Device Used No (0 pt) Altered Elimination No (0 pt) Score/Fall Risk Level 0 - 2 = Low Risk Oriented to surroundings, Maintained a safe environment, Educated pt \T\ family on fall prevention, incl call for assistance when getting out of bed, Hourly rounding (assess needs \T\ fall precautionary measures) done. Abuse screen: Denies threats or abuse. Nutritional screening: No deficits noted. Tuberculosis screening: No symptoms or risk factors identified. Assessment: 19:39 General: Appears ill, Behavior is calm, cooperative, appropriate for age. Pain: dd2 Complains of pain in umbilical area and right lower quadrant Pain currently is 7 out of 10 on a pain scale. Aggravated by vomiting. Neuro: No deficits noted. Level of Consciousness is awake, alert, obeys commands, Oriented to person, place, time. Cardiovascular: Patient's skin is warm and dry. Rhythm is sinus bradycardia. Respiratory: Airway is patent Respiratory effort is even, unlabored, Respiratory pattern is regular, symmetrical. GI: Abdomen is non-distended, Pt is actively vomiting bile, Bowel sounds present X 4 quads. Abdomen is tender to palpation in umbilical area and right lower quadrant Reports lower abdominal pain, epigastric pain, intolerance of fluids, nausea, vomiting. : No signs and/or symptoms were reported regarding the genitourinary system. EENT: No deficits noted. No signs and/or symptoms were reported regarding the EENT system. Derm: No deficits noted. No signs and/or symptoms reported regarding the dermatologic system. Musculoskeletal: No signs and/or symptoms reported regarding the musculoskeletal system. Range of motion: intact in all extremities. Vital Signs: 19:28 BP 136 / 87; Pulse 54; Resp 18; Temp 98.9; Pulse Ox 99% ; Weight 58.97 kg; Height 5 ft. dd2 2 in. ; Pain 8/10; 19:39 BP 136 / 87; Pulse 52; Resp 15; Pulse Ox 100% ; dd2 21:05 BP 126 / 69; Pulse 53; Resp 16; Pulse Ox 99% on R/A; cm10 19:28 Body Mass Index 23.78 (58.97 kg, 157.48 cm) dd2 19:28 Pain Scale: Adult dd2 Mei Coma Score: 19:39 Eye Response: spontaneous(4). Motor Response: obeys commands(6). Verbal Response: dd2 oriented(5). Total: 15. ED Course: 19:28 Patient arrived in ED. dd2 19:29 Jarek Noriega FNP-Montse [facility]. dr5 19:29 Frank Matos MD is Attending Physician. dr5 19:31 Triage completed. dd2 19:31 Arm band placed on right wrist. dd2 19:38 ANYI RICHARDSON, LEN is Primary Nurse. dd2 19:39 Client placed on continuous cardiac and pulse oximetry monitoring. NIBP monitoring dd2 applied. Door closed. Lights dimmed. Warm blanket given. Pillow given. Verbal reassurance given. 19:39 Inserted saline lock: 20 gauge in right antecubital area, using aseptic technique. dd2 Blood collected. Flushed with 10 mL NS Maintain EMS IV. Dressing intact. Good blood return noted. Site clean \T\ dry. Gauge \T\ site: 22g Rt hand. Flushed with 10 mL NS. 19:58 CBC with Diff Sent. dd2 19:58 CMP Sent. dd2 19:58 Lipase Sent. dd2 21:15 No provider procedures requiring assistance completed. IV discontinued, intact, cm10 bleeding controlled, No redness/swelling at site. Pressure dressing applied. 21:16 Patient has correct armband on for positive identification. Provided Education on: cm10 Follow-up instructions. Administered Medications: 20:04 Drug: Droperidol IVP 2.5 mg IVP once Route: IVP; Site: right antecubital; dd2 20:19 Follow up: Response: No adverse reaction dd2 20:04 Drug: Ketorolac IVP 15 mg IVP once Route: IVP; Site: right antecubital; dd2 20:19 Follow up: Response: No adverse reaction dd2 20:04 Drug: MethylPrednisoLONE IVP 125 mg IVP once Route: IVP; Site: right antecubital; dd2 20:19 Follow up: Response: No adverse reaction dd2 20:04 Drug: NS 0.9% IV 1000 ml IV at 1000 ml once Route: IV; Rate: 1000 ml; Site: right dd2 antecubital; 20:19 Follow up: Response: No adverse reaction dd2 21:06 Follow up: Response: No adverse reaction; IV Status: Completed infusion; IV Intake: dd2 1000ml Medication: 19:39 VIS not applicable for this client. dd2 Intake: 21:06 IV: 1000ml; Total: 1000ml. dd2 Outcome: 21:03 Discharge ordered by . mary 21:15 Discharged to home ambulatory, with significant other, cm10 21:15 Condition: good 21:15 Discharge instructions given to patient, Instructed on discharge instructions, follow up and referral plans. medication usage, Demonstrated understanding of instructions, follow-up care, medications, Prescriptions given X 2, 21:16 Patient left the ED. cm10 Signatures: Pebbles Moore RN RN cm10 ANYI RICHARDSON RN RN dd2 Jarek Noriega, FLY MAKER-C FLY MAKER-Cdr5
[2023-10-24 21:26] VITALS: O2SAT 99
[2023-10-24 21:33] VITALS: TEMP 98.7
[2023-10-24 21:34] VITALS: BP 134/95
== END 2023-10-24 21:16 | disposition home or self-care (01) ==
LOC: ER 19:26
DX: K50.90 Crohn's disease, unspecified, without complications (principal)
CPT/HCPCS: 96361; 85025; 36415; 83690; 80053; 96375; 96374; 99284; J2919; J1790; J7030

== ENCOUNTER 2024-04-13 02:03 | Emergency (ER) | payer OTHER ==
--- OUTSIDE RECORDS SUMMARY | 2024-04-13 02:08 | XMS REPORT | Continuity of Care Document ---
Author Name Unknown Address [address] [facility] [address] [place] [address] [facility] Address [address] [facility] [address] [place] [address] Care Team Providers Care President And Chief Commercial Officer Name Role Phone MEHRAN MATSON Primary Care Physician Unavailab BRISEYDA Sheikh Attending Clinician Unavailable BRISEYDA NUNEZ Attending Clinician Unavailable Araseli Shelton MD Attending Clinician [phone] DIPIKA CRUZ Attending Clinician Unavailable Dipika Busch Attending Clinician [phone] MITALI RAUSCH Attending Clinician Unavailable Mitali Rausch MD Attending Clinician [phone] ARASELI SHELTON Attending Clinician Unavailabl e Doctor Unassigned, [place] Attending Clinician U SRAVAN Robledo Attending Clinician Unavailable Estrada Sotelo MD Attending Clinician [phone] Sravan Mishra MD Attending Clinician [phone] MAGEN ROUSE Attending Clinician Unavailable Magen Rouse MD Attending Clinician [phone] SHIRLEY LOVE Attending Clinician UnavailShirley Zhang Attending Clinician [phone] Angi Sanford MD Attending Clinician [phone] JAVI ZULETA Attending Clinician Unavailable APOLONIA PINEDA Attending Clinician UnavailJOSSY Brown Attending Clinician Unavailable Rajmed_Ivette Attending Clinician Unavailable DIPIKA CRUZ Admitting Clinician Unavailable ARASELI SHELTON Admitting Clinician UnavailESTRADA Wiggins Admitting Clinician Unavailable Estrada Sotelo MD Admitting Clinician [phone] MAGEN ROUSE Admitting Clinician Unavailable JOSSY KWAN Admitting Clinician Unavailable Rajemd_Ivette Admitting Clinician Unavailable Payers Payer Name Policy Type Policy Number Effective Date Expirati on Date Source [employer] MEDICAID [id number] 2019 00:00:00 [place] [id number] 2019 00:00:00 Problems Condition Name Condition Details [...] [id number] y questions please contact:Corina Guadalupe MD [phone] Arnold MD [phone] Owen MD [phone] facts Patient randomize d after delivery if they met inclusion criteria a nd accepted [facility] on comes from [facility] not pharmacy, [facility] Phone Number Ext. [phone] or cell [phone] Patient can start meds as soon as they tolerate PO One tab per day of either placebo or HCTZ Medicati on stays with patient Medicati on will appear on APR, Nurses need to rene as given (No barcode) Medicati on needs to counted prior to discharge by research team assembler All follow ups need to be on [...] [facility] 8 weeks gestation of 8 weeks gestation of Disease Resolve d 06-21 00:00: 00 2017-01-22 00:00:00 2017-01-22 07:47:58 [facility] Allergies, Adverse Reactions, Alerts Allergy Name Allergy Type Status Severity Reaction(s) Onset Date Inactive Date Treating Clinician Comments Source NO KNOWN ALLERGIE S Drug Class Active [facility] Social History Social Habit Start Date Stop Date Quantity Comments Source History of tobacco use Cigarette Smoker [facility] of Social function 2023-08-15 00:00:00 2023-08-15 00:00:00 [facility] Alcoholic beverage intake 2023-08-15 00:00:00 2023-08-15 00:00:00 0 /d [facility] Alcohol intake 2023-05-11 00:00:00 2023-05-11 00:00:00 0 /d [facility] Exposure to SARS-CoV-2 (event) 2021-11-09 00:00:00 2021-11-19 11:34:00 Not sure [facility] Cigarettes smoked current (pack per day) - Reported 2016-06-07 00:00:00 2016-06-07 00:00:00 [facility] Cigarette pack-years 2016-06-07 00:00:00 2016-06-07 00:00:00 [facility] Tobacco use and exposure 2016-06-07 00:00:00 2016-06-07 00:00:00 Smokeless tobacco non-user [facility] Sex assigned at 1990 00:00:00 1990 00:00:00 [facility] Smoking Status Start Date Stop Date Source Smokes tobacco daily 2016-06-07 00:00:00 [facility] Medications Ordered Medication Name Filled Medication Name Start Date Stop Date Current Medication? Ordering Clinician Indication Dosage Frequency Signature (SIG) Comments Components Source famotidine (PEPCID (PF)) injection 20 mg 08-15 09:15: 00 08-15 08:11 :00 No 20mg 20 mg, Slow IV Push, ONCE NOW, 1 dose, On Mon08/16/23 at 0415, ANA M [facility] acetaminoph en (OFIRMEV) IV piggyback 1,000 mg 08-15 09:00: 00 08-15 08:25 :00 No 1000mg 1,000 mg, IV Piggyback, at 400 mL/hr Administer over 15 Minutes, ONCE, 1 dose, On Mon08/16/23 at 0400, Routine, Is the patient strict NPO and unable to tolerate oral medication s? Yes [facility] hyoscyamine sulfate (LEVSIN/SL) sublingual tablet 0.25 mg 08-15 06:45: 00 08-15 05:56 :00 No .25mg 0.25 mg, Sublingual , ONCE NOW, 1 dose, On Mon08/16/23 at 0145, Routine [facility] ketorolac (TORADOL) injection 30 mg 08-15 06:30: 00 08-15 05:58 :00 No 30mg 30 mg, Slow IV Push, ONCE NOW, 1 dose, On Mon08/16/23 at 0130, [facility] NaCl 0.9% (NS) bolus infusion 1,000 mL 08-15 05:00: 00 08-15 07:59 :00 No 1000mL at 999 mL/hr, 1,000 mL, IV Infusion, ONCE, 1 dose, On Mon08/16/23 at 0000, [facility] famotidine (PEPCID (PF)) injection 20 mg 08-15 04:15: 00 08-15 05:14 :00 No 20mg 20 mg, Slow IV Push, ONCE, 1 dose, On Mon08/15/23 at 2315, [facility] ondansetron (ZOFRAN (PF)) injection 8 mg 08-15 04:15: 00 08-15 05:15 :00 No 8mg 8 mg, Slow IV Push, ONCE, 1 dose, On Mon08/15/23 at 2315, Routine [facility] tetracaine (PONTOCAINE ) 0.5 % ophthalmic drops [...] % ophthalmic drops 04-10 00:00: 00 Yes [id number] 1[drp] Place 1 Drop in left eye in the morning and 1 Drop at noon and 1 Drop in the evening. [facility] predniSONE 20 mg tablet 03-05 00:00: 00 03-13 05:59 :00 No [id number] 40mg Take 2 tablets by mouth in the morning for 7 days. [facility] predniSONE (DELTASONE) tablet 40 mg 03-04 19:00: 00 03-04 19:25 :00 No 40mg 40 mg, Oral, ONCE, 1 dose, On 03/04/23 at 1300, [facility] FENTanyl PF (SUBLIMAZE (PF)) injection 50 mcg 03-04 18:15: 00 03-04 17:22 :00 No 50ug 50 mcg, Slow IV Push, ONCE, 1 dose, On 03/04/23 at 1215, [facility] iopamidol (ISOVUE 370-500 mL) injection 90 mL 03-04 17:30: 00 03-04 17:45 :00 No [id number] 90mL 90 mL, Intravenou s, ONCE, 1 dose, On 03/04/23 at 1145, Routine [facility] NaCl 0.9% (NS) bolus infusion 1,000 mL 03-04 17:30: 00 03-04 19:29 :00 No 1000mL at 999 mL/hr, 1,000 mL, IV Infusion, ONCE, 1 dose, On 03/04/23 at 1130, [facility] famotidine (PEPCID (PF)) injection 20 mg 03-04 17:00: 00 03-04 17:12 :00 No 20mg 20 mg, Slow IV Push, ONCE, 1 dose, On 03/04/23 at 1100, [facility] ondansetron (ZOFRAN (PF)) injection 8 mg 03-04 17:00: 00 03-04 17:12 :00 No 8mg 8 mg, Slow IV Push, ONCE, 1 dose, On 03/04/23 at 1100, ANA M [facility] traMADoL 50 mg tablet 03-04 00:00: 00 Yes [id number] 50mg Take 1 tablet by mouth every 6 (six) hours as needed (pain). Indication s: acute pain [facility] ondansetron 4 mg tablet 03-04 00:00: 00 Yes [id number] 1 or 2 tablets every 8 hours [...] 5 mg tablet 2021-02 00:00: 00 Yes [id number] 5mg Take 1 tablet by mouth in the morning and 1 tablet at noon and 1 tablet in the evening. [facility] predniSONE 20 mg tablet 2021-02 0 00:00: 00 Yes [id number] 40mg Take 2 tablets by mouth in [...] Center budesonide- formoteroL 80-4.5 mcg/actuati on inhaler 09-29 00:00: 00 Yes [id number] 2{puff} Inhale 2 Puffs 2 (two) times daily. [facility] bromphenira mine-pseudo ephedrine-D M (BROMFED DM) 2-30-10 mg/5 mL syrup 09-29 00:00: 00 Yes [id number] 5mL Take 5 mL by mouth 4 [facility] metoclopram rena HCl 10 mg tablet 2-16 00:00: 00 Yes [id number] 10mg Take 1 tablet by mouth every [...] 20 mg tablet 03-07 00:00: 00 Yes [id number] 20mg Take 1 tablet by mouth 4 (four) times daily. [facility] ondansetron (ZOFRAN ODT) 4 mg disintegrat ing tablet 03-07 00:00: 00 Yes [id number] 4mg Take 1 tablet by mouth every 8 (eight) hours as needed for Nausea and Vomiting (N/V). [facility] Immunizations Ordered Immunization Name Filled Immunization Name Date Status Comments Source Td 2021-11-19 00:00:00 Completed [facility] Td 2021-11-19 00:00:00 Completed [facility] Td 2021-11-19 00:00:00 Completed [facility] TDAP 2016-11-15 00:00:00 Completed [facility] Influenza Virus Vaccine Quad IM 3+ 2016-11-15 00:00:00 Completed [facility] TDAP 2016-11-15 00:00:00 Completed [facility] Influenza Virus Vaccine Quad IM 3+ 2016-11-15 00:00:00 Completed [facility] TDAP 2016-11-15 00:00:00 Completed [facility] Influenza Virus Vaccine Quad IM 3+ 2016-11-15 00:00:00 Completed [facility] TDAP 2016-11-15 00:00:00 Completed [facility] Influenza Virus Vaccine Quad IM 3+ 2016-11-15 00:00:00 Completed [facility] TDAP 2016-11-15 00:00:00 Completed [facility] Influenza Virus Vaccine Quad IM 3+ YRS 2016-11-15 00:00:00 Completed [facility] TDAP 2016-11-15 00:00:00 Completed [facility] Influenza Virus Vaccine Quad IM 3+ YRS 2016-11-15 00:00:00 Completed [facility] TDAP 2016-11-15 00:00:00 Completed [facility] Influenza Virus Vaccine Quad IM 3+ YRS 2016-11-15 00:00:00 Completed [facility] TDAP 2016-11-15 00:00:00 Completed [facility] Influenza Virus Vaccine Quad IM 3+ YRS 2016-11-15 00:00:00 Completed [facility] TDAP 2016-11-15 00:00:00 Completed [facility] Influenza Virus Vaccine Quad IM 3+ YRS 2016-11-15 00:00:00 Completed [facility] TDAP Unknown Completed [facility] Influenza Virus Vaccine Quad IM 3+ YRS Unknown Completed [facility] TD, NOS Unknown Completed [facility] TDAP Unknown Completed [facility] Influenza Virus Vaccine Quad IM 3+ YRS Unknown Completed [facility] TD, NOS Unknown Completed [facility] TDAP Unknown Completed [facility] Influenza Virus Vaccine Quad IM 3+ YRS Unknown Completed [facility] TD, NOS Unknown Completed [facility] TDAP Unknown Completed [facility] Influenza Virus Vaccine Quad IM 3+ YRS Unknown Completed [facility] TD, NOS Unknown Completed [facility] Vital Signs Vital Name Observation Time Observation Value Comments S ource Systolic blood pressure 2023-08-16 08:16:43 139 mm[Hg] [facility] Diastolic blood pressure 2023-08-16 08:16:43 85 mm[Hg] [facility] Heart rate 2023-08-16 08:16:43 43 /min [facility] Respiratory rate 2023-08-16 08:16:43 16 /min [facility] Oxygen saturation in Arterial blood by Pulse oximetry 2023-08-16 08:16:43 98 /min [facility] Body temperature 2023-08-16 04:01:00 37.39 Kori [facility] Body height 2023-08-16 04:01:00 157.5 cm [facility] Body weight 2023-08-16 04:01:00 58.968 kg [facility] BMI 2023-08-16 04:01:00 23.78 kg/m2 [facility] Systolic blood pressure 2023-05-11 20:34:00 132 mm[Hg] [facility] Diastolic blood pressure 2023-05-11 20:34:00 76 mm[Hg] [facility] Heart rate 2023-05-11 20:34:00 65 /min [facility] Body temperature 2023-05-11 20:34:00 37.11 Kori [facility] Respiratory rate 2023-05-11 20:34:00 18 /min [facility] Body height 2023-05-11 20:34:00 157.5 cm [facility] Body weight 2023-05-11 20:34:00 58.968 kg [facility] BMI 2023-05-11 20:34:00 23.78 kg/m2 [facility] Oxygen saturation in Arterial blood by Pulse oximetry 2023-05-11 20:34:00 95 /min [facility] Systolic blood pressure 2023-04-11 18:26:00 118 mm[Hg] [facility] Diastolic blood pressure 2023-04-11 18:26:00 82 mm[Hg] [facility] Heart rate 2023-04-11 18:26:00 82 /min [facility] Body temperature 2023-04-11 18:26:00 37.22 Kori [facility] Respiratory rate 2023-04-11 18:26:00 20 /min [facility] Body height 2023-04-11 18:26:00 157.5 cm [facility] Body weight 2023-04-11 18:26:00 58.968 kg [facility] BMI 2023-04-11 18:26:00 23.78 kg/m2 [facility] Oxygen saturation in Arterial blood by Pulse oximetry 2023-04-11 18:26:00 100 /min [facility] Systolic blood pressure 2023-03-04 18:30:00 101 mm[Hg] [facility] Diastolic blood pressure 2023-03-04 18:30:00 75 mm[Hg] [facility] Heart rate 2023-03-04 18:30:00 60 /min [facility] Respiratory rate 2023-03-04 18:30:00 16 /min [facility] Oxygen saturation in Arterial blood by Pulse oximetry 2023-03-04 18:30:00 98 /min [facility] Body temperature 2023-03-04 16:39:00 37.22 Kori [facility] Body height 2023-03-04 16:39:00 157.5 cm [facility] Body weight 2023-03-04 16:39:00 59.013 kg [facility] BMI 2023-03-04 16:39:00 23.80 kg/m2 [facility] Systolic blood pressure 2021-11-19 23:00:00 115 mm[Hg] [facility] Diastolic blood pressure 2021-11-19 23:00:00 75 mm[Hg] [facility] Heart rate 2021-11-19 23:00:00 56 /min [facility] Respiratory rate 2021-11-19 23:00:00 16 /min [facility] Oxygen saturation in Arterial blood by Pulse oximetry 2021-11-19 23:00:00 100 /min [facility] Body temperature 2021-11-19 16:35:00 37 Kori [facility] Body weight 2021-11-19 16:35:00 56.7 kg [facility] BMI 2021-11-19 16:35:00 22.86 kg/m2 [facility] Systolic blood pressure 2021-11-19 14:41:14 130 mm[Hg] [facility] Diastolic blood pressure 2021-11-19 14:41:14 87 mm[Hg] [facility] Heart rate 2021-11-19 14:41:14 85 /min [facility] Body temperature 2021-11-19 14:41:14 36.67 Kori [facility] Respiratory rate 2021-11-19 14:41:14 18 /min [facility] Oxygen saturation in Arterial blood by Pulse oximetry 2021-11-19 14:41:14 99 /min [facility] Body height 2021-11-19 12:31:00 157.5 cm [facility] Body weight 2021-11-19 12:31:00 56.7 kg [facility] BMI 2021-11-19 12:31:00 22.86 kg/m2 [facility] Systolic blood pressure 2021-11-10 17:03:00 126 mm[Hg] [facility] Diastolic blood pressure 2021-11-10 17:03:00 86 mm[Hg] [facility] Heart rate 2021-11-10 17:03:00 85 /min [facility] Body temperature 2021-11-10 17:03:00 37.06 Kori [facility] Respiratory rate 2021-11-10 17:03:00 20 /min [facility] Body height 2021-11-10 17:03:00 157.5 cm [facility] Body weight 2021-11-10 17:03:00 55.792 kg [facility] BMI 2021-11-10 17:03:00 22.50 kg/m2 [facility] Oxygen saturation in Arterial blood by Pulse oximetry 2021-11-10 17:03:00 99 /min [facility] Systolic blood pressure 2020-09-29 22:26:00 139 mm[Hg] [facility] Diastolic blood pressure 2020-09-29 22:26:00 89 mm[Hg] [facility] Heart rate 2020-09-29 22:26:00 76 [facility] Body temperature 2020-09-29 22:26:00 36.89 Kori [facility] Respiratory rate 2020-09-29 22:26:00 16 /min [facility] Body height 2020-09-29 22:26:00 154.9 cm [facility] Body weight 2020-09-29 22:26:00 53.025 kg [facility] BMI 2020-09-29 22:26:00 22.09 kg/m2 [facility] Oxygen saturation in Arterial blood by Pulse oximetry 2020-09-29 22:26:00 100 /min [facility] Procedures Procedure Date / Time Performed Performing Clinician Source POCT TEST 2023-08-16 05:13:00 Araseli Shelton [facility] URINALYSIS 2023-08-16 04:54:00 Araseli Shelton [facility] LIPASE 2023-08-16 04:46:00 Araseli Shelton [facility] COMP. METABOLIC PANEL ([id number]) 2023-08-16 04:46:00 Araseli Shelton [facility] CBC WITH DIFF 2023-08-16 04:46:00 [facility] VW LEFT 2023-05-11 21:02:29 Dipika Cruz [facility] XR WRIST 3+ VW LEFT 2023-05-11 21:02:29 Dayo Cruz [facility] CONSENT/REFUSAL FOR DIAGNOSIS AND TREATMENT 2023-04-11 18:18:03 Doctor Unassigned, [place] [facility] LIPASE 2023-03-04 17:08:00 Araseli Shelton [facility] COMP. METABOLIC PANEL ([id number]) 2023-03-04 17:08:00 Araseli Shelton [facility] CBC WITH DIFF 2023-03-04 17:08:00 Araseli Shelton [facility] URINALYSIS 2023-03-04 17:08:00 Araseli Shelton [facility] POCT TEST 2023-03-04 17:08:00 Araseli Shelton [facility] CONSENT/REFUSAL FOR DIAGNOSIS AND TREATMENT 2023-03-04 16:36:23 Doctor Unassigned, [place] [facility] AUTHORIZATION FOR RELEASE OF PHI 2021-12-02 05:01:00 Doctor Unassigned, [place] [facility] MR CERVICAL SPINE WO CONTRAST 2021-11-19 20:56:00 Michael Stock [facility] COVID-19 (ID NOW RAPID TESTING) 2021-11-19 14:10:00 Magen Rouse [facility] CT CERVICAL SPINE WO CONTRAST 2021-11-19 12:49:50 Magen Rouse [facility] CT HEAD WO CONTRAST 2021-11-19 12:49:50 Lily Rouse [facility] CONSENT/REFUSAL FOR DIAGNOSIS AND TREATMENT 2021-11-19 12:35:14 Doctor Unassigned, [place] [facility] XR HAND 3+ VW LEFT 2021-11-10 17:32:17 Nasim Magen [facility] XR WRIST 3+ VW LEFT 2021-11-10 17:31:56 Lily Rouse [facility] NOTICE OF PRIVACY PRACTICES 2021-11-10 16:59:19 Doctor Unassigned, [place] [facility] CONSENT/REFUSAL FOR DIAGNOSIS AND TREATMENT 2021-11-10 16:58:04 Doctor Unassigned, [place] [facility] ASSIGNMENT OF BENEFITS 2020-09-29 22:10:07 Docto r Unassigned, [place] [facility] Encounters Start Date/Time End Date/Time Encounter Type Admission Type Attending [facility] Care Department Encounter ID Source 2020-12-05 23:41:25 Emergency [facility] [id number] [facility] 2020-12-05 20:46:01 Emergency [facility] [id number] [facility] 2020-12-05 20:45:07 Emergency [facility] [id number] [facility] 2020-12-03 22:03:22 Emergency [facility] [id number] [facility] 2023-08-15 22:53:00 2023-08-16 04:30:00 Emergency BRISEYDA HEDRICK ANDRES [facility] ERT [id number] [facility] 2023-08-15 22:53:00 2023-08-16 04:30:00 Emergency Araseli Shelton Andres [facility] [id number] [facility] 2023-05-11 15:37:00 2023-05-11 17:24:00 Emergency DIPIKA CARTY [facility] ERT [id number] [facility] 2023-05-11 15:37:00 2023-05-11 17:24:00 Emergency Dipika Cruz [facility] [id number] [id number] [id number] [facility] 2023-04-11 12:30:00 2023-04-11 13:22:00 Emergency X SHALOM MITALI [facility] ERT [id number] [facility] 2023-04-11 12:30:00 2023-04-11 13:22:00 Emergency Mitali Rausch [facility] [id number] [id number] [id number] [facility] 2023-03-04 10:44:00 2023-03-04 13:29:00 Emergency X ARASELI SHELTON [facility] ERT [id number] [facility] 2023-03-04 10:44:00 2023-03-04 13:29:00 Emergency Guera Gaastra [facility] [id number] [id number] [id number] [id number] [facility] 2021-12-02 00:00:00 2021-12-02 00:00:00 Orders Only Doctor Unassigned, [place] [facility] [id number] [id number] [id number] [id number] [facility] 2021-11-19 11:43:00 2021-11-19 18:54:00 Emergency X SRAVAN MISHRA [facility] ERT [id number] [facility] 2021-11-19 11:43:00 2021-11-19 18:54:00 Emergency Estrada Sotelo [facility] [id number] [id number] 4.2.7.2.686 [id number] [facility] 2021-11-19 07:30:00 2021-11-19 10:47:00 Emergency X MAGEN ROUSE [facility] ERT [id number] [facility] 2021-11-19 07:30:00 2021-11-19 10:47:00 Emergency Magen Rouse [facility] [id number] [id number] 4.2.7.2.686 [id number] [facility] 2021-11-10 12:05:00 2021-11-10 13:29:00 Emergency X MAGEN ROUSE [facility] ERT [id number] [facility] 2021-11-10 12:05:00 2021-11-10 13:29:00 Emergency Magen Rouse [facility] 1.84.114 [id number] 4.2.7.2.686 [id number] [facility] 2021-11-10 00:00:00 2021-11-10 00:00:00 Orders Only Doctor Unassigned, [place] [facility] 1.84.114 350.1.13.10 4.2.7.2.686 [id number] [facility] 2020-09-29 17:40:00 2020-09-29 17:40:00 Outpatient R CHLOÉ LOVETANY [facility] [id number] [facility] 2020-09-29 17:11:16 2020-09-29 17:31:16 [facility] 1.840.114 [id number] 4.2.7.2.686 [id number] [facility] 2020-09-29 00:00:00 2020-09-29 00:00:00 [facility] [id number] [id number] 4.2.7.2.686 [id number] [facility] 2020-09-29 00:00:00 2020-09-29 00:00:00 Orders Only Doctor Unassigned, [place] [facility] [id number] 350.1.13.10 4.2.7.2.686 [id number] [facility] 2020-09-29 00:00:00 2020-09-29 00:00:00 Letter (Out) Juvenal [facility] Alfredo?[facility] [id number] [facility] 2020-01-16 13:00:00 2020-01-16 13:00:00 Outpatient JAVI LOZOYA [facility] [id number] [facility] 2019-08-15 10:45:00 2019-08-15 10:45:00 Outpatient APOLONIA LEAHY [facility] [id number] [facility] 2019-08-15 10:45:00 2019-08-15 10:45:00 Outpatient APOLONIA LEAHY [facility] [id number] [facility] 2019-06-17 10:46:52 2019-06-17 13:28:00 Emergency X JOSSY KWAN [facility] ERT [id number] [facility] 2019-04-30 03:42:00 2019-04-30 03:42:00 Outpatient Raju_P [facility] MMG [id number] [facility] 2019-04-11 09:40:39 2019-04-11 16:24:00 Emergency X JOSSY KWAN [facility] ERT [id number] [facility] Results Test Description Test Time Test Comments Results Result Co mments Source [facility] VW [id number] 21:05:34HISTORY: Left hand pain over first MCP joint. S/P fall. FINDINGS: AP, lateral, oblique views of left hand are obtained and comparedwith 11/10/2021 study. No acute fracture or dislocation. No significantchanges of arthritis or aggressive bone lesions seen. No soft tissuecalcifications, bony erosions or juxta-articular osteoporosis detected. CONCLUSIONS: Normal study.[facility] WRIST 3+ VW [id number] 21:04:44HISTORY: Radial side left wrist pain. FINDINGS: AP, lateral, oblique views of left wrist are obtained andcompared with 11/10/2021 study. No acute fracture or dislocation. Nosignificant changes of arthritis or aggressive bone lesions seen. No bonyerosions or soft tissue calcifications detected. CONCLUSIONS: Normal study. [facility]. METABOLIC PANEL (86515)2023-03-04 17:33:25* Test Item Value Reference Range Interpretation Comme nts NA (test code = 3493507662) 139 mmol/L 135-145 K (test code = 0621502945) 4.1 mmol/L 3.5-5.0 CL (test code = 0373655489) 109 mmol/L 98-108 H CO2 TOTAL (test code = 2492527912) 22 mmol/L 23-31 L AGAP (test code = 3131262705) 8 2-16 BUN (test code = 4995796845) 13 mg/dL 7-23 GLUCOSE (test code = 9211410851) 104 mg/dL 70-110 CREATININE (test code = 0749310321) 0.79 mg/dL 0.50-1.04 TOTAL BILI (test code = 5587065378) 0.6 mg/dL 0.1-1.1 CALCIUM (test code = 5769092390) 9.6 mg/dL 8.6-10.6 T PROTEIN (test code = 6217330615) 8.7 g/dL 6.3-8.2 H ALBUMIN (test code = 0190843357) 5.1 g/dL 3.5-5.0 H ALK PHOS (test code = 6232925392) 40 U/L 34-122 ALTv (test code = 1742-6) 17 U/L 5-35 AST(SGOT) (test code = 7700217884) 23 U/L 13-40 eGFR (test code = 60312-2) 102.1 mL/min/1.73m2 CKD-EPI eGFR (2020). Assuming creatinine has been stable day-to-day for at least three months, the eGFR indicates Category G1 (>= 90 mL/min/1.73 m2) Lab Interpretation (test code = 96351-9) Abnormal [facility] 17:33:00* Test Item Value Reference Range Interpretation Comme nts LIPASE (test code = 4165608002) 92 U/L 0-220 Lab Interpretation (test cod e = 82112-3) Normal [facility] WITH [id number] 17:22:38* Test Item Value Reference Range Interpretation [...] 34.7 g/dL 31.6-35.1 RDW-SD (test code = 82225-7) 46.9 fL 39.0-49.9 RDW-CV (test code = 788-0) 12.5 % 12.0-15.5 PLT (test code = 777-3) 438 See_Comment H [Automated messa ge] The system which generated this result transmitted reference range: 166 - 358 10*3/?L. The reference range was not used to interpret this result as normal/abnormal. MPV (test code = 21642-0) 7.8 fL 9.5-12.9 L NRBC/100 WBC (test code = 8702955382) 0.0 See_Comment [Automated me ssage] The system which generated this result transmitted reference range: 0.0 - 10.0 /100 WBCs. The reference range was not used to interpret this result as normal/abnormal. NRBC x10^3 (test code = 3616068447) See_Comment [Automated messa ge] The system which generated this result transmitted reference range: 10*3/?L. The reference range was not used to interpret this result as normal/abnormal. GRAN MAT (NEUT) % (test code = 770-8) 56.9 % IMM GRAN % (test code = 2115757111) 0.40 % LYMPH % (test code = 736-9) 32.5 % MONO % (test code = 5905-5) 8.1 % EOS % (test code = 713-8) 1.5 % BASO % (test code = 706-2) 0.6 % GRAN MAT x10^3(ANC) (test code = 1675802815) 5.39 10*3/uL 1.88-7.09 IMM GRAN x10^3 (test code = 7872554345) 0.04 10*3/uL 0.00-0.06 LYMPH x10^3 (test code = 731-0) 3.08 10*3/uL 1.32-3.29 MONO x10^3 (test code = 742-7) 0.77 10*3/uL 0.33-0.92 EOS x10^3 (test code = 711-2) 0.14 10*3/uL 0.03-0.39 BASO x10^3 (test code = 704-7) 0.06 10*3/uL 0.01-0.07 Lab Interpretation (test code = 87051-0) Abnormal [facility] [id number] 17:08:00* Test Item Value Reference Range Interpretation Comme nts POCT PREG (test code = 1605) Negative On board controls acceptable with C Line (test code = 3574) Yes POCT PREG LOT # (test code = 3575) [id number] POCT PREG TEST DATE ( test code = 3576) 05/14/2024 Lab Interpretation (test cod e = 87373-2) Normal [facility] Notes Date/Time Note Provider Source 2023-08-16 04:28:47 Pt upset she is not receiving pain meds to help her abd pain. Pt eloped from ER with iv in place. Pt was followed by staff to vehicle and IV was removed. aware. Health 2023-08-16 04:26:15 Patient walking towards ER exit doors. RN took out PIV in parking lot. Health 2023-08-16 03:25:54 Pt no longer noted actively vomiting, but still c/o sharp LLQ pain. Health 2023-08-15 23:23:03 Pt actively vomiting at this time. Health 2023-08-15 22:57:23 Patient arrived via [facility] c/o abd pain that started four days ago. Patient has hx of chron's dx. Patient c/o N/V but no diarrhea. EMS gave 12.5 Phenergan IM. Patient recently discharged from [facility] with prescriptions for steroids and Zofran. Last medication taken was around 1600. T Adriano Olmstead RN [facility] 2023-05-11 15:35:33 Pt c/o left hand pain. States that she fell backwards onto her left hand after seeing a dennis spider at work. 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 Ghazala Lloyd RN [facility] 2023-04-11 13:15:00 Pt given printed and verbal [...] with steady gait, in no apparent distress. IC ADMINISTRATOR Liseth Steven RN [facility] 2023-04-11 12:25:40 Patient state that yesterday at work she removed her eye protection and wiped her eyes and has been having pain and irritation since. States that she used the eye wash at work and flushed her eye. This morning eye feels irritated and was matted. No problems with vision. IC ADMINISTRATOR Sheron Jaffe RN [facility] 2023-04-11 12:15:00 Images from the original note were not included. [facility] Emergency Department Note Patient Name: Hilaria Alcala Date of : 1990 32 year old female Treatment Room: [facility] ED [facility] A[facility] Primary Care Physician: Mehran Matson Patient Escorted [...] 08/09/2011 EPIDURAL STEROID INJECTION ORAL SURGERY PROCEDURE [place] teeth extraction TUBAL LIGATION 01/21/2017 TUBAL LIGATION Bilateral 01/21/2017 Surgeon: Ruby Pop MD; Location: Labor and Delivery [facility] [place] Review of Systems: Review of Systems Constitutional: [...] signed by: Mitali Rausch MD 04/11/23 1305 [facility] 2023-03-04 13:28:49 Patient discharged with abdominal pain. Follow up with pcp. Feeling better at this time. ENCE Anna RN [facility] 2023-03-04 10:37:45 Patient states: "I have chrones diease and I"m going through a flare up since Monday. I usually go to [facility] and they pump me up with morphine. I feel very dehydrated and I need fluids. I did take tramadol at 7 am. 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 METABOLIC PANEL (21192) - Abnormal NA 139 135 - 145 [...] CONTRAST CBC WITH DIFF COMP. METABOLIC PANEL (16989) LIPASE URINALYSIS POCT TEST Orders Placed This [...] signed by: Araseli Shelton MD 03/04/23 1308 [facility]
[2024-04-13] MEDS ORDERED: METHYLPREDNISOLONE 125 MG INJ ONE (02:33)
[2024-04-13] MEDS ORDERED: ONDANSETRON 4 MG/2 ML VIAL ONE (02:34)
[2024-04-13] MEDS ORDERED: MORPHINE 4 MG/ML SYR ONE ×2 (02:34→03:46)
[2024-04-13] MEDS ORDERED: NA CHLORIDE 0.9% 1,000 ML ONE (02:34)
[2024-04-13 02:56] LABS: Absolute Lymphocytes (CBC) 2.3 K/uL (0.7-4.9); Absolute Monocytes 0.6 K/uL (0.1-1.3); Basophils % 0.3 % (0-1.3); Eosinophils % 0.4 % (0-4.4); Hematocrit 39.1 % (36.0-45.0); Hemoglobin 13.7 g/dL (12.0-15.0); Lymphocytes % 25.5 % (15.3-44.8); MCH 34.5 pg (27.0-35.0); MCV 98.6 fL (80-100); MPV 6.1 fL (7.6-11.3); Monocytes % 6.7 % (3.3-12.3); Neutrophils % 67.1 % (41.7-73.7); Platelets 537 thou/uL (152-406); RBC Red Blood Cell Count 3.97 M/uL (3.86-4.86); Red Cell Distribution Width 13.7 % (12.1-15.2)
[2024-04-13] MEDS ORDERED: droPERidol 5 MG/2 ML VIAL ONE (03:01)
[2024-04-13 03:21] LABS: Albumin 4.3 g/dL (3.4-5.0); Albumin/Globulin Ratio 1.2 (1.1-1.8); Anion Gap 11.7 mEq/L (5.0-15.0); Bilirubin Total 0.5 mg/dL (0.2-1.0); Globulin 3.7 g/dL (2.3-3.5); Potassium 2.7 mEq/L (3.5-5.1)
[2024-04-13 04:15] LABS: Specific Gravity > 1.030 (1.005-1.030)
[2024-04-13 04:21] LABS: Specific Gravity > 1.030 (1.005-1.030); Urine Bacteria 20-50 /HPF (<20); Urine Bilirubin NEGATIVE (Negative); Urine Blood 1+ (Negative); Urine Clarity Extremely Turbid (Clear); Urine Color Yellow (Yellow); Urine Culture Reflex Order NOT NEEDED; Urine Glucose NEGATIVE (Negative); Urine Ketones 1+ (Negative); Urine Microscopic Reflex YN ORDER UMIC; Urine Mucus 1+ /HPF (None Seen); Urine Nitrite NEGATIVE (Negative); Urine Protein 1+ (Negative); Urine Urobilinogen Normal (Normal); Urine Yeast (Budding) Trace /HPF (None Seen)
--- NOTE | 2024-04-13 04:48 | ER ---
Nurse's Notes [facility] Name: Ashley Alcala Age: 33 yrs Sex: Female : 1990 Arrival Date: 04/13/2024 Time: 02:03 Bed 13 Private MD: Diagnosis: Crohn's disease, unspecified, without complications;Dehydration Presentation: 04/13 02:20 Chief complaint: Patient states: AB PAIN (UMBILICAL AREA), NAUSEA/VOMITING FOR 1 WEEK. br2 Coronavirus screen: Client denies travel out of the [place] in the last 14 days. Ebola Screen: Patient denies exposure to infectious person. Initial Sepsis Screen: Does the patient meet any 2 criteria? No. Patient's initial sepsis screen is negative. Does the patient have a suspected source of infection? No. Patient's initial sepsis screen is negative. Risk Assessment: Do you want to hurt yourself or someone else? Patient reports no desire to harm self or others. Onset of symptoms was April 06, 2024. 02:20 Method Of Arrival: Wheelchair br2 02:20 Acuity: ESTEVAN 3 br2 Triage Assessment: 02:22 General: Appears uncomfortable, slender, Behavior is calm, cooperative. Pain: Complains br2 of pain in right upper quadrant, left upper quadrant, right lower quadrant and left lower quadrant Pain radiates to lumbar area, left low back and right low back Pain currently is 10 out of 10 on a pain scale. GI: Reports lower abdominal pain, upper abdominal pain, nausea, vomiting, since 1 WEEK. 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 - Infectious Disease History:: Denies. - Social history:: Smoking status: Patient reports the use of cigarette tobacco products, smokes one-half pack cigarettes per day, Patient uses street drugs, marijuana, Patient/guardian denies using alcohol. - Family history:: not pertinent. - Hospitalizations: : No recent hospitalization is reported. Screenin:[address] [facility] ED Fall Risk Assessment (Adult) History of falling in the last 3 months, rg5 including since admission No falls in past 3 months (0 pts) Confusion or Disorientation No (0 pts) Intoxicated or Sedated No (0 pts) Impaired Gait No (0 pts) Mobility Assist Device Used No (0 pt) Altered Elimination No (0 pt) Score/Fall Risk Level 0 - 2 = Low Risk Oriented to surroundings, Maintained a safe environment, Hourly rounding (assess needs \T\ fall precautionary measures) done. Abuse screen: Denies threats or abuse. Nutritional screening: No deficits noted. Tuberculosis screening: No symptoms or risk factors identified. Assessment: 02:30 General: Appears uncomfortable, Behavior is calm, cooperative, appropriate for age. rg5 Pain: Complains of pain in abdomen Pain currently is 10 out of 10 on a pain scale. Quality of pain is described as aching. Neuro: Level of Consciousness is awake, alert, obeys commands, Oriented to person, place, time, situation. Cardiovascular: Patient's skin is warm and dry. Respiratory: Airway is patent Trachea midline Respiratory effort is even, unlabored, Respiratory pattern is regular, symmetrical. 02:30 GI: Abdomen is round non-distended, Reports lower abdominal pain, upper abdominal pain, rg5 nausea, vomiting. : No signs and/or symptoms were reported regarding the genitourinary system. EENT: No deficits noted. Derm: Skin is intact, Skin is dry, Skin is normal, Skin temperature is warm. Musculoskeletal: Circulation, motion, and sensation intact. Range of motion: intact in all extremities. 03:29 Reassessment: No changes from previously documented assessment. Patient and/or family rg5 updated on plan of care and expected duration. Pain level reassessed. Patient is alert, oriented x 3, equal unlabored respirations, skin warm/dry/pink. 04:01 Reassessment: No changes from previously documented assessment. Patient and/or family rg5 updated on plan of care and expected duration. Pain level reassessed. Patient is alert, oriented x 3, equal unlabored respirations, skin warm/dry/pink. Vital Signs: 02:20 BP 157 / 101; Pulse 62; Resp 18; Temp 97.6; Pulse Ox 100% on R/A; Weight 54.43 kg; br2 Height 5 ft. 2 in. ; Pain 10/10; 02:30 BP 155 / 105; Pulse 60; Resp 17; Pulse Ox 99% on R/A; Pain 10/10; rg5 03:27 BP 147 / 94; Pulse 56; Resp 17; Pulse Ox 100% ; rg5 04:00 BP 150 / 96; Pulse 64; Resp 17; Pulse Ox 99% on R/A; Pain 8/10; rg5 02:20 Body Mass Index 21.95 (54.43 kg, 157.48 cm) br2 02:20 Pain Scale: Adult br2 02:30 Pain Scale: Adult rg5 04:00 Pain Scale: Adult rg5 ED Course: 02:07 Patient arrived in ED. gm2 02:10 Dell Tse MD is Attending Physician. rn 02:19 Michael Small RN is Primary Nurse. rg5 02:22 Triage completed. br2 02:22 Arm band placed on. br2 02:30 Patient has correct armband on for positive identification. Bed in low position. Call rg5 light in reach. Side rails up X 1. Door closed. Noise minimized. Warm blanket given. 02:30 No provider procedures requiring assistance completed. Inserted saline lock: 20 gauge rg5 in right antecubital area, using aseptic technique. Blood collected. Flushed with 10 mL NS. 04:50 IV discontinued, bleeding controlled, No redness/swelling at site. Pressure dressing rg5 applied. 04:51 Provided Education on: post er care. rg5 Administered Medications: 02:30 Drug: Ondansetron IVP 4 mg IVP once; over 2 minutes Route: IVP; Site: right antecubital;rg5 03:03 Follow up: Response: No adverse reaction rg5 02:30 Drug: MethylPrednisoLONE IVP 125 mg IVP once Route: IVP; Site: right antecubital; rg5 03:03 Follow up: Response: No adverse reaction rg5 02:30 Drug: morphine IVP or IV 4 mg IVP once over 4 mins Route: IVP; Infused Over: 4 mins; rg5 Site: right antecubital; 03:03 Follow up: Response: No adverse reaction; Pain is decreased rg5 02:30 Drug: NS 0.9% IV 1000 ml IV at 1000 ml once; to be given as a bolus over 60 minutes rg5 Route: IV; Rate: 1000 ml; Site: right antecubital; 03:30 Follow up: IV Status: Completed infusion; IV Intake: 1000ml rg5 03:03 Drug: Droperidol IVP 1.25 mg IVP once Route: IVP; Site: right antecubital; rg5 03:25 Follow up: Response: No adverse reaction rg5 03:48 Drug: morphine IVP or IV 4 mg IVP once over 4 mins Route: IVP; Infused Over: 4 mins; rg5 Site: right antecubital; 04:01 Follow up: Response: No adverse reaction; Pain is decreased rg5 Medication: 02:30 VIS not applicable for this client. rg5 Intake: 03:30 IV: 1000ml; Total: 1000ml. rg5 Outcome: 04:48 Discharge ordered by . rn 04:57 Discharged to home ambulatory, 5 04:57 Condition: stable 04:57 Discharge instructions given to patient, family, Instructed on discharge instructions, follow up and referral plans. Demonstrated understanding of instructions, follow-up care, 04:57 Patient left the ED. rg5 Signatures: Dell Tse MD MD rn Mitchell, Ginger 2 Michael Small RN RN rg5 Kaylee Jaeger RN RN br2
--- NOTE | 2024-04-13 04:48 | EDPHYS ---
Physician Documentation [facility] Name: Ashley Alcala Age: 33 yrs Sex: Female : 1990 Arrival Date: 04/13/2024 Time: 02:03 Bed 13 Private MD: ED Physician Dell Tse HPI: 04/13 02:51 This 33 yrs old Female presents to ER via Wheelchair with complaints of rn Nausea/Vomiting, Abdominal Pain, General Weakness, Low Back Pain. 02:51 The patient presents to the emergency department with nausea, vomiting, diarrhea, rn abdominal pain. 02:51 Onset: The symptoms/episode began/occurred 1 week(s) ago. Possible causes: unknown. The rn symptoms are aggravated by nothing. The symptoms are alleviated by nothing. Severity of symptoms: At their worst the symptoms were moderate in the emergency department the symptoms are unchanged. The patient has experienced similar episodes in the past. Patient reports history of Crohn's disease, has been having vomiting/diarrhea and abdominal pain for 1 week. Has medication including antibiotics prescribed at home and not able to keep them down. Sees Dr. Alarcon for GI.. 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 - Infectious Disease History:: Denies. - Social history:: Smoking status: Patient reports the use of cigarette tobacco products, smokes one-half pack cigarettes per day, Patient uses street drugs, marijuana, Patient/guardian denies using alcohol. - Family history:: not pertinent. - Hospitalizations: : No recent hospitalization is reported. ROS: 02:51 Constitutional: Negative for fever, chills, and weight loss, Cardiovascular: Negative rn for chest pain, palpitations, and edema, Respiratory: Negative for shortness of breath, cough, wheezing, and pleuritic chest pain, Abdomen/GI: Positive for abdominal pain with vomiting and diarrhea MS/Extremity: Negative for injury and deformity, Skin: Negative for injury, rash, and discoloration, Neuro: Negative for headache, numbness, tingling, and seizure, Exam: 02:52 Constitutional: This is a well developed, well nourished patient who is awake, alert, rn and in no acute distress. ENT: Dry mucous membranes Cardiovascular: Regular rate and rhythm. No pulse deficits. Respiratory: No increased work of breathing, no retractions or nasal flaring. Abdomen/GI: Soft, mild mid abdominal tenderness. No rebound or peritoneal signs Vital Signs: 02:20 BP 157 / 101; Pulse 62; Resp 18; Temp 97.6; Pulse Ox 100% on R/A; Weight 54.43 kg; br2 Height 5 ft. 2 in. ; Pain 10/10; 02:30 BP 155 / 105; Pulse 60; Resp 17; Pulse Ox 99% on R/A; Pain 10/10; rg5 03:27 BP 147 / 94; Pulse 56; Resp 17; Pulse Ox 100% ; rg5 04:00 BP 150 / 96; Pulse 64; Resp 17; Pulse Ox 99% on R/A; Pain 8/10; rg5 02:20 Body Mass Index 21.95 (54.43 kg, 157.48 cm) br2 02:20 Pain Scale: Adult br2 02:30 Pain Scale: Adult rg5 04:00 Pain Scale: Adult rg5 MDM: 02:10 Medical Screening Exam initiated rn 04:46 Differential diagnosis: Nonspecific abd pain, viral gastroenteritis, gastroenteritis, rn Crohn's flareup. Data reviewed: vital signs, nurses notes, lab test result(s), radiologic studies, CT scan, and as a result, I will discharge patient. Counseling: I had a detailed discussion with the patient and/or guardian regarding the historical points, exam findings, and any diagnostic results supporting the discharge/admit diagnosis, lab results, radiology results, the need for outpatient follow up, to return to the emergency department if symptoms worsen or persist or if there are any questions or concerns that arise at home. Response to treatment: the patient's symptoms have markedly improved after treatment, and as a result, I will discharge patient. Special discussion: Based on the patient's Hx, exam, and Dx evaluation, there is no indication for emergent surgery or inpatient Tx. It is understood by the patient/guardian that if the Sx's persist or worsen they need to return immediately for re-evaluation. I discussed with the patient/guardian in detail that at this point there is no indication for admission to the hospital. It is understood, however, that if the symptoms persist or worsen the patient needs to return immediately for re-evaluation. Based on the history and exam findings, there is no indication for further emergent testing or inpatient evaluation. I discussed with the patient/guardian the need to see the land title examiner for further evaluation of the symptoms. ED course: Patient markedly improved, normal WBC, patient is dehydrated but feels much better after medication and fluids. No indication for emergent imaging at this time as patient insists that this is identical to previous Crohn's flareups and trying to save her radiation. Patient states just had 2 CAT scans at [place] recently. Patient already on antibiotics/Zofran/pain medication. Will discharge home with return precautions and told to follow-up with her GI doctor.. 04/13 02:11 Order name: CBC with Diff; Complete Time: 03:44 rn 04/13 02:11 Order name: CMP; Complete Time: 03:44 rn 04/13 02:11 Order name: Lipase; Complete Time: 03:44 rn 04/13 02:11 Order name: Test, Urine; Complete Time: 04:36 rn 04/13 02:11 Order name: Urinalysis w/ reflexes; Complete Time: 04:22 rn 04/13 02:11 Order name: IV Saline Lock; Complete Time: :44 rn 04/13 02:11 Order name: Labs collected and sent; Complete Time: 02:44 rn Administered Medications: 02:30 Drug: Ondansetron IVP 4 mg IVP once; over 2 minutes Route: IVP; Site: right antecubital;rg5 03:03 Follow up: Response: No adverse reaction rg5 02:30 Drug: MethylPrednisoLONE IVP 125 mg IVP once Route: IVP; Site: right antecubital; rg5 03:03 Follow up: Response: No adverse reaction rg5 02:30 Drug: morphine IVP or IV 4 mg IVP once over 4 mins Route: IVP; Infused Over: 4 mins; rg5 Site: right antecubital; 03:03 Follow up: Response: No adverse reaction; Pain is decreased rg5 02:30 Drug: NS 0.9% IV 1000 ml IV at 1000 ml once; to be given as a bolus over 60 minutes rg5 Route: IV; Rate: 1000 ml; Site: right antecubital; 03:30 Follow up: IV Status: Completed infusion; IV Intake: 1000ml rg5 03:03 Drug: Droperidol IVP 1.25 mg IVP once Route: IVP; Site: right antecubital; rg5 03:25 Follow up: Response: No adverse reaction rg5 03:48 Drug: morphine IVP or IV 4 mg IVP once over 4 mins Route: IVP; Infused Over: 4 mins; rg5 Site: right antecubital; 04:01 Follow up: Response: No adverse reaction; Pain is decreased rg5 Disposition Summary: 04/13/24 04:48 Discharge Ordered Notes: Location: Home rn Problem: an acute exacerbation rn Symptoms: have improved rn Condition: Stable rn Diagnosis - Crohn's disease, unspecified, without complications rn - Dehydration rn Followup: rn - With: Private Physician - When: As needed - Reason: Recheck today's complaints, Re-evaluation by your physician Discharge Instructions: - Discharge Summary Sheet rn - Crohn's Disease rn - Dehydration, Adult rn Forms: - Medication Reconciliation Form rn - Antibiotic manager of learning - Prescription Opioid Use rn - Patient Portal Instructions rn - Leadership Thank You Letter rn Signatures: Dispatcher [employer] Dell Ghotra MD MD rn Gallardo, Rommel RN RN rg5 Kaylee Jaeger RN RN br2
[2024-04-13 05:13] VITALS: TEMP 97.6
[2024-04-13 05:27] VITALS: BP 150/96; O2SAT 99
== END 2024-04-13 04:57 | disposition home or self-care (01) ==
LOC: ER 02:03
DX: E86.0 Dehydration (principal); K50.90 Crohn's disease, unspecified, without complications; F17.210 Nicotine dependence, cigarettes, uncomplicated
CPT/HCPCS: 96361; 85025; 81001; 36415; 81025; 83690; 80053; 96375; 96374; 99284; J2919; J2405; J1790; J7030

== ENCOUNTER 2024-06-07 16:40 | Emergency (ER) | payer OTHER ==
--- OUTSIDE RECORDS SUMMARY | 2024-06-07 16:53 | XMS REPORT | Continuity of Care Document ---
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 Name Role Phone MEHRAN MATSON Primary Care Physician Unavailab BRISEYDA Sheikh Attending Clinician Unavailable BRISEYDA NUNEZ Attending Clinician Unavailable Araseli Shelton MD Attending Clinician [phone] DIPIKA CRUZ Attending Clinician Unavailable Dipika Busch Attending Clinician [phone] MITALI RAUSCH Attending Clinician Unavailable Mitali Rausch MD Attending Clinician [phone] ARASELI SHELTON Attending Clinician Unavailabl e Doctor Unassigned, [place] Attending Clinician U SRAVAN Robledo Attending Clinician Unavailable Estrada Sotelo MD Attending Clinician [phone] Sravan Mishra MD Attending Clinician [phone] MAGEN ROUSE Attending Clinician Unavailable Magen Rouse MD Attending Clinician [phone] SHIRLEY LOVE Attending Clinician UnavailShirley Zhang Attending Clinician [phone] Angi Sanford MD Attending Clinician [phone] JAVI ZULETA Attending Clinician Unavailable APOLONIA PINEDA Attending Clinician UnavailJOSSY Brown Attending Clinician Unavailable Rajmed_Ivette Attending Clinician Unavailable DIPIKA CRUZ Admitting Clinician Unavailable ARASELI SHELTON Admitting Clinician UnavailESTRADA Wiggins Admitting Clinician Unavailable Estrada Sotelo MD Admitting Clinician [phone] MAGEN ROUSE Admitting Clinician Unavailable JOSSY KWAN Admitting Clinician Unavailable Rajmed_Ivette Admitting Clinician Unavailable Payers Payer Name Policy Type Policy Number Effective Date Expirati on Date Source [employer] MEDICAID [id number] 2019 00:00:00 [place] [id number] 2019 00:00:00 Problems Condition Name Condition Details Condition Category Status Onset Date Resolution Date Last Treatment Date Treating Clinician Comments Source care and examinatio n of lactating mother care and examinatio n of lactating mother Disease Active 02-13 00:00: 00 [facility] , delivered , delivered Disease Active 2016-02 00:00: 00 [facility] Anemia, Anemia, Disease Active 2016-02 00:00: 00 [facility] - induced hypertensi on in third trimester - induced hypertensi on in third trimester Disease Active 2016-02 00:00: 00 [facility] Tubal ligation status Tubal ligation status Disease Active 2016-02 00:00: 00 [facility] Full-term jovita ROM, unsp time betw rupture and onset labor Full-term jovita ROM, unsp time betw rupture and onset labor Disease Active 2016-02 00:00: 00 [facility] 38 weeks gestation of 38 weeks gestation of Disease Active 2016-02 00:00: 00 [facility] Research study patient HCTZ Research study patient HCTZ Disease Active 2016-02 00:00: 00 Overview: Formattin g of this note is different from the original. Patient is in the HCTZ study IRB # [id number] y questions please contact:Corina Guadalupe MD [phone] Arnold MD [phone] wOen MD [phone] facts Patient randomize d after delivery if they met inclusion criteria a nd accepted Medicati on comes from [facility] not pharmacy, [facility] Phone Number Ext. 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 Guadalupe with any Questions [facility] Previous delivery desires TOLAC Previous delivery desires TOLAC Disease Active 2016-02 00:00: 00 [facility] Supervisio n of high-risk with insufficie nt care Supervisio n of high-risk with insufficie nt care Disease Active 2016-02 00:00: 00 [facility] 8 weeks gestation of 8 weeks gestation of Disease Resolve d 06-21 00:00: 00 2017-01-22 00:00:00 2017-01-22 07:47:58 [facility] Allergies, Adverse Reactions, Alerts Allergy Name Allergy Type Status Severity Reaction(s) Onset Date Inactive Date Treating Clinician Comments Source NO KNOWN ALLERGIE S Drug Class Active [facility] Social History Social Habit Start Date Stop Date Quantity Comments Source History of tobacco use Cigarette Smoker [facility] of Social function 2023-08-15 00:00:00 2023-08-15 00:00:00 [facility] Alcoholic beverage intake 2023-08-15 00:00:00 2023-08-15 00:00:00 0 /d [facility] Alcohol intake 2023-05-11 00:00:00 2023-05-11 00:00:00 0 /d [facility] Exposure to SARS-CoV-2 (event) 2021-11-09 00:00:00 2021-11-19 11:34:00 Not sure [facility] Cigarettes smoked current (pack per day) - Reported 2016-06-07 00:00:00 2016-06-07 00:00:00 [facility] Cigarette pack-years 2016-06-07 00:00:00 2016-06-07 00:00:00 [facility] Tobacco use and exposure 2016-06-07 00:00:00 2016-06-07 00:00:00 Smokeless tobacco non-user [facility] Sex assigned at 1990 00:00:00 1990 00:00:00 [facility] Smoking Status Start Date Stop Date Source Smokes tobacco daily 2016-06-07 00:00:00 [facility] Medications Ordered Medication Name Filled Medication Name Start Date Stop Date Current Medication? Ordering Clinician Indication Dosage Frequency Signature (SIG) Comments Components Source famotidine (PEPCID (PF)) injection 20 mg 08-15 09:15: 00 08-15 08:11 :00 No 20mg 20 mg, Slow IV Push, ONCE NOW, 1 dose, On Mon08/16/23 at 0415, ANA M [facility] acetaminoph en (OFIRMEV) IV piggyback 1,000 mg 08-15 09:00: 00 08-15 08:25 :00 No 1000mg 1,000 mg, IV Piggyback, at 400 mL/hr Administer over 15 Minutes, ONCE, 1 dose, On Mon08/16/23 at 0400, Routine, Is the patient strict NPO and unable to tolerate oral medication s? Yes [facility] hyoscyamine sulfate (LEVSIN/SL) sublingual tablet 0.25 mg 08-15 06:45: 00 08-15 05:56 :00 No .25mg 0.25 mg, Sublingual , ONCE NOW, 1 dose, On Mon08/16/23 at 0145, Routine [facility] ketorolac (TORADOL) injection 30 mg 08-15 06:30: 00 08-15 05:58 :00 No 30mg 30 mg, Slow IV Push, ONCE NOW, 1 dose, On Mon08/16/23 at 0130, [facility] NaCl 0.9% (NS) bolus infusion 1,000 mL 08-15 05:00: 00 08-15 07:59 :00 No 1000mL at 999 mL/hr, 1,000 mL, IV Infusion, ONCE, 1 dose, On Mon08/16/23 at 0000, [facility] famotidine (PEPCID (PF)) injection 20 mg 08-15 04:15: 00 08-15 05:14 :00 No 20mg 20 mg, Slow IV Push, ONCE, 1 dose, On Mon08/15/23 at 2315, [facility] ondansetron (ZOFRAN (PF)) injection 8 mg 08-15 04:15: 00 08-15 05:15 :00 No 8mg 8 mg, Slow IV Push, ONCE, 1 dose, On Mon08/15/23 at 2315, Routine [facility] tetracaine (PONTOCAINE ) 0.5 % ophthalmic drops 1 Drop 04-10 20:15: 00 04-10 18:50 :00 No 1[drp] 1 Drop, Both Eyes, ONCE, 1 dose, On Mon04/11/23 at 1415, Routine [facility] fluorescein ophthalmic strip 1 Strip 04-10 19:30: 00 04-10 18:50 :00 No 1{strip } 1 Strip, Both Eyes, ONCE, 1 dose, On Mon04/11/23 at 1330, Routine [facility] moxifloxaci n (VIGAMOX) 0.5 % ophthalmic drops 1 Drop 04-10 18:45: 00 Yes 1[drp] 1 Drop, Left Eye, TID, First dose on Mon04/11/23 at 1245, Until Discontinu ed, Routine [facility] moxifloxaci n 0.5 % ophthalmic drops 04-10 00:00: 00 Yes [id number] 1[drp] Place 1 Drop in left eye in the morning and 1 Drop at noon and 1 Drop in the evening. [facility] predniSONE 20 mg tablet 03-05 00:00: 00 03-13 05:59 :00 No [id number] 40mg Take 2 tablets by mouth in the morning for 7 days. [facility] predniSONE (DELTASONE) tablet 40 mg 03-04 19:00: 00 03-04 19:25 :00 No 40mg 40 mg, Oral, ONCE, 1 dose, On 03/04/23 at 1300, [facility] FENTanyl PF (SUBLIMAZE (PF)) injection 50 mcg 03-04 18:15: 00 03-04 17:22 :00 No 50ug 50 mcg, Slow IV Push, ONCE, 1 dose, On 03/04/23 at 1215, [facility] iopamidol (ISOVUE 370-500 mL) injection 90 mL 03-04 17:30: 00 03-04 17:45 :00 No [id number] 90mL 90 mL, Intravenou s, ONCE, 1 dose, On 03/04/23 at 1145, Routine [facility] NaCl 0.9% (NS) bolus infusion 1,000 mL 03-04 17:30: 00 03-04 19:29 :00 No 1000mL at 999 mL/hr, 1,000 mL, IV Infusion, ONCE, 1 dose, On 03/04/23 at 1130, [facility] famotidine (PEPCID (PF)) injection 20 mg 03-04 17:00: 00 03-04 17:12 :00 No 20mg 20 mg, Slow IV Push, ONCE, 1 dose, On 03/04/23 at 1100, [facility] ondansetron (ZOFRAN (PF)) injection 8 mg 03-04 17:00: 00 03-04 17:12 :00 No 8mg 8 mg, Slow IV Push, ONCE, 1 dose, On 03/04/23 at 1100, ANA M [facility] traMADoL 50 mg tablet 03-04 00:00: 00 Yes [id number] 50mg Take 1 tablet by mouth every 6 (six) hours as needed (pain). Indication s: acute pain [facility] ondansetron 4 mg tablet 03-04 00:00: 00 Yes [id number] 1 or 2 tablets every 8 hours as needed for nausea [facility] HYDROcodone -acetaminop hen (NORCO 5) 5-325 mg tablet 1 tablet 2021-02 18:36: 44 Yes 1{tbl} 1 tablet, Oral, Q6HPRN, Starting on Mon11/19/21 at 1336, Until Discontinu ed, Routine, Pain (scale 4-6) [facility] acetaminoph en (TYLENOL) tablet 650 mg 2021-02 18:36: 26 Yes 650mg 650 mg, Oral, Q6HPRN, Starting on Mon11/19/21 at 1336, Until Discontinu ed, Routine, Pain (scale 1-3) [facility] ondansetron (ZOFRAN-ODT ) disintegrat ing tablet 4 mg 2021-02 13:45: 00 11-19 12:59 :00 No 4mg 4 mg, Oral, ONCE, 1 dose, On Mon11/19/21 at 0845, Routine [facility] HYDROcodone -acetaminop hen (NORCO 5) 5-325 mg tablet 1 tablet 2021-02 13:00: 00 11-19 12:59 :00 No 1{tbl} 1 tablet, Oral, ONCE, 1 dose, On Mon11/19/21 at 0800, ANA M [facility] cyclobenzap rine 5 mg tablet 2021-02 00:00: 00 Yes [id number] 5mg Take 1 tablet by mouth in the morning and 1 tablet at noon and 1 tablet in the evening. [facility] predniSONE 20 mg tablet 2021-02 0 00:00: 00 Yes [id number] 40mg Take 2 tablets by mouth in the morning. [facility] HYDROcodone -acetaminop hen (NORCO) 7.5-325 mg per tablet 2021-02 0-05 00:00: 00 11-18 04:59 :00 No [id number] 1{tbl} Take 1 tablet by mouth every 8 (eight) hours as needed for Pain for up to 7 days. Indication s: acute pain [facility] budesonide- formoteroL 80-4.5 mcg/actuati on inhaler 09-29 00:00: 00 Yes [id number] 2{puff} Inhale 2 Puffs 2 (two) times daily. [facility] bromphenira mine-pseudo ephedrine-D M (BROMFED DM) 2-30-10 mg/5 mL syrup 09-29 00:00: 00 Yes [id number] 5mL Take 5 mL by mouth 4 (four) times daily as needed for Congestion /Allergies or Cough. [facility] LIALDA 1.2 gram EC tablet 09-02 00:00: 00 Yes [facility] Hyoscyamine Sulfate 0.125 mg TbDL 08-31 00:00: 00 Yes TAKE 1-2 TABLETS BY MOUTH EVERY 4 TO 6 HOURS NEEDED [facility] sucralfate 1 gram tablet 08-31 00:00: 00 Yes [facility] SERTraline 100 mg tablet 07-16 00:00: 00 Yes 100mg Take 100 mg by mouth every morning. [facility] atomoxetine 40 mg capsule 07-16 00:00: 00 Yes 40mg Take 40 mg by mouth daily. [facility] traZODone 50 mg tablet 07-16 00:00: 00 Yes TAKE 1 TABLET BY MOUTH NIGHTLY [facility] metoclopram rena HCl 10 mg tablet 2-16 00:00: 00 Yes [id number] 10mg Take 1 tablet by mouth every 6 (six) hours as needed for Nausea and Vomiting (N/V). [facility] acetaminoph en-codeine (TYLENOL-CO DEINE #3) 300-30 mg tablet 2-16 00:00: 00 Yes [id number] 1{tbl} Take 1 tablet by mouth every 4 (four) hours as needed for Pain (scale 7-10). Indication s: acute pain [facility] dicyclomine 20 mg tablet 03-07 00:00: 00 Yes [id number] 20mg Take 1 tablet by mouth 4 (four) times daily. [facility] ondansetron (ZOFRAN ODT) 4 mg disintegrat ing tablet 03-07 00:00: 00 Yes [id number] 4mg Take 1 tablet by mouth every 8 (eight) hours as needed for Nausea and Vomiting (N/V). [facility] Immunizations Ordered Immunization Name Filled Immunization Name Date Status Comments Source Td 2021-11-19 00:00:00 Completed [facility] Td 2021-11-19 00:00:00 Completed [facility] Td 2021-11-19 00:00:00 Completed [facility] TDAP 2016-11-15 00:00:00 Completed [facility] Influenza Virus Vaccine Quad IM 3+ 2016-11-15 00:00:00 Completed [facility] TDAP 2016-11-15 00:00:00 Completed [facility] Influenza Virus Vaccine Quad IM 3+ 2016-11-15 00:00:00 Completed [facility] TDAP 2016-11-15 00:00:00 Completed [facility] Influenza Virus Vaccine Quad IM 3+ 2016-11-15 00:00:00 Completed [facility] TDAP 2016-11-15 00:00:00 Completed [facility] Influenza Virus Vaccine Quad IM 3+ 2016-11-15 00:00:00 Completed [facility] TDAP 2016-11-15 00:00:00 Completed [facility] Influenza Virus Vaccine Quad IM 3+ YRS 2016-11-15 00:00:00 Completed [facility] TDAP 2016-11-15 00:00:00 Completed [facility] Influenza Virus Vaccine Quad IM 3+ YRS 2016-11-15 00:00:00 Completed [facility] TDAP 2016-11-15 00:00:00 Completed [facility] Influenza Virus Vaccine Quad IM 3+ YRS 2016-11-15 00:00:00 Completed [facility] TDAP 2016-11-15 00:00:00 Completed [facility] Influenza Virus Vaccine Quad IM 3+ YRS 2016-11-15 00:00:00 Completed [facility] TDAP 2016-11-15 00:00:00 Completed [facility] Influenza Virus Vaccine Quad IM 3+ YRS 2016-11-15 00:00:00 Completed [facility] TDAP Unknown Completed [facility] Influenza Virus Vaccine Quad IM 3+ YRS Unknown Completed [facility] TD, NOS Unknown Completed [facility] TDAP Unknown Completed [facility] Influenza Virus Vaccine Quad IM 3+ YRS Unknown Completed [facility] TD, NOS Unknown Completed [facility] TDAP Unknown Completed [facility] Influenza Virus Vaccine Quad IM 3+ YRS Unknown Completed [facility] TD, NOS Unknown Completed [facility] TDAP Unknown Completed [facility] Influenza Virus Vaccine Quad IM 3+ YRS Unknown Completed [facility] TD, NOS Unknown Completed [facility] Vital Signs Vital Name Observation Time Observation Value Comments S ource Systolic blood pressure 2023-08-16 08:16:43 139 mm[Hg] [facility] Diastolic blood pressure 2023-08-16 08:16:43 85 mm[Hg] [facility] Heart rate 2023-08-16 08:16:43 43 /min [facility] Respiratory rate 2023-08-16 08:16:43 16 /min [facility] Oxygen saturation in Arterial blood by Pulse oximetry 2023-08-16 08:16:43 98 /min [facility] Body temperature 2023-08-16 04:01:00 37.39 Kori [facility] Body height 2023-08-16 04:01:00 157.5 cm [facility] Body weight 2023-08-16 04:01:00 58.968 kg [facility] BMI 2023-08-16 04:01:00 23.78 kg/m2 [facility] Systolic blood pressure 2023-05-11 20:34:00 132 mm[Hg] [facility] Diastolic blood pressure 2023-05-11 20:34:00 76 mm[Hg] [facility] Heart rate 2023-05-11 20:34:00 65 /min [facility] Body temperature 2023-05-11 20:34:00 37.11 Kori [facility] Respiratory rate 2023-05-11 20:34:00 18 /min [facility] Body height 2023-05-11 20:34:[address] [facility] Body weight 2023-05-11 20:34:[address] [facility] BMI 2023-05-11 20:34:00 23.78 kg/m2 [facility] Oxygen saturation in Arterial blood by Pulse oximetry 2023-05-11 20:34:00 95 /min [facility] Systolic blood pressure 2023-04-11 18:26:00 118 mm[Hg] [facility] Diastolic blood pressure 2023-04-11 18:26:00 82 mm[Hg] [facility] Heart rate 2023-04-11 18:26:00 82 /min [facility] Body temperature 2023-04-11 18:26:00 37.22 Kori [facility] Respiratory rate 2023-04-11 18:26:00 20 /min [facility] Body height 2023-04-11 18:26:00 157.5 cm [facility] Body weight 2023-04-11 18:26:00 58.968 kg [facility] BMI 2023-04-11 18:26:00 23.78 kg/m2 [facility] Oxygen saturation in Arterial blood by Pulse oximetry 2023-04-11 18:26:00 100 /min [facility] Systolic blood pressure 2023-03-04 18:30:00 101 mm[Hg] [facility] Diastolic blood pressure 2023-03-04 18:30:00 75 mm[Hg] [facility] Heart rate 2023-03-04 18:30:00 60 /min [facility] Respiratory rate 2023-03-04 18:30:00 16 /min [facility] Oxygen saturation in Arterial blood by Pulse oximetry 2023-03-04 18:30:00 98 /min [facility] Body temperature 2023-03-04 16:39:00 37.22 Kori [facility] Body height 2023-03-04 16:39:00 157.5 cm [facility] Body weight 2023-03-04 16:39:00 59.013 kg [facility] BMI 2023-03-04 16:39:00 23.80 kg/m2 [facility] Systolic blood pressure 2021-11-19 23:00:00 115 mm[Hg] [facility] Diastolic blood pressure 2021-11-19 23:00:00 75 mm[Hg] [facility] Heart rate 2021-11-19 23:00:00 56 /min [facility] Respiratory rate 2021-11-19 23:00:00 16 /min [facility] Oxygen saturation in Arterial blood by Pulse oximetry 2021-11-19 23:00:00 100 /min [facility] Body temperature 2021-11-19 16:35:00 37 Kori [facility] Body weight 2021-11-19 16:35:00 56.7 kg [facility] BMI 2021-11-19 16:35:00 22.86 kg/m2 [facility] Systolic blood pressure 2021-11-19 14:41:14 130 mm[Hg] [facility] Diastolic blood pressure 2021-11-19 14:41:14 87 mm[Hg] [facility] Heart rate 2021-11-19 14:41:14 85 /min [facility] Body temperature 2021-11-19 14:41:14 36.67 Kori [facility] Respiratory rate 2021-11-19 14:41:14 18 /min [facility] Oxygen saturation in Arterial blood by Pulse oximetry 2021-11-19 14:41:14 99 /min [facility] Body height 2021-11-19 12:31:00 157.5 cm [facility] Body weight 2021-11-19 12:31:[address] [facility] BMI 2021-11-19 12:31:00 22.86 kg/m2 [facility] Systolic blood pressure 2021-11-10 17:03:00 126 mm[Hg] [facility] Diastolic blood pressure 2021-11-10 17:03:00 86 mm[Hg] [facility] Heart rate 2021-11-10 17:03:00 85 /min [facility] Body temperature 2021-11-10 17:03:00 37.06 Kori [facility] Respiratory rate 2021-11-10 17:03:00 20 /min [facility] Body height 2021-11-10 17:03:[address] [facility] Body weight 2021-11-10 17:03:00 55.792 kg [facility] BMI 2021-11-10 17:03:00 22.50 kg/m2 [facility] Oxygen saturation in Arterial blood by Pulse oximetry 2021-11-10 17:03:00 99 /min [facility] Systolic blood pressure 2020-09-29 22:26:00 139 mm[Hg] [facility] Diastolic blood pressure 2020-09-29 22:26:00 89 mm[Hg] [facility] Heart rate 2020-09-29 22:26:00 76 /min [facility] Body temperature 2020-09-29 22:26:00 36.89 Kori [facility] Respiratory rate 2020-09-29 22:26:00 16 /min [facility] Body height 2020-09-29 22:26:[address] [facility] Body weight 2020-09-29 22:26:00 53.025 kg [facility] BMI 2020-09-29 22:26:00 22.09 kg/m2 [facility] Oxygen saturation in Arterial blood by Pulse oximetry 2020-09-29 22:26:00 100 /min [facility] Procedures Procedure Date / Time Performed Performing Clinician Source POCT TEST 2023-08-16 05:13:00 Araseli Shelton [facility] URINALYSIS 2023-08-16 04:54:00 Araseli Shelton [facility] LIPASE 2023-08-16 04:46:00 Araseli Shelton [facility] COMP. METABOLIC PANEL ([id number]) 2023-08-16 04:46:00 Araseli Shelton [facility] CBC WITH DIFF 2023-08-16 04:46:00 [facility] 2023-05-11 21:02:29 Dipika Cruz [facility] XR WRIST 3+ VW LEFT 2023-05-11 21:02:29 Dayo Cruz [facility] CONSENT/REFUSAL FOR DIAGNOSIS AND TREATMENT 2023-04-11 18:18:03 Doctor Unassigned, [place] [facility] LIPASE 2023-03-04 17:08:00 Araseli Shelton [facility] COMP. METABOLIC PANEL ([id number]) 2023-03-04 17:08:00 Araseli Shelton [facility] CBC WITH DIFF 2023-03-04 17:08:00 Araseli Shelton [facility] URINALYSIS 2023-03-04 17:08:00 Araseli Shelton [facility] POCT TEST 2023-03-04 17:08:00 Araseli Shelton [facility] CONSENT/REFUSAL FOR DIAGNOSIS AND TREATMENT 2023-03-04 16:36:23 Doctor Unassigned, [place] [facility] AUTHORIZATION FOR RELEASE OF PHI 2021-12-02 05:01:00 Doctor Unassigned, [place] [facility] MR CERVICAL SPINE WO CONTRAST 2021-11-19 20:56:00 Michael Stock [facility] COVID-19 (ID NOW RAPID TESTING) 2021-11-19 14:10:00 Magen Rouse [facility] CT CERVICAL SPINE WO CONTRAST 2021-11-19 12:49:50 Magen Rouse [facility] CT HEAD WO CONTRAST 2021-11-19 12:49:50 Lily Rouse [facility] CONSENT/REFUSAL FOR DIAGNOSIS AND TREATMENT 2021-11-19 12:35:14 Doctor Unassigned, [place] [facility] XR HAND 3+ VW LEFT 2021-11-10 17:32:17 Nasim Magen [facility] XR WRIST 3+ VW LEFT 2021-11-10 17:31:56 Lily Rouse [facility] NOTICE OF PRIVACY PRACTICES 2021-11-10 16:59:19 Doctor Unassigned, [place] [facility] CONSENT/REFUSAL FOR DIAGNOSIS AND TREATMENT 2021-11-10 16:58:04 Doctor Unassigned, [place] [facility] ASSIGNMENT OF BENEFITS 2020-09-29 22:10:07 Docto r Unassigned, [place] [facility] Encounters Start Date/Time End Date/Time Encounter Type Admission Type Attending [facility] Care Department Encounter ID Source 2020-12-05 23:41:25 Emergency [facility] [id number] [facility] 2020-12-05 20:46:01 Emergency [facility] [id number] [facility] 2020-12-05 20:45:07 Emergency [facility] [id number] [facility] 2020-12-03 22:03:22 Emergency [facility] [id number] [facility] 2023-08-15 22:53:00 2023-08-16 04:30:00 Emergency BRISEYDA HEDRICK ANDRES [facility] ERT [id number] [facility] 2023-08-15 22:53:00 2023-08-16 04:30:00 Emergency Araseli Shelton Andres [facility] 1.2.840.114 350.1.13.10 4.2.7.2.686 [id number] [facility] 2023-05-11 15:37:00 2023-05-11 17:24:00 Emergency DIPIKA CARTY [facility] ERT [id number] [facility] 2023-05-11 15:37:00 2023-05-11 17:24:00 Emergency Dipika Cruz [facility] 1.2.840.114 350.1.13.10 4.2.7.2.686 [id number] [facility] 2023-04-11 12:30:00 2023-04-11 13:22:00 Emergency X SHALOM MITALI [facility] ERT [id number] [facility] 2023-04-11 12:30:00 2023-04-11 13:22:00 Emergency Mitali Rausch [facility] 1.2.840.114 350.1.13.10 4.2.7.2.686 [id number] [facility] 2023-03-04 10:44:00 2023-03-04 13:29:00 Emergency X ARASELI SHELTON [facility] ERT [id number] [facility] 2023-03-04 10:44:00 2023-03-04 13:29:00 Emergency Guera Jackpot [facility] 1.2.840.114 350.1.13.10 4.2.7.2.686 [id number] [facility] 2021-12-02 00:00:00 2021-12-02 00:00:00 Orders Only Doctor Unassigned, [place] [facility] 1.2.840.114 350.1.13.10 4.2.7.2.686 [id number] [facility] 2021-11-19 11:43:00 2021-11-19 18:54:00 Emergency X SRAVAN MISHRA [facility] ERT [id number] [facility] 2021-11-19 11:43:00 2021-11-19 18:54:00 Emergency Estrada [facility] 1.2.840.114 350.1.13.10 4.2.7.2.686 [id number] [facility] 2021-11-19 07:30:00 2021-11-19 10:47:00 Emergency X MAGEN ROUSE [facility] ERT [id number] [facility] 2021-11-19 07:30:00 2021-11-19 10:47:00 Emergency Magen Rouse [facility] 1.840.114 350.1.13.10 4.2.7.2.686 [id number] [facility] 2021-11-10 12:05:00 2021-11-10 13:29:00 Emergency X MAGEN ROUSE [facility] ERT [id number] [facility] 2021-11-10 12:05:00 2021-11-10 13:29:00 Emergency Magen Rouse [facility] 1.84.114 350.1.13.10 4.2.7.2.686 [id number] [facility] 2021-11-10 00:00:00 2021-11-10 00:00:00 Orders Only Doctor Unassigned, [place] [facility] 1.84.114 350.1.13.10 4.2.7.2.686 [id number] [facility] 2020-09-29 17:40:00 2020-09-29 17:40:00 Outpatient R CHLOÉ LOVETANY [facility] [id number] [facility] 2020-09-29 17:11:16 2020-09-29 17:31:16 [facility] 1.840.114 350.1.13.10 4.2.7.2.686 [id number] [facility] 2020-09-29 00:00:00 2020-09-29 00:00:00 Telephone [facility] 1.2840.114 350.1.13.10 4.2.7.2.686 [id number] [facility] 2020-09-29 00:00:00 2020-09-29 00:00:00 Orders Only Doctor Unassigned, [place] [facility] 1.2.840.114 350.1.13.10 4.2.7.2.686 [id number] [facility] 2020-09-29 00:00:00 2020-09-29 00:00:00 Letter (Out) Juvenal [facility] Alfredo[facility] 1.2.840.114 350.1.13.10 4.2.7.2.686 [id number] [facility] 2020-01-16 13:00:00 2020-01-16 13:00:00 Outpatient JAVI LOZOYA [facility] [id number] [facility] 2019-08-15 10:45:00 2019-08-15 10:45:00 Outpatient APOLONIA LEAHY [facility] [id number] [facility] 2019-08-15 10:45:00 2019-08-15 10:45:00 Outpatient APOLONIA LEAHY [facility] [id number] [facility] 2019-06-17 10:46:52 2019-06-17 13:28:00 Emergency X JOSSY KWAN [facility] ERT [id number] [facility] 2019-04-30 03:42:00 2019-04-30 03:42:00 Outpatient Raju_P [facility]G [id number] [facility] 2019-04-11 09:40:39 2019-04-11 16:24:00 Emergency X JOSSY KWAN [facility] ERT [id number] [facility] Results Test Description Test Time Test Comments Results Result Co mments Source [facility] VW [id number] 21:05:34HISTORY: Left hand pain over first MCP joint. S/P fall. FINDINGS: AP, lateral, oblique views of left hand are obtained and comparedwith 11/10/2021 study. No acute fracture or dislocation. No significantchanges of arthritis or aggressive bone lesions seen. No soft tissuecalcifications, bony erosions or juxta-articular osteoporosis detected. CONCLUSIONS: Normal [facility] W[facility]+ VW [id number] 21:04:44HISTORY: Radial side left wrist pain. FINDINGS: AP, lateral, oblique views of left wrist are obtained andcompared with 11/10/2021 study. No acute fracture or dislocation. Nosignificant changes of arthritis or aggressive bone lesions seen. No bonyerosions or soft tissue calcifications detected. CONCLUSIONS: Normal study. [facility]. METABOLIC PANEL (94399)2023-03-04 17:33:25* Test Item Value Reference Range Interpretation Comme nts NA (test code = 1322848586) 139 mmol/L 135-145 K (test code = 3048170582) 4.1 mmol/L 3.5-5.0 CL (test code = 0443315797) 109 mmol/L 98-108 H CO2 TOTAL (test code = 0677079709) 22 mmol/L 23-31 L AGAP (test code = 6891916994) 8 2-16 BUN (test code = 3550724253) 13 mg/dL 7-23 GLUCOSE (test code = 8200970812) 104 mg/dL 70-110 CREATININE (test code = 8741984387) 0.79 mg/dL 0.50-1.04 TOTAL BILI (test code = 9420962986) 0.6 mg/dL 0.1-1.1 CALCIUM (test code = 7806405245) 9.6 mg/dL 8.6-10.6 T PROTEIN (test code = 3375421436) 8.7 g/dL 6.3-8.2 H ALBUMIN (test code = 8964041322) 5.1 g/dL 3.5-5.0 H ALK PHOS (test code = 0729420111) 40 U/L 34-122 ALTv (test code = 1742-6) 17 U/L 5-35 AST(SGOT) (test code = 6061763683) 23 U/L 13-40 eGFR (test code = 59195-9) 102.1 mL/min/1.73m2 CKD-EPI eGFR (2020). Assuming creatinine has been stable day-to-day for at least three months, the eGFR indicates Category G1 (>= 90 mL/min/1.73 m2) Lab Interpretation (test code = 06801-2) Abnormal [facility] 17:33:00* Test Item Value Reference Range Interpretation Comme nts LIPASE (test code = 3848980525) 92 U/L 0-220 Lab Interpretation (test cod e = 96594-6) Normal [facility] WITH [id number] 17:22:38* Test Item Value Reference Range Interpretation [...] 34.7 g/dL 31.6-35.1 RDW-SD (test code = 68565-1) 46.9 fL 39.0-49.9 RDW-CV (test code = 788-0) 12.5 % 12.0-15.5 PLT (test code = 777-3) 438 See_Comment H [Automated messa ge] The system which generated this result transmitted reference range: 166 - 358 10*3/?L. The reference range was not used to interpret this result as normal/abnormal. MPV (test code = 70373-8) 7.8 fL 9.5-12.9 L NRBC/100 WBC (test code = 0783322350) 0.0 See_Comment [Automated me ssage] The system which generated this result transmitted reference range: 0.0 - 10.0 /100 WBCs. The reference range was not used to interpret this result as normal/abnormal. NRBC x10^3 (test code = 9105863116) See_Comment [Automated messa ge] The system which generated this result transmitted reference range: 10*3/?L. The reference range was not used to interpret this result as normal/abnormal. GRAN MAT (NEUT) % (test code = 770-8) 56.9 % IMM GRAN % (test code = 4570945705) 0.40 % LYMPH % (test code = 736-9) 32.5 % MONO % (test code = 5905-5) 8.1 % EOS % (test code = 713-8) 1.5 % BASO % (test code = 706-2) 0.6 % GRAN MAT x10^3(ANC) (test code = 0659337189) 5.39 10*3/uL 1.88-7.09 IMM GRAN x10^3 (test code = 6470864904) 0.04 10*3/uL 0.00-0.06 LYMPH x10^3 (test code = 731-0) 3.08 10*3/uL 1.32-3.29 MONO x10^3 (test code = 742-7) 0.77 10*3/uL 0.33-0.92 EOS x10^3 (test code = 711-2) 0.14 10*3/uL 0.03-0.39 BASO x10^3 (test code = 704-7) 0.06 10*3/uL 0.01-0.07 Lab Interpretation (test code = 68504-0) Abnormal [facility] [id number] 17:08:00* Test Item Value Reference Range Interpretation Comme nts POCT PREG (test code = 1605) Negative On board controls acceptable with C Line (test code = 3574) Yes POCT PREG LOT # (test code = 3575) [id number] POCT PREG TEST DATE ( test code = 3576) 05/14/2024 Lab Interpretation (test cod e = 49581-6) Normal [facility] Notes Date/Time Note Provider Source 2023-08-16 04:28:47 Pt upset she is not receiving pain meds to help her abd pain. Pt eloped from ER with iv in place. Pt was followed by staff to vehicle and IV was removed. aware. [facility] 2023-08-16 04:26:15 Patient walking towards ER exit doors. RN took out PIV in parking lot. [facility] 2023-08-16 03:25:54 Pt no longer noted actively vomiting, but still c/o sharp LLQ pain. [facility] 2023-08-15 23:23:03 Pt actively vomiting at this time. [facility] 2023-08-15 22:57:23 Patient arrived via [place] c/o abd pain that started four days ago. Patient has hx of chron's dx. Patient c/o N/V but no diarrhea. EMS gave 12.5 Phenergan IM. Patient recently discharged from [place] with prescriptions for steroids and Zofran. Last medication taken was around 1600. T Adriano Olmstead RN [facility] 2023-05-11 15:35:33 Pt c/o left hand pain. States that she fell backwards onto her left hand after seeing a dennis spider at work. Pt took Tylenol 1000mg ~3 hours [employer]. Ghazala Lloyd RN [facility] 2023-04-11 13:15:00 Pt given printed and [...] with steady gait, in no apparent distress. ES 6 THROUGH 8 TEACHER Liseth Steven RN [facility] 2023-04-11 12:25:40 Patient state that yesterday at work she removed her eye protection and wiped her eyes and has been having pain and irritation since. States that she used the eye wash at work and flushed her eye. This morning eye feels irritated and was matted. No problems with vision. ES 6 THROUGH 8 TEACHER Sheron Jaffe RN [facility] 2023-04-11 12:15:00 Images from the original note were not included. [facility] Emergency Department Note Patient Name: Hilaria Alcala Date of : 1990 32 year old female Treatment Room: [facility] ED [facility] ALEX/AMANDA Primary Care Physician: Mehran Matson Patient [...] 08/09/2011 EPIDURAL STEROID INJECTION ORAL SURGERY PROCEDURE [place] teeth extraction TUBAL LIGATION 01/21/2017 TUBAL LIGATION Bilateral 01/21/2017 Surgeon: Ruby Pop MD; Location: Labor and Delivery [facility] [place] Review of Systems: Review of Systems Constitutional: [...] signed by: Mitali Rausch MD 04/11/23 1305 [facility] 2023-03-04 13:28:49 Patient discharged with abdominal pain. Follow up with pcp. Feeling better at this time. ENCE Anna RN [facility] 2023-03-04 10:37:45 Patient states: "I have chrones diease and I"m going through a flare up since Monday. [facility] with morphine. I feel very dehydrated and I need fluids. I did take tramadol at 7 am. It just made me nauseous so I took a phenergan suppository" " ES 6 THROUGH 8 TEACHER Apolonia Garcias RN [facility] 2023-03-04 10:36:00 [facility] Emergency Department Note Patient Name: Hilaria Alcala Date of : 1990 32 year old female Treatment Room: Room/bed info not found Primary Care Physician: Mehran Matson Patient Escorted by: Self [9] Mode of Arrival: Personal means [1] EMS Treatment Prior to ED Arrival: [employer] treatment: Medication (comment) [employer] treatment comments: 50 mg tramadol at 0700, [...] 08/09/2011 EPIDURAL STEROID INJECTION ORAL SURGERY PROCEDURE [place] teeth extraction TUBAL LIGATION 01/21/2017 TUBAL LIGATION Bilateral 01/21/2017 Surgeon: Ruby Pop MD; Location: Labor and Delivery [facility] [place] Review of Systems: Review of Systems Constitutional: [...] 0.01 - 0.07 10*3/uL COMP. METABOLIC PANEL (03596) - Abnormal NA 139 135 - 145 [...] CONTRAST CBC WITH DIFF COMP. METABOLIC PANEL (18708) LIPASE URINALYSIS POCT TEST Orders Placed This [...] signed by: Araseli Shelton MD 03/04/23 1308 [facility]
[2024-06-07] MEDS ORDERED: METOCLOPRAMIDE 10 MG/2mL INJ ONE (17:02)
[2024-06-07] MEDS ORDERED: DIPHENHYDRAMINE 50 MG/ML VIAL ONE (17:02)
[2024-06-07] MEDS ORDERED: NA CHLORIDE 0.9% 1,000 ML ONE (17:02)
[2024-06-07 17:15] LABS: Absolute Lymphocytes (CBC) 0.9 K/uL (0.7-4.9); Absolute Monocytes 0.3 K/uL (0.1-1.3); Absolute Neutrophil 8.2 K/uL (1.8-8.0); Basophils % 0.3 % (0-1.3); Hematocrit 37.6 % (36.0-45.0); Hemoglobin 13.1 g/dL (12.0-15.0); Lymphocytes % 9.1 % (15.3-44.8); MCH 33.4 pg (27.0-35.0); MCHC 34.8 g/dL (32.0-36.0); MCV 95.9 fL (80-100); MPV 5.8 fL (7.6-11.3); Monocytes % 3.4 % (3.3-12.3); Neutrophils % 87.2 % (41.7-73.7); Platelets 570 thou/uL (152-406); RBC Red Blood Cell Count 3.92 M/uL (3.86-4.86); Red Cell Distribution Width 13.7 % (12.1-15.2)
[2024-06-07] MEDS ORDERED: droPERidol 5 MG/2 ML VIAL ONE (17:24)
[2024-06-07 17:30] LABS: Albumin 4.4 g/dL (3.4-5.0); Albumin/Globulin Ratio 1.1 (1.1-1.8); Anion Gap 13.3 mEq/L (5.0-15.0); Bilirubin Total 0.6 mg/dL (0.2-1.0); Globulin 3.9 g/dL (2.3-3.5); Potassium 4.3 mEq/L (3.5-5.1); Protein, Total 8.3 g/dL (6.4-8.2)
--- NOTE | 2024-06-07 17:47 | RAD REPORT ---
Procedure: Chest Single View HISTORY: Vomiting COMPARISON: 2023 FINDINGS: The lungs appear clear of acute infiltrate. No significant pleural effusion noted. The heart is normal size. IMPRESSION: No acute abnormality is displayed.
--- NOTE | 2024-06-07 18:42 | RAD REPORT ---
EXAMINATION: CT ABDOMEN AND PELVIS WITH CONTRAST CLINICAL INDICATION: Abdominal pain TECHNIQUE: CT abdomen and pelvis was performed, after the administration of 100 cc Isovue-300.. Sagit oneal and coronal reconstructions were obtained. One or more of the following dose reduction techniques were used: Automated exposure control, adjustment of the mA and kV according to patient si ze, and iterative reconstruction. Unless otherwise specified, incidental findings do not require dedicated imaging follow-up. [id number]. Oral contrast was not given which limits evaluation of bowel and appendix. COMPARISON: .2023 FINDINGS: Liver, spleen, pancreas, adrenals and kidneys appear unremarkable No evidence of diverticulitis. Normal appendix. No adnexal mass. Wall of the distal stomach appears thickened. : IMPRESSION: Wall of the distal stomach appears thickened. This could be secondary to incomplete distention or inf lammation.
[2024-06-07] MEDS ORDERED: KETOROLAC 30 MG/ML INJ ONE (18:50)
[2024-06-07] MEDS ORDERED: PROMETHAZINE INJ 25 MG/ML AMP ONE (19:21)
[2024-06-07] MEDS ORDERED: NA CHLORIDE 0.9% 50 ML ONE (19:22)
[2024-06-07] MEDS ORDERED: MORPHINE 4 MG/ML SYR ONE (19:30)
--- NOTE | 2024-06-07 19:52 | ER ---
Nurse's Notes [facility] [place] Name: Ashley Alcala Age: 33 yrs Sex: Female : 1990 Arrival Date: 06/07/2024 Time: 16:40 Bed 7 Private MD: Diagnosis: Nausea with vomiting, unspecified;Lower abdominal pain, unspecified Presentation: 06/07 16:40 Chief complaint: EMS states: N/V SINCE 0500. Coronavirus screen: At this time, the bp client does not indicate any symptoms associated with coronavirus-19. Ebola Screen: No symptoms or risks identified at this time. Initial Sepsis Screen: Does the patient meet any 2 criteria? No. Patient's initial sepsis screen is negative. Does the patient have a suspected source of infection? No. Patient's initial sepsis screen is negative. Risk Assessment: Do you want to hurt yourself or someone else? Patient reports no desire to harm self or others. Onset of symptoms was June 07, 2024 at 05:00. Care prior to arrival: Medication(s) given: Normal saline infusion, 1000 mL, Tylenol, 1000 mg, zofran 4 mg, IV initiated. 20 GA, in the right antecubital area, Glucose check: 150. 16:40 Method Of Arrival: EMS: [facility] bp 16:40 Acuity: ESTEVAN 3 bp Triage Assessment: 17:14 General: Appears in no apparent distress. uncomfortable, Behavior is cooperative, bp appropriate for age, anxious. Pain: Complains of pain in abdomen. EENT: No deficits noted. Neuro: No deficits noted. Cardiovascular: No deficits noted. Respiratory: No deficits noted. GI: Reports nausea, vomiting. : No signs and/or symptoms were reported regarding the genitourinary system. Derm: No deficits noted. Musculoskeletal: No deficits noted. Historical: - Allergies: 17:14 Codeine; bp - Home Meds: 17:14 gabapentin Oral [Active]; bp - PMHx: 17:14 Crohn's Disease; Hypothyroidism; bp - PSHx: 17:14 section; tubal ligation; bp - Immunization history:: Adult Immunizations up to date. - Infectious Disease History:: Denies. - Social history:: Smoking status: unknown. Screenin:59 [facility] ED Fall Risk Assessment (Adult) History of falling in the last 3 months, cp4 including since admission No falls in past 3 months (0 pts) Confusion or Disorientation No (0 pts) Intoxicated or Sedated No (0 pts) Impaired Gait No (0 pts) Mobility Assist Device Used No (0 pt) Altered Elimination No (0 pt) Score/Fall Risk Level 0 - 2 = Low Risk Oriented to surroundings, Maintained a safe environment, Assessed \T\ reinforced patient's understanding of fall precautions, Hourly rounding (assess needs \T\ fall precautionary measures) done. Abuse screen: Denies threats or abuse. Denies injuries from another. Nutritional screening: No deficits noted. Tuberculosis screening: No symptoms or risk factors identified. Assessment: 19:59 Reassessment: Patient appears in no apparent distress at this time. No changes from cp4 previously documented assessment. Patient and/or family updated on plan of care and expected duration. Pain level reassessed. Patient is alert, oriented x 3, equal unlabored respirations, skin warm/dry/pink. Vital Signs: 16:40 BP 124 / 84; Pulse 73; Resp 18; Temp 97.9; Pulse Ox 99% ; bp 19:12 BP 129 / 87; Pulse 66; Resp 18; Pulse Ox 100% ; cp4 19:36 BP 130 / 82; Pulse 67; Resp 18; Pulse Ox 100% ; cp4 ED Course: 16:49 Patient arrived in ED. eb 16:51 Chandrakant Tolliver PA is PHCP. cp 16:51 Molly Silverman MD is Attending Physician. cp 17:05 Maintain EMS IV. Dressing intact. Good blood return noted. Site clean \T\ dry. Gauge \T\ aa 5 site: 20G to R AC . Flushed with 10 mL NS. 17:08 Initial lab(s) drawn, by me, sent to lab. aa5 17:11 Jony Gabriel, RN is Primary Nurse. bp 17:14 Triage completed. bp 17:14 Arm band placed on. bp 17:37 XRAY Chest (1 view) In Process Unspecified. EDMS 18:19 CT Abd/Pelvis - IV Contrast Only In Process Unspecified. EDMS 19:50 Kwesi Alarcon MD is Referral Physician. cp 19:59 No provider procedures requiring assistance completed. intact, bleeding controlled, No cp4 redness/swelling at site. Pressure dressing applied. 19:59 Bed in low position. Call light in reach. Side rails up X2. Provided Education on: cp4 abdominal pain. Administered Medications: 17:12 Drug: NS 0.9% IV 1000 ml IV at 1 bolus Per protocol; to be given as a bolus over 60 bp minutes Route: IV; Rate: 1 bolus; Site: right antecubital; 17:12 Drug: metoCLOPramide IVP 10 mg IVP once; over 1 to 2 minutes Route: IVP; Site: right bp antecubital; 17:28 Follow up: Response: No adverse reaction bp 17:12 Drug: diphenhydrAMINE IVP 25 mg IVP once Route: IVP; Site: right antecubital; bp 17:28 Follow up: Response: No adverse reaction bp 17:28 Drug: Droperidol IVP 1.25 mg IVP once Route: IVP; Site: right antecubital; bp 19:36 Follow up: Response: No adverse reaction cp4 18:57 Drug: Ketorolac IVP 15 mg IVP once Route: IVP; Site: right antecubital; bp 19:35 Follow up: Response: No adverse reaction cp4 19:35 Drug: Promethazine IVP 25 mg IVP once Route: IVP; Site: right antecubital; cp4 19:58 Follow up: Response: No adverse reaction cp4 19:35 Drug: morphine IVP or IV 4 mg IVP once over 4 mins Route: IVP; Infused Over: 4 mins; cp4 Site: right antecubital; 19:58 Follow up: Response: No adverse reaction cp4 Medication: 19:59 VIS not applicable for this client. cp4 Outcome: 19:51 Discharge ordered by MD. cp 19:59 Discharged to home ambulatory, cp4 19:59 Condition: stable 19:59 Discharge instructions given to patient, Instructed on discharge instructions, follow up and referral plans. medication usage, Demonstrated understanding of instructions, follow-up care, medications, Prescriptions given X 2, 20:01 Patient left the ED. cp4 Signatures: Dispatcher [employer] EDMS Latricia Chi RN RN aa5 Chandrakant Tolliver PA PA Jony Harrison RN RN Bettie Dudley Christina cp4
--- NOTE | 2024-06-07 19:52 | EDPHYS ---
Physician Documentation [facility] Name: Ashley Alcala Age: 33 yrs Sex: Female : 1990 Arrival Date: 06/07/2024 Time: 16:40 Bed 7 Private MD: ED Physician Molly Silverman HPI: 06/07 17:05 This 33 yrs old Female presents to ER via EMS with complaints of Abdominal Pain, cp Nausea/Vomiting. 17:05 The patient presents with abdominal pain nausea and vomiting. cp 17:05 The patient has experienced similar episodes in the past, multiple times. cp 17:05 Onset: The symptoms/episode began/occurred this morning, about 0500. Associated signs cp and symptoms: Pertinent positives: anorexia, Pertinent negatives: chest pain, constipation, diarrhea, fever, vomiting blood. Severity of pain: in the emergency department the pain is unchanged despite EMS interventions. Historical: - Allergies: 17:14 Codeine; bp - Home Meds: 17:14 gabapentin Oral [Active]; bp - PMHx: 17:14 Crohn's Disease; Hypothyroidism; bp - PSHx: 17:14 section; tubal ligation; bp - Immunization history:: Adult Immunizations up to date. - Infectious Disease History:: Denies. - Social history:: Smoking status: unknown. ROS: 17:10 Constitutional: Positive for poor PO intake, Negative for body aches, chills, fever, cp 17:10 Eyes: Negative for injury, pain, redness, and discharge, cp 17:10 Cardiovascular: Negative for chest pain, palpitations, 17:10 Respiratory: Negative for cough, shortness of breath, wheezing, 17:10 Abdomen/GI: Positive for abdominal pain, nausea and vomiting, anorexia, Negative for diarrhea, constipation, hematemesis, black/tarry stool, rectal bleeding, 17:10 Back: Negative for pain at rest, pain with movement, 17:10 Neuro: Negative for altered mental status, dizziness, headache, numbness, syncope, weakness, 17:10 All other systems are negative, Exam: 17:15 Constitutional: The patient appears in no acute distress, alert, awake, cp non-diaphoretic, non-toxic, well developed, well nourished, uncomfortable, 17:15 Head/Face: Normocephalic, atraumatic. cp 17:15 Eyes: Periorbital structures: appear normal, Conjunctiva: normal, no exudate, no injection, Sclera: no appreciated abnormality, Lids and lashes: appear normal, bilaterally, 17:15 ENT: External ear(s): are unremarkable, Nose: is normal, Mouth: Lips: moist, Oral mucosa: moist, Posterior pharynx: Airway: no evidence of obstruction, patent, 17:15 Chest/axilla: Inspection: normal, 17:15 Cardiovascular: Rate: normal, Rhythm: regular, 17:15 Respiratory: the patient does not display signs of respiratory distress, Respirations: normal, no use of accessory muscles, no retractions, labored breathing, is not present, Breath sounds: are clear throughout, no decreased breath sounds, no stridor, no wheezing, 17:15 Abdomen/GI: Inspection: abdomen appears normal, Bowel sounds: active, all quadrants, Palpation: soft, in all quadrants, severe abdominal tenderness, in the right lower quadrant and left lower quadrant, rebound tenderness, is not appreciated, involuntary guarding, is not appreciated, 17:15 Back: pain, is absent, ROM is normal, 17:15 Neuro: Orientation: to person, place \T\ time. Mentation: is normal, Motor: moves all fours, strength is normal, Vital Signs: 16:40 BP 124 / 84; Pulse 73; Resp 18; Temp 97.9; Pulse Ox 99% ; bp 19:12 BP 129 / 87; Pulse 66; Resp 18; Pulse Ox 100% ; cp4 19:36 BP 130 / 82; Pulse 67; Resp 18; Pulse Ox 100% ; cp4 MDM: 19:51 Medical Screening Exam initiated 19:51 Data reviewed: vital signs, nurses notes, lab test result(s), radiologic studies, CT cp scan, and as a result, I will discharge patient. 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 Response to treatment: the patient's symptoms have markedly improved after treatment, and as a result, I will discharge patient. 06/07 17:01 Order name: CBC with Diff; Complete Time: 17:48 cp 06/07 17:01 Order name: CMP; Complete Time: 17:48 cp 06/07 17:01 Order name: Lipase; Complete Time: 17:48 cp 06/07 17:01 Order name: Magnesium; Complete Time: 17:48 cp 06/07 18:50 Order name: Urine Drug Screen cp 06/07 17:01 Order name: XRAY Chest (1 view); Complete Time: 17:48 cp 06/07 17:49 Order name: CT Abd/Pelvis - IV Contrast Only; Complete Time: 18:49 cp 06/07 17:01 Order name: IV Saline Lock; Complete Time: 17:05 cp 06/07 17:01 Order name: Labs collected and sent; Complete Time: 17:05 cp 06/07 19:13 Order name: PO challenge; Complete Time: 19:24 cp Administered Medications: 17:12 Drug: NS 0.9% IV 1000 ml IV at 1 bolus Per protocol; to be given as a bolus over 60 bp minutes Route: IV; Rate: 1 bolus; Site: right antecubital; 17:12 Drug: metoCLOPramide IVP 10 mg IVP once; over 1 to 2 minutes Route: IVP; Site: right bp antecubital; 17:28 Follow up: Response: No adverse reaction bp 17:12 Drug: diphenhydrAMINE IVP 25 mg IVP once Route: IVP; Site: right antecubital; bp 17:28 Follow up: Response: No adverse reaction bp 17:28 Drug: Droperidol IVP 1.25 mg IVP once Route: IVP; Site: right antecubital; bp 19:36 Follow up: Response: No adverse reaction cp4 18:57 Drug: Ketorolac IVP 15 mg IVP once Route: IVP; Site: right antecubital; bp 19:35 Follow up: Response: No adverse reaction cp4 19:35 Drug: Promethazine IVP 25 mg IVP once Route: IVP; Site: right antecubital; cp4 19:58 Follow up: Response: No adverse reaction cp4 19:35 Drug: morphine IVP or IV 4 mg IVP once over 4 mins Route: IVP; Infused Over: 4 mins; cp4 Site: right antecubital; 19:58 Follow up: Response: No adverse reaction cp4 Disposition Summary: 06/07/24 19:51 Discharge Ordered Notes: Location: Home cp Problem: an acute exacerbation cp Symptoms: have improved cp Condition: Stable cp Diagnosis - Nausea with vomiting, unspecified cp - Lower abdominal pain, unspecified cp Followup: cp - With: Kwesi Alarcon MD - When: 2 - 3 days - Reason: Recheck today's complaints Discharge Instructions: - Discharge Summary Sheet cp - Abdominal Pain, Adult cp - Nausea and Vomiting, Adult cp Forms: - Medication Reconciliation Form cp - Antibiotic Education cp - Prescription Opioid Use cp - Patient Portal Instructions cp - Leadership Thank You Letter cp Prescriptions: - Reglan 10 mg Oral Tablet - take 1 tablet ORAL route every 6 hours take 30 minutes before meals and at cp bedtime; 20 tablet; Refills: 0, Product Selection Permitted - dicyclomine 20 mg Oral tablet - take 1 tablet ORAL route 4 times per day; 30 tablet; Refills: 0, Product cp Selection Permitted Signatures: Dispatcher [employer] EDIL Chandrakant Tolliver PA PA cp Peltier, Brian, RN RN Alessandra Rodríguez cp4 Corrections: (The following items were deleted from the chart) 06/08 19:57 19:40 The patient has experienced similar episodes in the past, multiple times, cp cp
[2024-06-07 20:26] VITALS: TEMP 97.9
[2024-06-07 20:28] VITALS: O2SAT 100
[2024-06-07 20:29] VITALS: BP 130/82
== END 2024-06-07 20:01 | disposition home or self-care (01) ==
LOC: ER 16:40
DX: R11.2 Nausea with vomiting, unspecified (principal); R10.32 Left lower quadrant pain; R10.31 Right lower quadrant pain
CPT/HCPCS: 85025; 36415; 83735; 83690; 80053; 74177; 71045; 96375; 96374; 99284; Q9967; J2550; J2765; J1200; J1790; J7030

== ENCOUNTER 2024-06-11 11:50 | Emergency (ER) | payer OTHER ==
--- OUTSIDE RECORDS SUMMARY | 2024-06-11 11:55 | XMS REPORT | Continuity of Care Document ---
Author Name Unknown Address [address] [facility] [address] [place] [address] [facility] Address [address] [facility] [address] [place] [address] Care Team Providers Care Stack Clerk Name Role Phone MEHRAN MATSON Primary Care Physician Unavailab BRISEYDA Sheikh Attending Clinician Unavailable BRISEYDA NUNEZ Attending Clinician Unavailable Araseli Shelton MD Attending Clinician [phone] DIPIKA CRUZ Attending Clinician Unavailable Dipika Busch Attending Clinician [phone] MITALI RAUSCH Attending Clinician Unavailable Mitali Rausch MD Attending Clinician [phone] ARASELI SHELTON Attending Clinician Unavailabl e Doctor Unassigned, [place] Attending Clinician U SRAVAN Robledo Attending Clinician Unavailable Estrada Sotelo MD Attending Clinician [phone] Sravan Mishra MD Attending Clinician [phone] MAGEN ROUSE Attending Clinician Unavailable Magen Rouse MD Attending Clinician [phone] SHIRLEY LOVE Attending Clinician UnavailShirley Zhang Attending Clinician [phone] Angi Sanford MD Attending Clinician [phone] JAVI ZULETA Attending Clinician Unavailable APOLONIA PINEDA Attending Clinician UnavailJOSSY Brown Attending Clinician Unavailable Rajmed_Ivette Attending Clinician Unavailable DIPIKA CRUZ Admitting Clinician Unavailable ARASELI SHELTON Admitting Clinician UnavailESTRADA Wiggins Admitting Clinician Unavailable Estrada Sotelo MD Admitting Clinician [phone] MAGEN ROUSE Admitting Clinician Unavailable JOSSY KWAN Admitting Clinician Unavailable Rajmed_Ivette Admitting Clinician Unavailable Payers Payer Name Policy Type Policy Number Effective Date Expirati on Date Source [employer] MEDICAID [id number] 2019 00:00:00 [place]ICA[place] [id number] 2019 00:00:00 Problems Condition Name Condition Details Condition Category Status Onset Date Resolution Date Last Treatment Date Treating Clinician Comments Source care and examinatio n of lactating mother care and examinatio n of lactating mother Disease Active 02-13 00:00: 00 [facility] , delivered , delivered Disease Active 2016-02 00:00: 00 [facility] Anemia, Anemia, Disease Active 2016-02 00:00: 00 [facility] - induced hypertensi on in third trimester - induced hypertensi on in third trimester Disease Active 2016-02 00:00: 00 [facility] Tubal ligation status Tubal ligation status Disease Active 2016-02 00:00: 00 [facility] Full-term jovita ROM, unsp time betw rupture and onset labor Full-term jovita ROM, unsp time betw rupture and onset labor Disease Active 2016-02 00:00: 00 [facility] 38 weeks gestation of 38 weeks gestation of Disease Active 2016-02 00:00: 00 [facility] Research study patient HCTZ Research study patient HCTZ Disease Active 2016-02 00:00: 00 Overview: Formattin g of this note is different from the original. Patient is in the HCTZ study IRB # [id number] y questions please contact:Corina Guadalupe MD [phone] Arnold MD [phone] Owen MD [phone] facts Patient randomize d after delivery if they met inclusion criteria a nd accepted Medicati on comes from [facility] not pharmacy, [facility] Phone Number Ext. 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 Guadalupe with any Questions [facility] Previous delivery desires TOLAC Previous delivery desires TOLAC Disease Active 2016-02 00:00: 00 [facility] Supervisio n of high-risk with insufficie nt care Supervisio n of high-risk with insufficie nt care Disease Active 2016-02 00:00: 00 [facility] 8 weeks gestation of 8 weeks gestation of Disease Resolve d 06-21 00:00: 00 2017-01-22 00:00:00 2017-01-22 07:47:58 [facility] Allergies, Adverse Reactions, Alerts Allergy Name Allergy Type Status Severity Reaction(s) Onset Date Inactive Date Treating Clinician Comments Source NO KNOWN ALLERGIE S Drug Class Active [facility] Social History Social Habit Start Date Stop Date Quantity Comments Source History of tobacco use Cigarette Smoker [facility] of Social function 2023-08-15 00:00:00 2023-08-15 00:00:00 [facility] Alcoholic beverage intake 2023-08-15 00:00:00 2023-08-15 00:00:00 0 /d [facility] Alcohol intake 2023-05-11 00:00:00 2023-05-11 00:00:00 0 /d [facility] Exposure to SARS-CoV-2 (event) 2021-11-09 00:00:00 2021-11-19 11:34:00 Not sure [facility] Cigarettes smoked current (pack per day) - Reported 2016-06-07 00:00:00 2016-06-07 00:00:00 [facility] Cigarette pack-years 2016-06-07 00:00:00 2016-06-07 00:00:00 [facility] Tobacco use and exposure 2016-06-07 00:00:00 2016-06-07 00:00:00 Smokeless tobacco non-user [facility] Sex assigned at 1990 00:00:00 1990 00:00:00 [facility] Smoking Status Start Date Stop Date Source Smokes tobacco daily 2016-06-07 00:00:00 [facility] Medications Ordered Medication Name Filled Medication Name Start Date Stop Date Current Medication? Ordering Clinician Indication Dosage Frequency Signature (SIG) Comments Components Source famotidine (PEPCID (PF)) injection 20 mg 08-15 09:15: 00 08-15 08:11 :00 No 20mg 20 mg, Slow IV Push, ONCE NOW, 1 dose, On Mon08/16/23 at 0415, ANA M [facility] acetaminoph en (OFIRMEV) IV piggyback 1,000 mg 08-15 09:00: 00 08-15 08:25 :00 No 1000mg 1,000 mg, IV Piggyback, at 400 mL/hr Administer over 15 Minutes, ONCE, 1 dose, On Mon08/16/23 at 0400, Routine, Is the patient strict NPO and unable to tolerate oral medication s? Yes [facility] hyoscyamine sulfate (LEVSIN/SL) sublingual tablet 0.25 mg 08-15 06:45: 00 08-15 05:56 :00 No .25mg 0.25 mg, Sublingual , ONCE NOW, 1 dose, On Mon08/16/23 at 0145, Routine [facility] ketorolac (TORADOL) injection 30 mg 08-15 06:30: 00 08-15 05:58 :00 No 30mg 30 mg, Slow IV Push, ONCE NOW, 1 dose, On Mon08/16/23 at 0130, [facility] NaCl 0.9% (NS) bolus infusion 1,000 mL 08-15 05:00: 00 08-15 07:59 :00 No 1000mL at 999 mL/hr, 1,000 mL, IV Infusion, ONCE, 1 dose, On Mon08/16/23 at 0000, [facility] famotidine (PEPCID (PF)) injection 20 mg 08-15 04:15: 00 08-15 05:14 :00 No 20mg 20 mg, Slow IV Push, ONCE, 1 dose, On Mon08/15/23 at 2315, [facility] ondansetron (ZOFRAN (PF)) injection 8 mg 08-15 04:15: 00 08-15 05:15 :00 No 8mg 8 mg, Slow IV Push, ONCE, 1 dose, On Mon08/15/23 at 2315, Routine [facility] tetracaine (PONTOCAINE ) 0.5 % ophthalmic drops 1 Drop 04-10 20:15: 00 04-10 18:50 :00 No 1[drp] 1 Drop, Both Eyes, ONCE, 1 dose, On Mon04/11/23 at 1415, Routine [facility] fluorescein ophthalmic strip 1 Strip 04-10 19:30: 00 04-10 18:50 :00 No 1{strip } 1 Strip, Both Eyes, ONCE, 1 dose, On Mon04/11/23 at 1330, Routine [facility] moxifloxaci n (VIGAMOX) 0.5 % ophthalmic drops 1 Drop 04-10 18:45: 00 Yes 1[drp] 1 Drop, Left Eye, TID, First dose on Mon04/11/23 at 1245, Until Discontinu ed, Routine [facility] moxifloxaci n 0.5 % ophthalmic drops 04-10 00:00: 00 Yes [id number] 1[drp] Place 1 Drop in left eye in the morning and 1 Drop at noon and 1 Drop in the evening. [facility] predniSONE 20 mg tablet 03-05 00:00: 00 03-13 05:59 :00 No [id number] 40mg Take 2 tablets by mouth in the morning for 7 days. [facility] predniSONE (DELTASONE) tablet 40 mg 03-04 19:00: 00 03-04 19:25 :00 No 40mg 40 mg, Oral, ONCE, 1 dose, On 03/04/23 at 1300, [facility] FENTanyl PF (SUBLIMAZE (PF)) injection 50 mcg 03-04 18:15: 00 03-04 17:22 :00 No 50ug 50 mcg, Slow IV Push, ONCE, 1 dose, On 03/04/23 at 1215, [facility] iopamidol (ISOVUE 370-500 mL) injection 90 mL 03-04 17:30: 00 03-04 17:45 :00 No [id number] 90mL 90 mL, Intravenou s, ONCE, 1 dose, On 03/04/23 at 1145, Routine [facility] NaCl 0.9% (NS) bolus infusion 1,000 mL 03-04 17:30: 00 03-04 19:29 :00 No 1000mL at 999 mL/hr, 1,000 mL, IV Infusion, ONCE, 1 dose, On 03/04/23 at 1130, [facility] famotidine (PEPCID (PF)) injection 20 mg 03-04 17:00: 00 03-04 17:12 :00 No 20mg 20 mg, Slow IV Push, ONCE, 1 dose, On 03/04/23 at 1100, [facility] ondansetron (ZOFRAN (PF)) injection 8 mg 03-04 17:00: 00 03-04 17:12 :00 No 8mg 8 mg, Slow IV Push, ONCE, 1 dose, On 03/04/23 at 1100, ANA M [facility] traMADoL 50 mg tablet 03-04 00:00: 00 Yes [id number] 50mg Take 1 tablet by mouth every 6 (six) hours as needed (pain). Indication s: acute pain [facility] ondansetron 4 mg tablet 03-04 00:00: 00 Yes [id number] 1 or 2 tablets every 8 hours as needed for nausea [facility] HYDROcodone -acetaminop hen (NORCO 5) 5-325 mg tablet 1 tablet 2021-02 18:36: 44 Yes 1{tbl} 1 tablet, Oral, Q6HPRN, Starting on Mon11/19/21 at 1336, Until Discontinu ed, Routine, Pain (scale 4-6) [facility] acetaminoph en (TYLENOL) tablet 650 mg 2021-02 18:36: 26 Yes 650mg 650 mg, Oral, Q6HPRN, Starting on Mon11/19/21 at 1336, Until Discontinu ed, Routine, Pain (scale 1-3) [facility] ondansetron (ZOFRAN-ODT ) disintegrat ing tablet 4 mg 2021-02 13:45: 00 11-19 12:59 :00 No 4mg 4 mg, Oral, ONCE, 1 dose, On Mon11/19/21 at 0845, Routine [facility] HYDROcodone -acetaminop hen (NORCO 5) 5-325 mg tablet 1 tablet 2021-02 13:00: 00 11-19 12:59 :00 No 1{tbl} 1 tablet, Oral, ONCE, 1 dose, On Mon11/19/21 at 0800, ANA M [facility] cyclobenzap rine 5 mg tablet 2021-02 00:00: 00 Yes [id number] 5mg Take 1 tablet by mouth in the morning and 1 tablet at noon and 1 tablet in the evening. [facility] predniSONE 20 mg tablet 2021-02 0 00:00: 00 Yes [id number] 40mg Take 2 tablets by mouth in the morning. [facility] HYDROcodone -acetaminop hen (NORCO) 7.5-325 mg per tablet 2021-02 0-05 00:00: 00 11-18 04:59 :00 No [id number] 1{tbl} Take 1 tablet by mouth every 8 (eight) hours as needed for Pain for up to 7 days. Indication s: acute pain [facility] budesonide- formoteroL 80-4.5 mcg/actuati on inhaler 09-29 00:00: 00 Yes [id number] 2{puff} Inhale 2 Puffs 2 (two) times daily. [facility] bromphenira mine-pseudo ephedrine-D M (BROMFED DM) 2-30-10 mg/5 mL syrup 09-29 00:00: 00 Yes [id number] 5mL Take 5 mL by mouth 4 (four) times daily as needed for Congestion /Allergies or Cough. [facility] LIALDA 1.2 gram EC tablet 09-02 00:00: 00 Yes [facility] Hyoscyamine Sulfate 0.125 mg TbDL 08-31 00:00: 00 Yes TAKE 1-2 TABLETS BY MOUTH EVERY 4 TO 6 HOURS NEEDED [facility] sucralfate 1 gram tablet 08-31 00:00: 00 Yes [facility] SERTraline 100 mg tablet 07-16 00:00: 00 Yes 100mg Take 100 mg by mouth every morning. [facility] atomoxetine 40 mg capsule 07-16 00:00: 00 Yes 40mg Take 40 mg by mouth daily. [facility] traZODone 50 mg tablet 07-16 00:00: 00 Yes TAKE 1 TABLET BY MOUTH NIGHTLY [facility] metoclopram rena HCl 10 mg tablet 2-16 00:00: 00 Yes [id number] 10mg Take 1 tablet by mouth every 6 (six) hours as needed for Nausea and Vomiting (N/V). [facility] acetaminoph en-codeine (TYLENOL-CO DEINE #3) 300-30 mg tablet 2-16 00:00: 00 Yes [id number] 1{tbl} Take 1 tablet by mouth every 4 (four) hours as needed for Pain (scale 7-10). Indication s: acute pain [facility] dicyclomine 20 mg tablet 03-07 00:00: 00 Yes [id number] 20mg Take 1 tablet by mouth 4 (four) times daily. [facility] ondansetron (ZOFRAN ODT) 4 mg disintegrat ing tablet 03-07 00:00: 00 Yes [id number] 4mg Take 1 tablet by mouth every 8 (eight) hours as needed for Nausea and Vomiting (N/V). [facility] Immunizations Ordered Immunization Name Filled Immunization Name Date Status Comments Source Td 2021-11-19 00:00:00 Completed [facility] Td 2021-11-19 00:00:00 Completed [facility] Td 2021-11-19 00:00:00 Completed [facility] TDAP 2016-11-15 00:00:00 Completed [facility] Influenza Virus Vaccine Quad IM 3+ 2016-11-15 00:00:00 Completed [facility] TDAP 2016-11-15 00:00:00 Completed [facility] Influenza Virus Vaccine Quad IM 3+ 2016-11-15 00:00:00 Completed [facility] TDAP 2016-11-15 00:00:00 Completed [facility] Influenza Virus Vaccine Quad IM 3+ 2016-11-15 00:00:00 Completed [facility] TDAP 2016-11-15 00:00:00 Completed [facility] Influenza Virus Vaccine Quad IM 3+ 2016-11-15 00:00:00 Completed [facility] TDAP 2016-11-15 00:00:00 Completed [facility] Influenza Virus Vaccine Quad IM 3+ YRS 2016-11-15 00:00:00 Completed [facility] TDAP 2016-11-15 00:00:00 Completed [facility] Influenza Virus Vaccine Quad IM 3+ YRS 2016-11-15 00:00:00 Completed [facility] TDAP 2016-11-15 00:00:00 Completed [facility] Influenza Virus Vaccine Quad IM 3+ YRS 2016-11-15 00:00:00 Completed [facility] TDAP 2016-11-15 00:00:00 Completed [facility] Influenza Virus Vaccine Quad IM 3+ YRS 2016-11-15 00:00:00 Completed [facility] TDAP 2016-11-15 00:00:00 Completed [facility] Influenza Virus Vaccine Quad IM 3+ YRS 2016-11-15 00:00:00 Completed [facility] TDAP Unknown Completed [facility] Influenza Virus Vaccine Quad IM 3+ YRS Unknown Completed [facility] TD, NOS Unknown Completed [facility] TDAP Unknown Completed [facility] Influenza Virus Vaccine Quad IM 3+ YRS Unknown Completed [facility] TD, NOS Unknown Completed [facility] TDAP Unknown Completed [facility] Influenza Virus Vaccine Quad IM 3+ YRS Unknown Completed [facility] TD, NOS Unknown Completed [facility] TDAP Unknown Completed [facility] Influenza Virus Vaccine Quad IM 3+ YRS Unknown Completed [facility] TD, NOS Unknown Completed [facility] Vital Signs Vital Name Observation Time Observation Value Comments S ource Systolic blood pressure 2023-08-16 08:16:43 139 mm[Hg] [facility] Diastolic blood pressure 2023-08-16 08:16:43 85 mm[Hg] [facility] Heart rate 2023-08-16 08:16:43 43 /min [facility] Respiratory rate 2023-08-16 08:16:43 16 /min [facility] Oxygen saturation in Arterial blood by Pulse oximetry 2023-08-16 08:16:43 98 /min [facility] Body temperature 2023-08-16 04:01:00 37.39 Kori [facility] Body height 2023-08-16 04:01:00 157.5 cm [facility] Body weight 2023-08-16 04:01:00 58.968 kg [facility] BMI 2023-08-16 04:01:00 23.78 kg/m2 [facility] Systolic blood pressure 2023-05-11 20:34:00 132 mm[Hg] [facility] Diastolic blood pressure 2023-05-11 20:34:00 76 mm[Hg] [facility] Heart rate 2023-05-11 20:34:00 65 /min [facility] Body temperature 2023-05-11 20:34:00 37.11 Kori [facility] Respiratory rate 2023-05-11 20:34:00 18 /min [facility] Body height 2023-05-11 20:34:00 157.5 cm [facility] Body weight 2023-05-11 20:34:00 58.968 kg [facility] BMI 2023-05-11 20:34:00 23.78 kg/m2 [facility] Oxygen saturation in Arterial blood by Pulse oximetry 2023-05-11 20:34:00 95 /min [facility] Systolic blood pressure 2023-04-11 18:26:00 118 mm[Hg] [facility] Diastolic blood pressure 2023-04-11 18:26:00 82 mm[Hg] [facility] Heart rate 2023-04-11 18:26:00 82 /min [facility] Body temperature 2023-04-11 18:26:00 37.22 Kori [facility] Respiratory rate 2023-04-11 18:26:00 20 /min [facility] Body height 2023-04-11 18:26:00 157.5 cm [facility] Body weight 2023-04-11 18:26:00 58.968 kg [facility] BMI 2023-04-11 18:26:00 23.78 kg/m2 [facility] Oxygen saturation in Arterial blood by Pulse oximetry 2023-04-11 18:26:00 100 /min [facility] Systolic blood pressure 2023-03-04 18:30:00 101 mm[Hg] [facility] Diastolic blood pressure 2023-03-04 18:30:00 75 mm[Hg] [facility] Heart rate 2023-03-04 18:30:00 60 /min [facility] Respiratory rate 2023-03-04 18:30:00 16 /min [facility] Oxygen saturation in Arterial blood by Pulse oximetry 2023-03-04 18:30:00 98 /min [facility] Body temperature 2023-03-04 16:39:00 37.22 Kori [facility] Body height 2023-03-04 16:39:00 157.5 cm [facility] Body weight 2023-03-04 16:39:00 59.013 kg [facility] BMI 2023-03-04 16:39:00 23.80 kg/m2 [facility] Systolic blood pressure 2021-11-19 23:00:00 115 mm[Hg] [facility] Diastolic blood pressure 2021-11-19 23:00:00 75 mm[Hg] [facility] Heart rate 2021-11-19 23:00:00 56 /min [facility] Respiratory rate 2021-11-19 23:00:00 16 /min [facility] Oxygen saturation in Arterial blood by Pulse oximetry 2021-11-19 23:00:00 100 /min [facility] Body temperature 2021-11-19 16:35:00 37 Kori [facility] Body weight 2021-11-19 16:35:00 56.7 kg [facility] BMI 2021-11-19 16:35:00 22.86 kg/m2 [facility] Systolic blood pressure 2021-11-19 14:41:14 130 mm[Hg] [facility] Diastolic blood pressure 2021-11-19 14:41:14 87 mm[Hg] [facility] Heart rate 2021-11-19 14:41:14 85 /min [facility] Body temperature 2021-11-19 14:41:14 36.67 Kori [facility] Respiratory rate 2021-11-19 14:41:14 18 /min [facility] Oxygen saturation in Arterial blood by Pulse oximetry 2021-11-19 14:41:14 99 /min [facility] Body height 2021-11-19 12:31:00 157.5 cm [facility] Body weight 2021-11-19 12:31:00 56.7 kg [facility] BMI 2021-11-19 12:31:00 22.86 kg/m2 [facility] Systolic blood pressure 2021-11-10 17:03:00 126 mm[Hg] [facility] Diastolic blood pressure 2021-11-10 17:03:00 86 mm[Hg] [facility] Heart rate 2021-11-10 17:03:00 85 /min [facility] Body temperature 2021-11-10 17:03:00 37.06 Kori [facility] Respiratory rate 2021-11-10 17:03:00 20 /min [facility] Body height 2021-11-10 17:03:00 157.5 cm [facility] Body weight 2021-11-10 17:03:00 55.792 kg [facility] BMI 2021-11-10 17:03:00 22.50 kg/m2 [facility] Oxygen saturation in Arterial blood by Pulse oximetry 2021-11-10 17:03:00 99 /min [facility] Systolic blood pressure 2020-09-29 22:26:00 139 mm[Hg] [facility] Diastolic blood pressure 2020-09-29 22:26:00 89 mm[Hg] [facility] Heart rate 2020-09-29 22:26:00 76 /min [facility] Body temperature 2020-09-29 22:26:00 36.89 Kori [facility] Respiratory rate 2020-09-29 22:26:00 16 /min [facility] Body height 2020-09-29 22:26:00 154.9 cm [facility] Body weight 2020-09-29 22:26:00 53.025 kg [facility] BMI 2020-09-29 22:26:00 22.09 kg/m2 [facility] Oxygen saturation in Arterial blood by Pulse oximetry 2020-09-29 22:26:00 100 /min [facility] Procedures Procedure Date / Time Performed Performing Clinician Source POCT TEST 2023-08-16 05:13:00 Araseli Shelton [facility] URINALYSIS 2023-08-16 04:54:00 Araseli Shelton [facility] LIPASE 2023-08-16 04:46:00 Araseli Shelton [facility] COMP. METABOLIC PANEL ([id number]) 2023-08-16 04:46:00 Araseli Shelton [facility] CBC WITH DIFF 2023-08-16 04:46:00 [facility] VW LEFT 2023-05-11 21:02:29 Dipika Cruz [facility] XR WRIST 3+ VW LEFT 2023-05-11 21:02:29 Dayo Cruz [facility] CONSENT/REFUSAL FOR DIAGNOSIS AND TREATMENT 2023-04-11 18:18:03 Doctor Unassigned, T[place] [facility] LIPASE 2023-03-04 17:08:00 Araseli Shelton [facility] COMP. METABOLIC PANEL ([id number]) 2023-03-04 17:08:00 Araseli Shelton [facility] CBC WITH DIFF 2023-03-04 17:08:00 Araseli Shelton [facility] URINALYSIS 2023-03-04 17:08:00 Araseli Shelton [facility] POCT TEST 2023-03-04 17:08:00 Araseli Shelton [facility] CONSENT/REFUSAL FOR DIAGNOSIS AND TREATMENT 2023-03-04 16:36:23 Doctor Unassigned, [place] [facility] AUTHORIZATION FOR RELEASE OF PHI 2021-12-02 05:01:00 Doctor Unassigned, [place] [facility] MR CERVICAL SPINE WO CONTRAST 2021-11-19 20:56:00 Michael Stock [facility] COVID-19 (ID NOW RAPID TESTING) 2021-11-19 14:10:00 Magen Rouse [facility] CT CERVICAL SPINE WO CONTRAST 2021-11-19 12:49:50 Magen Rouse [facility] CT HEAD WO CONTRAST 2021-11-19 12:49:50 Lily Rouse [facility] CONSENT/REFUSAL FOR DIAGNOSIS AND TREATMENT 2021-11-19 12:35:14 Doctor Unassigned, [place] [facility] XR HAND 3+ VW LEFT 2021-11-10 17:32:17 Nasim Magen [facility] XR WRIST 3+ VW LEFT 2021-11-10 17:31:56 Lily Rouse [facility] NOTICE OF PRIVACY PRACTICES 2021-11-10 16:59:19 Doctor Unassigned, [place] [facility] CONSENT/REFUSAL FOR DIAGNOSIS AND TREATMENT 2021-11-10 16:58:04 Doctor Unassigned, [place] [facility] ASSIGNMENT OF BENEFITS 2020-09-29 22:10:07 Docto r Unassigned, T[place] [facility] Encounters Start Date/Time End Date/Time Encounter Type Admission Type Attending [facility] Care Department Encounter ID Source 2020-12-05 23:41:25 Emergency [facility] [id number] [facility] 2020-12-05 20:46:01 Emergency [facility] [id number] [facility] 2020-12-05 20:45:07 Emergency [facility] [id number] [facility] 2020-12-03 22:03:22 Emergency [facility] [id number] [facility] 2023-08-15 22:53:00 2023-08-16 04:30:00 Emergency BRISEYDA HEDRICK ANDRES [facility] ERT [id number] [facility] 2023-08-15 22:53:00 2023-08-16 04:30:00 Emergency Araseli Shelton Andres [facility] [id number] [facility] 2023-05-11 15:37:00 2023-05-11 17:24:00 Emergency DIPIKA CARTY [facility] ERT [id number] [facility] 2023-05-11 15:37:00 2023-05-11 17:24:00 Emergency Dipika Cruz [facility] [id number] [facility] 2023-04-11 12:30:00 2023-04-11 13:22:00 Emergency X SHALOM MITALI [facility] ERT [id number] [facility] 2023-04-11 12:30:00 2023-04-11 13:22:00 Emergency Mitali Rausch [facility] 1.2.840.114 350.1.13.10 4.2.7.2.686 [id number] [facility] 2023-03-04 10:44:00 2023-03-04 13:29:00 Emergency X ARASELI SHELTON [facility] ERT [id number] [facility] 2023-03-04 10:44:00 2023-03-04 13:29:00 Emergency Guera Chester [facility] 1.2.840.114 350.1.13.10 4.2.7.2.686 [id number] [facility] 2021-12-02 00:00:00 2021-12-02 00:00:00 Orders Only Doctor Unassigned, Tama [facility] 1.2.840.114 350.1.13.10 4.2.7.2.686 [id number] [facility] 2021-11-19 11:43:00 2021-11-19 18:54:00 Emergency X SRAVAN MISHRA [facility] ERT [id number] [facility] 2021-11-19 11:43:00 2021-11-19 18:54:00 Emergency Estrada [facility] 1.2.840.114 350.1.13.10 4.2.7.2.686 [id number] [facility] 2021-11-19 07:30:00 2021-11-19 10:47:00 Emergency X MAGEN ROUSE [facility] ERT [id number] [facility] 2021-11-19 07:30:00 2021-11-19 10:47:00 Emergency Magen Rouse [facility] 1.840.114 350.1.13.10 4.2.7.2.686 [id number] [facility] 2021-11-10 12:05:00 2021-11-10 13:29:00 Emergency X MAGEN ROUSE [facility] ERT [id number] [facility] 2021-11-10 12:05:00 2021-11-10 13:29:00 Emergency Magen Rouse [facility] 1.84.114 350.1.13.10 4.2.7.2.686 [id number] [facility] 2021-11-10 00:00:00 2021-11-10 00:00:00 Orders Only Doctor Unassigned, Tama [facility] 1.84.114 350.1.13.10 4.2.7.2.686 [id number] [facility] 2020-09-29 17:40:00 2020-09-29 17:40:00 Outpatient R CHLOÉ LOVETANY [facility] [id number] [facility] 2020-09-29 17:11:16 2020-09-29 17:31:16 [facility] 1.840.114 350.1.13.10 4.2.7.2.686 [id number] [facility] 2020-09-29 00:00:00 2020-09-29 00:00:00 Telephone [facility] 1.2840.114 350.1.13.10 4.2.7.2.686 [id number] [facility] 2020-09-29 00:00:00 2020-09-29 00:00:00 Orders Only Doctor Unassigned, Tama [facility] 1.2.840.114 350.1.13.10 4.2.7.2.686 [id number] [facility] 2020-09-29 00:00:00 2020-09-29 00:00:00 Letter (Out) Juvenal [facility] Alfredo[facility] 1.2.840.114 350.1.13.10 4.2.7.2.686 [id number] [facility] 2020-01-16 13:00:00 2020-01-16 13:00:00 Outpatient JAVI LOZOYA [facility] [id number] [facility] 2019-08-15 10:45:00 2019-08-15 10:45:00 Outpatient APOLONIA LEAHY [facility] [id number] [facility] 2019-08-15 10:45:00 2019-08-15 10:45:00 Outpatient APOLONIA LEAHY [facility] [id number] [facility] 2019-06-17 10:46:52 2019-06-17 13:28:00 Emergency X JOSSY KWAN [facility] ERT [id number] [facility] 2019-04-30 03:42:00 2019-04-30 03:42:00 Outpatient Raju_P [facility]G [id number] [facility] 2019-04-11 09:40:39 2019-04-11 16:24:00 Emergency X JOSSY KWAN [facility] ERT [id number] [facility] Results Test Description Test Time Test Comments Results Result Co [facility]ments [facility] [id number] 21:05:34HISTORY: Left hand pain over first MCP joint. S/P fall. FINDINGS: AP, lateral, oblique views of left hand are obtained and comparedwith 11/10/2021 study. No acute fracture or dislocation. No significantchanges of arthritis or aggressive bone lesions seen. No soft tissuecalcifications, bony erosions or juxta-articular osteoporosis detected. CONCLUSIONS: [facility] VW [id number] 21:04:44HISTORY: Radial side left wrist pain. FINDINGS: AP, lateral, oblique views of left wrist are obtained andcompared with 11/10/2021 study. No acute fracture or dislocation. Nosignificant changes of arthritis or aggressive bone lesions seen. No bonyerosions or soft tissue calcifications detected. CONCLUSIONS: Normal study. [facility]. METABOLIC PANEL (33069)2023-03-04 17:33:25* Test Item Value Reference Range Interpretation Comme nts NA (test code = 5243462335) 139 mmol/L 135-145 K (test code = 5193581305) 4.1 mmol/L 3.5-5.0 CL (test code = 3860909249) 109 mmol/L 98-108 H CO2 TOTAL (test code = 5534182626) 22 mmol/L 23-31 L AGAP (test code = 2447069894) 8 2-16 BUN (test code = 2989633919) 13 mg/dL 7-23 GLUCOSE (test code = 4540624290) 104 mg/dL 70-110 CREATININE (test code = 4228673069) 0.79 mg/dL 0.50-1.04 TOTAL BILI (test code = 8264556035) 0.6 mg/dL 0.1-1.1 CALCIUM (test code = 2276928387) 9.6 mg/dL 8.6-10.6 T PROTEIN (test code = 4402942655) 8.7 g/dL 6.3-8.2 H ALBUMIN (test code = 4780138115) 5.1 g/dL 3.5-5.0 H ALK PHOS (test code = 0606075636) 40 U/L 34-122 ALTv (test code = 1742-6) 17 U/L 5-35 AST(SGOT) (test code = 2621472470) 23 U/L 13-40 eGFR (test code = 33991-3) 102.1 mL/min/1.73m2 CKD-EPI eGFR (2020). Assuming creatinine has been stable day-to-day for at least three months, the eGFR indicates Category G1 (>= 90 mL/min/1.73 m2) Lab Interpretation (test code = 75568-2) [facility] 17:33:00* Test Item Value Reference Range Interpretation Comme nts LIPASE (test code = 2011004413) 92 U/L 0-220 Lab Interpretation (test cod e = 65379-7) [facility] [id number] 17:22:38* Test Item Value Reference Range Interpretation [...] 34.7 g/dL 31.6-35.1 RDW-SD (test code = 59487-1) 46.9 fL 39.0-49.9 RDW-CV (test code = 788-0) 12.5 % 12.0-15.5 PLT (test code = 777-3) 438 See_Comment H [Automated messa ge] The system which generated this result transmitted reference range: 166 - 358 10*3/?L. The reference range was not used to interpret this result as normal/abnormal. MPV (test code = 97378-6) 7.8 fL 9.5-12.9 L NRBC/100 WBC (test code = 5476177556) 0.0 See_Comment [Automated me ssage] The system which generated this result transmitted reference range: 0.0 - 10.0 /100 WBCs. The reference range was not used to interpret this result as normal/abnormal. NRBC x10^3 (test code = 8794943127) See_Comment [Automated messa ge] The system which generated this result transmitted reference range: 10*3/?L. The reference range was not used to interpret this result as normal/abnormal. GRAN MAT (NEUT) % (test code = 770-8) 56.9 % IMM GRAN % (test code = 5537252103) 0.40 % LYMPH % (test code = 736-9) 32.5 % MONO % (test code = 5905-5) 8.1 % EOS % (test code = 713-8) 1.5 % BASO % (test code = 706-2) 0.6 % GRAN MAT x10^3(ANC) (test code = 9839555369) 5.39 10*3/uL 1.88-7.09 IMM GRAN x10^3 (test code = 6594209216) 0.04 10*3/uL 0.00-0.06 LYMPH x10^3 (test code = 731-0) 3.08 10*3/uL 1.32-3.29 MONO x10^3 (test code = 742-7) 0.77 10*3/uL 0.33-0.92 EOS x10^3 (test code = 711-2) 0.14 10*3/uL 0.03-0.39 BASO x10^3 (test code = 704-7) 0.06 10*3/uL 0.01-0.07 Lab Interpretation (test code = 56340-6) Abnormal [facility] [id number] 17:08:00* Test Item Value Reference Range Interpretation Comme nts POCT PREG (test code = 1605) Negative On board controls acceptable with C Line (test code = 3574) Yes POCT PREG LOT # (test code = 3575) [id number] POCT PREG TEST DATE ( test code = 3576) 05/14/2024 Lab Interpretation (test cod e = 46348-6) Normal [facility] Notes Date/Time Note Provider Source 2023-08-16 04:28:47 Pt upset she is not receiving pain meds to help her abd pain. Pt eloped from ER with iv in place. Pt was followed by staff to vehicle and IV was removed. aware. [facility] 2023-08-16 04:26:15 Patient walking towards ER exit doors. RN took out PIV in parking lot. [facility] 2023-08-16 03:25:54 Pt no longer noted actively vomiting, but still c/o sharp LLQ pain. [facility] 2023-08-15 23:23:03 Pt actively vomiting at this time. [facility] 2023-08-15 22:57:23 Patient arrived via [facility] c/o abd pain that started four days ago. Patient has hx of chron's dx. Patient c/o N/V but no diarrhea. EMS gave 12.5 Phenergan IM. Patient recently discharged from [facility] with prescriptions for steroids and Zofran. Last medication taken was around 1600. T Adriano Olmstead RN [facility] 2023-05-11 15:35:33 Pt c/o left hand pain. States that she fell backwards onto her left hand after seeing a dennis spider at work. 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 Ghazala Lloyd RN [facility] 2023-04-11 13:15:00 Pt given printed and [...] with steady gait, in no apparent distress. NAUTICAL PROJECT ENGINEER Liseth Steven RN [facility] 2023-04-11 12:25:40 Patient state that yesterday at work she removed her eye protection and wiped her eyes and has been having pain and irritation since. States that she used the eye wash at work and flushed her eye. This morning eye feels irritated and was matted. No problems with vision. NAUTICAL PROJECT ENGINEER Sheron Jaffe RN [facility] 2023-04-11 12:15:00 Images from the original note were not included. [facility] Emergency Department Note Patient Name: Hilaria Alcala Date of : 1990 32 year old female Treatment Room: [facility] ED [facility] ALEX/AMANDA Primary Care Physician: Mehran [...] 08/09/2011 EPIDURAL STEROID INJECTION ORAL SURGERY PROCEDURE [place] teeth extraction TUBAL LIGATION 01/21/2017 TUBAL LIGATION Bilateral 01/21/2017 Surgeon: Ruby Pop MD; Location: Labor and Delivery [facility] [place] Review of Systems: Review of Systems Constitutional: [...] signed by: Mitali Rausch MD 04/11/23 1305 [facility] 2023-03-04 13:28:49 Patient discharged with abdominal pain. Follow up with pcp. Feeling better at this time. ENCE Anna RN [facility] 2023-03-04 10:37:45 Patient states: "I have chrones diease and I"m going through a flare up since Monday. [facility]. I feel very dehydrated and I need fluids. I did take tramadol at 7 am. It just made me nauseous so I took a phenergan suppository" " NAUTICAL PROJECT ENGINEER Apolonia Garcias RN [facility] 2023-03-04 10:36:00 [facility] Emergency Department Note Patient Name: Hilaria Alcala Date of : 1990 32 year old female Treatment Room: Room/bed info not found Primary Care Physician: Mehran Matson Patient Escorted by: Self [9] Mode of Arrival: Personal means [1] EMS Treatment Prior to ED Arrival: NEWSPAPER REPORTER treatment: Medication (comment) NEWSPAPER REPORTER treatment comments: 50 mg tramadol at 0700, [...] 08/09/2011 EPIDURAL STEROID INJECTION ORAL SURGERY PROCEDURE [place] teeth extraction TUBAL LIGATION 01/21/2017 TUBAL LIGATION Bilateral 01/21/2017 Surgeon: Ruby Pop MD; Location: Labor and Delivery [facility] [place] Review of Systems: Review of Systems Constitutional: [...] 0.01 - 0.07 10*3/uL COMP. METABOLIC PANEL (09632) - Abnormal NA 139 135 - 145 [...] CONTRAST CBC WITH DIFF COMP. METABOLIC PANEL (44587) LIPASE URINALYSIS POCT TEST Orders Placed This [...] MD -- 03/04/23 1043 First Provider Evaluation ARASEIL SHELTON MD -- ED COURSE ED Course [...] signed by: Araseli Shelton MD 03/04/23 1308 [facility]
[2024-06-11] MEDS ORDERED: MAGNES/ALUMIN/SIMET 30ML UCUP ONE (12:21)
[2024-06-11] MEDS ORDERED: LIDOCAINE VISCOUS 2% 10ML ORAL SOLN ONE (12:22)
[2024-06-11] MEDS ORDERED: PANTOPRAZOLE 40 MG INJ ONE (12:22)
[2024-06-11] MEDS ORDERED: PROMETHAZINE INJ 25 MG/ML AMP ONE (12:22)
[2024-06-11] MEDS ORDERED: NA CHLORIDE 0.9% 1,000 ML ONE (12:22)
[2024-06-11] MEDS ORDERED: MORPHINE 4 MG/ML SYR ONE (12:30)
[2024-06-11 13:46] LABS: Absolute Lymphocytes (CBC) 1.8 K/uL (0.7-4.9); Absolute Monocytes 0.5 K/uL (0.1-1.3); Absolute Neutrophil 3.7 K/uL (1.8-8.0); Basophils % 0.6 % (0-1.3); Eosinophils % 0.2 % (0-4.4); Hematocrit 36.1 % (36.0-45.0); Hemoglobin 12.2 g/dL (12.0-15.0); Lymphocytes % 30.1 % (15.3-44.8); MCHC 33.8 g/dL (32.0-36.0); MCV 97.5 fL (80-100); MPV 6.2 fL (7.6-11.3); Monocytes % 8.8 % (3.3-12.3); Neutrophils % 60.3 % (41.7-73.7); Nucleated Red Blood Cells % 0.1 % (0-0); Platelets 372 thou/uL (152-406); Red Cell Distribution Width 13.4 % (12.1-15.2)
[2024-06-11 13:54] LABS: Anion Gap 11.1 mEq/L (5.0-15.0); Potassium 3.1 mEq/L (3.5-5.1)
--- NOTE | 2024-06-11 14:58 | ER ---
Nurse's Notes [facility] Name: Ashley Alcala Age: 33 yrs Sex: Female : 1990 Arrival Date: 06/11/2024 Time: 11:50 Bed 15 Private MD: Diagnosis: Upper abdominal pain, unspecified;Acute gastritis without bleeding Presentation: 06/11 11:58 Chief complaint: Lower abdominal pain and N/V since last night, not tolerating hb fluids/meds. Feels like previous Crohn's flare up. Coronavirus screen: At this time, the client does not indicate any symptoms associated with coronavirus-19. Ebola Screen: No symptoms or risks identified at this time. Initial Sepsis Screen: Does the patient meet any 2 criteria? No. Patient's initial sepsis screen is negative. Does the patient have a suspected source of infection? No. Patient's initial sepsis screen is negative. Risk Assessment: Do you want to hurt yourself or someone else? Patient reports no desire to harm self or others. Onset of symptoms was June 10, 2024. 11:58 Method Of Arrival: Ambulatory 11:58 Acuity: ESTEVAN 3 hb Historical: - Allergies: 12:00 Codeine; hb - PMHx: 12:00 Hypothyroidism; Crohn's Disease; hb - PSHx: 12:00 section; tubal ligation; hb - Immunization history:: Adult Immunizations up to date. - Infectious Disease History:: Denies. - Social history:: Smoking status: Patient reports the use of cigarette tobacco products, Reported history of juuling and/or vaping. - Family history:: not pertinent. - Hospitalizations: : No recent hospitalization is reported. Screenin:42 [facility] ED Fall Risk Assessment (Adult) History of falling in the last 3 months, db including since admission No falls in past 3 months (0 pts) Confusion or Disorientation No (0 pts) Intoxicated or Sedated No (0 pts) Impaired Gait No (0 pts) Mobility Assist Device Used No (0 pt) Altered Elimination No (0 pt) Score/Fall Risk Level 0 - 2 = Low Risk Oriented to surroundings, Maintained a safe environment. Abuse screen: Denies threats or abuse. Denies injuries from another. Nutritional screening: No deficits noted. Tuberculosis screening: No symptoms or risk factors identified. Assessment: 12:20 Reassessment: Patient appears in no apparent distress at this time. Patient and/or db family updated on plan of care and expected duration. Pain level reassessed. Patient is alert, oriented x 3, equal unlabored respirations, skin warm/dry/pink. General: Appears in no apparent distress. uncomfortable, Behavior is calm, cooperative. Pain: Complains of pain in abdomen. GI: Abdomen is flat, non-distended, Reports nausea. 14:25 Reassessment: Patient appears in no apparent distress at this time. Patient and/or db family updated on plan of care and expected duration. Pain level reassessed. Patient is alert, oriented x 3, equal unlabored respirations, skin warm/dry/pink. Patient states feeling better. Patient states symptoms have improved. Neuro: Level of Consciousness is awake, alert, obeys commands, Oriented to person, place, time, situation. 15:11 Reassessment: Patient appears in no apparent distress at this time. Patient and/or db family updated on plan of care and expected duration. Pain level reassessed. Patient is alert, oriented x 3, equal unlabored respirations, skin warm/dry/pink. Patient states feeling better. Patient states symptoms have improved. Vital Signs: 11:58 BP 148 / 97; Pulse 60; Resp 16; Temp 97.8(O); Pulse Ox 99% on R/A; Weight 52.16 kg; hb Height 5 ft. 2 in. ; Pain 10/10; 13:00 BP 164 / 101; Pulse 52; Resp 16; Pulse Ox 100% ; db 13:30 BP 171 / 96; Pulse 51; Resp 16; Pulse Ox 100% on R/A; db 14:00 BP 159 / 96; Pulse 51; Resp 16; Pulse Ox 100% on R/A; db 15:00 BP 169 / 96; Pulse 51; Resp 16; Pulse Ox 100% on R/A; db 11:58 Body Mass Index 21.03 (52.16 kg, 157.48 cm) hb 11:58 Pain Scale: Adult hb ED Course: 11:53 Patient arrived in ED. cj3 11:55 Dell Tse MD is Attending Physician. rn 12:00 Triage completed. hb 12:00 Arm band placed on. hb 12:11 Janina Walsh, RN is Primary Nurse. db 12:25 Initial lab(s) drawn, by me, sent to lab. Inserted saline lock: 22 gauge in right db wrist, using aseptic technique. Blood collected. Flushed with 10 mL NS. 13:00 Patient has correct armband on for positive identification. Bed in low position. Call db light in reach. Side rails up X 1. Pulse ox on. NIBP on. Warm blanket given. Pillow given. 13:30 Lab(s) recollected, by me, sent to lab. db 15:11 Provided Education on: DISCHARGE. db 15:11 No provider procedures requiring assistance completed. IV discontinued, intact, db bleeding controlled, No redness/swelling at site. Administered Medications: 12:20 Drug: NS 0.9% IV 1000 ml IV at 1 bolus Per protocol; to be given as a bolus over 60 db minutes Route: IV; Rate: 1 bolus; Site: right wrist; 15:12 Follow up: Response: No adverse reaction; IV Status: Completed infusion; IV Intake: db 1000ml 12:20 Drug: Pantoprazole IVP 40 mg IVP once Route: IVP; Site: right wrist; db 15:12 Follow up: Response: No adverse reaction db 12:20 Drug: GI Cocktail without - (Maalox PO 30 ml, Lidocaine Mucous Membrane 2 % 15 db ml) PO once Route: PO; 15:12 Follow up: Response: No adverse reaction db 12:20 Drug: Promethazine IVP 12.5 mg IVP once Route: IVP; Site: right wrist; db 15:12 Follow up: Response: No adverse reaction db 12:43 Drug: morphine IVP or IV 4 mg IVP once over 4 mins Route: IVP; Infused Over: 4 mins; db Site: right wrist; 15:12 Follow up: Response: No adverse reaction; Pain is decreased db Medication: 15:11 VIS not applicable for this client. db Intake: 15:12 IV: 1000ml; Total: 1000ml. db Outcome: 14:57 Discharge ordered by . rn 15:11 Discharged to home ambulatory, db 15:11 Condition: stable 15:11 Discharge instructions given to patient, Instructed on discharge instructions, follow up and referral plans. 15:12 Patient left the ED. db Signatures: Dell Tse MD MD rn Baxter, Heather, RN RN hb Benton, Danielle, RN RN db Johnson, Celeste cj3
--- NOTE | 2024-06-11 14:58 | EDPHYS ---
Physician Documentation [facility] Name: Ashley Alcala Age: 33 yrs Sex: Female : 1990 Arrival Date: 06/11/2024 Time: 11:50 Bed 15 Private MD: ED Physician Dell Tse HPI: 06/11 12:28 This 33 yrs old Female presents to ER via Ambulatory with complaints of Vomiting. rn 12:28 The patient presents to the emergency department with nausea, vomiting. Onset: The rn symptoms/episode began/occurred 4 day(s) ago. Possible causes: flare up of bowel problem, Crohn's disease. Severity of symptoms: At their worst the symptoms were moderate in the emergency department the symptoms are unchanged. Patient reports seen here few days ago, diagnosed with Crohn's and gastritis. Patient returns for persistent vomiting, "bad acid reflux". Patient feels weak and dehydrated. Patient reports identical to previous Crohn's flares. She is ready seeing GI and they are planning upper GI scope to evaluate for esophagitis and gastritis. Patient reports vomiting so cannot keep down her Protonix. No blood in emesis or stool.. Historical: - Allergies: 12:00 Codeine; hb - PMHx: 12:00 Hypothyroidism; Crohn's Disease; hb - PSHx: 12:00 section; tubal ligation; hb - Immunization history:: Adult Immunizations up to date. - Infectious Disease History:: Denies. - Social history:: Smoking status: Patient reports the use of cigarette tobacco products, Reported history of juuling and/or vaping. - Family history:: not pertinent. - Hospitalizations: : No recent hospitalization is reported. ROS: 12:28 Constitutional: Negative for fever, chills, and weight loss, Neck: Negative for injury, rn pain, and swelling, Cardiovascular: Negative for chest pain, palpitations, and edema, Respiratory: Negative for shortness of breath, cough, wheezing, and pleuritic chest pain, Abdomen/GI: Positive for upper abdominal pain and acid reflux. Positive for vomiting. MS/Extremity: Negative for injury and deformity, Skin: Negative for injury, rash, and discoloration, Neuro: Negative for headache, numbness, tingling, and seizure, Exam: 12:28 Constitutional: This is a well developed, well nourished patient who is awake, alert, rn and in no acute distress. ENT: Dry mucous membranes Cardiovascular: Regular rate and rhythm. No pulse deficits. Respiratory: No increased work of breathing, no retractions or nasal flaring. Abdomen/GI: Soft, mild epigastric tenderness. No rebound or guarding Vital Signs: 11:58 BP 148 / 97; Pulse 60; Resp 16; Temp 97.8(O); Pulse Ox 99% on R/A; Weight 52.16 kg; hb Height 5 ft. 2 in. ; Pain 10/10; 13:00 BP 164 / 101; Pulse 52; Resp 16; Pulse Ox 100% ; db 13:30 BP 171 / 96; Pulse 51; Resp 16; Pulse Ox 100% on R/A; db 14:00 BP 159 / 96; Pulse 51; Resp 16; Pulse Ox 100% on R/A; db 15:00 BP 169 / 96; Pulse 51; Resp 16; Pulse Ox 100% on R/A; db 11:58 Body Mass Index 21.03 (52.16 kg, 157.48 cm) hb 11:58 Pain Scale: Adult hb MDM: 11:55 Medical Screening Exam initiated rn 14:56 Differential diagnosis: Nonspecific abd pain, gastritis, Esophagitis, Crohn's. Data rn reviewed: vital signs, nurses notes, lab test result(s), and as a result, I will discharge patient. Counseling: I had a detailed discussion with the patient and/or guardian regarding the historical points, exam findings, and any diagnostic results supporting the discharge/admit diagnosis, lab results, the need for outpatient follow up, to return to the emergency department if symptoms worsen or persist or if there are any questions or concerns that arise at home. Response to treatment: the patient's symptoms have markedly improved after treatment, and as a result, I will discharge patient. Special discussion: I discussed with the patient/guardian in detail that at this point there is no indication for admission to the hospital. It is understood, however, that if the symptoms persist or worsen the patient needs to return immediately for re-evaluation. Based on the history and exam findings, there is no indication for further emergent testing or inpatient evaluation. I discussed with the patient/guardian the need to see the home appliance tech for further evaluation of the symptoms. ED course: Patient feels much better, states is ready to go. She is in the middle of scheduling her upper endoscopy, anticipates to get it done this next week. I have personally reviewed all of the results, including but not limited to blood tests and imaging deemed necessary to safely discharge this patient at this time. All results given to and printed out for patient. I personally went over all the results with the patient and answered all questions. Patient will follow-up with PCP and or specialist as discussed. Return precautions given and understood.. 06/11 12:03 Order name: CBC with Diff; Complete Time: 14:22 rn 06/11 12:03 Order name: Basic Metabolic Panel; Complete Time: 14:22 rn 06/11 12:03 Order name: IV Start; Complete Time: 12:41 rn Administered Medications: 12:20 Drug: NS 0.9% IV 1000 ml IV at 1 bolus Per protocol; to be given as a bolus over 60 db minutes Route: IV; Rate: 1 bolus; Site: right wrist; 15:12 Follow up: Response: No adverse reaction; IV Status: Completed infusion; IV Intake: db 1000ml 12:20 Drug: Pantoprazole IVP 40 mg IVP once Route: IVP; Site: right wrist; db 15:12 Follow up: Response: No adverse reaction db 12:20 Drug: GI Cocktail without - (Maalox PO 30 ml, Lidocaine Mucous Membrane 2 % 15 db ml) PO once Route: PO; 15:12 Follow up: Response: No adverse reaction db 12:20 Drug: Promethazine IVP 12.5 mg IVP once Route: IVP; Site: right wrist; db 15:12 Follow up: Response: No adverse reaction db 12:43 Drug: morphine IVP or IV 4 mg IVP once over 4 mins Route: IVP; Infused Over: 4 mins; db Site: right wrist; 15:12 Follow up: Response: No adverse reaction; Pain is decreased db Disposition Summary: 06/11/24 14:57 Discharge Ordered Notes: Location: Home rn Problem: new rn Symptoms: have improved rn Condition: Stable rn Diagnosis - Upper abdominal pain, unspecified rn - Acute gastritis without bleeding rn Followup: rn - With: Private Physician - When: As needed - Reason: Recheck today's complaints, Re-evaluation by your physician Discharge Instructions: - Discharge Summary Sheet rn - Abdominal Pain, Adult rn - Gastritis, Adult rn - Gastroesophageal Reflux Disease, Adult rn Forms: - Medication Reconciliation Form rn - Antibiotic learning and development assistant - Prescription Opioid Use rn - Patient Portal Instructions rn - Leadership Thank You Letter rn Signatures: Dispatcher [employer] Dell Ghotra MD MD rn Baxter, Heather, RN RN hb Benton, Danielle RN RN db
[2024-06-11 18:50] VITALS: TEMP 97.8
[2024-06-11 18:51] VITALS: O2SAT 100
[2024-06-11 18:56] VITALS: BP 169/96
== END 2024-06-11 15:12 | disposition home or self-care (01) ==
LOC: ER 11:50
DX: K29.00 Acute gastritis without bleeding (principal); Z72.0 Tobacco use
CPT/HCPCS: 96361; 85025; 80048; 36415; 96375; 96374; 99284; J2550; J2470; J7030

== ENCOUNTER 2024-10-01 11:59 | Emergency (ER) | payer OTHER ==
--- OUTSIDE RECORDS SUMMARY | 2024-10-01 12:09 | XMS REPORT | Continuity of Care Document ---
Author Name Unknown Address [address] [facility]. [address] [place] [address] [facility] Address [address] [facility] [address] [place] [address] Care Team Providers Care Concierge Name Role Phone HUYEN MEHRAN Willard Primary Care Physician Unavailab JOSSY Mohan Attending Clinician Unavailable JOSSY PARHAM Attending Clinician Unavailable BRISEYDA NUNEZ Attending Clinician Unavailable BRISEYDA NUNEZ Attending Clinician Unavailable Araseli Shelton MD Attending Clinician + [phone] DIPIKA CRUZ Attending Clinician Unavailable Dipika Busch Attending Clinician [phone] MITALI RAUSCH Attending Clinician Unavailable Mitali Rausch MD Attending Clinician + [phone] ARASELI SHELTON Attending Clinician Unavailabl e Doctor Unassigned, [place] Attending Clinician U SRAVAN Robledo Attending Clinician Unavailable Estrada Sotelo MD Attending Clinician [phone] Sravan Mishra MD Attending Clinician [phone] MAGEN ROUSE Attending Clinician Unavailable Magen Rouse MD Attending Clinician [phone] SHIRLEY LOVE Attending Clinician UnavailShirley Zhang Attending Clinician [phone] Angi Sanford MD Attending Clinician [phone] JAVI ZULETA Attending Clinician Unavailable APOLONIA PINEDA Attending Clinician Unavailjessica Velázquez_P Attending Clinician Unavailable JOSSY PARHAM Admitting Clinician Unavailable DIPIKA CRUZ Admitting Clinician Unavailable ARASELI SHELTON Admitting Clinician UnavailESTRADA Wiggins Admitting Clinician Unavailable Estrada Sotelo MD Admitting Clinician MAGEN ROUSE Admitting Clinician Unavailable JOSSY PARHAM Admitting Clinician Unavailable Rajmed_Ivette Admitting Clinician Unavailable Payers Payer Name Policy Type Policy Number Effective Date Expirati on Date Source [employer] MEDICAID [id number] 2019 00:00:00 [place] [id number] 2019 00:00:00 Problems Condition Name Condition Details Condition Category Status Onset Date Resolution Date Last Treatment Date Treating Clinician Comments Source care and examinatio n of lactating mother care and examinatio n of lactating mother Disease Active 02-13 00:00: 00 [facility] , delivered , delivered Disease Active 2016-02 00:00: 00 [facility] Anemia, Anemia, Disease Active 2016-02 00:00: 00 [facility] - induced hypertensi on in third trimester - induced hypertensi on in third trimester Disease Active 2016-02 00:00: 00 [facility] Tubal ligation status Tubal ligation status Disease Active 2016-02 00:00: 00 [facility] Full-term jovita ROM, unsp time betw rupture and onset labor Full-term jovita ROM, unsp time betw rupture and onset labor Disease Active 2016-02 00:00: 00 [facility] 38 weeks gestation of 38 weeks gestation of Disease Active 2016-02 00:00: 00 [facility] Research study patient HCTZ Research study patient HCTZ Disease Active 2016-02 00:00: 00 Overview: Formattin g of this note is different from the original. Patient is in the HCTZ study IRB # [id number] y questions please contact:Corina Guadalupe MD [phone] Arnold MD [phone] Owen MD [phone] facts Patient randomize d after delivery if they met inclusion criteria a nd accepted Medicati on comes from [facility] not pharmacy, [facility] Phone Number Ext. 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 Guadalupe with any Questions [facility] Previous delivery desires TOLAC Previous delivery desires TOLAC Disease Active 2016-02 00:00: 00 [facility] Supervisio n of high-risk with insufficie nt care Supervisio n of high-risk with insufficie nt care Disease Active 2016-02 00:00: 00 [facility] 8 weeks gestation of 8 weeks gestation of Disease Resolve d 16 00:00: 00 2017-01-22 00:00:00 2017-01-22 07:47:58 [facility] Allergies, Adverse Reactions, Alerts Allergy Name Allergy Type Status Severity Reaction(s) Onset Date Inactive Date Treating Clinician Comments Source NO KNOWN ALLERGIE S Drug Class Active [facility] Social History Social Habit Start Date Stop Date Quantity Comments Source History of tobacco use Cigarette Smoker [facility] History of Social function 2024-08-06 00:00:00 2024-08-06 00:00:00 [facility] Alcoholic beverage intake 2024-08-06 00:00:00 2024-08-06 00:00:00 0 /d [facility] Alcohol intake 2023-05-11 00:00:00 2023-05-11 00:00:00 0 /d [facility] Exposure to SARS-CoV-2 (event) 2021-11-09 00:00:00 2021-11-19 11:34:00 Not sure [facility] Cigarettes smoked current (pack per day) - Reported 2016-06-07 00:00:00 2016-06-07 00:00:00 [facility] Cigarette pack-years 2016-06-07 00:00:00 2016-06-07 00:00:00 [facility] Tobacco use and exposure 2016-06-07 00:00:00 2016-06-07 00:00:00 Smokeless tobacco non-user [facility] Sex assigned at 1990 00:00:00 1990 00:00:00 [facility] Smoking Status Start Date Stop Date Source Smokes tobacco daily 2016-06-07 00:00:00 [facility] Medications Ordered Medication Name Filled Medication Name Start Date Stop Date Current Medication? Ordering Clinician Indication Dosage Frequency Signature (SIG) Comments Components Source proCHLORper azine (COMPAZINE) injection 5 mg 08-06 14:30: 00 08-06 13:38 :00 No 5mg 5 mg, Slow IV Push, ONCE, 1 dose, On Mon08/06/24 at 0930, [facility] iopamidol (ISOVUE 370-500 mL) injection 85 mL 08-06 13:45: 00 08-06 13:45 :00 No [id number] 85mL 85 mL, Intravenou s, ONCE, 1 dose, On Mon08/06/24 at 0845, Routine [facility] proCHLORper azine (COMPAZINE) injection 5 mg 08-06 13:00: 00 08-06 12:31 :00 No 5mg 5 mg, Slow IV Push, ONCE, 1 dose, On Mon08/06/24 at 0800, [facility] diphenhydrA MINE (BENADRYL) injection 25 mg 08-06 13:00: 00 08-06 12:32 :00 No 25mg 25 mg, Slow IV Push, ONCE, 1 dose, On Mon08/06/24 at 0800, STAT [facility] NaCl 0.9% (NS) bolus infusion 500 mL 08-06 13:00: 00 08-06 13:00 :00 No 500mL at 999 mL/hr, 500 mL, IV Infusion, ONCE, 1 dose, On Mon08/06/24 at 0800, STAT [facility] pantoprazol e (PROTONIX) 40 mg in NaCl 0.9% (NS) 10 mL syringe 08-06 12:30: 00 08-06 12:34 :00 No 40mg 40 mg, Slow IV Push, Administer over 2 Minutes, ONCE, 1 dose, On Mon08/06/24 at 0730, Routine [facility] famotidine (PEPCID (PF)) injection 20 mg 08-15 09:15: 00 08-15 08:11 :00 No 20mg 20 mg, Slow IV Push, ONCE NOW, 1 dose, On Mon08/16/23 at 0415, ANA M [facility] acetaminoph en (OFIRMEV) IV piggyback 1,000 mg 08-15 09:00: 00 08-15 08:25 :00 No 1000mg 1,000 mg, IV Piggyback, at 400 mL/hr Administer over 15 Minutes, ONCE, 1 dose, On Mon08/16/23 at 0400, Routine, Is the patient strict NPO and unable to tolerate oral medication s? Yes [facility] hyoscyamine sulfate (LEVSIN/SL) sublingual tablet 0.25 mg 08-15 06:45: 00 08-15 05:56 :00 No .25mg 0.25 mg, Sublingual , ONCE NOW, 1 dose, On Mon08/16/23 at 0145, Routine [facility] ketorolac (TORADOL) injection 30 mg 08-15 06:30: 00 08-15 05:58 :00 No 30mg 30 mg, Slow IV Push, ONCE NOW, 1 dose, On Mon08/16/23 at 0130, [facility] NaCl 0.9% (NS) bolus infusion 1,000 mL 08-15 05:00: 00 08-15 07:59 :00 No 1000mL at 999 mL/hr, 1,000 mL, IV Infusion, ONCE, 1 dose, On Mon08/16/23 at 0000, [facility] famotidine (PEPCID (PF)) injection 20 mg 08-15 04:15: 00 08-15 05:14 :00 No 20mg 20 mg, Slow IV Push, ONCE, 1 dose, On Mon08/15/23 at 2315, [facility] ondansetron (ZOFRAN (PF)) injection 8 mg 08-15 04:15: 00 08-15 05:15 :00 No 8mg 8 mg, Slow IV Push, ONCE, 1 dose, On Mon08/15/23 at 2315, [facility] tetracaine (PONTOCAINE ) 0.5 % ophthalmic drops 1 Drop 04-10 20:15: 00 04-10 18:50 :00 No 1[drp] 1 Drop, Both Eyes, ONCE, 1 dose, On Mon04/11/23 at 1415, Routine [facility] fluorescein ophthalmic strip 1 Strip 04-10 19:30: 00 04-10 18:50 :00 No 1{strip } 1 Strip, Both Eyes, ONCE, 1 dose, On Mon04/11/23 at 1330, [facility] moxifloxaci n (VIGAMOX) 0.5 % ophthalmic drops 1 Drop 04-10 18:45: 00 Yes 1[drp] 1 Drop, Left Eye, TID, First dose on Mon04/11/23 at 1245, Until Discontinu ed, Routine [facility] moxifloxaci n 0.5 % ophthalmic drops 04-10 00:00: 00 Yes [id number] 1[drp] Place 1 Drop in left eye in the morning and 1 Drop at noon and 1 Drop in the evening. [facility] predniSONE 20 mg tablet 03-05 00:00: 00 03-13 05:59 :00 No [id number] 40mg Take 2 tablets by mouth in the morning for 7 days. [facility] predniSONE (DELTASONE) tablet 40 mg 03-04 19:00: 00 03-04 19:25 :00 No 40mg 40 mg, Oral, ONCE, 1 dose, On 03/04/23 at 1300, [facility] FENTanyl PF (SUBLIMAZE (PF)) injection 50 mcg 03-04 18:15: 00 03-04 17:22 :00 No 50ug 50 mcg, Slow IV Push, ONCE, 1 dose, On 03/04/23 at 1215, [facility] iopamidol (ISOVUE 370-500 mL) injection 90 mL 03-04 17:30: 00 03-04 17:45 :00 No [id number] 90mL 90 mL, Intravenou s, ONCE, 1 dose, On 03/04/23 at 1145, Routine [facility] NaCl 0.9% (NS) bolus infusion 1,000 mL 03-04 17:30: 00 03-04 19:29 :00 No 1000mL at 999 mL/hr, 1,000 mL, IV Infusion, ONCE, 1 dose, On 03/04/23 at 1130, [facility] famotidine (PEPCID (PF)) injection 20 mg 03-04 17:00: 00 03-04 17:12 :00 No 20mg 20 mg, Slow IV Push, ONCE, 1 dose, On 03/04/23 at 1100, [facility] ondansetron (ZOFRAN (PF)) injection 8 mg 03-04 17:00: 00 03-04 17:12 :00 No 8mg 8 mg, Slow IV Push, ONCE, 1 dose, On 03/04/23 at 1100, [facility] traMADoL 50 mg tablet 03-04 00:00: 00 Yes [id number] 50mg Take 1 tablet by mouth every 6 (six) hours as needed (pain). Indication s: acute pain [facility] ondansetron 4 mg tablet 03-04 00:00: 00 Yes [id number] 1 or 2 tablets every 8 hours as needed for nausea [facility] HYDROcodone -acetaminop hen (NORCO 5) 5-325 mg tablet 1 tablet 2021-02 18:36: 44 Yes 1{tbl} 1 tablet, Oral, Q6HPRN, Starting on Mon11/19/21 at 1336, Until Discontinu ed, Routine, Pain (scale 4-6) [facility] acetaminoph en (TYLENOL) tablet 650 mg 2021-02 18:36: 26 Yes 650mg 650 mg, Oral, Q6HPRN, Starting on Mon11/19/21 at 1336, Until Discontinu ed, Routine, Pain (scale 1-3) [facility] ondansetron (ZOFRAN-ODT ) disintegrat ing tablet 4 mg 2021-02 13:45: 00 11-19 12:59 :00 No 4mg 4 mg, Oral, ONCE, 1 dose, On Mon11/19/21 at 0845, Routine [facility] HYDROcodone -acetaminop hen (NORCO 5) 5-325 mg tablet 1 tablet 2021-02 13:00: 00 11-19 12:59 :00 No 1{tbl} 1 tablet, Oral, ONCE, 1 dose, On Mon11/19/21 at 0800, ANA M [facility] cyclobenzap rine 5 mg tablet 2021-02 00:00: 00 Yes [id number] 5mg Take 1 tablet by mouth in the morning and 1 tablet at noon and 1 tablet in the evening. [facility] predniSONE 20 mg tablet 2021-02 00:00: 00 Yes [id number] 40mg Take 2 tablets by mouth in the morning. [facility] HYDROcodone -acetaminop hen (NORCO) 7.5-325 mg per tablet 2021-02 0-05 00:00: 00 11-18 04:59 :00 No [id number] 1{tbl} Take 1 tablet by mouth every 8 (eight) hours as needed for Pain for up to 7 days. Indication s: acute pain [facility] budesonide- formoteroL 80-4.5 mcg/actuati on inhaler 09-29 00:00: 00 Yes [id number] 2{puff} Inhale 2 Puffs 2 (two) times daily. [facility] bromphenira mine-pseudo ephedrine-D M (BROMFED DM) 2-30-10 mg/5 mL syrup 09-29 00:00: 00 Yes [id number] 5mL Take 5 mL by mouth 4 (four) times daily as needed for Congestion /Allergies or Cough. [facility] LIALDA 1.2 gram EC tablet 09-02 00:00: 00 Yes [facility] Hyoscyamine Sulfate 0.125 mg TbDL 08-31 00:00: 00 Yes TAKE 1-2 TABLETS BY MOUTH EVERY 4 TO 6 HOURS NEEDED [facility] sucralfate 1 gram tablet 08-31 00:00: 00 Yes [facility] atomoxetine 40 mg capsule 07-16 00:00: 00 Yes 40mg Take 40 mg by mouth daily. [facility] SERTraline 100 mg tablet 07-16 00:00: 00 Yes 100mg Take 100 mg by mouth every morning. [facility] traZODone 50 mg tablet 07-16 00:00: 00 Yes TAKE 1 TABLET BY MOUTH NIGHTLY [facility] acetaminoph en-codeine (TYLENOL-CO DEINE #3) 300-30 mg tablet 03-24 00:00: 00 Yes [id number] 1{tbl} Take 1 tablet by mouth every 4 (four) hours as needed for Pain (scale 7-10). Indication s: acute pain [facility] metoclopram rena HCl 10 mg tablet 2021-0 2-16 00:00: 00 Yes [id number] 10mg Take 1 tablet by mouth every 6 (six) hours. [facility] dicyclomine 20 mg tablet 03-07 00:00: 00 Yes [id number] 20mg Take 1 tablet by mouth 4 (four) times daily. [facility] ondansetron (ZOFRAN ODT) 4 mg disintegrat ing tablet 03-07 00:00: 00 Yes [id number] 4mg Take 1 tablet by mouth every 8 (eight) hours as needed for Nausea and Vomiting (N/V). [facility] Immunizations Ordered Immunization Name Filled Immunization Name Date Status Comments Source Td 2021-11-19 00:00:00 Completed [facility] Td 2021-11-19 00:00:00 Completed [facility] Td 2021-11-19 00:00:00 Completed [facility] TD, NOS 2021-11-19 00:00:00 Completed [facility] TDAP 2016-11-15 00:00:00 Completed [facility] Influenza Virus Vaccine Quad IM 3+ 2016-11-15 00:00:00 Completed [facility] TDAP 2016-11-15 00:00:00 Completed [facility] Influenza Virus Vaccine Quad IM 3+ 2016-11-15 00:00:00 Completed [facility] TDAP 2016-11-15 00:00:00 Completed [facility] Influenza Virus Vaccine Quad IM 3+ 2016-11-15 00:00:00 Completed [facility] TDAP 2016-11-15 00:00:00 Completed [facility] Influenza Virus Vaccine Quad IM 3+ 2016-11-15 00:00:00 Completed [facility] TDAP 2016-11-15 00:00:00 Completed [facility] Influenza Virus Vaccine Quad IM 3+ 2016-11-15 00:00:00 Completed [facility] TDAP 2016-11-15 00:00:00 Completed [facility] Influenza Virus Vaccine Quad IM 3+ 2016-11-15 00:00:00 Completed [facility] TDAP 2016-11-15 00:00:00 Completed [facility] Influenza Virus Vaccine Quad IM 3+ 10 00:00:00 Completed [facility] TDAP 2016-11-15 00:00:00 Completed [facility] Influenza Virus Vaccine Quad IM 3+ YRS 2016-11-15 00:00:00 Completed TDAP 2016-11-15 00:00:00 Completed [facility] Influenza Virus Vaccine Quad IM 3+ YRS 2016-11-15 00:00:00 Completed [facility] TDAP 2016-11-15 00:00:00 Completed [facility] Influenza Virus Vaccine Quad IM 3+ YRS 2016-11-15 00:00:00 Completed [facility] TDAP Unknown Completed [facility] Influenza Virus Vaccine Quad IM 3+ YRS Unknown Completed [facility] TD, NOS Unknown Completed [facility] TDAP Unknown Completed [facility] Influenza Virus Vaccine Quad IM 3+ YRS Unknown Completed [facility] TD, NOS Unknown Completed [facility] TDAP Unknown Completed [facility] Influenza Virus Vaccine Quad IM 3+ YRS Unknown Completed [facility] TD, NOS Unknown Completed [facility] TDAP Unknown Completed [facility] Influenza Virus Vaccine Quad IM 3+ YRS Unknown Completed [facility] TD, NOS Unknown Completed [facility] Vital Signs Vital Name Observation Time Observation Value Comments S ource Systolic blood pressure 2024-08-06 14:00:00 149 mm[Hg] [facility] Diastolic blood pressure 2024-08-06 14:00:00 87 mm[Hg] [facility] Heart rate 2024-08-06 14:00:00 59 /min [facility] Respiratory rate 2024-08-06 14:00:00 18 /min [facility] Oxygen saturation in Arterial blood by Pulse oximetry 2024-08-06 14:00:00 100 /min [facility] Body temperature 2024-08-06 12:06:00 37 Kori [facility] Body height 2024-08-06 12:06:00 157.5 cm [facility] Body weight 2024-08-06 12:06:00 56.7 kg [facility] BMI 2024-08-06 12:06:00 22.86 kg/m2 [facility] Systolic blood pressure 2023-08-16 08:16:43 139 mm[Hg] [facility] Diastolic blood pressure 2023-08-16 08:16:43 85 mm[Hg] [facility] Heart rate 2023-08-16 08:16:43 43 /min [facility] Respiratory rate 2023-08-16 08:16:43 16 /min [facility] Oxygen saturation in Arterial blood by Pulse oximetry 2023-08-16 08:16:43 98 /min [facility] Body temperature 2023-08-16 04:01:00 37.39 Kori [facility] Body height 2023-08-16 04:01:00 157.5 cm [facility] Body weight 2023-08-16 04:01:00 58.968 kg [facility] BMI 2023-08-16 04:01:00 23.78 kg/m2 [facility] Systolic blood pressure 2023-05-11 20:34:00 132 mm[Hg] [facility] Diastolic blood pressure 2023-05-11 20:34:00 76 mm[Hg] [facility] Heart rate 2023-05-11 20:34:00 65 /min [facility] Body temperature 2023-05-11 20:34:00 37.11 Kori [facility] Respiratory rate 2023-05-11 20:34:00 18 /min [facility] Body height 2023-05-11 20:34:00 157.5 cm [facility] Body weight 2023-05-11 20:34:00 58.968 kg [facility] BMI 2023-05-11 20:34:00 23.78 kg/m2 [facility] Oxygen saturation in Arterial blood by Pulse oximetry 2023-05-11 20:34:00 95 /min [facility] Systolic blood pressure 2023-04-11 18:26:00 118 mm[Hg] [facility] Diastolic blood pressure 2023-04-11 18:26:00 82 mm[Hg] [facility] Heart rate 2023-04-11 18:26:00 82 /min [facility] Body temperature 2023-04-11 18:26:00 37.22 Kori [facility] Respiratory rate 2023-04-11 18:26:00 20 /min [facility] Body height 2023-04-11 18:26:00 157.5 cm [facility] Body weight 2023-04-11 18:26:00 58.968 kg [facility] BMI 2023-04-11 18:26:00 23.78 kg/m2 [facility] Oxygen saturation in Arterial blood by Pulse oximetry 2023-04-11 18:26:00 100 /min [facility] Systolic blood pressure 2023-03-04 18:30:00 101 mm[Hg] [facility] Diastolic blood pressure 2023-03-04 18:30:00 75 mm[Hg] [facility] Heart rate 2023-03-04 18:30:00 60 /min [facility] Respiratory rate 2023-03-04 18:30:00 16 /min [facility] Oxygen saturation in Arterial blood by Pulse oximetry 2023-03-04 18:30:00 98 /min [facility] Body temperature 2023-03-04 16:39:00 37.22 Kori [facility] Body height 2023-03-04 16:39:00 157.5 cm [facility] Body weight 2023-03-04 16:39:00 59.013 kg [facility] BMI 2023-03-04 16:39:00 23.80 kg/m2 [facility] Systolic blood pressure 2021-11-19 23:00:00 115 mm[Hg] [facility] Diastolic blood pressure 2021-11-19 23:00:00 75 mm[Hg] [facility] Heart rate 2021-11-19 23:00:00 56 /min [facility] Respiratory rate 2021-11-19 23:00:00 16 /min [facility] Oxygen saturation in Arterial blood by Pulse oximetry 2021-11-19 23:00:00 100 /min [facility] Body temperature 2021-11-19 16:35:00 37 Kori [facility] Body weight 2021-11-19 16:35:00 56.7 kg [facility] BMI 2021-11-19 16:35:00 22.86 kg/m2 [facility] Systolic blood pressure 2021-11-19 14:41:14 130 mm[Hg] [facility] Diastolic blood pressure 2021-11-19 14:41:14 87 mm[Hg] [facility] Heart rate 2021-11-19 14:41:14 85 /min [facility] Body temperature 2021-11-19 14:41:14 36.67 Kori [facility] Respiratory rate 2021-11-19 14:41:14 18 /min [facility] Oxygen saturation in Arterial blood by Pulse oximetry 2021-11-19 14:41:14 99 /min [facility] Body height 2021-11-19 12:31:00 157.5 cm [facility] Body weight 2021-11-19 12:31:00 56.7 kg [facility] BMI 2021-11-19 12:31:00 22.86 kg/m2 [facility] Systolic blood pressure 2021-11-10 17:03:00 126 mm[Hg] [facility] Diastolic blood pressure 2021-11-10 17:03:00 86 mm[Hg] [facility] Heart rate 2021-11-10 17:03:00 85 [facility] Body temperature 2021-11-10 17:03:00 37.06 Kori [facility] Respiratory rate 2021-11-10 17:03:00 20 /min [facility] Body height 2021-11-10 17:03:00 157.5 cm [facility] Body weight 2021-11-10 17:03:00 55.792 kg [facility] BMI 2021-11-10 17:03:00 22.50 kg/m2 [facility] Oxygen saturation in Arterial blood by Pulse oximetry 2021-11-10 17:03:00 99 /min [facility] Systolic blood pressure 2020-09-29 22:26:00 139 mm[Hg] [facility] Diastolic blood pressure 2020-09-29 22:26:00 89 mm[Hg] [facility] Heart rate 2020-09-29 22:26:00 76 /min [facility] Body temperature 2020-09-29 22:26:00 36.89 Kori [facility] Respiratory rate 2020-09-29 22:26:00 16 /min [facility] Body height 2020-09-29 22:26:00 154.9 cm [facility] Body weight 2020-09-29 22:26:00 53.025 kg [facility] BMI 2020-09-29 22:26:00 22.09 kg/m2 [facility] Oxygen saturation in Arterial blood by Pulse oximetry 2020-09-29 22:26:00 100 /min [facility] Procedures Procedure Date / Time Performed Performing Clinician Source URINALYSIS 2024-08-06 13:25:00 [facility] URINE DRUG (IMMUNOASSAY) - COMPREHENSIVE DRUG SCREEN W/O REFLEX 2024-08-06 13:25:00 Singer [facility] FENTANYL (IMMUNOASSAY) 2024-08-06 13:25:00 Garth Parham [facility] CT ABDOMEN PELVIS W CONTRAST 2024-08-06 12:49:57 Singer [facility] LIPASE 2024-08-06 12:23:00 [facility] COMP. METABOLIC PANEL ([id number]) 2024-08-06 12:23:00 Singer [facility] CBC WITH DIFF 2024-08-06 12:23:00 Jossy Parham [facility] POCT TEST 2023-08-16 05:13:00 Araseli Shelton [facility] URINALYSIS 2023-08-16 04:54:00 Araseli Shelton [facility] LIPASE 2023-08-16 04:46:00 Araseli Shelton [facility] COMP. METABOLIC PANEL ([id number]) 2023-08-16 04:46:00 Araseli Shelton [facility] CBC WITH DIFF 2023-08-16 04:46:00 [facility] 2023-05-11 21:02:29 Dipika Cruz [facility] XR WRIST 3+ VW LEFT 2023-05-11 21:02:29 Dayo Cruz [facility] CONSENT/REFUSAL FOR DIAGNOSIS AND TREATMENT 2023-04-11 18:18:03 Doctor Unassigned, [place] [facility] LIPASE 2023-03-04 17:08:00 Araseli Shelton [facility] COMP. METABOLIC PANEL ([id number]) 2023-03-04 17:08:00 Araseli Shelton [facility] CBC WITH DIFF 2023-03-04 17:08:[address] [facility] URINALYSIS 2023-03-04 17:08:00 Araseli Shelton [facility] POCT TEST 2023-03-04 17:08:00 Araseli Shelton [facility] CONSENT/REFUSAL FOR DIAGNOSIS AND TREATMENT 2023-03-04 16:36:23 Doctor Unassigned, [place] [facility] AUTHORIZATION FOR RELEASE OF PHI 2021-12-02 05:01:00 Doctor Unassigned, [place] [facility] MR CERVICAL SPINE WO CONTRAST 2021-11-19 20:56:00 Michael Stock [facility] COVID-19 (ID NOW RAPID TESTING) 2021-11-19 14:10:00 Magen Rouse [facility] CT CERVICAL SPINE WO CONTRAST 2021-11-19 12:49:50 Magen Rouse [facility] CT HEAD WO CONTRAST 2021-11-19 12:49:50 Lily Rouse [facility] CONSENT/REFUSAL FOR DIAGNOSIS AND TREATMENT 2021-11-19 12:35:14 Doctor Unassigned, [place] [facility] XR HAND 3+ VW LEFT 2021-11-10 17:32:17 Magen Rouse [facility] XR WRIST 3+ VW LEFT 2021-11-10 17:31:56 Lily Rouse [facility] NOTICE OF PRIVACY PRACTICES 2021-11-10 16:59:19 Doctor Unassigned, [place] [facility] CONSENT/REFUSAL FOR DIAGNOSIS AND TREATMENT 2021-11-10 16:58:04 Doctor Unassigned, [place] [facility] ASSIGNMENT OF BENEFITS 2020-09-29 22:10:07 Docto r Unassigned, [place] [facility] Encounters Start Date/Time End Date/Time Encounter Type Admission Type Attending [facility] Care Department Encounter ID Source 2020-12-05 23:41:25 Emergency [facility] [id number] [facility] 2020-12-05 20:46:01 Emergency [facility] [id number] [facility] 2020-12-05 20:45:07 Emergency [facility] [id number] [facility] 2020-12-03 22:03:22 Emergency [facility] [id number] [facility] 2024-08-06 07:07:00 2024-08-06 09:40:00 Emergency JOSSY OROSCO PHILLIP [facility] ERT [id number] [facility] 2023-08-15 22:53:00 2023-08-16 04:30:00 Emergency BRISEYDA HEDRICK ANDRES [facility] ERT [id number] [facility] 2023-08-15 22:53:00 2023-08-16 04:30:00 Emergency Araseli Shelton Andres [facility] [id number] 350.1.13.10 4.2.7.2.686 [id number] [facility] 2023-05-11 15:37:00 2023-05-11 17:24:00 Emergency DIPIKA CARTY [facility] ERT [id number] [facility] 2023-05-11 15:37:00 2023-05-11 17:24:00 Emergency Dipika Cruz [facility] 1.2.840.114 350.1.13.10 4.2.7.2.686 [id number] [facility] 2023-04-11 12:30:00 2023-04-11 13:22:00 Emergency MITALI OCASIO [facility] ERT [id number] [facility] 2023-04-11 12:30:00 2023-04-11 13:22:00 Emergency Mitali Rausch [facility] 1.2.840.114 350.1.13.10 4.2.7.2.686 [id number] [facility] 2023-03-04 10:44:00 2023-03-04 13:29:00 Emergency Cindi VILLATHEODOREARASELI [facility] ERT [id number] [facility] 2023-03-04 10:44:00 2023-03-04 13:29:00 Emergency Villatheodore Howell [facility] 1.2.840.114 350.1.13.10 4.2.7.2.686 [id number] [facility] 2021-12-02 00:00:00 2021-12-02 00:00:00 Orders Only Doctor Unassigned, [place] [facility] 1.2.840.114 350.1.13.10 4.2.7.2.686 [id number] [facility] 2021-11-19 11:43:00 2021-11-19 18:54:00 Emergency X SRAVAN MISHRA [facility] ERT [id number] [facility] 2021-11-19 11:43:00 2021-11-19 18:54:00 Emergency E[facility]ada [facility] 1.2.840.114 350.1.13.10 4.2.7.2.686 [id number] [facility] 2021-11-19 07:30:00 2021-11-19 10:47:00 Emergency X MAGEN ROUSE [facility] ERT [id number] [facility] 2021-11-19 07:30:00 2021-11-19 10:47:00 Emergency Magen Rouse [facility] 1.2840.114 350.1.13.10 4.2.7.2.686 [id number] [facility] 2021-11-10 12:05:00 2021-11-10 13:29:00 Emergency X MAGEN ROUSE [facility] ERT [id number] [facility] 2021-11-10 12:05:00 2021-11-10 13:29:00 Emergency Magen Rouse [facility] 1.2840.114 350.1.13.10 4.2.7.2.686 [id number] [facility] 2021-11-10 00:00:00 2021-11-10 00:00:00 Orders Only Doctor Unassigned, [place] [facility] 1.20.114 350.1.13.10 4.2.7.2.686 [id number] [facility] 2020-09-29 17:40:00 2020-09-29 17:40:00 [id number] 2020-09-29 17:11:16 2020-09-29 17:31:16 [facility] 1.20.114 350.1.13.10 4.2.7.2.686 [id number] [facility] 2020-09-29 00:00:00 2020-09-29 00:00:00 Telephone Angi Sanford [facility] 1.20.114 350.1.13.10 4.2.7.2.686 [id number] [facility] 2020-09-29 00:00:00 2020-09-29 00:00:00 Orders Only Doctor Unassigned, [place] [facility] 1.2.840.114 350.1.13.10 4.2.7.2.686 [id number] [facility] 2020-09-29 00:00:00 2020-09-29 00:00:00 Letter (Out) Angi [facility] 1..840.114 350.1.13.10 4.2.7.2.686 [id number] [facility] 2020-01-16 13:00:00 2020-01-16 13:00:00 Outpatient JAVI LOZOYA [facility] [id number] [facility] 2019-08-15 10:45:00 2019-08-15 10:45:00 Outpatient APOLONIA LEAHY [facility] [id number] [facility] 2019-08-15 10:45:00 2019-08-15 10:45:00 Outpatient APOLONIA LEAHY [facility] [id number] [facility] 2019-06-17 10:46:52 2019-06-17 13:28:00 Emergency X JOSSY PARHAM [facility] ERT [id number] [facility] 2019-04-11 09:40:39 2019-04-11 16:24:00 Emergency X JOSSY PARHAM [facility] ERT [id number] [facility] Results Test Description Test Time Test Comments Results Result Co mments Source [facility] 13:58:55* Test Item Value Reference Range Interpretation Comme nts LIPASE (test code = 3767743166) 70 U/L 0-220 Lab Interpretation (test cod e = 08015-0) Normal [facility] [id number] 13:53:16* Test Item Value Reference Range Interpretation Comme nts WBC (test code = 6690-2) 7.89 4.30-11.10 RBC (test code = 789-8) 4.49 3.93-5.25 HGB (test code = 718-7) 14.6 g/dL 11.6-15.0 HCT (test code = 4544-3) 42.2 % 35.7-45.2 MCV (test code = 787-2) 94 fL 80.6-95.5 MCH (test code = 785-6) 32.5 pg 25.9-32.8 MCHC (test code = 786-4) 34.6 g/dL 31.6-35.1 RDW-SD (test code = 50365-2) 46.7 fL 39.0-49.9 RDW-CV (test code = 788-0) 13.6 % 12.0-15.5 PLT (test code = 777-3) 527 166-358 H MPV (test code = 18457-6) 8.3 fL 9.5-12.9 L NRBC/100 WBC (test code = 5633965209) 0 0.0-10.0 NRBC x10^3 (test code = 6277522713) See_Comment [Automated messa ge] The system which generated this result transmitted reference range: 10*3/?L. The reference range was not used to interpret this result as normal/abnormal. GRAN MAT (NEUT) % (test code = 770-8) 71 % IMM GRAN % (test code = 2787854767) 0.3 % LYMPH % (test code = 736-9) 22.4 % MONO % (test code = 5905-5) 6 % EOS % (test code = 713-8) 0 % BASO % (test code = 706-2) 0.3 % GRAN MAT x10^3(ANC) (test code = 1064986858) 5.61 10*3/uL 1.88-7.09 IMM GRAN x10^3 (test code = 3744590240) 0.00-0.06 LYMPH x10^3 (test code = 731-0) 1.77 10*3/uL 1.32-3.29 MONO x10^3 (test code = 742-7) 0.47 10*3/uL 0.33-0.92 EOS x10^3 (test code = 711-2) 0.03-0.39 L BASO x10^3 (test code = 704-7) 0.01-0.07 Lab Interpretation (test code = 60208-8) [facility]normal [facility] [id number] 13:25:17EXAM: CT ABDOMEN PELVIS W CONTRAST 08/06/2024 7:25 AM HISTORY: 33 years- old Female with LLQ abdominalpain . COMPARISON: None. TECHNIQUE: Contiguous axial imaging from the level of the lung basesthrough the proximal thighs was performed after the administration ofintravenous nonionic iodinated contrast. Abdomen was scanned in venousphase. Corresponding coronal and sagittal MPR reconstructions wereobtained. ?Auto mA and/or iterative reconstruction were used to reduceradiation dose. FINDINGS: Motion artifact limits evaluation. LOWER THORAX: Degraded by respiratory motion. LIVER AND BILIARY: ?The liver is normal in size and contour. No focalhepatic lesion is seen.The gallbladder appears unremarkable. No intra or extrahepatic biliaryductal dilation is visualized. PANCREAS: Normal morphology andenhancement. No ductal dilation or massesare visualized. SPLEEN: The spleen appears unremarkable. ADRENAL GLANDS: No adrenal masses are seen. KIDNEYS, URETERS, AND BLADDER: ?Normal renal size, morphology, andenhancement. No solid masses. No stones or hydronephrosis. The bladder isadequately distended and appears unremarkable. REPRODUCTIVE ORGANS: Normal reproductive organs. Tampon within the vagina. GI TRACT AND PERITONEUM: The small bowel and colon show no grossabnormality. No dilation or bowel wall thickening is seen. The appendixappears unremarkable. No intra-abdominal free air or fluid collection isvisualized. VESSELS: Portal, splenic, and superior mesenteric veins are patent.Visceral arteries are patent. No abdominal aortic aneurysm. Narrow aaorta-SMA angle. LYMPH NODES: Lymph nodes in the retroperitoneal, mesenteric, and iliacareas are not enlarged. BONES AND SOFT TISSUES: No suspicious sclerotic or lytic osseous lesions.No fractures. [id number] 05:13:00* Test Item Value Reference Range Interpretation Comme nts POCT PREG (test code = 1605) Negative On board controls acceptable with C Line (test code = 3574) Yes POCT PREG LOT # (test code = 3575) [id number] POCT PREG TEST DATE ( test code = 3576) 06/13/2024 Lab Interpretation (test cod e = 58195-6) [facility] VW [id number] 21:05:34HISTORY: Left hand pain over first MCP joint. S/P fall. FINDINGS: AP, lateral, oblique views of left hand are obtained and comparedwith 11/10/2021 study. No acute fracture or dislocation. No significantchanges of arthritis or aggressive bone lesions seen. No soft tissuecalcifications, bony erosions or juxta-articular osteoporosis detected. CONCLUSIONS: [facility] W[facility]+ VW [id number] 21:04:44HISTORY: Radial side left wrist pain. FINDINGS: AP, lateral, oblique views of left wrist are obtained andcompared with 11/10/2021 study. No acute fracture or dislocation. Nosignificant changes of arthritis or aggressive bone lesions seen. No bonyerosions or soft tissue calcifications detected. CONCLUSIONS: Normal study. [facility]. METABOLIC PANEL (64945)2023-03-04 17:33:25* Test Item Value Reference Range Interpretation Comme nts NA (test code = 8981021991) 139 mmol/L 135-145 K (test code = 3825160573) 4.1 mmol/L 3.5-5.0 CL (test code = 1455910202) 109 mmol/L 98-108 H CO2 TOTAL (test code = 6688912413) 22 mmol/L 23-31 L AGAP (test code = 9111703451) 8 2-16 BUN (test code = 2227767129) 13 mg/dL 7-23 GLUCOSE (test code = 5731679597) 104 mg/dL 70-110 CREATININE (test code = 4282723704) 0.79 mg/dL 0.50-1.04 TOTAL BILI (test code = 0228839082) 0.6 mg/dL 0.1-1.1 CALCIUM (test code = 3854866397) 9.6 mg/dL 8.6-10.6 T PROTEIN (test code = 9815729881) 8.7 g/dL 6.3-8.2 H ALBUMIN (test code = 3155657634) 5.1 g/dL 3.5-5.0 H ALK PHOS (test code = 8376389157) 40 U/L 34-122 ALTv (test code = 1742-6) 17 U/L 5-35 AST(SGOT) (test code = 1030249477) 23 U/L 13-40 eGFR (test code = 03857-7) 102.1 mL/min/1.73m2 CKD-EPI eGFR (2020). Assuming creatinine has been stable day-to-day for at least three months, the eGFR indicates Category G1 (>= 90 mL/min/1.73 m2) Lab Interpretation (test code = 78256-6) Abnormal [facility] 17:33:00* Test Item Value Reference Range Interpretation Comme nts LIPASE (test code = 5797492212) 92 U/L 0-220 Lab Interpretation (test cod e = 40361-5) Normal [facility] WITH [id number] 17:22:38* Test Item Value Reference Range Interpretation Comme nts WBC (test code = 6690-2) 9.48 See_Comment [Automated [employer] ge] The system which generated this result transmitted reference range: 4.30 - 11.10 10*3/?L. The reference range was not used to interpret this result as normal/abnormal. RBC (test code = 789-8) 4.12 See_Comment [Automated [employer]] The system which generated this result transmitted [...] 34.7 g/dL 31.6-35.1 RDW-SD (test code = 91730-2) 46.9 fL 39.0-49.9 RDW-CV (test code = 788-0) 12.5 % 12.0-15.5 PLT (test code = 777-3) 438 See_Comment H [Automated messa ge] The system which generated this result transmitted reference range: 166 - 358 10*3/?L. The reference range was not used to interpret this result as normal/abnormal. MPV (test code = 80866-5) 7.8 fL 9.5-12.9 L NRBC/100 WBC (test code = 0302737676) 0.0 See_Comment [Automated [employer]] The system which generated this result transmitted reference range: 0.0 - 10.0 /100 WBCs. The reference range was not used to interpret this result as normal/abnormal. NRBC x10^3 (test code = 2060047263) See_Comment [Automated [place] ge] The system which generated this result transmitted reference range: 10*3/?L. The reference range was not used to interpret this result as normal/abnormal. GRAN MAT (NEUT) % (test code = 770-8) 56.9 % IMM GRAN % (test code = 9911936421) 0.40 % LYMPH % (test code = 736-9) 32.5 % MONO % (test code = 5905-5) 8.1 % EOS % (test code = 713-8) 1.5 % BASO % (test code = 706-2) 0.6 % GRAN MAT x10^3(ANC) (test code = 6114570698) 5.39 10*3/uL 1.88-7.09 IMM GRAN x10^3 (test code = 7922896980) 0.04 10*3/uL 0.00-0.06 LYMPH x10^3 (test code = 731-0) 3.08 10*3/uL 1.32-3.29 MONO x10^3 (test code = 742-7) 0.77 10*3/uL 0.33-0.92 EOS x10^3 (test code = 711-2) 0.14 10*3/uL 0.03-0.39 BASO x10^3 (test code = 704-7) 0.06 10*3/uL 0.01-0.07 Lab Interpretation (test code = 45896-9) Abnormal [facility] [id number] 17:08:00* Test Item Value Reference Range Interpretation Comme nts POCT PREG (test code = 1605) Negative On board controls acceptable with C Line (test code = 3574) Yes POCT PREG LOT # (test code = 3575) [id number] POCT PREG TEST DATE ( test code = 3576) 05/14/2024 Lab Interpretation (test cod e = 24525-3) Normal [facility] Notes Date/Time Note Provider Source 2024-08-06 09:30:00 Patient called to be disconnected from monitoring equipment. States that she would like to leave if her Ct results were not back. Informed patient shew as being discharged. Travis Blackmon RN [facility] 2024-08-06 07:05:04 Patient states: "I started having abdominal pain and vomiting on Monday morning. At first I was diagnosed with chrones and they told me to stop smoking. 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 The patient arrived by car. The patient reports experiencing a digestive attack, initially diagnosed as Crohn's disease, but later suggested to be cannabinoid hyperemesis syndrome. The patient has abstained from smoking for over a month and is puzzled by the persistence of symptoms. The primary care physician advised seeking hospital care for medication administration and to discuss upcoming appointments. 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 Since ceasing smoking, the patient has not experienced any episodes of cyclical vomiting. The current episode of vomiting began on 08/03/2024. The patient describes extreme nausea but reports no presence of blood in the stool. The patient has been unable to retain any food or liquids, resulting in a lack of bowel movements and urine output. The last bowel movement was on 08/02/2024. The patient expresses a desire to avoid further CT scans, having already undergone several. SOCIAL HISTORY The patient has currently stopped smoking for over a month now. HPI Past Medical History/Immunizations: Past Medical History: Diagnosis Date Anemia, 01/22/2017 Back pain Crohn disease Heart murmur Hypothyroidism -induced hypertension in third trimester 01/22/2017 Tetanus received in last 5 years: No Allergies: No Known Allergies Past Social History: Tobacco Use Every Day; 0.3 packs/day; Smoked an average of 0.3 packs/day for 6.0 years; Types: Cigarettes Smokeless Tobacco: Never used smokeless tobacco. Alcohol Use No. Drug Use No. Sexual Activity Sexually active; Partners: Male; Control/Protection: None. Past Surgical History: Past Surgical History: Procedure Laterality Date SECTION 08/09/2011 EPIDURAL STEROID INJECTION ORAL SURGERY PROCEDURE [place] teeth extraction TUBAL LIGATION 01/21/2017 TUBAL LIGATION Bilateral 01/21/2017 Surgeon: Ruby Pop MD; Location: Labor and Delivery - [place] Review of Systems: Review of Systems Constitutional: Negative for fever. Respiratory: Negative for cough and shortness of breath. Cardiovascular: Negative for chest pain. Gastrointestinal: Positive for abdominal pain, constipation, nausea and vomiting. Genitourinary: Negative for dysuria. Physical Exam: Physical Exam ED Triage Vitals Weight 08/06/24 0706 56.7 kg (125 lb) Actual or estimated 08/06/24705 Estimated by patient/family report Height 08/06/24705 1.575 m (5' 2") BP 08/06/24 0710 (!) 160/102 Pulse 08/06/24705 77 Resp 08/06/24705 16 Temp 08/06/24705 37 ?C (98.6 ?F) Temp source 08/06/24705 Oral SpO2 08/06/24705 100 % Measured on 08/06/24705 Room air Physical Exam Constitutional: General: She is not in acute distress. Appearance: She is well-developed. HENT: Head: Normocephalic and atraumatic. Eyes: Pupils: Pupils are equal, round, and reactive to light. Cardiovascular: Rate and Rhythm: Normal rate. Pulmonary: Effort: Pulmonary effort is normal. Abdominal: General: There is no distension. Tenderness: There is abdominal tenderness (LLQ). There is no guarding or rebound. Musculoskeletal: General: Normal range of motion. Cervical back: Normal range of motion. Skin: General: Skin is warm and dry. Neurological: Mental Status: She is alert and oriented to person, place, and time. Radiology: CT Abdomen pelvis w contrast Final Result EXAM: CT ABDOMEN PELVIS W CONTRAST 08/06/2024 7:25 AM HISTORY: 33 years-old Female with LLQ abdominal pain . COMPARISON: None. TECHNIQUE: Contiguous axial imaging from the level of the lung bases through the proximal thighs was performed after the administration of intravenous nonionic iodinated contrast. Abdomen was scanned in venous phase. Corresponding coronal and sagittal MPR reconstructions were obtained. Auto mA and/or iterative reconstruction were used to reduce radiation dose. FINDINGS: Motion artifact limits evaluation. LOWER THORAX: Degraded by respiratory motion. LIVER AND BILIARY: The liver is normal in size and contour. No focal hepatic lesion is seen. The gallbladder appears unremarkable. No intra or extrahepatic biliary ductal dilation is visualized. PANCREAS: Normal morphology and enhancement. No ductal dilation or masses are visualized. SPLEEN: The spleen appears unremarkable. ADRENAL GLANDS: No adrenal masses are seen. KIDNEYS, URETERS, AND BLADDER: Normal renal size, morphology, and enhancement. No solid masses. No stones or hydronephrosis. The bladder is adequately distended and appears unremarkable. REPRODUCTIVE ORGANS: Normal reproductive organs. Tampon within the vagina. GI TRACT AND PERITONEUM: The small bowel and colon show no gross abnormality. No dilation or bowel wall thickening is seen. The appendix appears unremarkable. No intra-abdominal free air or fluid collection is visualized. VESSELS: Portal, splenic, and superior mesenteric veins are patent. Visceral arteries are patent. No abdominal aortic aneurysm. Narrow a aorta-SMA angle. LYMPH NODES: Lymph nodes in the retroperitoneal, mesenteric, and iliac areas are not enlarged. BONES AND SOFT TISSUES: No suspicious sclerotic or lytic osseous lesions. No fractures. IMPRESSION No acute intra-abdominal abnormality Preliminary Report Dictated by Resident: Karen Spivey I, Camilla Olivera MD., have reviewed this study and agree with the above report. Lab Results: Lab Results CBC WITH DIFF - Abnormal Result Value Ref Range WBC 7.89 4.30 - 11.10 10*3/?L RBC 4.49 3.93 - 5.25 10*6/?L HGB 14.6 11.6 - 15.0 g/dL HCT 42.2 35.7 - 45.2 % MCV 94.0 80.6 - 95.5 fL MCH 32.5 25.9 - 32.8 pg MCHC 34.6 31.6 - 35.1 g/dL RDW-SD 46.7 39.0 - 49.9 fL RDW-CV 13.6 12.0 - 15.5 % PLT 527 (*) 166 - 358 10*3/?L MPV 8.3 (*) 9.5 - 12.9 fL NRBC/100 WBC 0.0 0.0 - 10.0 /100 WBCs NRBC x10 3 <0.01 10*3/?L GRAN MAT (NEUT) % 71.0 % IMM GRAN % 0.30 % LYMPH % 22.4 % MONO % 6.0 % EOS % 0.0 % BASO % 0.3 % GRAN MAT x10 3 (ANC) 5.61 1.88 - 7.09 10*3/uL IMM GRAN x10 3 <0.03 0.00 - 0.06 10*3/uL LYMPH x10 3 1.77 1.32 - 3.29 10*3/uL MONO x10 3 0.47 0.33 - 0.92 10*3/uL EOS x10 3 <0.03 (*) 0.03 - 0.39 10*3/uL BASO x10 3 <0.03 0.01 - 0.07 10*3/uL COMP. METABOLIC PANEL (36587) - Abnormal NA 135 135 - 145 mmol/L K 3.4 (*) 3.5 - 5.0 mmol/L CL 99 98 - 108 mmol/L CO2 TOTAL 20 (*) 23 - 31 mmol/L AGAP 16 2 - 16 BUN 29 (*) 7 - 23 mg/dL GLUCOSE 124 (*) 70 - 110 mg/dL CREATININE 1.25 (*) 0.50 - 1.04 mg/dL TOTAL BILI 1.0 0.1 - 1.1 mg/dL CALCIUM 9.8 8.6 - 10.6 mg/dL T PROTEIN 10.2 (*) 6.3 - 8.2 g/dL ALBUMIN 5.6 (*) 3.5 - 5.0 g/dL ALK PHOS 58 34 - 122 U/L ALTv 23 5 - 35 U/L AST(SGOT) 26 13 - 40 U/L eGFR 58.5 mL/min/1.73m2 URINALYSIS - Abnormal APPEARANCE Clear Clear COLOR Yellow Yellow PH 6.0 4.8 - 8.0 SP GRAVITY >1.035 (*) 1.003 - 1.035 GLU U QUAL Normal Normal BLOOD 1+ (*) Negative KETONES 5 mg/dL (*) Negative PROTEIN 100 mg/dL (*) Negative UROBILIN Normal Normal BILIRUBIN Negative Negative NITRITE Negative Negative LEUK TREVOR Negative Negative RBC/HPF 10 (*) 0 - 3 HPF WBC/HPF <1 0 - 5 HPF BACTERIA Negative Negative SQ EPITH 2 HPF URINE DRUG (IMMUNOASSAY) - COMPREHENSIVE DRUG SCREEN W/O REFLEX - Abnormal AMPHET Negative Negative CATHIE U Negative Negative BENZO U Presumptive Positive (*) Negative Cocaine Metabolite Negative Negative METHADONE Negative Negative OPIATES Negative Negative PCP Negative Negative THC Presumptive Positive (*) Negative LIPASE - Normal LIPASE 70 0 - 220 U/L FENTANYL (IMMUNOASSAY) - Normal FENTANYL Negative Negative EKG: If EKG completed, see Procedure Note. Orders and Treatments: Orders Placed This Encounter Procedures CT Abdomen pelvis w contrast Cbc with Diff Comp. Metabolic Panel (42734) Lipase Urinalysis Urine Drug (Immunoassay) - Comprehensive Drug Screen w/o Reflex Fentanyl (Immunoassay) Orders Placed This Encounter Medications NaCl 0.9% (NS) bolus infusion 500 mL diphenhydrAMINE (BENADRYL) injection 25 mg proCHLORperazine (COMPAZINE) injection 5 mg pantoprazole (PROTONIX) 40 mg in NaCl 0.9% (NS) 10 mL syringe iopamidol (ISOVUE 370-500 mL) injection 85 mL proCHLORperazine (COMPAZINE) injection 5 mg First Provider Eval: ED Events Date/Time Event User Comments 08/06/24705 Medical Screening Begins JOSSY PARHAM -- 08/06/24705 First Provider Evaluation JOSSY PARHAM -- ED COURSE ED Course as of 08/06/24930Aug 06, [id number] BENZO U(!): Presumptive Positive [PS] 928 THC(!): Presumptive Positive [PS] ED Course User Index [PS] Jossy Parham DO Diagnosis/Impression as of 08/06/24930 Cyclical vomiting Cannabinoid hyperemesis syndrome Dehydration Results Laboratory Studies Potassium 3.4, BUN 29, creatinine 1.25. Drug screen positive for benzo and THC. Imaging CT scan of abdomen not consistent with acute emergent process. Procedures: Procedures MDM: Assessment & Plan Initial Assessment: Patient presents with extreme nausea, inability to hold down food or liquids, and absence of bowel movements since Monday. History of cannabinoid hyperemesis syndrome, claims to have quit smoking a month ago. Differential Diagnosis: - Cannabinoid hyperemesis syndrome: Symptoms align despite claim of abstaining from smoking. Positive drug screen for benzodiazepines and THC. Encourage fluids. - Dehydration: Evidenced by metabolic panel results (potassium 3.4, BUN 29, creatinine 1.25). Encourage fluids. ED Course: - Labs obtained and reviewed. - Imaging reviewed and not consistent with acute emergent process. - Drug screen positive for benzodiazepines and THC. - Encouraged fluid intake. Final Assessment: Labs and imaging reviewed, not consistent with acute emergent process. Drug screen positive for benzodiazepines and THC. Symptoms consistent with cannabinoid hyperemesis syndrome. Dehydration evidenced by metabolic panel results. Encouraged fluid intake. Clinical Impression: - Cannabinoid hyperemesis syndrome - Dehydration Disposition: Discharge: Home. Cyclical vomiting ceased. Follow-Up: GI specialist appointment next Monday. Medical Decision Making Amount and/or Complexity of Data Reviewed Labs: ordered. Decision-making details documented in ED Course. Radiology: ordered. Risk Prescription drug management. Flowsheet Documentation: Scoring Tools: No data recorded Disposition/Condition: ED Disposition ED Disposition Discharge Condition Stable Comment -- Discharge Medications: Patient's Medications START taking these medications No medications on file CONTINUE taking these medications which have NOT CHANGED ACETAMINOPHEN-CODEINE (TYLENOL-CODEINE #3) 300-30 MG TABLET Take 1 tablet by mouth every 4 (four) hours as needed for Pain (scale 7-10). Indications: acute pain ATOMOXETINE 40 MG CAPSULE Take 40 mg by mouth daily. BROMPHENIRAMINE-PSEUDOEPHEDRIN E-DM (BROMFED DM) 2-30-10 MG/5 ML SYRUP Take [...] tablet by mouth every 6 (six) hours. MOXIFLOXACIN 0.5 % OPHTHALMIC DROPS Place 1 Drop in left eye in the morning and 1 Drop at noon and 1 Drop in the evening. ONDANSETRON (ZOFRAN ODT) 4 MG DISINTEGRATING TABLET [...] these medications No medications on file Follow-up: Contact information for follow-up Mehran Kuhn MD Specialty: INTERNAL MEDICINE [facility] [address] Instructions: For follow up of the presenting symptoms. [facility] Specialty: Emergency Medicine [address] [place] [id number] Instructions: If symptoms worsen as documented in the discharge Electronically signed by: Jossy Parham DO 08/06/24 0932 [facility] 2023-08-16 04:28:47 Pt upset she is not receiving pain meds to help her abd pain. Pt eloped from ER with iv in place. Pt was followed by staff to vehicle and IV was removed. aware. [facility] 2023-08-16 04:26:15 Patient walking towards ER exit doors. RN took out PIV in parking lot. [facility] 2023-08-16 03:25:54 Pt no longer noted actively vomiting, but still c/o sharp LLQ pain. [facility] 2023-08-15 23:23:03 Pt actively vomiting at this time. [facility] 2023-08-15 22:57:23 Patient arrived via [facility] c/o abd pain that started four days ago. Patient has hx of chron's dx. Patient c/o N/V but no diarrhea. EMS gave 12.5 Phenergan IM. Patient recently discharged from [facility] with prescriptions for steroids and Zofran. Last medication taken was around 1600. Adriano Olmstead RN [facility] 2023-05-11 15:35:33 Pt c/o left hand pain. States that she fell backwards onto her left hand after seeing a dennis spider at work. 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 Ghazala Lloyd RN [facility] 2023-04-11 13:15:00 Pt given printed and [...] with steady gait, in no apparent distress. DRILLER HELPER Liseth Steven RN [facility] 2023-04-11 12:25:40 Patient state that yesterday at work she removed her eye protection and wiped her eyes and has been having pain and irritation since. States that she used the eye wash at work and flushed her eye. This morning eye feels irritated and was matted. No problems with vision. DRILLER HELPER Sheron Jaffe RN [facility] 2023-04-11 12:15:00 Images from the original note were not included. [facility] Emergency Department Note Patient Name: Hilaria Alcala Date of : 1990 32 year old female Treatment Room: [facility] ED [facility] Primary Care Physician: Mehran Kuhn Patient Escorted by: Self [9] Mode of [...] 08/09/2011 EPIDURAL STEROID INJECTION ORAL SURGERY PROCEDURE Java teeth extraction TUBAL LIGATION 01/21/2017 TUBAL LIGATION Bilateral 01/21/2017 Surgeon: Ruby Pop MD; Location: Labor and Delivery [facility] Review of Systems: Review of Systems Constitutional: [...] CAPSULE Take 40 mg by mouth daily. BROMPHENIRAMINE-PSEUDOEPHEDRIN E-DM (BROMFED DM) 2-30-10 MG/5 ML SYRUP Take [...] Electronically signed by: Mitali Rausch MD 04/11/23 0636 [facility] 2023-03-04 13:28:49 Patient discharged with abdominal pain. Follow up with pcp. Feeling better at this time. ENCE Anna RN [facility] 2023-03-04 10:37:45 Patient states: "I have chrones diease and I"m going through a flare up since Monday. I usually go to [facility] and they pump me up with morphine. I feel very dehydrated and I need fluids. I did take tramadol at 7 am. 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 METABOLIC PANEL (39651) - Abnormal NA 139 135 - 145 [...] CONTRAST CBC WITH DIFF COMP. METABOLIC PANEL (82691) LIPASE URINALYSIS POCT TEST Orders Placed This [...] CAPSULE Take 40 mg by mouth daily. BROMPHENIRAMINE-PSEUDOEPHEDRIN E-DM (BROMFED DM) 2-30-10 MG/5 ML SYRUP Take [...] signed by: Araseli Shelton MD 03/04/23 1308 [facility]
--- NOTE | 2024-10-01 13:04 | EDPHYS ---
Physician Documentation [facility] Name: Ashley Alcala Age: 34 yrs Sex: Female : 1990 Arrival Date: 10/01/2024 Time: 11:59 Bed IW6 Private MD: ED Physician Dell Tse HPI: 10/01 12:35 This 34 yrs old Female presents to ER via Ambulatory with complaints of Sore Throat. sb4 12:35 Family members have a sore throat and they are here to be tested for strep throat so sb4 she also wants to be tested for sore throat as a preventative measure. She is asymptomatic at this time. 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 Head/Face: Normocephalic, atraumatic. Eyes: Extra-ocular motions intact. Periorbital areas with no swelling, redness, or edema. ENT: Mucous membranes moist. Respiratory: No increased work of breathing, no retractions or nasal flaring. Skin: Warm, dry with normal turgor. Normal color with no rashes, no lesions, and no evidence of cellulitis. Vital Signs: 12:32 BP 123 / 89; Pulse 83; Resp 17; Temp 98.1; Pulse Ox 96% ; Weight 63.5 kg; Pain 0/10; jl7 12:32 Pain Scale: Adult jl7 MDM: 12:08 Medical Screening Exam initiated sb4 13:04 Data reviewed: vital signs, nurses notes, and as a result, I will discharge patient. sb4 Counseling: I had a detailed discussion with the patient and/or guardian regarding the historical points, exam findings, and any diagnostic results supporting the discharge/admit diagnosis, lab results, the need for outpatient follow up, for definitive care, to return to the emergency department if symptoms worsen or persist or if there are any questions or concerns that arise at home. 10/01 12:29 Order name: Group A Streptococcus Rapid; Complete Time: 13:03 sb4 10/01 13:05 Order name: Throat Culture EDMS Administered Medications: No medications were administered Disposition: 18:30 Co-signature as Attending Physician, Dell Tse MD I reviewed the patient's care rn provided by the Advanced Practice Provider and agree with the diagnosis and treatment plan. Disposition Summary: 10/01/24 13:03 Discharge Ordered Notes: Location: Home sb4 Problem: new sb4 Symptoms: are unchanged sb4 Condition: Stable sb4 Diagnosis - Person with feared health complaint in whom no diagnosis is made sb4 Followup: sb4 - With: Emergency Department - When: As needed - Reason: Fever > 102 F, Worsening of condition Discharge Instructions: - Discharge Summary Sheet sb4 Forms: - Patient Portal Instructions sb4 - Leadership Thank You Letter sb4 Signatures: Dispatcher [employer] Dell Ghotra MD MD rn Leal, Jahala, RN RN jl7 Brown, Sophia PAKalli PAKalli sb4
--- NOTE | 2024-10-01 13:04 | ER ---
Nurse's Notes [facility] Name: Ashley Alcala Age: 34 yrs Sex: Female : 1990 Arrival Date: 10/01/2024 Time: 11:59 Bed IW6 Private MD: Diagnosis: Person with feared health complaint in whom no diagnosis is made Presentation: 10/01 12:32 Chief complaint: Patient states: Sore throat since Monday. Coronavirus screen: At this jl7 time, the client does not indicate any symptoms associated with coronavirus-19. Ebola Screen: No symptoms or risks identified at this time. Initial Sepsis Screen: Does the patient meet any 2 criteria? No. Patient's initial sepsis screen is negative. Does the patient have a suspected source of infection? No. Patient's initial sepsis screen is negative. Risk Assessment: Do you want to hurt yourself or someone else? Patient reports no desire to harm self or others. Onset of symptoms is unknown. 12:32 Method Of Arrival: Ambulatory [facility] 12:32 Acuity: ESTEVAN 4 jl7 Triage Assessment: 12:34 General: Appears in no apparent distress. uncomfortable, Behavior is calm, cooperative, jl7 appropriate for age. Pain: Complains of pain in sore throat. EENT: Throat is clear. 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 Abuse screen: Denies threats or abuse. Denies injuries from another. Nutritional screening: No deficits noted. Tuberculosis screening: No symptoms or risk factors identified. Vital Signs: 12:32 BP 123 / 89; Pulse 83; Resp 17; Temp 98.1; Pulse Ox 96% ; Weight 63.5 kg; Pain 0/10; jl7 12:32 Pain Scale: Adult jl7 ED Course: 12:05 Patient arrived in ED. im 12:05 Ignacia Samuel PA-C is PHCP. sb4 12:06 Dell Tse MD is Attending Physician. sb4 12:33 Triage completed. jl7 12:34 Arm band placed on right wrist. jl7 13:22 Lm Carreno RN is Primary Nurse. jl7 13:22 Patient has correct armband on for positive identification. Provided Education on: jl7 discharge. 13:22 No provider procedures requiring assistance completed. Patient did not have IV access jl7 during this emergency room visit. Administered Medications: No medications were administered Medication: 13:22 VIS not applicable for this client. jl7 Outcome: 13:03 Discharge ordered by . sb4 13:22 Discharged to home ambulatory, jl7 13:22 Condition: stable 13:22 Discharge instructions given to patient, Instructed on discharge instructions, follow up and referral plans. Demonstrated understanding of instructions, follow-up care, 13:23 Patient left the ED. jl7 Signatures: Lm Carreno RN RN jl7 Ignacia Samuel PA-C PA-C sb4 Odalys Villanueva im
[2024-10-01 15:48] VITALS: BP 123/89; TEMP 98.1; O2SAT 96
== END 2024-10-01 13:23 | disposition home or self-care (01) ==
LOC: ER 11:59
DX: Z71.1 Person with feared health complaint in whom no diagnosis is made (principal)
CPT/HCPCS: 36415; 87070; 99282